=== PATIENT | female | born 1950 | race Caucasian/White ===

== ENCOUNTER 2017-02-18 15:38 | Emergency (ER) | payer MEDICARE ==
[2017-02-18 16:28] LABS: Hematocrit 35 % (35-47); Mean Corpuscular HGB Conc 34 g/dl (31-36); Mean Corpuscular Hemoglobin 36 pg (27-31); Mean Platelet Volume 8 um3 (7.4-10.4); Red Blood Count 3.32 10^6/ul (4.0-5.4); Red Cell Distribution Width 14 % (10.5-15); White Blood Count 5.7 10^3/ul (3.5-10.8)
[2017-02-18 16:32] LABS: Comments Flag Yes; Mean Corpuscular Volume 106 fL (80-97)
[2017-02-18 16:42] LABS: Albumin 3.8 g/dL (3.2-5.2); BUN/Creatinine Ratio 11.1 (8-20); EGFR African American 146.2 (>60); EGFR Non-African American 113.7 (>60); Globulin 3.9 g/dL (2-4); Potassium 3.6 mmol/L (3.5-5.0); Total Bilirubin 0.6 mg/dL (0.2-1.0); Total Protein 7.7 g/dL (6.4-8.9)
--- NOTE | 2017-02-18 16:49 | PN ---
Progress Note - Progress Note Date of Service: 02/18/17 SOAP: Subjective: Patient with 5/10 RUQ pain with radiation to right shoulder and right ear. No nausea. No SOB. Objective: [] Selected Entries 02/18/17 02/18/17 15:50 16:31 Temperature 97.8 F Temperature Temporal Artery Source Scan Pulse Rate 90 Respiratory 18 Rate Blood Pressure 181/90 152/92 (mmHg) Blood Pressure 107 Mean O2 Sat by Pulse 96 Oximetry Patient on Room Yes Air Laboratory Tests 02/18/17 15:16 WBC 5.7 RBC 3.32 L Hgb 12.0 Hct 35 AAO x 3, Mild distress Pain to palpation over the abdomen Tachy with RR, CTAB Biopsy site dressing is CDI Patient Name: MADHU ORONA Medical Record#: [id number] Ordering Physician: Collins Porter MD Acct.#: [id number] : 1950 Age: 66 Sex: F Location: [facility] Exam Date: 02/18/17 ADM Status: REG REF Order Information: US LIVER NEEDLE BIOPSY Accession Number: [id number] CPT: 68335 INDICATION: Abnormal liver function tests. COMPARISON: CT abdomen pelvis November 14, 2016 ANESTHESIA: Intravenous fentanyl and lidocaine injected locally. The benefits and risks of procedure explained to the patient and the patient signed informed consent. Multiple images of the right lobe of liver were obtained with sonographic imaging. A percutaneous tract was determined leading into the peripheral aspect of the right lobe of the liver. Color flow imaging did not show any pulsating arteries in the intended biopsy tract or within the intended liver parenchyma biopsy site. Prebiopsy ultrasound images were saved. A time out was performed before beginning the procedure. The patient was prepped and draped in the usual sterile fashion. The overlying skin, subcutaneous tissue and liver capsule were anesthetized with 1% lidocaine under sonographic guidance. Percutaneously and under sonographic control a single core biopsy was obtained with a 16. Gauge Bard Monopty device. Imaging was saved. The specimen was grossly visualized and confirmed, placed in formalin and delivered to the pathology laboratory. The immediate post procedure ultrasound demonstrates no evidence of a large hematoma or perinephric fluid. The biopsy site was dressed with sterile gauze and direct manual pressure was held for 5 minutes. About 45 minutes post biopsy the patient complained of right upper quadrant pain with radiation to the shoulder. Subsequent bedside ultrasound shows a perihepatic fluid collection. There is fluid between the kidney and liver. IMPRESSION: 1. Ultrasound-guided nonfocal core biopsy of the right lobe of the liver as described above. 2. 45 minute post biopsy sonographic imaging shows perihepatic fluid indicating a bleeding complication. The patient was transported to the emergency department for vital monitoring and IV fluids. <Electronically signed by Mckay Casas MD in OV> 02/18/17 160 Dictated By: Mckay Casas MD Dictated Date/Time: 02/18/17 160 Transcribed Date/Time: 02/18/17 1603 Copy to: 1 of 2 Assessment: 66 YOF with peritoneal bleeding status post right lobe liver biopsy with 16 gauge needle. Plan: CTA abdomen 4 phase now. If (+) for active arterial hemorrhage then recommend transfer to facility with emergency IR for potential coil embolization. If (-) for active arterial bleeding then pain control and ICU monitoring overnight. Plan was discussed with Dr. Faith.
[2017-02-18] MEDS ORDERED: Iohexol 300* (CONTRAST) 10 ML SDV IV ONE (17:27)
[2017-02-18] MEDS ORDERED: Morphine INJ* 2 MG/ML 1 ML CARPUJECT IV ONE (17:37)
--- NOTE | 2017-02-18 18:04 | RAD ---
CLINICAL HISTORY: Perihepatic bleed following percutaneous liver biopsy COMPARISON: Same day ultrasound of the liver . TECHNIQUE: Multiple contiguous axial CT scans were obtained of the abdomen after the administration of intravenous contrast according to the four-phase liver protocol. Coronal and sagittal multiplanar reformations are submitted for review. FINDINGS: VISUALIZED LUNG BASES: There is no large pleural effusion. There is hypoventilatory change at the right lung base not seen on the most recent CT examination. ABDOMEN: On the noncontrast image there is partially hyperdense heterogeneous fluid surrounding the liver and spleen. There is fluid tracking along the right paracolic gutter as well as fluid in the left paracolic gutter. On the arterial phase imaging there is extravasation adjacent to the lateral margin of the right lobe of the liver. The bleed appears to be originating from either Couinaud segment 6 or 7 of the liver (axial image 16 of 47 on the arterial phase). The bleed appears to be originating immediately posterior to the right hepatic vein and superior to the right portal vein. There is progressive accumulation of hyperdense contrast in the posterior hepatic bleed on the portal venous phase and 5 minute delayed phase imaging. There is hyperdense fluid surrounding the otherwise grossly normal spleen. The pancreas and adrenal glands are grossly normal in appearance. The gallbladder is normal. The kidneys are normal in appearance without focal mass, calcification or signs of hydronephrosis. Evaluation of the gastrointestinal tract is limited without oral contrast. The visualized segments of small and large bowel are not distended. Surgical material is noted at the transverse colon. There is no gross retroperitoneal or mesenteric lymphadenopathy in the visualized portions of the abdomen. There is atherosclerotic calcification at the infrarenal abdominal aorta extending into the left greater than right iliac arteries. There are no sinister bone lesions in the visualized bones. IMPRESSION: 1. Four-phase CTA of the liver is consistent with intraperitoneal bleed from a right hepatic branch artery, likely segment 6 or 7 from the right hepatic artery. 2. Additional chronic and degenerative changes noted in the body report unrelated to the patient's hepatic bleed. Findings and recommendation for transfer to [facility] for potential arterial embolization were discussed with Dr. Arambula over the telephone at 1800 hours on February 18, 2017.
[2017-02-18 18:08] LABS: Hematocrit 32 % (35-47)
[2017-02-18 18:09] LABS: Comments Flag Yes
--- NOTE | 2017-02-18 18:25 | ED ---
Meme Irvin Thomas, scribed for Mayur Arambula MD on 02/18/17 at 1627 . Complex/Multi-Sys Presentation - HPI Summary HPI Summary: The patient is a 66 y/o F brought over from the outpatient radiology department after a liver biopsy was performed by Dr. Casas today at approximately 14:00 for a small mass. The area of insertion is the anterior RUQ and there is no external bleeding apparent. Per the liver ultrasound report signed by Dr. Casas: About 45 minutes post biopsy the patient complained of right upper quadrant pain with radiation to the shoulder. Subsequent bedside ultrasound shows a perihepatic fluid collection. There is fluid between the kidney and liver. IMPRESSION: 1. Ultrasound-guided nonfocal core biopsy of the right lobe of the liver as described above. 2. 45 minute post biopsy sonographic imaging shows perihepatic fluid indicating a bleeding complication. The patient was transported to the emergency department for vital monitoring and IV fluids. In the ED, the patient c/o RUQ pain rated 1/10. The pain radiates to her neck and up her right ear. The patient was given Lidocaine, fentanyl, and Dilaudid during and/or after the procedure. She says she cannot take a deep breath. Before the examination of the patient, I received a call from Dr. Stephen, radiology, at 15:40. He says that the patient has a perihepatic hematoma and hemiperitoneum. - History Of Current Complaint Chief Complaint: EDAbdPain Time Seen by Provider: 02/18/17 15:44 Hx Obtained From: Patient, Medical Records, Other: - Dr. Stephen Onset/Duration: Sudden Onset, Lasting Hours - liver biopsy was today at 14:00, Still Present Timing: Constant Aggravating Factor(s): None. Alleviating Factor(s): None. Associated Signs And Symptoms: Positive: Other - RUQ abd pain (radiates to neck and right ear), inability to take a deep breath Related History: Other - Liver biopsy today at 14:00 - Allergies/Home Medications Allergies/Adverse Reactions: Allergies Allergy/AdvReac Type Severity Reaction Status Date / Time Ciprofloxacin [From Cipro] Allergy Intermediate Hives Verified 02/18/17 13:13 Infliximab [From Remicade] Allergy Intermediate See Comment Verified 02/18/17 13 :13 Metronidazole [From Flagyl] Allergy Mild Hives Verified 02/18/17 13:13 Pollen Extract Allergy Mild Sneezing Verified 02/18/17 13:13 Home Medications: Home Medications ALPRAZolam TAB* [Xanax TAB*] 0.5 mg PO DAILY PRN 02/18/17 [History Confirmed ] Acetaminophen [Acetaminophen Extra Stren] 500 mg PO BID PRN 02/18/17 [History Confirmed 02/18/17] Adalimumab (NF) [Humira Pen (NF)] 40 mg SUBCUT WEEKLY 02/18/17 [History Confirmed 02/18/17] Albuterol inh POWDER (NF) [Proair Respiclick] 2 puff INH QID PRN 02/18/17 [ History Confirmed 02/18/17] Alendronate (NF) [Fosamax (NF)] 70 mg PO WEEKLY 02/18/17 [History Confirmed ] Artificial Tears* 15 ML BTL [Polyvinyl Alcohol 1.4% OPTH*] 2 drop BOTH EYES DAILY PRN 02/18/17 [History Confirmed 02/18/17] Cholecalciferol [Vitamin D3] 50,000 unit PO MONTHLY 02/18/17 [History Confirmed 02/18/17] Clobetasol Propionate [Temovate] 0.05 % TOPICAL DAILY PRN 02/18/17 [History Confirmed 02/18/17] Cyanocobalamin INJ * [Vitamin B12 INJ *] 1,000 mcg IM MONTHLY 02/18/17 [History Confirmed 02/18/17] Doxepin (NF) [Silenor (NF)] 10 mg PO BEDTIME 02/18/17 [History Confirmed ] Gabapentin TAB(NF) [Neurontin 600 mg TAB(NF)] 1,200 mg PO TID 02/18/17 [History Confirmed 02/18/17] Halobetasol Propionate [Ultravate] 0.05 % TOPICAL BID PRN 02/18/17 [History Confirmed 02/18/17] Multivitamins/Minerals TAB* [Theragran/minerals TAB*] 1 tab PO DAILY 02/18/17 [ History Confirmed 02/18/17] Triamcinolone 0.5% CREAM(NF) [Triamcinolone 0.5% CREAM*] 1 applic TOPICAL BID PRN 02/18/17 [History Confirmed 02/18/17] hydrOXYzine HCL TAB* [Atarax 10 MG TAB*] 10 mg PO BEDTIME PRN 02/18/17 [History Confirmed 02/18/17] PMH/Surg Hx/FS Hx/Imm Hx Previously Healthy: No Endocrine/Hematology History: Denies: Hx Anticoagulant Therapy, Hx Diabetes, Hx Thyroid Disease Cardiovascular History: Denies: Hx Congestive Heart Failure, Hx Hypertension, Hx Pacemaker/ICD Respiratory History: Reports: Hx Seasonal Allergies, Hx Sleep Apnea Denies: Hx Asthma, Hx Chronic Obstructive Pulmonary Disease (COPD) GI History: Reports: Hx Crohn's Disease, Other GI Disorders - infectious colitis Denies: Hx Ulcer History: Reports: Other Problems/Disorders - 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 Denies: Hx Renal Disease Musculoskeletal History: Reports: Hx Fibromyalgia, Hx Orthopedic Injury - Broken right ankle/Broken left foot/Broken left arm/shattered sacrum Comment Only: Other Musculoskeletal History - fibromyalgia Sensory History: Reports: Hx Contacts or Glasses, Hx Eye Injury Opthamlomology History: Reports: Hx Contacts or Glasses, Hx Eye Injury Neurological History: Reports: Hx Seizures - One time with virus, in last 5 years, Other Neuro Impairments/Disorders - fibromyalgia Denies: Hx Dementia Psychiatric History: Reports: Hx Anxiety, Hx Depression Denies: Hx Eating Disorder, Hx Substance Abuse - Cancer History Cancer Type, Location and Year: LEFT BREAST CA dx 2003 Hx Chemotherapy: Yes Hx Radiation Therapy: Yes - Surgical History Surgery Procedure, Year, and Place: 2003 - Breast CA lumpectomy surgery with lymph node dissection, ([facility]), COLECTOMY 2013 (FROM DIVERTICULITIS), BLADDER REPAIR SURGERY Hx Anesthesia Reactions: No - Immunization History Date of Tetanus Vaccine: unknown Infectious Disease History: No Infectious Disease History: Denies: Hx Clostridium Difficile, Hx Hepatitis, Hx Human Immunodeficiency Virus (HIV), Hx Shingles, Hx Tuberculosis, Traveled Outside the [place] in Last 30 Days - Family History Known Family History: Positive: Other - CVA, CA - Social History Alcohol Use: Daily Alcohol Amount: glass of wine daily Hx Substance Use: No Substance Use Type: Reports: None Substance Use Comment - Amount & Last Used: daily Hx Tobacco Use: Yes Smoking Status (MU): Heavy Every Day Tobacco Smoker Type: Cigarettes Amount Used/How Often: 1/2 ppd Have You Smoked in the Last Year: Yes Review of Systems Negative: Fever Positive: Other - Inability to take a deep breath Positive: Abdominal Pain - RUQ abd pain (radiates to neck and R ear) All Other Systems Reviewed And Are Negative: Yes Physical Exam - Summary Physical Exam Summary: VITAL SIGNS: Reviewed. GENERAL: Patient is a well-developed and nourished female who is lying comfortable in the stretcher. Patient is not in any acute respiratory distress. HEAD AND FACE: No signs of trauma. No ecchymosis, hematomas or skull depressions. No sinus tenderness. EYES: PERRLA, EOMI x 2, No injected conjunctiva, no nystagmus. EARS: Hearing grossly intact. Ear canals and tympanic membranes are within normal limits. MOUTH: Oropharynx within normal limits. NECK: Supple, trachea is midline, no adenopathy, no JVD, no carotid bruit, no c- spine tenderness, neck with full ROM. CHEST: Symmetric, no tenderness at palpation LUNGS: Clear to auscultation bilaterally. No wheezing or crackles. CVS: Regular rate and rhythm, S1 and S2 present, no murmurs or gallops appreciated. ABDOMEN: There is tenderness in the RUQ, LUQ, epigastrium, and R shoulder. Soft. No signs of distention. No rebound no guarding, and no masses palpated. Bowel sounds are normal. EXTREMITIES: FROM in all major joints, no edema, no cyanosis or clubbing. NEURO: Alert and oriented x 3. No acute neurological deficits. Speech is normal and follows commands. SKIN: Dry and warm Triage Information Reviewed: Yes Vital Signs On Initial Exam: Initial Vitals Temp Pulse Resp BP Pulse Ox 97.8 F 90 18 181/90 96 02/18/17 15:50 02/18/17 15:50 02/18/17 15:50 02/18/17 15:50 02/18/17 15:50 Vital Signs Reviewed: Yes Diagnostics - Vital Signs Vital Signs Temp Pulse Resp BP Pulse Ox 02/18/17 15:50 97.8 F 90 18 181/90 96 - Laboratory Lab Results: Lab Results 02/18/17 02/18/17 02/18/17 Range/Units 15:16 15:16 15:16 WBC 5.7 (3.5-10.8) 10^3/ul RBC 3.32 L (4.0-5.4) 10^6/ul Hgb 12.0 (12.0-16.0) g/dl Hct 35 (35-47) % MCV 106 H (80-97) fL MCH 36 H (27-31) pg MCHC 34 (31-36) g/dl RDW 14 (10.5-15) % Plt Count 269 (150-450) 10^3/ul MPV 8 (7.4-10.4) um3 Neut % (Auto) 66.4 (38-83) % Lymph % (Auto) 17.7 L (25-47) % Harvey % (Auto) 12.0 H (1-9) % Eos % (Auto) 3.4 (0-6) % Baso % (Auto) 0.5 (0-2) % Absolute Neuts (auto) 3.8 (1.5-7.7) 10^3/ul Absolute Lymphs (auto) 1.0 (1.0-4.8) 10^3/ul Absolute Monos (auto) 0.7 (0-0.8) 10^3/ul Absolute Eos (auto) 0.2 (0-0.6) 10^3/ul Absolute Basos (auto) 0 (0-0.2) 10^3/ul Absolute Nucleated RBC 0 10^3/ul Nucleated RBC % 0.1 INR (Anticoag Therapy) (0.89-1.11) APTT (26.0-36.3) seconds Sodium 137 (133-145) mmol/L Potassium 3.6 (3.5-5.0) mmol/L Chloride 102 (101-111) mmol/L Carbon Dioxide 27 (22-32) mmol/L Anion Gap 8 (2-11) mmol/L BUN 6 (6-24) mg/dL Creatinine 0.54 (0.51-0.95) mg/dL Est GFR ( Amer) 146.2 (>60) Est GFR (Non-Af Amer) 113.7 (>60) BUN/Creatinine Ratio 11.1 (8-20) Glucose 92 (70-100) mg/dL Calcium 9.0 (8.6-10.3) mg/dL Total Bilirubin 0.60 (0.2-1.0) mg/dL AST 78 H (13-39) U/L ALT 27 (7-52) U/L Alkaline Phosphatase 44 (34-104) U/L Total Protein 7.7 (6.4-8.9) g/dL Albumin 3.8 (3.2-5.2) g/dL Globulin 3.9 (2-4) g/dL Albumin/Globulin Ratio 1.0 (1-3) Blood Type B Positive Antibody Screen Negative 02/18/17 02/18/17 Range/Units 15:55 18:00 WBC (3.5-10.8) 10^3/ul RBC (4.0-5.4) 10^6/ul Hgb 11.0 L (12.0-16.0) g/dl Hct 32 L (35-47) % MCV (80-97) fL MCH (27-31) pg MCHC (31-36) g/dl RDW (10.5-15) % Plt Count (150-450) 10^3/ul MPV (7.4-10.4) um3 Neut % (Auto) (38-83) % Lymph % (Auto) (25-47) % Harvey % (Auto) (1-9) % Eos % (Auto) (0-6) % Baso % (Auto) (0-2) % Absolute Neuts (auto) (1.5-7.7) 10^3/ul Absolute Lymphs (auto) (1.0-4.8) 10^3/ul Absolute Monos (auto) (0-0.8) 10^3/ul Absolute Eos (auto) (0-0.6) 10^3/ul Absolute Basos (auto) (0-0.2) 10^3/ul Absolute Nucleated RBC 10^3/ul Nucleated RBC % INR (Anticoag Therapy) 1.01 (0.89-1.11) APTT 27.5 (26.0-36.3) seconds Sodium (133-145) mmol/L Potassium (3.5-5.0) mmol/L Chloride (101-111) mmol/L Carbon Dioxide (22-32) mmol/L Anion Gap (2-11) mmol/L BUN (6-24) mg/dL Creatinine (0.51-0.95) mg/dL Est GFR ( Amer) (>60) Est GFR (Non-Af Amer) (>60) BUN/Creatinine Ratio (8-20) Glucose (70-100) mg/dL Calcium (8.6-10.3) mg/dL Total Bilirubin (0.2-1.0) mg/dL AST (13-39) U/L ALT (7-52) U/L Alkaline Phosphatase (34-104) U/L Total Protein (6.4-8.9) g/dL Albumin (3.2-5.2) g/dL Globulin (2-4) g/dL Albumin/Globulin Ratio (1-3) Blood Type Antibody Screen Result Diagrams: 02/18/17 18:00 02/18/17 15:16 Lab Statement: Any lab studies that have been ordered have been reviewed, and results considered in the medical decision making process. - Radiology CXR Xray Interpretation: No Acute Changes - No evidence for pneumothorax or other acute cardiopulmonary process post ultrasound-guided liver biopsy. ED physician has reviewed this report and agrees. Radiology Interpretation Completed By: Radiologist - CT CT Abd/Pel CT Interpretation: Positive (See Comments) - 1. Four-phase CTA of the liver is consistent with intraperitoneal bleed from a right hepatic branch artery, likely segment 6 or 7 from the right hepatic artery. 2. Additional chronic and degenerative changes noted in the body report unrelated to the patient's hepatic bleed. ED physician has reviewed this report and agrees. CT Interpretation Completed By: Radiologist Re-Evaluation - Re-Evaluation First Eval Re-Evaluation Time: 16:42 Change: Improved Comment: The patient's condition is improved. She has decreased pain, now at 3/ 10. Complex Multi-Symp Course/Dx Assessment/Plan: The patient is a 66 y/o F brought over from the outpatient radiology department after a liver biopsy was performed by Dr. Casas today at approximately 14:00 for a small mass. The area of insertion is the anterior RUQ and there is no external bleeding apparent. Per the liver ultrasound report signed by Dr. Casas: About 45 minutes post biopsy the patient complained of right upper quadrant pain with radiation to the shoulder. Subsequent bedside ultrasound shows a perihepatic fluid collection. There is fluid between the kidney and liver. IMPRESSION: 1. Ultrasound-guided nonfocal core biopsy of the right lobe of the liver as described above. 2. 45 minute post biopsy sonographic imaging shows perihepatic fluid indicating a bleeding complication. The patient was transported to the emergency department for vital monitoring and IV fluids.. In the ED, the patient c/o RUQ pain rated 1/10. The pain radiates to her neck and up her right ear. The patient was given Lidocaine, fentanyl, and Dilaudid during and/or after the procedure. She says she cannot take a deep breath. Before the examination of the patient, I received a call from Dr. Stephen, radiology, at 15:40. He says that the patient has a perihepatic hematoma and hemiperitoneum. Test results are without significant abnormality except MCV 106 and AST of 78. The ultrasound was called with a verbal report from Dr. Stephen and he says there is perihepatic bleeding, hematoma, and heriperitoneum. The patient was sent to the ED for further evaluation. The patients blood pressure is stable. The patient has pain; therefore, she was given Dilaudid and morphine for the pain. Dr. Casas came and examined the patient and he requests a CTA. He gave a verbal report and he reports jose antonio the patient has an arterial bleed and needs coiling. He spoke with Dr. Ferraro, arson and bomb investigator at [facility], and he accepts the patient for transfer. However, there was still confusion as to where the patient was going to be transferred. We called the transfer center again, and they report that the patient is being transferred to the ED and accepted by Dr. Estrada. The patient continues to be hemodynamically stable and alert and oriented x3. - Diagnoses Provider Diagnoses: Intrahepatic hemorrhage - Physician Notifications Discussed Care Of Patient With: Chris Philip Time Discussed With Above Provider: 15:44 Instructed by Provider To: Other - I spoke with Dr. Philip, surgery, over the phone at 15:44. He and his PA came to the ED to evaluate the patient and they reported their findings to me at 16:21. He will be available to consult on the patient later on as needed by Dr. Casas. I also spoke with Dr. Casas, radiology, over the phone at 15:49 regarding the procedure performed prior to arrival to the ED. He came to the ED and we spoke at 16:34 in person. He recommends a CTA. I consulted with Dr. Vahid Ferraro, arson and bomb investigator at [facility], at 17:32. He accepts the patient for transfer. I spoke with Dr. Snyder , hospitalist, at 18:08. He recommends that the patient be transferred to the ED. Discharge - Discharge Plan Condition: Fair Disposition: OTHER Discharge Disposition Comment: Transferred to [facility] for higher level of care. Referrals: Donna Cortés MD [Primary Care Provider] - The documentation as recorded by the Meme vidal Thomas accurately reflects the service I personally performed and the decisions made by me, Mayur Arambula MD.
[2017-02-18] MEDS ORDERED: Promethazine INJ(RESTRICTED)* 25 MG/ML 1 ML VIAL IV ONE (19:26)
[2017-02-18] MEDS ORDERED: Ondansetron INJ* 2 MG/ML VIAL IV ONE (19:43)
--- NOTE | 2017-02-18 19:58 | ED ---
Progress - Progress Note Progress Note: !9:00 02/18/17, Assumed care of pt from Dr. Arambula and Dr. Brady, pending transfer to [facility] s/p liver bx that has arterial bleed and pt is being transferred for probable arterial coil. BARBI Lnadry called for nurse to nurse report and was advised that there was no formal acceptance through the transfer center. Transfer center contacted, gaining acceptance. Spoke with Dr. Casas, who states accepting physician in [facility]. Interventionalist doctor is Dr. Ferraro. Dr. Rader spoke MD to MD with me at 1950, accepts pt to a hospitalist bed not ED to ED. Transfer center will call with bed. Pt given zofran 4mg IV. 1999: Pt is alert, denies severe pain, mild diffuse abd pain and pain right shoulder, lying at 45degrees on stretcher, SR 100, BP 127/111 at 1999, 97% sat, bx site is dry, min diffuse tenderness, abd soft. 2009: awaiting room assignment. 2014: bed assignment 631, Sha at transfer center will get Dr. Ferraro to speak with me. Shelton beckford, Nurse calling report. 2015: Pt awake alert, c/o pain 8/10, 163/134 P86. Abd soft, +BS. Pt is NPO since last pm 02/17/17. [address] Ferraro, updated him on pt's status. He will be waiting for pt upon arrival, for coiling. He will be prepared to transfuse. Pt stable for transfer. Re-Evaluation - Re-Evaluation First Eval Re-Evaluation Time: 16:42 Change: Improved Comment: The patient's condition is improved. She has decreased pain, now at 3/ 10. Course/Dx - Diagnoses Provider Diagnoses: Intrahepatic hemorrhage - Provider Notifications Time Discussed With Above Provider: 15:44 Instructed by Provider To: Other - I spoke with Dr. Philip, surgery, over the phone at 15:44. He and his PA came to the ED to evaluate the patient and they reported their findings to me at 16:21. He will be available to consult on the patient later on as needed by Dr. Casas. I also spoke with Dr. Casas, radiology, over the phone at 15:49 regarding the procedure performed prior to arrival to the ED. He came to the ED and we spoke at 16:34 in person. He recommends a CTA. I consulted with Dr. Vahid Ferraro, script developer at [facility], at 17:32. He accepts the patient for transfer. I spoke with Dr. Snyder , hospitalist, at 18:08. He recommends that the patient be transferred to the ED.
[2017-02-18] MEDS ORDERED: PROCHLORPERAZINE INJ 5 MG/ML 2 ML VIAL IV ONE (20:00)
[2017-02-18] MEDS ORDERED: Morphine INJ* 4 MG/ML 1 ML CARPUJECT IV ONE (20:26)
[2017-02-18 21:00] VITALS: BP 134/96
== END 2017-02-18 20:59 | disposition short-term general hospital (02) ==
LOC: ED 15:38
DX: K76.89 Other specified diseases of liver (principal); R10.11 Right upper quadrant pain; F17.210 Nicotine dependence, cigarettes, uncomplicated
CPT/HCPCS: 36415; 74170; 80053; 85014; 85018; 85025; 85610; 85730; 86850; 86900; 86901; 96374; 96375; 99285; J2270; J2405; J2550; Q9967

== ENCOUNTER 2018-03-21 01:12 | Inpatient (IN) | payer MEDICARE ==
--- NOTE | 2018-03-21 01:52 | ED ---
Complex/Multi-Sys Presentation - HPI Summary HPI Summary: This patient is a 67 year old F brought in by EMS presenting to [facility] accompanied by with a chief complaint of hitting her head on a linoleum. Approximately 4 hours ago, the patient went to get up and could not walk. The patient was crawling on her hands and knees to bed when she felt her left knee give out. The patient then hit her head and then continued to bed. The patient can bear weight with some assistance. She denies losing consciousness. She is currently complaining of pain in the knee that gave out and the pain radiates to her foot. She states she has never had a problem with that knee. Patient denies any traumatic injury to that leg. Pt also complains of a hernia. The patient rates her pain 10/10 in severity. - History Of Current Complaint Chief Complaint: EDHeadInjury Hx Obtained From: Patient Onset/Duration: Sudden Onset Severity Currently: Moderate Severity Initially: Moderate Location: Pain At: - Head, right knee - Allergies/Home Medications Allergies/Adverse Reactions: Allergies Allergy/AdvReac Type Severity Reaction Status Date / Time bee pollen Allergy Hives Verified 01/09/18 11:56 ciprofloxacin Allergy Hives Verified 01/09/18 11:56 infliximab [From Remicade] Allergy Hives Verified 01/09/18 11:56 metronidazole [From Flagyl] Allergy Hives Verified 01/09/18 11:56 PMH/Surg Hx/FS Hx/Imm Hx Endocrine/Hematology History: Denies: Hx Anticoagulant Therapy, Hx Diabetes, Hx Thyroid Disease Cardiovascular History: Denies: Hx Congestive Heart Failure, Hx Hypertension, Hx Pacemaker/ICD Respiratory History: Reports: Hx Seasonal Allergies, Hx Sleep Apnea Denies: Hx Asthma, Hx Chronic Obstructive Pulmonary Disease (COPD) GI History: Reports: Hx Crohn's Disease, Hx Diverticulosis, Hx Gall Bladder Disease, Hx Ileostomy, Other GI Disorders - infectious colitis Denies: Hx Ulcer History: Reports: Other Problems/Disorders - 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 Denies: Hx Renal Disease Musculoskeletal History: Reports: Hx Fibromyalgia, Hx Orthopedic Injury - Broken right ankle/Broken left foot/Broken left arm/shattered sacrum Comment Only: Other Musculoskeletal History - fibromyalgia Sensory History: Reports: Hx Contacts or Glasses, Hx Eye Injury Denies: Hx Deafness, Hx Hearing Aid Opthamlomology History: Reports: Hx Contacts or Glasses, Hx Eye Injury Neurological History: Reports: Hx Seizures - One time with virus, in last 5 years, Other Neuro Impairments/Disorders - fibromyalgia Denies: Hx Dementia Psychiatric History: Reports: Hx Anxiety, Hx Depression Denies: Hx Eating Disorder, Hx Substance Abuse - Cancer History Cancer Type, Location and Year: LEFT BREAST CA dx 2003 Hx Chemotherapy: Yes Hx Radiation Therapy: Yes - Surgical History Surgery Procedure, Year, and Place: 2003 - Breast CA lumpectomy surgery with lymph node dissection, ([facility]), COLECTOMY 2013 (FROM DIVERTICULITIS), BLADDER REPAIR SURGERY , maxine 02-18, arterial bleed repair of hepatic artery, ercp 02-18 Hx Anesthesia Reactions: No - Immunization History Date of Tetanus Vaccine: unknown Infectious Disease History: No Infectious Disease History: Denies: Hx Clostridium Difficile, Hx Hepatitis, Hx Human Immunodeficiency Virus (HIV), Hx Shingles, Hx Tuberculosis, Traveled Outside the [place] in Last 30 Days - Family History Known Family History: Positive: Other - CVA, CA - Social History Alcohol Use: Daily Alcohol Amount: glass of wine daily Hx Substance Use: No Substance Use Type: Reports: None Substance Use Comment - Amount & Last Used: daily Hx Tobacco Use: Yes Smoking Status (MU): Heavy Every Day Tobacco Smoker Type: Cigarettes Amount Used/How Often: 1/2 ppd Have You Smoked in the Last Year: Yes Review of Systems Negative: Fever Positive: Other - Pain in back, left knee All Other Systems Reviewed And Are Negative: Yes Physical Exam - Summary Physical Exam Summary: Appearance: Well-appearing, Well-nourished, lying in bed comfortable Skin: Warm, dry, no obvious rash.2 cm Laceration above right eyebrow.. Eyes: sclera anicteric, no conjunctival pallor ENT: mucous membranes moist Neck: deferred Respiratory: No signs of respiratory distress Cardiovascular: Appears well perfused, pulses are nml Abdomen: deferred Musculoskeletal: Moving all 4 extremities without obvious discomfort. Left knee is tender to flex, somewhat warm but no edema. Neurological: Awake and alert, mentation is normal, speech is fluent and appropriate Psychiatric: affect is normal, does not appear anxious or depressed Triage Information Reviewed: Yes Vital Signs On Initial Exam: Initial Vitals Temp Pulse Resp BP Pulse Ox 97.9 F 76 18 122/69 98 03/21/18 01:20 03/21/18 01:20 03/21/18 01:20 03/21/18 01:20 03/21/18 01:20 Vital Signs Reviewed: Yes Procedures - Laceration/Wound Repair 1 Location: face Description: Linear Closure: Skin Adhesive Diagnostics - Vital Signs Vital Signs Temp Pulse Resp BP Pulse Ox 03/21/18 01:20 97.9 F 76 18 122/69 98 - Laboratory Result Diagrams: 03/21/18 04:23 03/21/18 04:23 Lab Statement: Any lab studies that have been ordered have been reviewed, and results considered in the medical decision making process. - Radiology Left Knee XR Radiology Interpretation Completed By: ED Physician - Left Patella fracture. Complex Multi-Symp Course/Dx Course Of Treatment: This patient is a 67 year old F brought in by EMS presenting to [facility] accompanied by with a chief complaint of hitting her head on a linoleum. Examination revealed a 2.0 cm laceration above her eyebrow. The provider repaired this with skin adhesive. Left knee XR was remarkable for a patella fracture. Dr. Spears, hospitalist, was consulted at 0407 and he recommended admission to the hospital. This plan was discussed with the patient and she was agreeable to this plan. - Diagnoses Provider Diagnoses: Alcohol abuse, Laceration, Fracture, patella - Physician Notifications Discussed Care Of Patient With: Willy Spears Time Discussed With Above Provider: 04:07 Instructed by Provider To: Admit As Inpatient Discharge - Sign-Out/Discharge Documenting (check all that apply): Patient Departure - Admit - Discharge Plan Condition: Stable Disposition: ADMITTED TO [facility] - Billing Disposition and Condition Condition: STABLE Disposition: Admitted to [facility] - Attestation Statements Document Initiated by Jimmie: Yes Documenting Scribe: Ozzy Peres Provider For Whom Jimmie is Documenting (Include Credential): Bernardino Tan MD Scribe Attestation: Ozzy Irvin, vincented for Bernardino Tan MD on 03/21/18 at 0610. Scribe Documentation Reviewed: Yes Provider Attestation: The documentation as recorded by the Ozzy vidal accurately reflects the service I personally performed and the decisions made by me, Bernardino Tan MD
[2018-03-21] MEDS ORDERED: oxyCODONE TAB* 5 MG TAB PO ONE (02:46)
[2018-03-21] MEDS ORDERED: Artificial Tears* 15 ML BTL BOTH EYES PRN (05:05)
[2018-03-21] MEDS ORDERED: ACETAMINOPHEN 500 MG PO PRN (05:05)
[2018-03-21] MEDS ORDERED: Albuterol HFA INHALER* 8 gm MDI INH PRN (05:05)
[2018-03-21] MEDS ORDERED: hydrOXYzine HCL TAB* 10 MG PO PRN (05:05)
[2018-03-21 05:13] LABS: ABS Basophils 0 10^3/ul (0-0.2); ABS Eosinophils 0 10^3/ul (0-0.6); ABS Lymphocytes 0.7 10^3/ul (1.0-4.8); ABS Monocytes 0.3 10^3/ul (0-0.8); ABS Neutrophils 3.9 10^3/ul (1.5-7.7); ABS Nucleated RBC 0 10^3/ul; Eosinophil % 0 % (0-6); Hematocrit 34 % (35-47); Hemoglobin 11.6 g/dl (12.0-16.0); Lymphocyte % 13.9 % (25-47); Mean Corpuscular HGB Conc 34 g/dl (31-36); Mean Corpuscular Hemoglobin 34 pg (27-31); Mean Corpuscular Volume 100 fL (80-97); Mean Platelet Volume 8.9 fL (7.4-10.4); Nucleated Red Blood Cells % 0; Platelet Count 136 10^3/ul (150-450); Red Blood Count 3.39 10^6/ul (4.00-5.40); Red Cell Distribution Width 13 % (10.5-15); White Blood Count 4.9 10^3/ul (3.5-10.8)
[2018-03-21 05:34] LABS: EGFR Non-African American 46.3 (>60)
[2018-03-21] MEDS ORDERED: Cholecalciferol CAP/TAB(NF) ** ENTER STRENGTH IN LABEL DIRECTIONS PO SCH (06:00)
[2018-03-21] MEDS ORDERED: Alendronate (NF) 70 MG TAB PO SCH (06:00)
[2018-03-21] MEDS ORDERED: Enoxaparin(*) 40 MG/0.4 ML SYR SUBCUT SCH (06:00)
[2018-03-21 06:05] LABS: Urine Appearance Cloudy; Urine Blood 1+ (Negative); Urine Color Yellow; Urine Ketones 1+ (Negative); Urine Protein Negative (Negative); Urine Red Blood Cell Trace(0-2/hpf) (Absent); Urine Specific Gravity 1.013 (1.010-1.030); Urine Urobilinogen Negative (Negative); Urine White Blood Cell Trace(0-5/hpf) (Absent)
[2018-03-21] MEDS: oxyCODONE/Acetamin 5/325 MG* TAB PO PRN ×3 (07:00→18:39)
--- NOTE | 2018-03-21 09:11 | PN ---
Subjective Date of Service: 03/21/18 Interval History: Primary RN reported the patient vomited x 1 during PT, concern for red appearing vomiting possible blood. I assessed this myself - unclear if there is blood in vomit - the emesis is noted to be dark cranberry color. Pt reports this is not uncommon for her and she vomits at least once daily for " a long time" stating it is secondary to feeling dizziness upon changing position. She denies blood vomit at home. No bloody stool or melena. Currently she report left knee pain 11/11. She denies fever/chills. Abdominal pain. Nausea. No diarrhea or constipation. No recent illnesses - was hospitalized in January for metabolic acidosis Pt denies ever having CP or SOB Objective Active Medications: Acetaminophen (Tylenol Tab*) 650 mg PO Q6H PRN PRN Reason: FEVER/HEADACHE Adalimumab (Humira Pen (Nf)) 40 mg SUBCUT WEEKLY RODRIGO Albuterol (Ventolin Hfa Inhaler*) 2 puff INH QID PRN PRN Reason: SHORTNESS OF BREATH Alendronate Sodium (Fosamax (Nf)) 70 mg PO WEEKLY RODRIGO; Protocol Cholecalciferol (Vitamin D3 Cap/Tab (Nf)) cap PO MONTHLY RODRIGO Device (Nicotine Mouth Piece*) 1 each INH .CARTRIDGE RODRIGO Duloxetine HCl (Cymbalta Cap*) 20 mg PO BID RODRIGO Enoxaparin Sodium (Lovenox(*)) 40 mg SUBCUT Q24H RODRIGO Last Admin: 03/21/18 07:00 Dose: 40 mg Folic Acid (Folvite Tab*) 1 mg PO DAILY RODRIGO Gabapentin (Neurontin Tab(Nf)) 1,200 mg PO TID RODRIGO Hydroxyzine HCl (Atarax Tab*) 10 mg PO BEDTIME PRN PRN Reason: ANXIETY Lisinopril (Prinivil Tab*) 20 mg PO DAILY RODRIGO Metoprolol Tartrate (Lopressor Tab*) 25 mg PO BID RODRIGO Multivitamins/Minerals (Theragran/Minerals Tab*) 1 tab PO DAILY RODRIGO Nicotine (Nicotine Inhaler*) 10 mg INH Q2H PRN PRN Reason: CRAVING Oxycodone/Acetaminophen (Percocet 5/325 Tab*) 1 tab PO Q4H PRN PRN Reason: PAIN Last Admin: 03/21/18 07:00 Dose: 1 tab Polyvinyl Alcohol (Polyvinyl Alcohol 1.4% Opth*) 2 drop BOTH EYES DAILY PRN PRN Reason: DRY EYE Triamcinolone Acetonide (Triamcinolone 0.5% Oint *) 1 applic TOPICAL BID PRN PRN Reason: RASH Vital Signs - 8 hr 03/21/18 03/21/18 03/21/18 01:18 01:19 01:20 Temperature 97.9 F Pulse Rate 76 87 76 Respiratory 18 Rate Blood Pressure 122/69 122/69 (mmHg) O2 Sat by Pulse 98 98 98 Oximetry 03/21/18 03/21/18 03/21/18 01:47 02:14 02:17 Temperature Pulse Rate 71 68 68 Respiratory Rate Blood Pressure 101/62 98/58 (mmHg) O2 Sat by Pulse 99 97 97 Oximetry 03/21/18 03/21/18 03/21/18 02:47 03:01 03:17 Temperature Pulse Rate 66 74 69 Respiratory Rate Blood Pressure 107/61 97/57 (mmHg) O2 Sat by Pulse 97 99 97 Oximetry 03/21/18 03/21/18 03/21/18 03:47 03:56 04:00 Temperature Pulse Rate 73 75 83 Respiratory Rate Blood Pressure 90/52 102/63 (mmHg) O2 Sat by Pulse 95 97 99 Oximetry 03/21/18 03/21/18 03/21/18 05:00 05:22 05:23 Temperature Pulse Rate 78 Respiratory Rate Blood Pressure 89/61 111/79 (mmHg) O2 Sat by Pulse 94 Oximetry 03/21/18 03/21/18 03/21/18 06:39 06:44 07:00 Temperature 98.6 F 98.5 F Pulse Rate 78 72 Respiratory 18 16 16 Rate Blood Pressure 119/79 124/64 (mmHg) O2 Sat by Pulse 96 100 Oximetry 03/21/18 03/21/18 07:39 08:02 Temperature 98.5 F Pulse Rate 72 Respiratory 16 16 Rate Blood Pressure 124/64 (mmHg) O2 Sat by Pulse 100 Oximetry Oxygen Devices in Use Now: None Appearance: 68 yo chronically ill female A+Ox3 in NAD Eyes: PERRLA Ears/Nose/Mouth/Throat: Mucous Membranes Moist Neck: Trachea Midline Respiratory: Symmetrical Chest Expansion and Respiratory Effort, Clear to Auscultation Cardiovascular: NL Sounds; No Murmurs; No JVD, RRR, No Edema Abdominal: NL Sounds; No Tenderness; No Distention Extremities: No Edema, - - left knee mild edema - Knee immbolizer in place. + sensation, + DP pulses b/l Neurological: Alert and Oriented x 3, NL Sensation, NL Muscle Strength and Tone Lines/Tubes/Other Access: Clean, Dry and Intact Peripheral IV Nutrition: Taking PO's Result Diagrams: 03/21/18 04:23 03/21/18 09:58 Assess/Plan/Problems-Billing Assessment: 68 yo with PMH of crohns disease s/p sigmoid colon resection with fistula repair, fatty liver, fibromyalgia, chronic alcohol intake, tobacco abuse presented after a fall c/o left knee pain found to have a patellar fracture. - Patient Problems (1) Patellar fracture Comment: - continue immobilzer - pain control - ortho to consult - RCRI score class I risk, placing her at 0.4% risk of cardiac event. Will obtain EKG. Pt denies ever having CP or SOB. (2) Metabolic acidosis Comment: - suspect starvation ketosis - with ketones noted in urine - negative Lactic acidosis - Repeat labs now - if still showing metabolic acidosis - plan to send VBG - Start NS @ 125 ml/hr - Patient is reporting she is hungry and is eating breakfast this am (3) Nausea & vomiting Comment: - Pt vomited x1 this am - possible blood noted, unclear, I assessed this myself - sent for gastric occult. Pt has hx of frequent daily N/V per patient in which she take zofran for and relates this to some mild dizziness she experinces. She denies hx of bloody vomit. She denies hx of upper endoscopy. N&V could be secondary to metabolic acidosis or gastritis. Plan to repeat BMP now. Zofran prn. - would benefit from an upper endoscopy at some point - not urgent at this time. - monitor HH (4) EVAN (acute kidney injury) Comment: appears to be above baseline - likely secondary to dehydration (5) Alcohol abuse Comment: -Alcohol level 178 on admission - No signs of WD; pt denies hx of seizures -Continue WA protocol - Discussed alcohol cessation with patient - Social Work hx (6) Hypertension Comment: - controlled - continue lisinopril and metoprolol (7) DVT prophylaxis Comment: Lovenox SQ Status and Disposition: inpatient. Will require surgery for patellar fx - most likely will require subacute rehab - pt is refusing at this time to go to rehab. Social work consult
[2018-03-21] MEDS ORDERED: NS 0.9% 1000 ML* 1,000 ML IV SCH (09:30)
[2018-03-21] MEDS: Gabapentin CAP(*) 400 MG PO SCH ×3 (09:58→22:08)
[2018-03-21] MEDS: Lisinopril TAB* 10 MG PO SCH (09:59)
[2018-03-21] MEDS: Metoprolol Tartrate TAB* 25 MG PO SCH ×2 (09:59→22:02)
[2018-03-21] MEDS: Folic Acid TAB* 1 MG PO SCH (09:59)
[2018-03-21] MEDS: DULoxetine DR CAP* 20 MG CAP.DR PO SCH ×2 (09:59→22:02)
[2018-03-21] MEDS: Multivitamins/Minerals TAB PO SCH (10:03)
[2018-03-21] MEDS ORDERED: Thiamine IV* 100 MG/ML 2 ML VIAL IM ONE (10:07)
[2018-03-21 10:30] LABS: EGFR Non-African American 46.3 (>60)
[2018-03-21] MEDS ORDERED: Thiamine TAB* 100 MG TAB PO SCH (11:00)
[2018-03-21] MEDS ORDERED: LORazepam TAB(*) 1 MG PO SCH (11:00)
[2018-03-21] MEDS: Ondansetron INJ* 2 MG/ML VIAL IV PRN (11:37)
[2018-03-21] MEDS: Nicotine Inhaler* 10 MG AMP INH PRN (11:38)
[2018-03-21] MEDS: Mouth Piece, Nicotine* 1 EACH CARTRIDGE INH SCH (11:38)
[2018-03-21] MEDS ORDERED: Sodium Bicarbonate (ANTACID)* 650 MG TAB PO SCH (12:00)
--- NOTE | 2018-03-21 13:36 | CONS ---
CONSULTATION REPORT: DATE OF CONSULT: 03/21/18 REQUESTING PROVIDER: Jo Ann Eid NP. INDICATIONS: Hematemesis. HISTORY OF PRESENT ILLNESS: Ms. Mercedes is a 68-year-old female who has a history of fistulizing Croh n's disease, increased liver function test, alcoholism, breast cancer, fibromyalgia and hyperlipidemi a. Patient fell yesterday, broke her patella, was admitted to the hospital. Earlier today, she vomi jose luis was noted to have coffee-grounds, it was tested and it was Hemoccult positive. The patient state s she vomits on a regular basis however she had not seen any blood in many months. She denies any as pirin or nonsteroidal use. No history of peptic ulcer disease in the past. She denies any abdominal pain, she feels well at this point other than her knee. PAST MEDICAL HISTORY: No history of EGD or varices in the past. MEDICATIONS ON ADMISSION: 1. Humira. 2. Gabapentin. 3. Alprazolam. 4. Mercaptopurine. 5. Zofran. 6. Fosamax. 7. Nicotine. 8. Atarax. FAMILY HISTORY: Father with CVA, no inflammatory bowel disease in the family. SOCIAL HISTORY: She continues to smoke, I counseled her against this. She is an alcoholic. REVIEW OF SYSTEMS: Twelve systems were reviewed and other than that mentioned in the HPI were unrema rkable. PHYSICAL EXAM: Vital signs: Temperature is 98.4, blood pressure is 104/50, pulse of 78, respiratory rate of 18. General: Chronically ill-appearing female, in no apparent distress, alert, oriented, p leasant and fluent. HEENT: Mucous membranes are moist without lesions, ulcers or exudate. Neck is s upple. Trachea is midline. Head is normocephalic, atraumatic. Heart: Regular, rate and rhythm. No murmurs, rubs or gallops. Lungs: Clear to auscultation bilaterally. No wheezes, rales, or rhonchi. Abdomen: Positive bowel sounds, soft, nontender, nondistended. No hepatosplenomegaly, masses, caro ound or guarding. Multiple scars. Skin is warm and dry. Knee is immobilized. DIAGNOSTIC STUDIES/LAB DATA: Hemoglobin is 11.6 where 12 appears to be her baseline, platelets of 13 6, BUN is 24 down from 25, creatinine is 1.17, sodium 129. ASSESSMENT AND PLAN: A 68-year-old female admitted for patellar fracture, will need surgery. She knight d witnessed hematemesis, her hemoglobin is slightly low; however, she is chronically anemic, BUN is n ot elevated. PLAN/RECOMMENDATIONS: I have recommended we put her on twice a day IV Protonix, will continue to fol low along closely. Repeat CBC later on today. At this point, she is not in any urgent need for an e ndoscopy; however, we will continue to follow. [id number]/[facility] #: [id number]
[2018-03-21 18:42] LABS: ABS Basophils 0 10^3/ul (0-0.2); ABS Eosinophils 0 10^3/ul (0-0.6); ABS Lymphocytes 1.1 10^3/ul (1.0-4.8); ABS Monocytes 0.4 10^3/ul (0-0.8); ABS Nucleated RBC 0 10^3/ul; Eosinophil % 0 % (0-6); Hematocrit 30 % (35-47); Hemoglobin 10.1 g/dl (12.0-16.0); Lymphocyte % 23.7 % (25-47); Mean Corpuscular HGB Conc 34 g/dl (31-36); Mean Corpuscular Hemoglobin 34 pg (27-31); Mean Corpuscular Volume 100 fL (80-97); Mean Platelet Volume 8.5 fL (7.4-10.4); Nucleated Red Blood Cells % 0; Platelet Count 106 10^3/ul (150-450); Red Blood Count 2.97 10^6/ul (4.00-5.40); Red Cell Distribution Width 13 % (10.5-15); White Blood Count 4.4 10^3/ul (3.5-10.8)
[2018-03-21 18:58] LABS: EGFR Non-African American 45.4 (>60)
--- NOTE | 2018-03-21 20:53 | HP ---
CC: Dr. Cortés HISTORY AND PHYSICAL: DATE OF ADMISSION: 03/21/18 CHIEF COMPLAINT: Left knee pain. HISTORY OF PRESENT ILLNESS: Ms. Mercedes is a 68-year-old woman with history of alcoholism and hyperte nsion who reports a fall at home this evening. She initially reported a fall in her kitchen and she said she only cut her forehead on linoleum. She then reported that her left knee gave way due to pain . She is a poor historian because of alcohol intoxication. She did find herself on the ground with knee pain and had to crawl around, was unable to bear weight on her left leg. The patient came to [facility] ER because of bleeding from her face and the knee pain. The patient was treated in the emergency department for the right forehead laceration with glue. The patient was most recently admitted to this hospital on 01/09/18. At that point, she had abdominal p ain and vomiting and was treated for gastroenteritis and alcohol withdrawal. She also had depression and multiple electrolyte abnormalities due to alcohol issues at that time. She also had admission i n the past due to complications of liver biopsy about a year ago. She had a hepatic artery injury du ring biopsy and had to be transferred to [facility] and had intervention with stenting/co iling procedure. She also had a cholecystectomy at that time. PAST MEDICAL HISTORY: Includes: 1. Psoriasis. 2. Hypertension. 3. Crohn disease. 4. Alcoholic cirrhosis. 5. History of breast cancer. 6. Osteoporosis. PAST SURGICAL HISTORY: Liver biopsy with complications as above as well as cholecystectomy. MEDICATIONS ON ADMISSION: 1. Tylenol 500 p.o. b.i.d. p.r.n. 2. Humira injection 40 mg subcutaneous weekly. 3. ProAir RespiClick 2 puffs inhaled 4 times daily p.r.n. 4. Alendronate 70 mg p.o. weekly. 5. Artificial Tears to both eyes as needed. 6. Vitamin D 50,000 units p.o. weekly. 7. Folic acid 1 mg p.o. daily. 8. Gabapentin 1200 mg p.o. t.i.d. 9. Halobetasol propionate 0.05% cream topically b.i.d. to psoriatic lesions. 10. Hydroxyzine 10 mg p.o. q.p.m. 11. Multivitamin 1 tab p.o. daily. 12. Ondansetron 4 mg p.o. or sublingual t.i.d. p.r.n. 13. Triamcinolone 0.5% cream topically as needed. 14. Duloxetine 20 mg p.o. b.i.d. 15. Lisinopril 20 mg p.o. daily. 16. Metoprolol 25 mg p.o. b.i.d. 17. Nicotine inhaler as needed. ALLERGIES: BEE POLLEN, CIPRO, INFLIXIMAB, METRONIDAZOLE. FAMILY HISTORY: Brother is a heroin addict. Father at age 56 with a stroke. Mother at age 72 of lung cancer. SOCIAL HISTORY: She is retired, she is . She has no children. She does not have a healthca re proxy. She smokes half a pack a day of cigarettes, drinks 2 to 3 Martinis per day. No recreation al drugs. REVIEW OF SYSTEMS: The patient denies any fevers, weight loss, anorexia. The patient denies any rigoberto st pain or palpitations. The patient denies any cough, hemoptysis or shortness of breath. The patie nt denies any nausea, vomiting, diarrhea, constipation or abdominal pain. The patient denies any hem aturia or dysuria. Remainder of a 14-point review of systems negative other than mentioned in the HP I. PHYSICAL EXAMINATION GENERAL: She is alert, in no acute distress. VITAL SIGNS: Temperature is 36.6, pulse 83, respirations 18, blood pressure is 102/63, oxygen satura tion 99%. HEENT: Head is normocephalic, atraumatic. Sclerae anicteric. Pupils are equal, round, reactive to light and accommodation. Oropharynx is moist. No lesions. NECK: No JVD. No carotid bruit. No thyromegaly. LUNGS: Clear to auscultation and percussion bilaterally. HEART: Tachycardic, regular. There is 1/6 biphasic systolic murmur heard best at the left upper blayne rnal border. ABDOMEN: Soft, nontender. Positive bowel sounds. No hepatosplenomegaly. EXTREMITIES: No peripheral edema. The left knee is immobilized. Full range of motion elsewhere. SKIN: 2 cm laceration above the right elbow is no longer bleeding and is glued. NEUROLOGIC: Cranial nerves II through XII are intact. Motor strength is 5/5, upper extremities. Sh e is alert and oriented x3. LABORATORY DATA: Sodium 127, potassium 4.9, chloride 89, bicarb 14, BUN 25, creatinine 1.17, glucos e 64. Calcium is 9.4, white count 4.9, hemoglobin 11.6, hematocrit 34%, platelets 136, albumin 4.2, AST 66, ALT 21, bilirubin 0.5, alcohol level is 178. Left knee x-ray shows a patellar fracture. ASSESSMENT AND PLAN: A 68-year-old woman with fall and trauma causing patellar fracture, facial lace ration. The patient is not in a safe situation to go home and furthermore, she cannot walk unassiste d at this time. The patient will require admission to the hospital for stabilization of her social s ituation and assessment of physical therapy for ambulation with devices such as walker etc. The maura ent can also receive pain control and rehabilitation and may require [facility] facility stay. The fractures of the patella are rarely repaired surgically; but if pain is intractable, we talk to O rthopedic Surgery also about repair. For her alcohol abuse at this point, she is intoxicated but she is at relatively high risk of withdra wal and seizures in the next 24 to 72 hours. The patient will be observed for signs of withdrawal an d can be started on WAM protocol at that point. It is a little too early to start her on the WAM pro tocol given that she is clearly intoxicated. For hypertension, we will continue on her current medications and monitor blood pressure as needed fo r changes on that regimen. For her hyponatremia and metabolic acidosis, the patient likely has alcoholic ketoacidosis and pseudo hyponatremia. The electrolytes can be checked again when she is no longer intoxicated and is eating. For DVT prophylaxis, she will be on Lovenox and sequential compression devices because she is at high risk given her age and location of her fracture. [id number]/[facility] #: [id number]
--- NOTE | 2018-03-21 21:27 | CONS ---
CONSULTATION REPORT: DATE OF CONSULT: 03/21/18. CHIEF COMPLAINT: Left patella fracture. HISTORY OF PRESENT ILLNESS: Rosie is 68 years old. She was seen in the sustainable systems analyst hours today in the emergency room after falling and striking her head and injuring the knee. She does have a history of significant alcohol intake. Pain currently is in the left knee. She denies pain in other parts and the other extremities or in the pelvis, back, or neck. She did hit her head. She denies losing consciousness. She was admitted by the medical service with concern for red appearing emesis. She is being worked up for that. She is also in a metabolic acidosis which I suspect is a starvation ketosis with ketones in the urine. This is all likely related to her history of alcohol abuse. She has been placed in knee immobilizer. She currently reports the discomfort is mild in the brace. PAST MEDICAL HISTORY: Negative for cardiac history. She has had history of some sleep apnea, history of Crohn's disease, diverticulosis, and gallbladder disease. She has had an ileostomy. History of possible fistula and fibromyalgia , history of seizures one time with the virus in the last 5 years, anxiety and depression, also history of breast cancer on the left diagnosed in 2003 which required lumpectomy, lymph node dissection. PAST SURGICAL HISTORY: Breast cancer, lumpectomy with lymph node dissection on the left, colectomy 2013, bladder repair surgery 2013, cholecystectomy 2016, arterial bleed repair of artery, and ERCP in 2016. MEDICATIONS: 1. Lovenox. 2. Folic acid. 3. Lisinopril. 4. Ativan as needed for alcohol withdrawal. 5. Metoprolol. 6. Percocet. 7. B vitamins. 8. Neurontin. 9. Cymbalta. ALLERGIES: CIPROFLOXACIN, INFLIXIMAB, METRONIDAZOLE. FAMILY HISTORY: Positive for CVA and cancer. SOCIAL HISTORY: She consumes alcohol daily. She is a smoker. REVIEW OF SYSTEMS: A full review of systems was conduced and is positive for the pain around the area where she struck her head as well as the left knee pain. Notes no major orthopedic complaints. She denies any chest pain or shortness of breath. PHYSICAL EXAM: General: Awake and alert, responsive and appropriate this morning. Skin: There is a little bit bruising over the anterior knee. There are no rashes on the knee. She does have psoriasis and some psoriatic type rash on the soles on of the feet. Musculoskeletal: The bilateral upper extremities and his right lower extremity have an unremarkable examination. The left knee shows tenderness over the left patella. There is no tenderness over the ankle, foot or with the log roll of the hip. No other significant abnormalities are noted. She is neurovascularly intact distally. DIAGNOSTIC STUDIES: X-rays of the left knee show a displaced patella fracture, it is multifragmentory. IMPRESSION: Left displaced multifragmentory patellar fracture. PLAN: We have reviewed our treatment options, risks, and benefits. She understands these and with given the amount of displacement at the joint line as well as the concern for the extensor mechanism, recommend ORIF of the left patellar fracture. Certainly, she is at a slightly higher risk for wound problems and infection given her history of alcohol use. She understands this. She would like to proceed with surgery. The plan will be for left patellar fracture open reduction internal fixation. She also understands the risk of hardware failure and malunion and nonunion despite surgery. [id number]/[facility] #: [id number] PRIYANK
[2018-03-21] MEDS: Pantoprazole IV* 40 MG IV SCH (22:02)
[2018-03-22] MEDS: oxyCODONE/Acetamin 5/325 MG* TAB PO PRN ×4 (02:21→21:29)
[2018-03-22 06:12] LABS: Hematocrit 26 % (35-47); Hemoglobin 9.1 g/dl (12.0-16.0); Mean Corpuscular HGB Conc 35 g/dl (31-36); Mean Corpuscular Hemoglobin 35 pg (27-31); Mean Corpuscular Volume 100 fL (80-97); Mean Platelet Volume 8.7 fL (7.4-10.4); Platelet Count 95 10^3/ul (150-450); Red Blood Count 2.62 10^6/ul (4.00-5.40); Red Cell Distribution Width 13 % (10.5-15)
[2018-03-22 06:27] LABS: EGFR Non-African American 72.8 (>60)
[2018-03-22 06:38] LABS: ABS Basophils 0 10^3/ul (0-0.2); ABS Eosinophils 0 10^3/ul (0-0.6); ABS Lymphocytes 0.8 10^3/ul (1.0-4.8); ABS Monocytes 0.6 10^3/ul (0-0.8); ABS Neutrophils 1.5 10^3/ul (1.5-7.7); ABS Nucleated RBC 0 10^3/ul; Eosinophil % 1.2 % (0-6); Lymphocyte % 27.5 % (25-47); Nucleated Red Blood Cells % 0.2
--- NOTE | 2018-03-22 08:27 | PN ---
Progress Note - Progress Note Date of Service: 03/22/18 SOAP: Subjective: resting comfortably in bed; denies calf pain/SOB Objective: Vital Signs Temp Pulse Resp BP Pulse Ox 98.6 F 71 16 141/72 97 03/22/18 08:11 03/22/18 08:11 03/22/18 08:11 03/22/18 08:11 03/22/18 08:11 Laboratory Last Values WBC 3.0 10^3/ul (3.5-10.8) L 03/22/18 05:55 RBC 2.62 10^6/ul (4.00-5.40) L 03/22/18 05:55 Hgb 9.1 g/dl (12.0-16.0) L 03/22/18 05:55 Hct 26 % (35-47) L 03/22/18 05:55 MCV 100 fL (80-97) H 03/22/18 05:55 MCH 35 pg (27-31) H 03/22/18 05:55 MCHC 35 g/dl (31-36) 03/22/18 05:55 RDW 13 % (10.5-15) 03/22/18 05:55 Plt Count 95 10^3/ul (150-450) L 03/22/18 05:55 MPV 8.7 fL (7.4-10.4) 03/22/18 05:55 Neut % (Auto) 50.3 % (38-83) 03/22/18 05:55 Lymph % (Auto) 27.5 % (25-47) 03/22/18 05:55 [place] % (Auto) 20.2 % (0-7) H 03/22/18 05:55 Eos % (Auto) 1.2 % (0-6) 03/22/18 05:55 Baso % (Auto) 0.8 % (0-2) 03/22/18 05:55 Absolute Neuts (auto) 1.5 10^3/ul (1.5-7.7) 03/22/18 05:55 Absolute Lymphs (auto) 0.8 10^3/ul (1.0-4.8) L 03/22/18 05:55 Absolute Monos (auto) 0.6 10^3/ul (0-0.8) 03/22/18 05:55 Absolute Eos (auto) 0 10^3/ul (0-0.6) 03/22/18 05:55 Absolute Basos (auto) 0 10^3/ul (0-0.2) 03/22/18 05:55 Absolute Nucleated RBC 0 10^3/ul 03/22/18 05:55 Nucleated RBC % 0.2 03/22/18 05:55 VBG pH 7.27 (7.33-7.43) L 03/21/18 11:26 VBG pCO2 25 mmHg (41-51) L 03/21/18 11:26 VBG pO2 55 mmHg (35-45) H 03/21/18 11:26 VBG HCO3 13.9 mmol/L (24-28) L 03/21/18 11:26 VBG O2 Saturation 88.9 % (70-80) H 03/21/18 11:26 VBG Base Excess -13.8 (0-4) L 03/21/18 11:26 Sodium 131 mmol/L (135-145) L 03/22/18 05:55 Potassium 4.1 mmol/L (3.5-5.0) 03/22/18 05:55 Chloride 95 mmol/L (101-111) L 03/22/18 05:55 Carbon Dioxide 24 mmol/L (22-32) 03/22/18 05:55 Anion Gap 12 mmol/L (2-11) H 03/22/18 05:55 BUN 12 mg/dL (6-24) 03/22/18 05:55 Creatinine 0.79 mg/dL (0.51-0.95) 03/22/18 05:55 Est GFR ( Amer) 88.1 (>60) 03/22/18 05:55 Est GFR (Non-Af Amer) 72.8 (>60) 03/22/18 05:55 BUN/Creatinine Ratio 15.2 (8-20) 03/22/18 05:55 Glucose 90 mg/dL (70-100) 03/22/18 05:55 Lactic Acid 1.2 mmol/L (0.5-2.0) 03/21/18 06:28 Calcium 8.4 mg/dL (8.6-10.3) L 03/22/18 05:55 Total Bilirubin 0.50 mg/dL (0.2-1.0) 03/21/18 04:23 AST 66 U/L (13-39) H 03/21/18 04:23 ALT 21 U/L (7-52) 03/21/18 04:23 Alkaline Phosphatase 64 U/L (34-104) 03/21/18 04:23 Total Protein 7.9 g/dL (6.4-8.9) 03/21/18 04:23 Albumin 4.2 g/dL (3.2-5.2) 03/21/18 04:23 Globulin 3.7 g/dL (2-4) 03/21/18 04:23 Albumin/Globulin Ratio 1.1 (1-3) 03/21/18 04:23 Urine Color Yellow 03/21/18 05:45 Urine Appearance Cloudy 03/21/18 05:45 Urine pH 5.0 (5-9) 03/21/18 05:45 Ur Specific [place] 1.013 (1.010-1.030) 03/21/18 05:45 Urine Protein Negative (Negative) 03/21/18 05:45 Urine Ketones 1+ (Negative) A 03/21/18 05:45 Urine Blood 1+ (Negative) A 03/21/18 05:45 Urine Nitrate Negative (Negative) 03/21/18 05:45 Urine Bilirubin Negative (Negative) 03/21/18 05:45 Urine Urobilinogen Negative (Negative) 03/21/18 05:45 Ur Leukocyte Esterase Negative (Negative) 03/21/18 05:45 Urine WBC (Auto) Trace(0-5/hpf) (Absent) 03/21/18 05:45 Urine RBC (Auto) Trace(0-2/hpf) (Absent) 03/21/18 05:45 Ur Squamous Epith Cells Present (Absent) A 03/21/18 05:45 Urine Bacteria Absent (Absent) 03/21/18 05:45 Hyaline Casts Present (Absent) A 03/21/18 05:45 Urine Glucose 1+(50 mg/dl) (Negative) A 03/21/18 05:45 Urine Opiates Screen None detected (None Detect) 03/21/18 05:45 Ur Barbiturates Screen None detected (None Detect) 03/21/18 05:45 Ur Phencyclidine Scrn None detected (None Detect) 03/21/18 05:45 Ur Amphetamines Screen None detected (None Detect) 03/21/18 05:45 U Benzodiazepines Scrn None detected (None Detect) 03/21/18 05:45 Urine Cocaine Screen None detected (None Detect) 03/21/18 05:45 U Cannabinoids Screen Presumptive positive (None Detect) A 03/21/18 05:45 Serum Alcohol 178 mg/dL (<10) H 03/21/18 04:23 PE: immoblizer on, skin clear with no open wounds; large knee effusion. able to dorsi flex/plantar flex, decreased B/L LE sensation secondary to known neuropathy. 2+ DP pulse Assessment: left patella fracture Plan: 1) NWB LLE with immobilizer at all times 2) plan ORIF left patella once medically cleared 3) continue DVT prophylaxis
[2018-03-22] MEDS ORDERED: Folic Acid TAB* 1 MG PO SCH (09:00)
[2018-03-22] MEDS ORDERED: Multivitamins/Minerals TAB PO SCH (09:00)
[2018-03-22] MEDS: Pantoprazole IV* 40 MG IV SCH ×2 (09:32→20:26)
[2018-03-22] MEDS: Folic Acid TAB* 1 MG PO SCH (09:32)
[2018-03-22] MEDS: Gabapentin CAP(*) 400 MG PO SCH ×3 (09:32→20:34)
[2018-03-22] MEDS: DULoxetine DR CAP* 20 MG CAP.DR PO SCH ×2 (09:32→20:34)
[2018-03-22] MEDS: Multivitamins/Minerals TAB PO SCH (09:32)
[2018-03-22] MEDS: Thiamine TAB* 100 MG TAB PO SCH (09:33)
[2018-03-22] MEDS: Lisinopril TAB* 10 MG PO SCH (09:33)
[2018-03-22] MEDS: Metoprolol Tartrate TAB* 25 MG PO SCH ×2 (09:33→20:33)
--- NOTE | 2018-03-22 12:58 | PN ---
Subjective Date of Service: 03/22/18 Interval History: patient reports she feels better today and has not had any vomiting. Denies abdominal pain. She reports good appetite and tolerating her diet. She reports her knee pain is controlled. Denies sob/CP. No fevers or chills. Objective Active Medications: Acetaminophen (Tylenol Tab*) 650 mg PO Q6H PRN PRN Reason: FEVER/HEADACHE Adalimumab (Humira Pen (Nf)) 40 mg SUBCUT Q14D [facility] Albuterol (Ventolin Hfa Inhaler*) 2 puff INH QID PRN PRN Reason: SHORTNESS OF BREATH Device (Nicotine Mouth Piece*) 1 each INH .CARTRIDGE [facility] Last Admin: 03/21/18 11:38 Dose: 1 each Duloxetine HCl (Cymbalta Cap*) 20 mg PO BID [facility] Last Admin: 03/22/18 09:32 Dose: 20 mg Folic Acid (Folvite Tab*) 1 mg PO DAILY [facility] Last Admin: 03/22/18 09:32 Dose: 1 mg Gabapentin (Neurontin Cap(*)) 1,200 mg PO TID [facility] Last Admin: 03/22/18 09:32 Dose: 1,200 mg Lactated Ringer's (Lactated Ringers 1000 Ml Bag*) 1,000 mls @ 0 mls/hr IV WIDE OPEN [facility] Stop: 03/22/18 15:01 Last Admin: 03/21/18 15:44 Dose: 999 mls/hr Lactated Ringer's (Lactated Ringers 1000 Ml Bag*) 1,000 mls @ 150 mls/hr IV PER RATE [facility] Last Admin: 03/22/18 07:37 Dose: 150 mls/hr Lisinopril (Prinivil Tab*) 20 mg PO DAILY [facility] Last Admin: 03/22/18 09:33 Dose: 20 mg Lorazepam (Ativan Tab(*)) 0 - 6 mg PO .PER [facility] PROTOCOL [facility]; Protocol Metoprolol Tartrate (Lopressor Tab*) 25 mg PO BID [facility] Last Admin: 03/22/18 09:33 Dose: 25 mg Multivitamins/Minerals (Theragran/Minerals Tab*) 1 tab PO DAILY [facility] Last Admin: 03/22/18 09:32 Dose: Not Given Nicotine (Nicotine Inhaler*) 10 mg INH Q2H PRN PRN Reason: CRAVING Last Admin: 03/21/18 11:38 Dose: 10 mg Ondansetron HCl (Zofran Inj*) 4 mg IV Q4H PRN PRN Reason: NAUSEA Last Admin: 03/21/18 11:37 Dose: 4 mg Oxycodone/Acetaminophen (Percocet 5/325 Tab*) 1 tab PO Q4H PRN PRN Reason: PAIN Last Admin: 03/22/18 06:33 Dose: 1 tab Pantoprazole Sodium (Protonix Iv*) 40 mg IV Q12H RODRIGO Last Admin: 03/22/18 09:32 Dose: 40 mg Polyvinyl Alcohol (Polyvinyl Alcohol 1.4% Opth*) 2 drop BOTH EYES DAILY PRN PRN Reason: DRY EYE Thiamine HCl (Vitamin B-1 Tab*) 100 mg PO DAILY [facility] Last Admin: 03/22/18 09:33 Dose: 100 mg Triamcinolone Acetonide (Triamcinolone 0.5% Oint *) 1 applic TOPICAL BID PRN PRN Reason: RASH Vital Signs - 8 hr 03/22/18 03/22/18 03/22/18 05:00 05:01 05:53 Temperature Pulse Rate 66 67 Respiratory 20 18 17 Rate Blood Pressure 131/78 (mmHg) O2 Sat by Pulse 95 96 Oximetry 03/22/18 03/22/18 03/22/18 06:00 06:13 06:33 Temperature Pulse Rate 66 Respiratory 27 18 23 Rate Blood Pressure 143/77 (mmHg) O2 Sat by Pulse 96 Oximetry 03/22/18 03/22/18 03/22/18 06:34 07:41 08:11 Temperature 100 F 98.6 F Pulse Rate 71 Respiratory 18 16 Rate Blood Pressure 141/72 (mmHg) O2 Sat by Pulse 97 Oximetry 03/22/18 09:32 Temperature Pulse Rate Respiratory 16 Rate Blood Pressure (mmHg) O2 Sat by Pulse Oximetry Oxygen Devices in Use Now: None Appearance: chronically ill female sitting up in bed A+Ox3 in NAD, appear comfortable Eyes: No Scleral Icterus, PERRLA Ears/Nose/Mouth/Throat: Mucous Membranes Moist Neck: NL Appearance and Movements; NL JVP Respiratory: Symmetrical Chest Expansion and Respiratory Effort, Clear to Auscultation Cardiovascular: NL Sounds; No Murmurs; No JVD, RRR, No Edema Abdominal: NL Sounds; No Tenderness; No Distention Extremities: - - left knww in immobilzer. + sensation, wiggles toes Neurological: Alert and Oriented x 3, NL Sensation Lines/Tubes/Other Access: Clean, Dry and Intact Peripheral IV Nutrition: Taking PO's Result Diagrams: 03/22/18 05:55 03/22/18 05:55 Microbiology and Other Data: Microbiology 03/21/18 05:45 Urine Culture - Final Urine 03/21/18 09:12 Gastric Occult Blood - Final Gastric Fluid Assess/Plan/Problems-Billing Assessment: 68 yo with PMH of crohns disease s/p sigmoid colon resection with fistula repair, fatty liver, fibromyalgia, chronic alcohol intake, tobacco abuse presented after a fall c/o left knee pain found to have a patellar fracture and metabolic acidosis most likely from starvation ketosis - Patient Problems (1) Patellar fracture Comment: - left - continue immobilzer. non-weight bearing - pain control - appreciate ortho consult - plan for surgery possibly tomorrow - RCRI score class I risk, placing her at 0.4% risk of cardiac event. EKG showing sinus rhythm no acute st changes. Pt denies ever having CP or SOB. meatbolic acidosis resolving with IVFs. will repeat labs this afternoon - most likely the patient can proceed with surgery tomorrow. Will write f/u noted afetr labs have resulted (2) Metabolic acidosis Comment: - suspect starvation ketosis - with ketones noted in urine. resolving with IVFs. - negative Lactic acidosis - Repeat labs this afternoon - Continue LR @ 125 ml/hr (3) Nausea & vomiting Comment: - Resolved. Possibly secondary to metabolic acidosis?pt also reports she vomits almost daily at her baseline. + gastric occult yesterday. No further bloody emesis. HH stable - appreciate GI consult - recommend protonix Q12 hrs and monitor. - continue Zofran prn. - would benefit from an upper endoscopy at some point - not urgent at this time. (4) EVAN (acute kidney injury) Comment: secondary to dehydration - resolved with IVFs (5) Alcohol abuse Comment: -Alcohol level 178 on admission - No signs of WD; pt denies hx of seizures -Continue WAM protocol - Discussed alcohol cessation with patient - Social Work hx (6) Hypertension Comment: - controlled - continue lisinopril and metoprolol (7) DVT prophylaxis Comment: Lovenox SQ - hold tomorrow for possible surgery Status and Disposition: inpatient. Will require surgery for patellar fx - most likely will require subacute rehab - pt is refusing at this time to go to rehab. Social work consult
[2018-03-22 15:23] LABS: ABS Basophils 0 10^3/ul (0-0.2); ABS Eosinophils 0.1 10^3/ul (0-0.6); ABS Lymphocytes 0.7 10^3/ul (1.0-4.8); ABS Monocytes 0.5 10^3/ul (0-0.8); ABS Neutrophils 1.5 10^3/ul (1.5-7.7); ABS Nucleated RBC 0 10^3/ul; Hematocrit 26 % (35-47); Hemoglobin 9.1 g/dl (12.0-16.0); Lymphocyte % 24.9 % (25-47); Mean Corpuscular HGB Conc 35 g/dl (31-36); Mean Corpuscular Hemoglobin 34 pg (27-31); Mean Corpuscular Volume 99 fL (80-97); Mean Platelet Volume 8.5 fL (7.4-10.4); Nucleated Red Blood Cells % 0; Platelet Count 93 10^3/ul (150-450); Red Blood Count 2.67 10^6/ul (4.00-5.40); Red Cell Distribution Width 13 % (10.5-15); White Blood Count 2.8 10^3/ul (3.5-10.8)
[2018-03-22 15:25] LABS: EGFR Non-African American 76.1 (>60)
[2018-03-22] MEDS ORDERED: Morphine VIAL* 4 MG/ML VIAL (1 ml vial) IV PRN (21:46)
[2018-03-23] MEDS: oxyCODONE/Acetamin 5/325 MG* TAB PO PRN ×2 (01:46→08:44)
[2018-03-23] MEDS: Ondansetron INJ* 2 MG/ML VIAL IV PRN (03:12)
[2018-03-23 05:57] LABS: ABS Basophils 0 10^3/ul (0-0.2); ABS Eosinophils 0.1 10^3/ul (0-0.6); ABS Monocytes 0.6 10^3/ul (0-0.8); ABS Neutrophils 2.4 10^3/ul (1.5-7.7); ABS Nucleated RBC 0 10^3/ul; Eosinophil % 1.9 % (0-6); Hematocrit 30 % (35-47); Hemoglobin 10.3 g/dl (12.0-16.0); Mean Corpuscular HGB Conc 35 g/dl (31-36); Mean Corpuscular Hemoglobin 35 pg (27-31); Mean Corpuscular Volume 99 fL (80-97); Mean Platelet Volume 9.1 fL (7.4-10.4); Nucleated Red Blood Cells % 0.2; Platelet Count 111 10^3/ul (150-450); Red Blood Count 2.99 10^6/ul (4.00-5.40); Red Cell Distribution Width 13 % (10.5-15); White Blood Count 4.1 10^3/ul (3.5-10.8)
[2018-03-23 06:17] LABS: EGFR Non-African American 88.1 (>60)
--- NOTE | 2018-03-23 07:08 | PN ---
Subjective Date of Service: 03/23/18 Interval History: Per nursing staff the patient was found in the hallway by the nurses station dressed - she ambulated from her room to the nurses station stating she "needs to get back to the hospital" and was found to be confused. The patient was assessed this morning at the bedside and she states she woke up and thought she was at a friends house and "had to get back to the hospital". The patient is now found to be A+Ox3 - no withdrawal symptoms or confusion noted. She reports left knee pain 07/12. Denies hallucinations, confusion, tremors. No fever or chills. Objective Active Medications: Acetaminophen (Tylenol Tab*) 650 mg PO Q6H PRN PRN Reason: FEVER/HEADACHE Adalimumab (Humira Pen (Nf)) 40 mg SUBCUT Q14D [facility] Albuterol (Ventolin Hfa Inhaler*) 2 puff INH QID PRN PRN Reason: SHORTNESS OF BREATH Device (Nicotine Mouth Piece*) 1 each INH .CARTRIDGE [facility] Last Admin: 03/21/18 11:38 Dose: 1 each Duloxetine HCl (Cymbalta Cap*) 20 mg PO BID [facility] Last Admin: 03/22/18 20:34 Dose: 20 mg Folic Acid (Folvite Tab*) 1 mg PO DAILY [facility] Last Admin: 03/22/18 09:32 Dose: 1 mg Gabapentin (Neurontin Cap(*)) 1,200 mg PO TID [facility] Last Admin: 03/22/18 20:34 Dose: 1,200 mg Lactated Ringer's (Lactated Ringers 1000 Ml Bag*) 1,000 mls @ 100 mls/hr IV PER RATE [facility] Lisinopril (Prinivil Tab*) 20 mg PO DAILY [facility] Last Admin: 03/22/18 09:33 Dose: 20 mg Lorazepam (Ativan Tab(*)) 0 - 6 mg PO .PER [facility] PROTOCOL [facility]; Protocol Metoprolol Tartrate (Lopressor Tab*) 25 mg PO BID [facility] Last Admin: 03/22/18 20:33 Dose: 25 mg Multivitamins/Minerals (Theragran/Minerals Tab*) 1 tab PO DAILY [facility] Last Admin: 03/22/18 09:32 Dose: Not Given Nicotine (Nicotine Inhaler*) 10 mg INH Q2H PRN PRN Reason: CRAVING Last Admin: 03/21/18 11:38 Dose: 10 mg Ondansetron HCl (Zofran Inj*) 4 mg IV Q4H PRN PRN Reason: NAUSEA Last Admin: 03/23/18 03:12 Dose: 4 mg Oxycodone/Acetaminophen (Percocet 5/325 Tab*) 1 tab PO Q4H PRN PRN Reason: PAIN Last Admin: 03/23/18 01:46 Dose: 1 tab Pantoprazole Sodium (Protonix Iv*) 40 mg IV Q12H [facility]IG[facility] Last Admin: 03/22/18 20:26 Dose: 40 mg Polyvinyl Alcohol (Polyvinyl Alcohol 1.4% Opth*) 2 drop BOTH EYES DAILY PRN PRN Reason: DRY EYE Thiamine HCl (Vitamin B-1 Tab*) 100 mg PO DAILY [facility] Last Admin: 03/22/18 09:33 Dose: 100 mg Triamcinolone Acetonide (Triamcinolone 0.5% Oint *) 1 applic TOPICAL BID PRN PRN Reason: RASH Vital Signs - 8 hr 03/22/18 03/22/18 03/23/18 23:42 23:49 01:46 Temperature 99.0 F Pulse Rate 81 Respiratory 16 16 Rate Blood Pressure 134/77 (mmHg) O2 Sat by Pulse 97 Oximetry 03/23/18 03/23/18 03:42 03:52 Temperature 99.3 F Pulse Rate 80 Respiratory 16 16 Rate Blood Pressure 141/75 (mmHg) O2 Sat by Pulse 96 Oximetry Oxygen Devices in Use Now: None Appearance: 68 yo chronically ill female sitting up in a chair in NAD, A+O x4 Eyes: No Scleral Icterus, PERRLA Ears/Nose/Mouth/Throat: Mucous Membranes Moist Neck: NL Appearance and Movements; NL JVP Respiratory: Symmetrical Chest Expansion and Respiratory Effort, Clear to Auscultation Cardiovascular: NL Sounds; No Murmurs; No JVD, RRR, No Edema Abdominal: NL Sounds; No Tenderness; No Distention Extremities: No Edema, No Clubbing, Cyanosis, - - left knee in immobilizer Skin: No Rash or Ulcers, No Nodules or Sclerosis Neurological: Alert and Oriented x 3, NL Sensation, NL Muscle Strength and Tone Lines/Tubes/Other Access: Clean, Dry and Intact Peripheral IV Nutrition: Taking PO's Result Diagrams: 03/23/18 05:45 03/23/18 05:45 Microbiology and Other Data: Microbiology 03/21/18 05:45 Urine Culture - Final Urine 03/21/18 09:12 Gastric Occult Blood - Final Gastric Fluid Assess/Plan/Problems-Billing Assessment: 68 yo with PMH of crohns disease s/p sigmoid colon resection with fistula repair, fatty liver, fibromyalgia, chronic alcohol intake, tobacco abuse presented after a fall c/o left knee pain found to have a patellar fracture and metabolic acidosis most likely from starvation ketosis - Patient Problems (1) Transient confusion Comment: - suspect a combination of narcotics and waking up confused - now resolved - patient is found to be A+Ox4. (2) Patellar fracture Comment: - left - continue immobilzer. non-weight bearing - pain control - appreciate ortho consult - tenative surgery today - RCRI score class I risk, placing her at 0.4% risk of cardiac event. EKG showing sinus rhythm no acute st changes compared to prior. Pt denies ever having CP or SOB. meatbolic acidosis resolved with IVFs. Patient is optimized to proceed with surgery today - NPO - restart LR @ 100 ml/hr (3) Metabolic acidosis Comment: - suspect starvation ketosis - with ketones noted in urine. resolved with IVFs. - negative Lactic acidosis (4) Nausea & vomiting Comment: - Resolved. Possibly secondary to metabolic acidosis? pt also reports she vomits almost daily at her baseline. + gastric occult. No further bloody emesis. HH stable - appreciate GI consult - recommend protonix Q12 hrs and monitor. Does not recommend preop endoscopy but will require one as outpt. - continue Zofran prn. (5) EVAN (acute kidney injury) Comment: secondary to dehydration - resolved with IVFs (6) Alcohol abuse Comment: -Alcohol level 178 on admission - No signs of WD - not scoring on WAM protocol; pt denies hx of seizures - Discussed alcohol cessation with patient - Social Work hx (7) Hypertension Comment: - controlled - continue lisinopril and metoprolol (8) DVT prophylaxis Comment: Lovenox SQ - on hold for possible surgery Status and Disposition: inpatient. Will require surgery for patellar fx - most likely will require subacute rehab - pt is refusing at this time to go to rehab. Social work consult
[2018-03-23] MEDS: Metoprolol Tartrate TAB* 25 MG PO SCH ×2 (07:38→19:52)
[2018-03-23] MEDS: Pantoprazole IV* 40 MG IV SCH ×2 (07:38→19:53)
[2018-03-23] MEDS: Gabapentin CAP(*) 400 MG PO SCH ×3 (07:39→19:06)
[2018-03-23] MEDS: Lisinopril TAB* 10 MG PO SCH (07:39)
[2018-03-23] MEDS: DULoxetine DR CAP* 20 MG CAP.DR PO SCH ×2 (07:39→19:52)
[2018-03-23] MEDS: Folic Acid TAB* 1 MG PO SCH (07:39)
[2018-03-23] MEDS: Multivitamins/Minerals TAB PO SCH (07:39)
[2018-03-23] MEDS: Thiamine TAB* 100 MG TAB PO SCH (07:40)
[2018-03-23 14:04] LABS: INR 0.95 (0.77-1.02)
[2018-03-23] MEDS ORDERED: Rocuronium* 10 MG/ML VIAL ONE (17:38)
[2018-03-23] MEDS: Acetaminophen TAB* 325 MG PO PRN (19:52)
[2018-03-24] MEDS: Acetaminophen TAB* 325 MG PO PRN ×2 (02:50→19:00)
[2018-03-24 05:17] LABS: ABS Basophils 0 10^3/ul (0-0.2); ABS Eosinophils 0.1 10^3/ul (0-0.6); ABS Lymphocytes 0.9 10^3/ul (1.0-4.8); ABS Monocytes 0.6 10^3/ul (0-0.8); ABS Neutrophils 1.5 10^3/ul (1.5-7.7); ABS Nucleated RBC 0 10^3/ul; Eosinophil % 2.5 % (0-6); Hematocrit 26 % (35-47); Hemoglobin 8.9 g/dl (12.0-16.0); Lymphocyte % 28.4 % (25-47); Mean Corpuscular HGB Conc 35 g/dl (31-36); Mean Corpuscular Hemoglobin 34 pg (27-31); Mean Corpuscular Volume 98 fL (80-97); Mean Platelet Volume 9.9 fL (7.4-10.4); Nucleated Red Blood Cells % 0.8; Platelet Count 102 10^3/ul (150-450); Red Cell Distribution Width 13 % (10.5-15); White Blood Count 3.1 10^3/ul (3.5-10.8)
[2018-03-24 05:34] LABS: EGFR Non-African American 106.1 (>60)
[2018-03-24] MEDS ORDERED: KCL 20 MEQ/100 ML IVPREMIX* 20 MEQ/100 ML BAG IV ONE (07:11)
[2018-03-24] MEDS: Metoprolol Tartrate TAB* 25 MG PO SCH ×2 (08:02→21:25)
[2018-03-24] MEDS: Pantoprazole IV* 40 MG IV SCH ×2 (08:02→21:27)
[2018-03-24] MEDS ORDERED: Magnesium Sulf 4 GM/100 ML IV* 4,000 MG/100 ML BAG IVPB ONE (08:15)
[2018-03-24] MEDS: Gabapentin CAP(*) 400 MG PO SCH ×3 (08:19→21:25)
[2018-03-24] MEDS: DULoxetine DR CAP* 20 MG CAP.DR PO SCH ×2 (08:19→21:25)
[2018-03-24] MEDS: Folic Acid TAB* 1 MG PO SCH (08:19)
[2018-03-24] MEDS: Multivitamins/Minerals TAB PO SCH (08:20)
[2018-03-24] MEDS: Lisinopril TAB* 10 MG PO SCH (08:20)
[2018-03-24] MEDS: Thiamine TAB* 100 MG TAB PO SCH (08:20)
--- NOTE | 2018-03-24 08:21 | PN ---
Subjective Date of Service: 03/24/18 Interval History: Patient reports she feels well this am. Per nursing report she had confusion overnight - this morning she is found to be A+O x3. She reports her pain controlled. Denies any sob/CP. no n/v/d. She now is stating she thinks she will need rehab prior to going home. Objective Active Medications: Acetaminophen (Tylenol Tab*) 650 mg PO Q6H PRN PRN Reason: FEVER/HEADACHE Last Admin: 03/24/18 02:50 Dose: 650 mg Adalimumab (Humira Pen (Nf)) 40 mg SUBCUT Q14D [facility] Albuterol (Ventolin Hfa Inhaler*) 2 puff INH QID PRN PRN Reason: SHORTNESS OF BREATH Device (Nicotine Mouth Piece*) 1 each INH .CARTRIDGE [facility] Last Admin: 03/21/18 11:38 Dose: 1 each Duloxetine HCl (Cymbalta Cap*) 20 mg PO BID [facility] Last Admin: 03/23/18 19:52 Dose: 20 mg Folic Acid (Folvite Tab*) 1 mg PO DAILY [facility] Last Admin: 03/23/18 07:39 Dose: Not Given Gabapentin (Neurontin Cap(*)) 1,200 mg PO TID [facility] Last Admin: 03/23/18 19:06 Dose: 1,200 mg Lactated Ringer's (Lactated Ringers 1000 Ml Bag*) 1,000 mls @ 100 mls/hr IV PER RATE [facility] Last Admin: 03/23/18 21:33 Dose: 100 mls/hr Potassium Chloride (Potassium Chloride 20 Meq/100 Ml Ivpremix*) 20 meq in 100 mls @ 50 mls/hr IV ONCE ONE Stop: 03/24/18 09:10 Last Admin: 03/24/18 08:02 Dose: 50 mls/hr Magnesium Sulfate (Magnesium Sulf 4 Gm/100 Ml Iv*) 4,000 mg in 100 mls @ 33.333 mls/hr IVPB ONCE ONE Stop: 03/24/18 11:14 Lisinopril (Prinivil Tab*) 20 mg PO DAILY [facility] Last Admin: 03/23/18 07:39 Dose: Not Given Lorazepam (Ativan Tab(*)) 0 - 6 mg PO .PER [facility] PROTOCOL [facility]; Protocol Metoprolol Tartrate (Lopressor Tab*) 25 mg PO BID [facility] Last Admin: 03/24/18 08:02 Dose: 25 mg Multivitamins/Minerals (Theragran/Minerals Tab*) 1 tab PO DAILY [facility] Last Admin: 03/23/18 07:39 Dose: Not Given Nicotine (Nicotine Inhaler*) 10 mg INH Q2H PRN PRN Reason: CRAVING Last Admin: 03/21/18 11:38 Dose: 10 mg Ondansetron HCl (Zofran Inj*) 4 mg IV Q4H PRN PRN Reason: NAUSEA Last Admin: 03/23/18 03:12 Dose: 4 mg Oxycodone/Acetaminophen (Percocet 5/325 Tab*) 1 tab PO Q4H PRN PRN Reason: PAIN Last Admin: 03/23/18 08:44 Dose: 1 tab Pantoprazole Sodium (Protonix Iv*) 40 mg IV Q12H [facility] Last Admin: 03/24/18 08:02 Dose: 40 mg Polyvinyl Alcohol (Polyvinyl Alcohol 1.4% Opth*) 2 drop BOTH EYES DAILY PRN PRN Reason: DRY EYE Thiamine HCl (Vitamin B-1 Tab*) 100 mg PO DAILY [facility] Last Admin: 03/23/18 07:40 Dose: Not Given Triamcinolone Acetonide (Triamcinolone 0.5% Oint *) 1 applic TOPICAL BID PRN PRN Reason: RASH Vital Signs - 8 hr 03/24/18 03/24/18 03:46 04:00 Temperature 98.1 F Pulse Rate 76 Respiratory 16 16 Rate Blood Pressure 153/90 (mmHg) O2 Sat by Pulse 98 Oximetry Oxygen Devices in Use Now: None Appearance: 68 yo female laying in bed A+O x3 in NAD Eyes: No Scleral Icterus, PERRLA Ears/Nose/Mouth/Throat: Mucous Membranes Moist Neck: NL Appearance and Movements; NL JVP Respiratory: Symmetrical Chest Expansion and Respiratory Effort, Clear to Auscultation Cardiovascular: NL Sounds; No Murmurs; No JVD, RRR, No Edema Abdominal: NL Sounds; No Tenderness; No Distention Extremities: No Clubbing, Cyanosis, - - left LE immobilzer in place - 2+ DP pulses b/l - leg is warm and well perfused Neurological: Alert and Oriented x 3, NL Sensation Lines/Tubes/Other Access: Clean, Dry and Intact Peripheral IV Nutrition: - - NPO Result Diagrams: 03/24/18 04:39 03/24/18 04:39 Microbiology and Other Data: Microbiology 03/21/18 05:45 Urine Culture - Final Urine 03/21/18 09:12 Gastric Occult Blood - Final Gastric Fluid Assess/Plan/Problems-Billing Assessment: 68 yo with PMH of crohns disease s/p sigmoid colon resection with fistula repair, fatty liver, fibromyalgia, chronic alcohol intake, tobacco abuse presented after a fall c/o left knee pain found to have a patellar fracture and metabolic acidosis most likely from starvation ketosis - Patient Problems (1) Patellar fracture Comment: - left - continue immobilzer. non-weight bearing - pain control - appreciate ortho consult - tenative surgery planned for today vs next week - RCRI score class I risk, placing her at 0.4% risk of cardiac event. EKG showing sinus rhythm no acute st changes compared to prior. Pt denies ever having CP or SOB. meatbolic acidosis resolved with IVFs. Patient with critically low magnesium of 0.8 this am in which she recieved replecement this am, now mg+ 2.9. the patient is optimized to proceed with surgery. - NPO - LR @ 100 ml/hr - will rhiannon PT/OT and subacute rehab (2) Transient confusion Comment: - suspect a combination of narcotics and waking up confused - now resolved - patient is found to be A+Ox4. (3) Electrolyte abnormality SNOMED Code(s): 446497065 Comment: -Corrected potassium, magnesium (critically low mg 0.8) - repeat this afternoon showing mg 2.9 - repeat BMP and mg in am (4) Metabolic acidosis Comment: - suspect starvation ketosis - with ketones noted in urine. resolved with IVFs. - negative Lactic acidosis - discussed alcoholism with patient - and that is is essential she quit. social work following (5) Nausea & vomiting Comment: - Resolved. Possibly secondary to metabolic acidosis? pt also reports she vomits almost daily at her baseline. + gastric occult. No further bloody emesis. HH stable - appreciate GI consult - recommend protonix Q12 hrs and monitor. Does not recommend preop endoscopy but will require one as outpt. - continue Zofran prn. (6) EVAN (acute kidney injury) Comment: secondary to dehydration - resolved with IVFs (7) Alcohol abuse Comment: -Alcohol level 178 on admission - No signs of WD - not scoring on WAM protocol; pt denies hx of seizures - Discussed alcohol cessation with patient - Social Work hx (8) Hypertension Comment: - controlled - continue lisinopril and metoprolol (9) DVT prophylaxis Comment: Lovenox SQ - on hold for possible surgery Status and Disposition: inpatient. Will require surgery for patellar fx possibly today - most likely will require subacute rehab -Social work consult
--- NOTE | 2018-03-24 18:18 | PN ---
Progress Note - Progress Note Date of Service: 03/24/18 SOAP: Subjective: [] Patient was seen and examined at bedside. She feels well with pain of her left patella with any LLE movement. Denies CP, SOB, dizziness. Objective: []General: Well appearing, NAD PE: immoblizer on, no skin breakdown, able to dorsi flex/plantar flex, sensation intact distally, 2+ DP pulse Calves supple and nontender without erythema, edema or palpable cords Assessment: left patella fracture Plan: 1) NWB LLE with immobilizer at all times 2) plan ORIF left patella in the morning with Dr Pichardo. NPO at midnight, hold DVT prophylaxis at midnight Vital Signs Temp 98.0 F 03/24/18 15:20 Pulse 91 03/24/18 15:20 Resp 14 03/24/18 11:11 BP 177/87 03/24/18 15:20 Pulse Ox 100 03/24/18 15:20 Intake & Output 03/23/18 03/24/18 03/24/18 18:59 06:59 18:59 Intake Total 0 1817 0 Output Total 1300 1350 300 Balance -1300 467 -300 Weight 105 lb 1.6 oz Intake: IV Fluids 957 LR 957 Oral 0 860 0 Output: Urine 1300 1350 300 Other: Estimated Void Small Large Estimated Stool Amount Small # Voids 3 Laboratory Last Values WBC 3.1 10^3/ul (3.5-10.8) L 03/24/18 04:39 RBC 2.60 10^6/ul (4.00-5.40) L 03/24/18 04:39 Hgb 8.9 g/dl (12.0-16.0) L 03/24/18 04:39 Hct 26 % (35-47) L 03/24/18 04:39 MCV 98 fL (80-97) H 03/24/18 04:39 MCH 34 pg (27-31) H 03/24/18 04:39 MCHC 35 g/dl (31-36) 03/24/18 04:39 RDW 13 % (10.5-15) 03/24/18 04:39 Plt Count 102 10^3/ul (150-450) L 03/24/18 04:39 MPV 9.9 fL (7.4-10.4) 03/24/18 04:39 Neut % (Auto) 48.7 % (38-83) 03/24/18 04:39 Lymph % (Auto) 28.4 % (25-47) 03/24/18 04:39 [place] % (Auto) 19.5 % (0-7) H 03/24/18 04:39 Eos % (Auto) 2.5 % (0-6) 03/24/18 04:39 Baso % (Auto) 0.9 % (0-2) 03/24/18 04:39 Absolute Neuts (auto) 1.5 10^3/ul (1.5-7.7) 03/24/18 04:39 Absolute Lymphs (auto) 0.9 10^3/ul (1.0-4.8) L 03/24/18 04:39 Absolute Monos (auto) 0.6 10^3/ul (0-0.8) 03/24/18 04:39 Absolute Eos (auto) 0.1 10^3/ul (0-0.6) 03/24/18 04:39 Absolute Basos (auto) 0 10^3/ul (0-0.2) 03/24/18 04:39 Absolute Nucleated RBC 0 10^3/ul 03/24/18 04:39 Nucleated RBC % 0.8 03/24/18 04:39 INR (Anticoag Therapy) 0.95 (0.77-1.02) 03/23/18 13:30 APTT 28.6 seconds (26.0-36.3) 03/23/18 13:30 VBG pH 7.27 (7.33-7.43) L 03/21/18 11:26 VBG pCO2 25 mmHg (41-51) L 03/21/18 11:26 VBG pO2 55 mmHg (35-45) H 03/21/18 11:26 VBG HCO3 13.9 mmol/L (24-28) L 03/21/18 11:26 VBG O2 Saturation 88.9 % (70-80) H 03/21/18 11:26 VBG Base Excess -13.8 (0-4) L 03/21/18 11:26 Sodium 131 mmol/L (135-145) L 03/24/18 04:39 Potassium 3.4 mmol/L (3.5-5.0) L 03/24/18 04:39 Chloride 94 mmol/L (101-111) L 03/24/18 04:39 Carbon Dioxide 29 mmol/L (22-32) 03/24/18 04:39 Anion Gap 8 mmol/L (2-11) 03/24/18 04:39 BUN 8 mg/dL (6-24) 03/24/18 04:39 Creatinine 0.57 mg/dL (0.51-0.95) 03/24/18 04:39 Est GFR ( Amer) 128.4 (>60) 03/24/18 04:39 Est GFR (Non-Af Amer) 106.1 (>60) 03/24/18 04:39 BUN/Creatinine Ratio 14.0 (8-20) 03/24/18 04:39 Glucose 108 mg/dL (70-100) H 03/24/18 04:39 Lactic Acid 1.2 mmol/L (0.5-2.0) 03/21/18 06:28 Calcium 8.7 mg/dL (8.6-10.3) 03/24/18 04:39 Magnesium 2.9 mg/dL (1.9-2.7) H 03/24/18 12:48 Total Bilirubin 0.50 mg/dL (0.2-1.0) 03/21/18 04:23 AST 66 U/L (13-39) H 03/21/18 04:23 ALT 21 U/L (7-52) 03/21/18 04:23 Alkaline Phosphatase 64 U/L (34-104) 03/21/18 04:23 Troponin I 0.00 ng/mL (<0.04) 03/22/18 15:01 Total Protein 7.9 g/dL (6.4-8.9) 03/21/18 04:23 Albumin 4.2 g/dL (3.2-5.2) 03/21/18 04:23 Globulin 3.7 g/dL (2-4) 03/21/18 04:23 Albumin/Globulin Ratio 1.1 (1-3) 03/21/18 04:23 Urine Color Yellow 03/21/18 05:45 Urine Appearance Cloudy 03/21/18 05:45 Urine pH 5.0 (5-9) 03/21/18 05:45 Ur Specific [place] 1.013 (1.010-1.030) 03/21/18 05:45 Urine Protein Negative (Negative) 03/21/18 05:45 Urine Ketones 1+ (Negative) A 03/21/18 05:45 Urine Blood 1+ (Negative) A 03/21/18 05:45 Urine Nitrate Negative (Negative) 03/21/18 05:45 Urine Bilirubin Negative (Negative) 03/21/18 05:45 Urine Urobilinogen Negative (Negative) 03/21/18 05:45 Ur Leukocyte Esterase Negative (Negative) 03/21/18 05:45 Urine WBC (Auto) Trace(0-5/hpf) (Absent) 03/21/18 05:45 Urine RBC (Auto) Trace(0-2/hpf) (Absent) 03/21/18 05:45 Ur Squamous Epith Cells Present (Absent) A 03/21/18 05:45 Urine Bacteria Absent (Absent) 03/21/18 05:45 Hyaline Casts Present (Absent) A 03/21/18 05:45 Urine Glucose 1+(50 mg/dl) (Negative) A 03/21/18 05:45 Urine Opiates Screen None detected (None Detect) 03/21/18 05:45 Ur Barbiturates Screen None detected (None Detect) 03/21/18 05:45 Ur Phencyclidine Scrn None detected (None Detect) 03/21/18 05:45 Ur Amphetamines Screen None detected (None Detect) 03/21/18 05:45 U Benzodiazepines Scrn None detected (None Detect) 03/21/18 05:45 Urine Cocaine Screen None detected (None Detect) 03/21/18 05:45 U Cannabinoids Screen Presumptive positive (None Detect) A 03/21/18 05:45 Serum Alcohol 178 mg/dL (<10) H 03/21/18 04:23
--- NOTE | 2018-03-24 18:19 | PN ---
Progress Note - Progress Note Date of Service: 03/24/18 Note: Patient was seen and examined yesterday and today. We had planned for surgery yesterday however her surgery was cancelled due to the late hour and then surgery has now been canceled again today due to no OR availability. I have spoken with my partner, Dr. Pichardo, who has agreed to assume care of the patient. If he agrees with surgical intervention he would plan on this tomorrow morning.
[2018-03-24] MEDS ORDERED: Heparin VIAL(*) 5000 UNITS/ML VIAL (FIVE THOUSAND) SUBCUT SCH (19:00)
[2018-03-25 05:59] LABS: ABS Basophils 0 10^3/ul (0-0.2); ABS Eosinophils 0.2 10^3/ul (0-0.6); ABS Lymphocytes 1.1 10^3/ul (1.0-4.8); ABS Monocytes 0.7 10^3/ul (0-0.8); ABS Neutrophils 1.7 10^3/ul (1.5-7.7); ABS Nucleated RBC 0 10^3/ul; Eosinophil % 4.2 % (0-6); Hematocrit 27 % (35-47); Hemoglobin 9.3 g/dl (12.0-16.0); Lymphocyte % 30.2 % (25-47); Mean Corpuscular HGB Conc 34 g/dl (31-36); Mean Corpuscular Hemoglobin 34 pg (27-31); Mean Corpuscular Volume 100 fL (80-97); Mean Platelet Volume 9.4 fL (7.4-10.4); Nucleated Red Blood Cells % 0.1; Platelet Count 132 10^3/ul (150-450); Red Blood Count 2.74 10^6/ul (4.00-5.40); Red Cell Distribution Width 13 % (10.5-15); White Blood Count 3.8 10^3/ul (3.5-10.8)
[2018-03-25 06:16] LABS: EGFR Non-African American 123.4 (>60)
[2018-03-25 06:20] LABS: INR 0.91 (0.77-1.02)
[2018-03-25] MEDS: Thiamine TAB* 100 MG TAB PO SCH (07:59)
[2018-03-25] MEDS: DULoxetine DR CAP* 20 MG CAP.DR PO SCH ×2 (07:59→20:48)
[2018-03-25] MEDS: Lisinopril TAB* 10 MG PO SCH ×2 (07:59→09:04)
[2018-03-25] MEDS: Folic Acid TAB* 1 MG PO SCH (07:59)
[2018-03-25] MEDS: Multivitamins/Minerals TAB PO SCH (07:59)
[2018-03-25] MEDS: Gabapentin CAP(*) 400 MG PO SCH ×3 (08:00→20:48)
[2018-03-25] MEDS ORDERED: Lidocaine 2% PF * 5 ML VIAL ONE (08:22)
[2018-03-25] MEDS ORDERED: Propofol* 10 MG/ML 20 ML BTL IV PUSH ONE (08:22)
[2018-03-25] MEDS ORDERED: Midazolam* 1 MG/ML 2 ML VIAL (2 MG) ONE (08:23)
[2018-03-25] MEDS ORDERED: Succinylcholine* 20 MG/ML 10 ML VIAL ONE ×2 (08:23→10:34)
[2018-03-25] MEDS ORDERED: fentaNYL* 50 MCG/ML 2 ML VIAL (100 MCG VIAL) ONE (08:23)
[2018-03-25] MEDS ORDERED: Magnesium Sulf 4 GM/100 ML IV* 4,000 MG/100 ML BAG IVPB ONE (08:24)
[2018-03-25] MEDS: Metoprolol Tartrate TAB* 25 MG PO SCH ×2 (09:04→20:48)
[2018-03-25] MEDS: Pantoprazole IV* 40 MG IV SCH ×2 (09:04→20:49)
[2018-03-25] MEDS ORDERED: Buffered Lidocaine 0.9% SYRIN* 5 ML/SYR SYRINGE ONE (09:15)
[2018-03-25] MEDS ORDERED: ceFAZolin 2 GM PREMIX in ORs 2 GM/50 ML BAG IVPB ONE (09:15)
[2018-03-25] MEDS ORDERED: Metoclopramide IV* 5 MG/ML 2 ML VIAL ONE (10:33)
[2018-03-25] MEDS ORDERED: Ketorolac INJ* 30 MG/ML 1 ML VIAL ONE (10:33)
[2018-03-25] MEDS ORDERED: Dexamethasone IV* 4 MG/ML 1 ML (4 MG) ONE (10:33)
[2018-03-25] MEDS ORDERED: Ondansetron INJ* 2 MG/ML VIAL ONE (10:33)
[2018-03-25] MEDS ORDERED: EPHEDrine (Pressors)* 50 MG/ML VIAL ONE (10:40)
[2018-03-25] MEDS ORDERED: Naloxone* 0.4 MG/ML 1 ML VIAL IV PRN (10:46)
[2018-03-25] MEDS ORDERED: DiMENhydriNATE IV* 50 MG/ML VIAL IV PUSH PRN (10:46)
[2018-03-25] MEDS ORDERED: HYDROmorphone INJ1* 1 MG/ML SYRINGE ONE ×2 (10:49→12:51)
[2018-03-25] MEDS ORDERED: Acetaminophen IV 1GM/100ML * 100 ML ONE (10:50)
[2018-03-25] MEDS ORDERED: Labetalol IV* 5 MG/ML 20 ML VIAL ONE (12:47)
[2018-03-25] MEDS: HYDROmorphone INJ1* 1 MG/ML SYRINGE IV PRN ×2 (12:51→12:58)
[2018-03-25] MEDS ORDERED: Bupivacaine 0.5% W/EPI SDV* 30 ML VIAL ONE (14:07)
--- NOTE | 2018-03-25 15:58 | PN ---
Subjective Date of Service: 03/25/18 Interval History: Ms. Mercedes reports feeling well this afternoon. She had surgery this morning, and upon my exam she reports feeling slightly drowsy and "dopey" but has no pain. She was having severe pain prior to surgery. She is hopeful that she will not need to go to rehab. She would like to return home with VNS or outpatient PT. She denies CP, SOB, N/V/D, dizziness. Family History: Unchanged from Admission Social History: Unchanged from Admission Past Medical History: Unchanged from Admission Objective Active Medications: Acetaminophen (Tylenol Tab*) 650 mg PO Q6H PRN Adalimumab (Humira Pen (Nf)) 40 mg SUBCUT Q14D [facility] Albuterol (Ventolin Hfa Inhaler*) 2 puff INH QID PRN Device (Nicotine Mouth Piece*) 1 each INH .CARTRIDGE [facility] Duloxetine HCl (Cymbalta Cap*) 20 mg PO BID [facility] Enoxaparin Sodium (Lovenox(*)) 30 mg SUBCUT DAILY [facility] Folic Acid (Folvite Tab*) 1 mg PO DAILY [facility] Gabapentin (Neurontin Cap(*)) 1,200 mg PO TID [facility] Lactated Ringer's (Lactated Ringers 1000 Ml Bag*) 1,000 mls @ 100 mls/hr IV PER RATE [facility] Cefazolin Sodium/Dextrose (Kefzol 1 Gm In Dextrose Duplex (*)) 1 gm in 50 mls @ 100 mls/hr IVPB Q8H [facility] Lisinopril (Prinivil Tab*) 20 mg PO DAILY [facility] Lorazepam (Ativan Tab(*)) 0 - [address] [facility] PROTOCOL [facility]; Protocol Metoprolol Tartrate (Lopressor Tab*) 25 mg PO BID [facility] Morphine Sulfate (Morphine Vial*) 2 mg IV Q4H PRN Multivitamins/Minerals (Theragran/Minerals Tab*) 1 tab PO DAILY [facility] Nicotine (Nicotine Inhaler*) 10 mg INH Q2H PRN Ondansetron HCl (Zofran Inj*) 4 mg IV Q4H PRN Oxycodone/Acetaminophen (Percocet 5/325 Tab*) 1 tab PO Q4H PRN Oxycodone/Acetaminophen (Percocet 5/325 Tab*) 2 tab PO Q4H PRN Pantoprazole Sodium (Protonix Iv*) 40 mg IV Q12H [facility] Polyvinyl Alcohol (Polyvinyl Alcohol 1.4% Opth*) 2 drop BOTH EYES DAILY PRN Thiamine HCl (Vitamin B-1 Tab*) 100 mg PO DAILY [facility] Triamcinolone Acetonide (Triamcinolone 0.5% Oint *) 1 applic TOPICAL BID PRN Vital Signs - 8 hr 03/25/18 03/25/18 03/25/18 08:00 08:43 12:42 Temperature 97.3 F Pulse Rate 81 120 Respiratory 18 17 Rate Blood Pressure 167/85 192/139 (mmHg) O2 Sat by Pulse 99 99 100 Oximetry 03/25/18 03/25/18 03/25/18 12:43 12:45 12:46 Temperature Pulse Rate 119 116 114 Respiratory 18 14 19 Rate Blood Pressure 211/130 189/135 193/119 (mmHg) O2 Sat by Pulse 100 87 98 Oximetry 03/25/18 03/25/18 03/25/18 12:48 12:51 12:56 Temperature Pulse Rate 113 88 84 Respiratory 25 17 21 Rate Blood Pressure 147/99 172/99 (mmHg) O2 Sat by Pulse 97 95 100 Oximetry 03/25/18 03/25/18 03/25/18 12:58 13:01 13:03 Temperature Pulse Rate 92 95 Respiratory 22 23 20 Rate Blood Pressure 177/100 184/109 (mmHg) O2 Sat by Pulse 95 95 Oximetry 03/25/18 03/25/18 03/25/18 13:05 13:16 13:19 Temperature Pulse Rate 83 72 72 Respiratory 16 14 15 Rate Blood Pressure 171/106 160/103 146/100 (mmHg) O2 Sat by Pulse 92 96 97 Oximetry 03/25/18 03/25/18 03/25/18 13:48 14:33 15:13 Temperature 97.6 F 97.0 F Pulse Rate 91 78 Respiratory 18 16 18 Rate Blood Pressure 143/92 142/98 (mmHg) O2 Sat by Pulse 97 99 Oximetry 03/25/18 03/25/18 03/25/18 15:18 15:31 15:40 Temperature 97.7 F Pulse Rate 75 Respiratory 18 18 Rate Blood Pressure 150/85 (mmHg) O2 Sat by Pulse 99 100 Oximetry Oxygen Devices in Use Now: None Appearance: Middle-aged female laying in bed in NAD Eyes: No Scleral Icterus Ears/Nose/Mouth/Throat: Mucous Membranes Moist Neck: NL Appearance and Movements; NL JVP Respiratory: Symmetrical Chest Expansion and Respiratory Effort, Clear to Auscultation Cardiovascular: NL Sounds; No Murmurs; No JVD, RRR Abdominal: NL Sounds; No Tenderness; No Distention Extremities: No Edema Skin: - - Plaster cast to LLE Neurological: Alert and Oriented x 3 Lines/Tubes/Other Access: Clean, Dry and Intact Peripheral IV Result Diagrams: 03/25/18 05:43 03/25/18 05:43 Assess/Plan/Problems-Billing Assessment: Ms. Mercedes is a 68 yo with PMH of crohns disease s/p sigmoid colon resection with fistula repair, fatty liver, fibromyalgia, chronic alcohol intake, tobacco abuse presented after a fall c/o left knee pain found to have a patellar fracture and metabolic acidosis most likely from starvation ketosis. - Patient Problems (1) Patellar fracture Current Visit: Yes Status: Acute Code(s): S82.009A - UNSP FRACTURE OF UNSP PATELLA, INIT FOR CLOS FX SNOMED Code(s): 53240173 Comment: - Left leg patellar fracture s/p repair POD #0 - Management per ortho - Will rhiannon PT and possibly subacute rehab (2) Hypomagnesemia Current Visit: Yes Status: Acute Code(s): E83.42 - HYPOMAGNESEMIA SNOMED Code(s): 294148470 Comment: - Down to 0.08 on admission; now 1.5 - 2/2 alcoholism - Replete 4gm mag sulfate today and start mag oxide BID (3) Hyponatremia Current Visit: Yes Status: Acute Code(s): E87.1 - HYPO-OSMOLALITY AND HYPONATREMIA SNOMED Code(s): 63444098 Comment: - Improving since admission - Check urine sodium and urine osmolality though suspect this is 2/2 hypovolemia (4) Hypertension Current Visit: Yes Status: Acute Code(s): I10 - ESSENTIAL (PRIMARY) HYPERTENSION SNOMED Code(s): 73972693 Comment: - Slightly hypertensive in the postop setting - Continue lisinopril and metoprolol (5) Alcohol abuse Current Visit: Yes Status: Chronic Code(s): F10.10 - ALCOHOL ABUSE, UNCOMPLICATED SNOMED Code(s): 60199947 Comment: - Alcohol level 178 on admission - No signs of WD, not scoring on WAM protocol; pt denies hx of seizures - Discussed alcohol cessation with patient - Social work consult (6) EVAN (acute kidney injury) Current Visit: Yes Status: Acute Code(s): N17.9 - ACUTE KIDNEY FAILURE, UNSPECIFIED SNOMED Code(s): 79214791 Comment: - Secondary to dehydration - Resolved with IVF (7) Metabolic acidosis Current Visit: Yes Status: Acute Code(s): E87.2 - ACIDOSIS SNOMED Code(s) : 48770062 Comment: - Resolved with IVF - Suspect starvation ketosis; with ketones noted in urine (8) DVT prophylaxis Current Visit: Yes Status: Acute Onset Date: 02/22/15 Code(s): OJO1501 - SNOMED Code(s): 916014317 Comment: - Per ortho in postop setting (9) Full code status Current Visit: Yes Status: Acute Code(s): Z78.9 - OTHER SPECIFIED HEALTH STATUS SNOMED Code(s): 352704027 Status and Disposition: Inpatient. Home vs TITA when medically stable. Attending: Kerri Delarosa
[2018-03-25] MEDS: ceFAZolin 1 GM in Dextrose (*) 1 GM/50 ML BAG IVPB SCH (17:58)
[2018-03-25] MEDS: Magnesium Oxide TAB* 400 MG PO SCH (20:48)
[2018-03-25] MEDS: Acetaminophen TAB* 325 MG PO PRN (23:39)
[2018-03-26] MEDS: ceFAZolin 1 GM in Dextrose (*) 1 GM/50 ML BAG IVPB SCH ×2 (02:04→10:36)
[2018-03-26] MEDS: oxyCODONE/Acetamin 5/325 MG* TAB PO PRN ×5 (02:09→21:48)
[2018-03-26] MEDS ORDERED: Sodium Citrate/Citric Acid* 15 ML UDC PO PRN (02:24)
[2018-03-26] MEDS ORDERED: Famotidine IV* 10 MG/ML 2 ML (20 mg) IV PRN (02:24)
[2018-03-26] MEDS ORDERED: Famotidine TAB* 20 MG PO PRN (02:24)
[2018-03-26] MEDS ORDERED: Phenylephrine IV* 40 MCG/ML 10 ML SYRINGE IV PUSH PRN (02:24)
[2018-03-26] MEDS ORDERED: OBEPIDURAL* 250 ML EPIDURAL SCH (03:00)
[2018-03-26] MEDS: Ondansetron INJ* 2 MG/ML VIAL IV PRN (03:53)
[2018-03-26] MEDS: Morphine VIAL* 4 MG/ML VIAL (1 ml vial) IV PRN ×2 (03:53→13:24)
--- NOTE | 2018-03-26 05:18 | OP ---
DATE OF OPERATION: 03/25/18 - ROOM #336 DATE OF : 54 SURGEON: Benji Pichardo MD [employer] MACHINE OPERATOR: DAVID Dennis ANESTHESIA: General endotracheal. PRE-OP DIAGNOSIS: Comminuted, displaced left patella fracture. POST-OP DIAGNOSIS: Comminuted, displaced left patella fracture with poor quality bone. OPERATIVE PROCEDURE: Open reduction internal fixation, left patella fracture. INDICATIONS: is a 68-year-old female who had fallen, landing hard on her left patella, sustaining a displaced comminuted fracture. She also had been intoxicated on arrival and had been put on the withdrawal protocol. Her lab work needed to be improved and she was initially added on to the OR schedule for Friday. Unfortunately, with how busy the OR schedule was, she would have gone very late and plans were made to have her added on to the OR schedule this morning. She was quite aright with this. I discussed with her that an ORIF should work well to realign the bone to minimize the chance of a postoperative osteoarthritis and also allow the bone to heal together so that she does not have extensor leg and has better strength with the leg. I wonder she can still develop osteoarthritis and have troubles with her motion and function. Other risks of surgery such as infection, scar formation, stiffness, DVT, and pulmonary embolism were also discussed and she had wished to proceed. ESTIMATED BLOOD LOSS: Less than 25 cc. COMPLICATIONS: None. DESCRIPTION OF PROCEDURE: The patient was brought to the OR and general endotracheal anesthesia was established. She was transferred to the flat top table and care was taken to make sure that she was nicely padded on the upper extremities. Left knee was prepped and then draped. Skin over the incision was infiltrated using 0.5% Marcaine with epinephrine and midline incision was made. Incision was carried down through the skin and subcutaneous tissues. I could see the retinaculum was still intact over the fracture. I could, however , easily pass a Hamilton right down and in between the fracture fragments. Retinaculum was then sharply incised just across the top side of the patella. Eventually, I did come a little bit more in the medial retinaculum so that I could get my finger underneath to feel the undersurface of the patella. Clamp was then used to secure the patella and C-arm was being set up. Guidewires were placed and the alignment once the C- arm was brought in was not as good as I would have liked, so instrumentation was removed and she was re-reduced. Eventually, I was able to get her essentially perfect. Guidewires were placed and drill was run. As the drill was run, over one of the guidewires however, the bone distally split. I still tried to place a screw and the bone split further. I kept the medial guidewire at that point. I tried to change the angle so that fragments on the lower piece I could then angle in at about a 45-degree angle to the main patella fracture and 90 degrees to the new fracture so that I would get good fixation and still allow for a tension band technique. This caused another split on that inferior piece. I tried once more trying to get the last 2 major pieces together on that outer side and the same results occurred again. Considering that this was repeatedly unsuccessful, cerclage was then placed so that I could held all the pieces together. Cerclage did seem to work well, but as I tightened the cerclage, the screw on the medial side that had been placed then cut through her bone. Screw was then removed. I placed another wire on that side to pull together the fragments and initially that seemed to work, but then as I tried to pass another wire to make a tension band that again caused her fragments to break apart. Additional wires were removed and I compressed her fracture fragments together with the cerclage. #2 Ethibond was then used to hold all the pieces together as they all had nice soft tissue attachments on the top side. FiberWire was used to repair all of the retinaculum. I could flex the knee to 45 degrees and there was no gaping at all of the patella. Unfortunately, she still had a small step-off on the lateral view, but I did not think taking the cerclage out and trying to re- reduce all the smaller pieces would have a better result. Wound was irrigated using a pulse lavage and the subcutaneous tissues were reapproximated with 2-0 Vicryl. Skin was closed using johann. Knee was injected with a total of 30 cc of 0.5% Marcaine with epinephrine. A long leg cast was also applied in the OR. The patient was then extubated in the OR and was stable on transfer to the recovery room. [id number]/[facility] #: [id number] PRIYANK
[2018-03-26 06:21] LABS: ABS Basophils 0 10^3/ul (0-0.2); ABS Eosinophils 0 10^3/ul (0-0.6); ABS Lymphocytes 0.8 10^3/ul (1.0-4.8); ABS Monocytes 1.3 10^3/ul (0-0.8); ABS Neutrophils 5.8 10^3/ul (1.5-7.7); ABS Nucleated RBC 0 10^3/ul; Eosinophil % 0.5 % (0-6); Hematocrit 27 % (35-47); Hemoglobin 9.4 g/dl (12.0-16.0); Lymphocyte % 10.4 % (25-47); Mean Corpuscular HGB Conc 35 g/dl (31-36); Mean Corpuscular Hemoglobin 35 pg (27-31); Mean Corpuscular Volume 99 fL (80-97); Mean Platelet Volume 8.8 fL (7.4-10.4); Nucleated Red Blood Cells % 0; Platelet Count 198 10^3/ul (150-450); Red Blood Count 2.74 10^6/ul (4.00-5.40); Red Cell Distribution Width 13 % (10.5-15); White Blood Count 7.9 10^3/ul (3.5-10.8)
[2018-03-26 06:36] LABS: EGFR Non-African American 94.5 (>60)
[2018-03-26] MEDS ORDERED: Adalimumab (NF) 40 MG/0.8 ML KIT _- DISPENSE @ no charge- _ SUBCUT SCH (09:00)
[2018-03-26] MEDS: Folic Acid TAB* 1 MG PO SCH (10:23)
[2018-03-26] MEDS: Thiamine TAB* 100 MG TAB PO SCH (10:23)
[2018-03-26] MEDS: Magnesium Oxide TAB* 400 MG PO SCH ×2 (10:23→21:40)
[2018-03-26] MEDS: Metoprolol Tartrate TAB* 25 MG PO SCH ×2 (10:24→21:40)
[2018-03-26] MEDS: DULoxetine DR CAP* 20 MG CAP.DR PO SCH ×2 (10:24→21:38)
[2018-03-26] MEDS: Lisinopril TAB* 10 MG PO SCH (10:25)
[2018-03-26] MEDS: Gabapentin CAP(*) 400 MG PO SCH ×3 (10:29→21:38)
[2018-03-26] MEDS: Multivitamins/Minerals TAB PO SCH (10:31)
[2018-03-26] MEDS: Pantoprazole IV* 40 MG IV SCH ×2 (10:32→21:40)
--- NOTE | 2018-03-26 11:35 | PN ---
Progress Note - Progress Note Date of Service: 03/26/18 SOAP: Subjective: patient was seen and examined in chair. She feels well with pain of her left patella with any LLE movement. Denies CP, SOB, dizziness. Objective: []General: Well appearing, NAD PE:cast on, no skin breakdown, able to dorsi flex/plantar flex, sensation intact distally, 2+ DP pulses Vital Signs Temp 98.4 F 03/26/18 07:37 Pulse 84 03/26/18 07:37 Resp 16 03/26/18 10:31 BP 136/78 03/26/18 07:37 Pulse Ox 97 03/26/18 09:30 Intake & Output 03/25/18 03/26/18 03/26/18 18:59 06:59 18:59 Intake Total 1385 657 Output Total 1200 1025 Balance 185 -368 Weight 102 lb 11.767 oz 103 lb 12.8 oz Intake: IV Fluids 1230 77 ABX - CEFAZOLIN 52 LR 1200 NS 30 25 Medicated IV 155 Cefazolin 55 Magnesium 100 Oral 0 580 Output: Urine 1200 1025 Other: Estimated Void Small Small # Bowel Movements 1 Estimated Stool Amount Small # Voids 1 1 Assessment: left patella fracture Plan: - Continue with current pain medication - Dressing is c//d/i - PT - Possible discharge to subacute rehab vs home
[2018-03-26] MEDS: Polyethylene Glycol 3350* 17 GM PACKET PO SCH (13:10)
[2018-03-26] MEDS: Enoxaparin(*) 30 MG/0.3 ML SYR SUBCUT SCH (13:14)
--- NOTE | 2018-03-26 13:53 | PN ---
Subjective Date of Service: 03/26/18 Interval History: Ms. Mercedes feels better today. She reports that she had severe pain yesterday evening and ultimately required morphine in order to sleep. She was able to sleep well after that. Pain present again this morning, but not as severe as yesterday. On my exam, pain is well controlled with PO analgesics. She is open to considering TITA at discharge. She understands that it will likely be difficult to resume her preoperative activity and recognizes that she is at a higher fall risk with the LLE cast. She does not want to go to [facility], but otherwise seems open to TITA at another facility. She denies CP, SOB, N/V/D, dizziness. Reports constipation. Family History: Unchanged from Admission Social History: Unchanged from Admission Past Medical History: Unchanged from Admission Objective Active Medications: Acetaminophen (Tylenol Tab*) 650 mg PO Q6H PRN Adalimumab (Humira Pen (Nf)) 40 mg SUBCUT Q14D RODRIGO Albuterol (Ventolin Hfa Inhaler*) 2 puff INH QID PRN Device (Nicotine Mouth Piece*) 1 each INH .CARTRIDGE RODRIGO Duloxetine HCl (Cymbalta Cap*) 20 mg PO BID RODRIGO Enoxaparin Sodium (Lovenox(*)) 30 mg SUBCUT DAILY [facility]OD[facility]IG[facility] Folic Acid (Folvite Tab*) 1 mg PO DAILY RODRIGO Gabapentin (Neurontin Cap(*)) 1,200 mg PO TID RODRIGO Lisinopril (Prinivil Tab*) 20 mg PO DAILY RODRIGO Magnesium Oxide (Magox 400 Tab*) 400 mg PO Q12H RODRIGO Metoprolol Tartrate (Lopressor Tab*) 25 mg PO BID RODRIGO Morphine Sulfate (Morphine Vial*) 2 mg IV Q4H PRN Multivitamins/Minerals (Theragran/Minerals Tab*) 1 tab PO DAILY RODRIGO Nicotine (Nicotine Inhaler*) 10 mg INH Q2H PRN Ondansetron HCl (Zofran Inj*) 4 mg IV Q4H PRN Oxycodone/Acetaminophen (Percocet 5/325 Tab*) 1 tab PO Q4H PRN Oxycodone/Acetaminophen (Percocet 5/325 Tab*) 2 tab PO Q4H PRN Pantoprazole Sodium (Protonix Iv*) 40 mg IV Q12H RODRIGO Polyethylene Glycol/Electrolytes (Miralax*) 17 gm PO DAILY RODRIGO Polyvinyl Alcohol (Polyvinyl Alcohol 1.4% Opth*) 2 drop BOTH EYES DAILY PRN Thiamine HCl (Vitamin B-1 Tab*) 100 mg PO DAILY RODRIGO Triamcinolone Acetonide (Triamcinolone 0.5% Oint *) 1 applic TOPICAL BID PRN Vital Signs - 8 hr 03/26/18 03/26/18 03/26/18 06:38 07:37 09:12 Temperature 98.4 F Pulse Rate 84 Respiratory 20 16 16 Rate Blood Pressure 136/78 (mmHg) O2 Sat by Pulse 97 Oximetry 03/26/18 03/26/18 03/26/18 09:30 10:29 10:31 Temperature Pulse Rate Respiratory 16 16 16 Rate Blood Pressure (mmHg) O2 Sat by Pulse 97 Oximetry Oxygen Devices in Use Now: None Appearance: Middle-aged female sitting in chair in NAD Eyes: No Scleral Icterus Ears/Nose/Mouth/Throat: Mucous Membranes Moist Neck: NL Appearance and Movements; NL JVP Respiratory: Symmetrical Chest Expansion and Respiratory Effort, Clear to Auscultation Cardiovascular: NL Sounds; No Murmurs; No JVD, RRR Abdominal: NL Sounds; No Tenderness; No Distention Extremities: No Edema Skin: - - Plaster cast to LLE Neurological: Alert and Oriented x 3, NL Sensation Lines/Tubes/Other Access: Clean, Dry and Intact Peripheral IV Nutrition: Taking PO's Result Diagrams: 03/26/18 05:46 03/26/18 05:46 Assess/Plan/Problems-Billing Assessment: Ms. Mercedes is a 68 yo with PMH of crohns disease s/p sigmoid colon resection with fistula repair, fatty liver, fibromyalgia, chronic alcohol intake, tobacco abuse presented after a fall c/o left knee pain found to have a patellar fracture and metabolic acidosis most likely from starvation ketosis. - Patient Problems (1) Patellar fracture Current Visit: Yes Status: Acute Code(s): S82.009A - UNSP FRACTURE OF UNSP PATELLA, INIT FOR CLOS FX SNOMED Code(s): 52850323 Comment: - Left leg patellar fracture s/p repair POD #1 - Management per ortho - Will rhiannon PT and likely subacute rehab (2) Hypomagnesemia Current Visit: Yes Status: Acute Code(s): E83.42 - HYPOMAGNESEMIA SNOMED Code(s): 639616346 Comment: - Down to 0.08 on admission; now resolved - 2/2 alcoholism (3) Hyponatremia Current Visit: Yes Status: Acute Code(s): E87.1 - HYPO-OSMOLALITY AND HYPONATREMIA SNOMED Code(s): 23153679 Comment: - Improving since admission - Urine osmolality 171, urine Na 44 - Check TSH and cortisol (4) Hypertension Current Visit: Yes Status: Acute Code(s): I10 - ESSENTIAL (PRIMARY) HYPERTENSION SNOMED Code(s): 31103359 Comment: - Slightly hypertensive in the postop setting - Continue lisinopril and metoprolol (5) Alcohol abuse Current Visit: Yes Status: Chronic Code(s): F10.10 - ALCOHOL ABUSE, UNCOMPLICATED SNOMED Code(s): 94451834 Comment: - Alcohol level 178 on admission - No signs of WD, not scoring on WAM protocol; pt denies hx of seizures - Alcohol cessation - Social work consult (6) EVAN (acute kidney injury) Current Visit: Yes Status: Acute Code(s): N17.9 - ACUTE KIDNEY FAILURE, UNSPECIFIED SNOMED Code(s): 01301712 Comment: - Secondary to dehydration - Resolved with IVF (7) Metabolic acidosis Current Visit: Yes Status: Acute Code(s): E87.2 - ACIDOSIS SNOMED Code(s) : 54344630 Comment: - Resolved with IVF - Suspect starvation ketosis with ketones noted in urine (8) DVT prophylaxis Current Visit: Yes Status: Acute Onset Date: 02/22/15 Code(s): WAB9102 - SNOMED Code(s): 219459247 Comment: - Per ortho in postop setting (9) Full code status Current Visit: Yes Status: Acute Code(s): Z78.9 - OTHER SPECIFIED HEALTH STATUS SNOMED Code(s): 058146913 Status and Disposition: Inpatient. Home vs TITA when medically stable. Attending: Kerri Delarosa
[2018-03-26] MEDS ORDERED: Potassium Chlor TAB* 20 MEQ TAB.ER PO ONE (14:00)
[2018-03-26] MEDS ORDERED: Potassium Chloride LIQUID* 20 MEQ PACKET PO ONE (16:00)
[2018-03-27] MEDS: oxyCODONE/Acetamin 5/325 MG* TAB PO PRN ×4 (02:51→21:38)
[2018-03-27 05:04] LABS: Hematocrit 27 % (35-47); Hemoglobin 9.6 g/dl (12.0-16.0); Mean Corpuscular HGB Conc 35 g/dl (31-36); Mean Corpuscular Hemoglobin 35 pg (27-31); Mean Corpuscular Volume 99 fL (80-97); Mean Platelet Volume 8.1 fL (7.4-10.4); Platelet Count 285 10^3/ul (150-450); Red Blood Count 2.75 10^6/ul (4.00-5.40); Red Cell Distribution Width 13 % (10.5-15); White Blood Count 6.8 10^3/ul (3.5-10.8)
[2018-03-27 05:11] LABS: EGFR Non-African American 92.8 (>60)
[2018-03-27 05:23] LABS: Monocytes % 16 % (0-7)
[2018-03-27 05:31] LABS: ABS Lymphocytes 0.88 10^3/ul (1.0-4.8); ABS Neutrophils 4.76 10^3/ul (1.5-7.7)
[2018-03-27 05:32] LABS: ABS Eosinophils 0.088 10^3/ul (0-0.6); ABS Monocytes 1.09 10^3/ul (0-0.8)
[2018-03-27] MEDS: Lisinopril TAB* 10 MG PO SCH (08:06)
[2018-03-27] MEDS: Magnesium Oxide TAB* 400 MG PO SCH ×2 (08:06→21:38)
[2018-03-27] MEDS: Thiamine TAB* 100 MG TAB PO SCH (08:07)
[2018-03-27] MEDS: DULoxetine DR CAP* 20 MG CAP.DR PO SCH ×2 (08:07→21:42)
[2018-03-27] MEDS: Polyethylene Glycol 3350* 17 GM PACKET PO SCH (08:07)
[2018-03-27] MEDS: Multivitamins/Minerals TAB PO SCH ×2 (08:07→11:29)
[2018-03-27] MEDS: Metoprolol Tartrate TAB* 25 MG PO SCH ×2 (08:07→21:38)
[2018-03-27] MEDS: Pantoprazole IV* 40 MG IV SCH ×2 (08:07→21:42)
[2018-03-27] MEDS: Gabapentin CAP(*) 400 MG PO SCH ×3 (08:07→21:36)
[2018-03-27] MEDS: Folic Acid TAB* 1 MG PO SCH (08:07)
--- NOTE | 2018-03-27 10:42 | PN ---
Progress Note - Progress Note Date of Service: 03/27/18 SOAP: Subjective: []Patient seen at bedside, doing well. Feels that cast on LLE is heavy. She is agreeable to rehab prior to discharge home as long as someone can get her some clean clothes from her home. Objective: [] Vital Signs Temp 98.4 F 03/27/18 07:34 Pulse 80 03/27/18 07:34 Resp 16 03/27/18 08:07 BP 144/74 03/27/18 07:34 Pulse Ox 99 03/27/18 07:51 Intake & Output 03/26/18 03/27/18 03/27/18 18:59 06:59 18:59 Intake Total 360 460 Output Total 750 350 300 Balance -390 110 -300 Weight 100 lb 14.4 oz Intake: Oral 360 460 Output: Urine 750 350 300 Other: # Voids 1 Laboratory Results - last 24 hr 03/26/18 03/27/18 03/27/18 05:46 04:46 04:46 WBC 6.8 RBC 2.75 L Hgb 9.6 L Hct 27 L MCV 99 H MCH 35 H MCHC 35 RDW 13 Plt Count 285 MPV 8.1 Neut % (Auto) Not Reportable Lymph % (Auto) Not Reportable Moca % (Auto) Not Reportable Eos % (Auto) Not Reportable Baso % (Auto) Not Reportable Absolute Neuts (auto) 4.76 Absolute Lymphs (auto) 0.88 L Absolute Monos (auto) 1.09 H Absolute Eos (auto) 0.088 Absolute Basos (auto) Not Reportable Absolute Nucleated RBC Not Reportable Immature Gran % 5 Neutrophils % 65 Band Neutrophils % 1 Lymphocytes % 12 L Reactive Lymphs % 1 Monocytes % 16 H Eosinophils % 1 Metamyelocytes % 1 Myelocytes % 3 H Nucleated RBC % Not Reportable Normal RBC Morphology Normal Sodium 129 L 129 L Potassium 3.4 L 4.5 Chloride 94 L 95 L Carbon Dioxide 27 29 Anion Gap 8 5 BUN 5 L 7 Creatinine 0.63 0.64 Est GFR ( Amer) 114.4 112.3 Est GFR (Non-Af Amer) 94.5 92.8 BUN/Creatinine Ratio 7.9 L 10.9 Glucose 110 H 118 H Calcium 8.7 9.4 Magnesium 2.3 1.8 L TSH 2.15 Cortisol 12.35 LLE cast is in good repair, heel off bed +DF left ankle without calf pain sensation and circulation is intact distally Assessment: []s/p left patella fracture, casting LLE Plan: []Follow up with Dr. Pichardo in 7-10 days after discharge WBAT LLE Subacute rehab vs home with VNS
[2018-03-27] MEDS: Enoxaparin(*) 30 MG/0.3 ML SYR SUBCUT SCH (11:29)
[2018-03-27] MEDS: Mouth Piece, Nicotine* 1 EACH CARTRIDGE INH SCH (17:06)
[2018-03-27] MEDS: Nicotine Inhaler* 10 MG AMP INH PRN (17:06)
--- NOTE | 2018-03-27 17:25 | PN ---
Subjective Date of Service: 03/27/18 Interval History: Patient seen and examined. No acute overnight events, states she has been OOB to chair and tolerating. Still with pain, and states she feels "lousy". Denies SOB, no chest pain, no nv/, no fevers or chills. Family History: Unchanged from Admission Social History: Unchanged from Admission Past Medical History: Unchanged from Admission Objective Active Medications: Acetaminophen (Tylenol Tab*) 650 mg PO Q6H PRN PRN Reason: FEVER/HEADACHE Last Admin: 03/25/18 23:39 Dose: 650 mg Adalimumab (Humira Pen (Nf)) 40 mg SUBCUT Q14D [facility] Last Admin: 03/26/18 10:41 Dose: Not Given Albuterol (Ventolin Hfa Inhaler*) 2 puff INH QID PRN PRN Reason: SHORTNESS OF BREATH Device (Nicotine Mouth Piece*) 1 each INH .CARTRIDGE [facility] Last Admin: 03/27/18 17:06 Dose: 1 each Duloxetine HCl (Cymbalta Cap*) 20 mg PO BID [facility] Last Admin: 03/27/18 08:07 Dose: 20 mg Enoxaparin Sodium (Lovenox(*)) 30 mg SUBCUT DAILY [facility] Last Admin: 03/27/18 11:29 Dose: 30 mg Folic Acid (Folvite Tab*) 1 mg PO DAILY [facility] Last Admin: 03/27/18 08:07 Dose: 1 mg Gabapentin (Neurontin Cap(*)) 1,200 mg PO TID [facility] Last Admin: 03/27/18 13:21 Dose: 1,200 mg Lisinopril (Prinivil Tab*) 20 mg PO DAILY [facility] Last Admin: 03/27/18 08:06 Dose: 20 mg Magnesium Oxide (Magox 400 Tab*) 400 mg PO Q12H [facility] Last Admin: 03/27/18 08:06 Dose: 400 mg Metoprolol Tartrate (Lopressor Tab*) 25 mg PO BID [facility] Last Admin: 03/27/18 08:07 Dose: 25 mg Morphine Sulfate (Morphine Vial*) 2 mg IV Q4H PRN PRN Reason: PAIN - BREAKTHROUGH Last Admin: 03/26/18 13:24 Dose: 2 mg Multivitamins/Minerals (Theragran/Minerals Tab*) 1 tab PO DAILY [facility] Last Admin: 03/27/18 11:29 Dose: 1 tab Nicotine (Nicotine Inhaler*) 10 mg INH Q2H PRN PRN Reason: CRAVING Last Admin: 03/27/18 17:06 Dose: 10 mg Ondansetron HCl (Zofran Inj*) 4 mg IV Q4H PRN PRN Reason: NAUSEA Last Admin: 03/26/18 03:53 Dose: 4 mg Oxycodone/Acetaminophen (Percocet 5/325 Tab*) 1 tab PO Q4H PRN PRN Reason: PAIN Last Admin: 03/26/18 02:09 Dose: 1 tab Oxycodone/Acetaminophen (Percocet 5/325 Tab*) 2 tab PO Q4H PRN PRN Reason: PAIN - SEVERE Last Admin: 03/27/18 16:58 Dose: 2 tab Pantoprazole Sodium (Protonix Iv*) 40 mg IV Q12H [facility]IGO Last Admin: 03/27/18 08:07 Dose: 40 mg Polyethylene Glycol/Electrolytes (Miralax*) 17 gm PO DAILY RODRIGO Last Admin: 03/27/18 08:07 Dose: 17 gm Polyvinyl Alcohol (Polyvinyl Alcohol 1.4% Opth*) 2 drop BOTH EYES DAILY PRN PRN Reason: DRY EYE Thiamine HCl (Vitamin B-1 Tab*) 100 mg PO DAILY RODRIGO Last Admin: 03/27/18 08:07 Dose: 100 mg Triamcinolone Acetonide (Triamcinolone 0.5% Oint *) 1 applic TOPICAL BID PRN PRN Reason: RASH Vital Signs - 8 hr 03/27/18 03/27/18 03/27/18 11:01 11:32 11:33 Temperature 98.5 F Pulse Rate 73 Respiratory 18 16 16 Rate Blood Pressure 116/58 (mmHg) O2 Sat by Pulse 99 Oximetry 03/27/18 03/27/18 03/27/18 13:21 15:24 15:25 Temperature 98.3 F Pulse Rate 78 Respiratory 16 17 16 Rate Blood Pressure 125/63 (mmHg) O2 Sat by Pulse 99 Oximetry 03/27/18 16:58 Temperature Pulse Rate Respiratory 16 Rate Blood Pressure (mmHg) O2 Sat by Pulse Oximetry Oxygen Devices in Use Now: None Appearance: alert, thin, NAD Eyes: No Scleral Icterus, PERRLA Ears/Nose/Mouth/Throat: Clear Oropharnyx, Mucous Membranes Moist Neck: NL Appearance and Movements; NL JVP, Trachea Midline Respiratory: Symmetrical Chest Expansion and Respiratory Effort, Clear to Auscultation Cardiovascular: NL Sounds; No Murmurs; No JVD, RRR Abdominal: NL Sounds; No Tenderness; No Distention, No Hepatosplenomegaly Extremities: No Edema, - - long line glass cast to LLE, brisk cap refill, + 2pulse Skin: No Rash or Ulcers Neurological: Alert and Oriented x 3, NL Sensation Nutrition: Taking PO's Result Diagrams: 03/27/18 04:46 03/27/18 04:46 Microbiology and Other Data: Microbiology 03/21/18 05:45 Urine Culture - Final Urine 03/21/18 09:12 Gastric Occult Blood - Final Gastric Fluid Assess/Plan/Problems-Billing Assessment: This is a 68 yo with PMH of crohns disease s/p sigmoid colon resection with fistula repair, fatty liver, fibromyalgia, chronic alcohol intake, tobacco abuse presented after a fall c/o left knee pain found to have a patellar fracture and metabolic acidosis most likely from starvation ketosis. - Patient Problems (1) EVAN (acute kidney injury) Code(s): N17.9 - ACUTE KIDNEY FAILURE, UNSPECIFIED SNOMED Code(s): 87614177 Comment: - Secondary to dehydration - Resolved with IVF - Encourage PO water intake (2) Electrolyte abnormality Code(s): E87.8 - OTH DISORDERS OF ELECTROLYTE AND FLUID BALANCE, NEC SNOMED Code(s): 238344958 Comment: - Critical mag at admission and continues with hyponatremia - Continue to replete, stress oral intake and adequate nutrition (3) Hypertension Code(s): I10 - ESSENTIAL (PRIMARY) HYPERTENSION SNOMED Code(s): 55597854 Comment: - BP stable on metoprolol and lisinopril (4) Patellar fracture Code(s): S82.009A - UNSP FRACTURE OF UNSP PATELLA, INIT FOR CLOS FX SNOMED Code(s): 43103578 Comment: - Left leg patellar fracture s/p repair POD #2 - Management per ortho - Cotninue PT, plan for STR (5) Alcohol abuse Code(s): F10.10 - ALCOHOL ABUSE, UNCOMPLICATED SNOMED Code(s): 43082283 Comment: - Alcohol level 178 on admission - No signs of WD, not scoring on WAM protocol; pt denies hx of seizures - Alcohol cessation - Social work consult (6) Protein-calorie undernutrition Code(s): E46 - UNSPECIFIED PROTEIN-CALORIE MALNUTRITION SNOMED Code(s): 059444589 Comment: - BMI is borderline for malnutrition - Given electrolyte disturbances and acidotic state at admission this is likely 2/2 ETOH abuse - Nutrition following - Continue supportive diet (7) DVT prophylaxis Current Visit: Yes Status: Acute Onset Date: 02/22/15 Code(s): ANR1102 - SNOMED Code(s): 663959842 Comment: - Per ortho in postop setting (8) Full code status Current Visit: Yes Status: Acute Code(s): Z78.9 - OTHER SPECIFIED HEALTH STATUS SNOMED Code(s): 535499021 Status and Disposition: Inpatient. Eval for STR if needed.
[2018-03-28] MEDS: oxyCODONE/Acetamin 5/325 MG* TAB PO PRN ×5 (02:29→19:45)
[2018-03-28] MEDS: DULoxetine DR CAP* 20 MG CAP.DR PO SCH ×2 (10:18→22:02)
[2018-03-28] MEDS: Polyethylene Glycol 3350* 17 GM PACKET PO SCH (10:18)
[2018-03-28] MEDS: Folic Acid TAB* 1 MG PO SCH (10:19)
[2018-03-28] MEDS: Gabapentin CAP(*) 400 MG PO SCH ×3 (10:19→21:32)
[2018-03-28] MEDS: Thiamine TAB* 100 MG TAB PO SCH (10:20)
[2018-03-28] MEDS: Magnesium Oxide TAB* 400 MG PO SCH ×2 (10:21→17:47)
[2018-03-28] MEDS: Multivitamins/Minerals TAB PO SCH (10:21)
[2018-03-28] MEDS: Metoprolol Tartrate TAB* 25 MG PO SCH ×2 (10:22→21:31)
[2018-03-28] MEDS: Lisinopril TAB* 10 MG PO SCH (10:22)
[2018-03-28] MEDS: Pantoprazole IV* 40 MG IV SCH (10:24)
[2018-03-28] MEDS: Enoxaparin(*) 30 MG/0.3 ML SYR SUBCUT SCH (10:34)
[2018-03-28 10:37] LABS: EGFR Non-African American 106.1 (>60)
[2018-03-28] MEDS: Triamcinolone 0.5% OINT * 15 GM TUBE TOPICAL PRN ×2 (10:38→19:55)
[2018-03-28] MEDS ORDERED: Ondansetron ODT TAB* 4 MG ONE (11:43)
[2018-03-28] MEDS ORDERED: Magnesium Sulf 4 GM/100 ML IV* 4,000 MG/100 ML BAG IVPB ONE (16:24)
--- NOTE | 2018-03-28 16:49 | PN ---
Subjective Date of Service: 03/28/18 Interval History: Ms. Freitas feels well today. She continues to have LLE pain, but it is well managed with her current medications. She has been participating with physical therapy. She is open to going to rehab for 1 week, but does not want to go for any longer than that as she needs to return home to take care of her cat. She would like to go to [facility] or [place]. Denies CP, SOB, N/V/D, dizziness. Her PCP, Dr. Cortés, called to speak with me and expressed concern about pt's ability to care for herself at home. She feels as though the pt has just been getting by recently. 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 She reportedly has had seizures in the past when withdrawing from etoh. She is also concerned about the patient not receiving her Humira as she has had a fistula in the past 2/2 IBD. Family History: Unchanged from Admission Social History: Unchanged from Admission Past Medical History: Unchanged from Admission Objective Active Medications: Acetaminophen (Tylenol Tab*) 650 mg PO Q6H PRN FEVER/HEADACHE Adalimumab (Humira Pen (Nf)) 40 mg SUBCUT Q14D [facility] Albuterol (Ventolin Hfa Inhaler*) 2 puff INH QID PRN SHORTNESS OF BREATH Device (Nicotine Mouth Piece*) 1 each INH .CARTRIDGE [facility]ODRIGO Docusate Sodium (Colace Cap*) 100 mg PO BID RODRIGO Duloxetine HCl (Cymbalta Cap*) 20 mg PO BID RODRIGO Enoxaparin Sodium (Lovenox(*)) 30 mg SUBCUT DAILY [facility]ODRIGO Ferrous Sulfate (Ferrous Sulfate Tab*) 325 mg PO BID RODRIGO Folic Acid (Folvite Tab*) 1 mg PO DAILY RODRIGO Gabapentin (Neurontin Cap(*)) 1,200 mg PO TID RODRIGO Magnesium Sulfate (Magnesium Sulf 4 Gm/100 Ml Iv*) 4,000 mg in 100 mls @ 33.333 mls/hr IVPB ONCE ONE Lisinopril (Prinivil Tab*) 20 mg PO DAILY RODRIGO Magnesium Oxide (Magox 400 Tab*) 400 mg PO Q12H RODRIGO Metoprolol Tartrate (Lopressor Tab*) 25 mg PO BID RODRIGO Morphine Sulfate (Morphine Vial*) 2 mg IV Q4H PRN PAIN - BREAKTHROUGH Multivitamins/Minerals (Theragran/Minerals Tab*) 1 tab PO DAILY [facility] Nicotine (Nicotine Inhaler*) 10 mg INH Q2H PRN CRAVING Ondansetron HCl (Zofran Inj*) 4 mg IV Q4H PRN NAUSEA Oxycodone/Acetaminophen (Percocet 5/325 Tab*) 2 tab PO Q4H PRN PAIN - SEVERE Pantoprazole Sodium (Protonix Iv*) 40 mg IV Q12H [facility] Polyethylene Glycol/Electrolytes (Miralax*) 17 gm PO DAILY [facility] Polyvinyl Alcohol (Polyvinyl Alcohol 1.4% Opth*) 2 drop BOTH EYES DAILY PRN DRY EYE Thiamine HCl (Vitamin B-1 Tab*) 100 mg PO DAILY [facility] Triamcinolone Acetonide (Triamcinolone 0.5% Oint *) 1 applic TOPICAL BID PRN RASH Vital Signs - 8 hr 03/28/18 03/28/18 03/28/18 11:51 14:25 14:26 Temperature 98.6 F Pulse Rate 69 Respiratory 18 17 16 Rate Blood Pressure 142/73 (mmHg) O2 Sat by Pulse 97 Oximetry 03/28/18 03/28/18 03/28/18 15:43 15:49 16:16 Temperature 98.3 F Pulse Rate 70 Respiratory 18 16 18 Rate Blood Pressure 137/68 (mmHg) O2 Sat by Pulse 98 Oximetry Oxygen Devices in Use Now: None Appearance: Middle-aged female laying in bed in NAD Eyes: No Scleral Icterus Ears/Nose/Mouth/Throat: Mucous Membranes Moist Neck: NL Appearance and Movements; NL JVP, Trachea Midline Respiratory: Symmetrical Chest Expansion and Respiratory Effort, Clear to Auscultation Cardiovascular: NL Sounds; No Murmurs; No JVD, RRR Abdominal: NL Sounds; No Tenderness; No Distention Extremities: No Edema Skin: No Rash or Ulcers, - - Plaster cast to LLE Neurological: Alert and Oriented x 3, NL Sensation Nutrition: Taking PO's Result Diagrams: 03/27/18 04:46 03/28/18 10:16 Assess/Plan/Problems-Billing Assessment: This is a 68 yo with PMH of crohns disease s/p sigmoid colon resection with fistula repair, fatty liver, fibromyalgia, chronic alcohol intake, tobacco abuse presented after a fall c/o left knee pain found to have a patellar fracture and metabolic acidosis most likely from starvation ketosis. - Patient Problems (1) Patellar fracture Current Visit: Yes Status: Acute Code(s): S82.009A - UNSP FRACTURE OF UNSP PATELLA, INIT FOR CLOS FX SNOMED Code(s): 24120961 Comment: - Left leg patellar fracture s/p repair POD #3 - Management per ortho - Cotninue PT, plan for STR (2) Hypomagnesemia Current Visit: Yes Status: Acute Code(s): E83.42 - HYPOMAGNESEMIA SNOMED Code(s): 747543731 Comment: - Down to 0.08 on admission; now improved, but remains low - 2/2 alcoholism - Continue to replete as needed (3) Hyponatremia Current Visit: Yes Status: Acute Code(s): E87.1 - HYPO-OSMOLALITY AND HYPONATREMIA SNOMED Code(s): 42632383 Comment: - Stable - Urine osmolality 171, urine Na 44 - TSH and cortisol normal (4) Hypertension Current Visit: Yes Status: Acute Code(s): I10 - ESSENTIAL (PRIMARY) HYPERTENSION SNOMED Code(s): 05604284 Comment: - Normotensive - Continue metoprolol and lisinopril (5) Alcohol abuse Current Visit: Yes Status: Chronic Code(s): F10.10 - ALCOHOL ABUSE, UNCOMPLICATED SNOMED Code(s): 74972273 Comment: - Alcohol level 178 on admission - Reported history of withdrawal seizures - No signs of WD, not scoring on WAM protocol - Alcohol cessation - Social work consult (6) EVAN (acute kidney injury) Current Visit: Yes Status: Acute Code(s): N17.9 - ACUTE KIDNEY FAILURE, UNSPECIFIED SNOMED Code(s): 68299498 Comment: - Secondary to dehydration - Resolved with IVF - Encourage PO water intake (7) Metabolic acidosis Current Visit: Yes Status: Acute Code(s): E87.2 - ACIDOSIS SNOMED Code(s) : 49131102 Comment: - Resolved with IVF - Suspect starvation ketosis with ketones noted in urine (8) DVT prophylaxis Current Visit: Yes Status: Acute Onset Date: 02/22/15 Code(s): UER7453 - SNOMED Code(s): 556301923 Comment: - Per ortho in postop setting (9) Full code status Current Visit: Yes Status: Acute Code(s): Z78.9 - OTHER SPECIFIED HEALTH STATUS SNOMED Code(s): 699667044 Status and Disposition: Inpatient. Will likely need TITA.
[2018-03-28] MEDS ORDERED: Ondansetron TAB* 4 MG PO PRN (16:50)
[2018-03-28] MEDS: Docusate CAP* 100 MG PO SCH (21:29)
[2018-03-28] MEDS: Ferrous Sulfate TAB* 325 MG PO SCH (21:32)
[2018-03-29] MEDS: oxyCODONE/Acetamin 5/325 MG* TAB PO PRN ×5 (00:59→18:21)
[2018-03-29] MEDS: Magnesium Oxide TAB* 400 MG PO SCH ×2 (06:20→18:23)
[2018-03-29] MEDS: Omeprazole CAP* 20 MG PO SCH (06:22)
--- NOTE | 2018-03-29 09:00 | PN ---
Subjective Date of Service: 03/29/18 Interval History: Ms. Mercedes feels well this morning. She is not having any pain on my exam. She reports that her pain is well managed with current medications, and she is mostly pain-free when she is not moving her LLE. She did c/o 1 episode of diarrhea which she attributes to miralax. She understands the need for a bowel regimen to prevent constipation while she is taking narcotics. She denies CP, SOB, N/V, dizziness. Family History: Unchanged from Admission Social History: Unchanged from Admission Past Medical History: Unchanged from Admission Objective Active Medications: Acetaminophen (Tylenol Tab*) 650 mg PO Q6H PRN FEVER/HEADACHE Adalimumab (Humira Pen (Nf)) 40 mg SUBCUT Q14D RODRIGO Albuterol (Ventolin Hfa Inhaler*) 2 puff INH QID PRN SHORTNESS OF BREATH Device (Nicotine Mouth Piece*) 1 each INH .CARTRIDGE RODRIGO Docusate Sodium (Colace Cap*) 100 mg PO BID RODRIGO Duloxetine HCl (Cymbalta Cap*) 20 mg PO BID RODRIGO Enoxaparin Sodium (Lovenox(*)) 30 mg SUBCUT DAILY RODRIGO Ferrous Sulfate (Ferrous Sulfate Tab*) 325 mg PO BID RODRIGO Folic Acid (Folvite Tab*) 1 mg PO DAILY RODRIGO Gabapentin (Neurontin Cap(*)) 1,200 mg PO TID RODRIGO Lisinopril (Prinivil Tab*) 20 mg PO DAILY RODRIGO Magnesium Oxide (Magox 400 Tab*) 800 mg PO Q12H RODRIGO Metoprolol Tartrate (Lopressor Tab*) 25 mg PO BID RODRIGO Morphine Sulfate (Morphine Vial*) 2 mg IV Q4H PRN PAIN - BREAKTHROUGH Multivitamins/Minerals (Theragran/Minerals Tab*) 1 tab PO DAILY RODRIGO Nicotine (Nicotine Inhaler*) 10 mg INH Q2H PRN CRAVING Omeprazole (Prilosec Cap*) 20 mg PO 0600 RODRIGO Ondansetron HCl (Zofran Tab*) 4 mg PO Q6H PRN NAUSEA/VOMITING Oxycodone/Acetaminophen (Percocet 5/325 Tab*) 2 tab PO Q4H PRN PAIN - SEVERE Polyethylene Glycol/Electrolytes (Miralax*) 17 gm PO DAILY RODRIGO Polyvinyl Alcohol (Polyvinyl Alcohol 1.4% Opth*) 2 drop BOTH EYES DAILY PRN DRY EYE Thiamine HCl (Vitamin B-1 Tab*) 100 mg PO DAILY RODRIGO Triamcinolone Acetonide (Triamcinolone 0.5% Oint *) 1 applic TOPICAL BID PRN RASH Vital Signs - 8 hr 03/29/18 03/29/18 03/29/18 00:59 04:22 06:22 Temperature 98.6 F Pulse Rate 71 Respiratory 16 18 16 Rate Blood Pressure 119/60 (mmHg) O2 Sat by Pulse 99 Oximetry 03/29/18 07:44 Temperature 98.6 F Pulse Rate 83 Respiratory 16 Rate Blood Pressure 108/63 (mmHg) O2 Sat by Pulse 98 Oximetry Oxygen Devices in Use Now: None Appearance: Middle-aged female laying in bed in NAD Eyes: No Scleral Icterus Ears/Nose/Mouth/Throat: Mucous Membranes Moist Neck: NL Appearance and Movements; NL JVP, Trachea Midline Respiratory: Symmetrical Chest Expansion and Respiratory Effort, Clear to Auscultation Cardiovascular: NL Sounds; No Murmurs; No JVD, RRR Abdominal: NL Sounds; No Tenderness; No Distention Extremities: No Edema Skin: No Rash or Ulcers, - - Plaster cast to LLE Neurological: Alert and Oriented x 3, NL Sensation Nutrition: Taking PO's Result Diagrams: 03/27/18 04:46 03/28/18 10:16 Assess/Plan/Problems-Billing Assessment: This is a 68 yo with PMH of crohns disease s/p sigmoid colon resection with fistula repair, fatty liver, fibromyalgia, chronic alcohol intake, tobacco abuse presented after a fall c/o left knee pain found to have a patellar fracture and metabolic acidosis most likely from starvation ketosis. - Patient Problems (1) Patellar fracture Current Visit: Yes Status: Acute Code(s): S82.009A - UNSP FRACTURE OF UNSP PATELLA, INIT FOR CLOS FX SNOMED Code(s): 21936524 Comment: - Left leg patellar fracture s/p repair POD #4 - Management per ortho - Cotninue PT, plan for STR (2) Iron deficiency anemia Current Visit: Yes Status: Acute Code(s): D50.9 - IRON DEFICIENCY ANEMIA, UNSPECIFIED SNOMED Code(s): 72520435 Comment: - Stable - Low serum iron and % saturation - Continue ferrous sulfate and colace BID (3) Hypomagnesemia Current Visit: Yes Status: Acute Code(s): E83.42 - HYPOMAGNESEMIA SNOMED Code(s): 802386056 Comment: - Down to 0.08 on admission; now improved, but remains low - 2/2 alcoholism - No IV access, so will continue mag oxide 800mg BID (4) Hyponatremia Current Visit: Yes Status: Acute Code(s): E87.1 - HYPO-OSMOLALITY AND HYPONATREMIA SNOMED Code(s): 67998892 Comment: - Stable - Urine osmolality 171, urine Na 44; TSH and cortisol normal (5) Hypertension Current Visit: Yes Status: Acute Code(s): I10 - ESSENTIAL (PRIMARY) HYPERTENSION SNOMED Code(s): 30413125 Comment: - Normotensive - Continue metoprolol and lisinopril (6) Alcohol abuse Current Visit: Yes Status: Chronic Code(s): F10.10 - ALCOHOL ABUSE, UNCOMPLICATED SNOMED Code(s): 39818942 Comment: - Alcohol level 178 on admission - Reported history of withdrawal seizures - No signs of WD, not scoring on WAM protocol - Alcohol cessation - Social work consult (7) EVAN (acute kidney injury) Current Visit: Yes Status: Acute Code(s): N17.9 - ACUTE KIDNEY FAILURE, UNSPECIFIED SNOMED Code(s): 82993218 Comment: - Secondary to dehydration - Resolved with IVF - Encourage PO water intake (8) Metabolic acidosis Current Visit: Yes Status: Acute Code(s): E87.2 - ACIDOSIS SNOMED Code(s) : 00671645 Comment: - Resolved with IVF - Suspect starvation ketosis with ketones noted in urine (9) History of Crohn's disease Current Visit: Yes Status: Acute Code(s): Z87.19 - PERSONAL HISTORY OF OTHER DISEASES OF THE DIGESTIVE SYSTEM SNOMED Code(s): 386912112927963 Comment: - Per PCP, history of fistual 2/2 Crohn's - Humira has been on hold while in the hospital, but pharmacy will attempt to provide patient with her next dose as she is not able to have anyone bring it from home (10) DVT prophylaxis Current Visit: Yes Status: Acute Onset Date: 02/22/15 Code(s): [id number] - SNOMED Code(s): 236548743 Comment: - Per ortho in postop setting (11) Full code status Current Visit: Yes Status: Acute Code(s): Z78.9 - OTHER SPECIFIED HEALTH STATUS SNOMED Code(s): 605724527 Status and Disposition: Inpatient. Will likely need TITA.
--- NOTE | 2018-03-29 09:05 | PN ---
Progress Note - Progress Note Date of Service: 03/29/18 SOAP: Subjective: Patient seen at bedside, doing well. Feels that cast on LLE is heavy. She is agreeable to rehab prior to discharge home as long as someone can get her some clean clothes from her home. She denies any chest pain, sob, nausea or vomiting Objective: [] LLE cast is in good repair, heel off bed +DF left ankle without calf pain sensation and circulation is intact distally Vital Signs Temp 98.6 F 03/29/18 07:44 Pulse 83 03/29/18 07:44 Resp 16 03/29/18 07:44 BP 108/63 03/29/18 07:44 Pulse Ox 98 03/29/18 07:44 Intake & Output 03/28/18 03/29/18 03/29/18 18:59 06:59 18:59 Intake Total 960 510 Output Total 750 550 Balance 210 -40 Intake: Oral 960 510 Output: Urine 750 550 Other: Estimated Void Medium Medium # Bowel Movements 1 Estimated Stool Amount Medium # Voids 1 1 Assessment: []s/p left patella fracture, casting LLE Plan: []Follow up with Dr. Pichardo in 7-10 days after discharge WBAT LLE Subacute rehab vs home with VNS
[2018-03-29] MEDS: Polyethylene Glycol 3350* 17 GM PACKET PO SCH (09:27)
[2018-03-29] MEDS: Docusate CAP* 100 MG PO SCH ×2 (09:27→21:54)
[2018-03-29] MEDS: Metoprolol Tartrate TAB* 25 MG PO SCH ×3 (09:28→21:57)
[2018-03-29] MEDS: Lisinopril TAB* 10 MG PO SCH (09:28)
[2018-03-29] MEDS: Multivitamins/Minerals TAB PO SCH (09:29)
[2018-03-29] MEDS: Thiamine TAB* 100 MG TAB PO SCH (09:29)
[2018-03-29] MEDS: Ferrous Sulfate TAB* 325 MG PO SCH ×2 (09:29→21:54)
[2018-03-29] MEDS: Triamcinolone 0.5% OINT * 15 GM TUBE TOPICAL PRN (09:29)
[2018-03-29] MEDS: Folic Acid TAB* 1 MG PO SCH (09:29)
[2018-03-29] MEDS: Gabapentin CAP(*) 400 MG PO SCH ×3 (09:29→21:53)
[2018-03-29] MEDS: DULoxetine DR CAP* 20 MG CAP.DR PO SCH ×2 (09:31→21:54)
[2018-03-29] MEDS: Enoxaparin(*) 30 MG/0.3 ML SYR SUBCUT SCH (09:31)
[2018-03-30] MEDS: oxyCODONE/Acetamin 5/325 MG* TAB PO PRN ×5 (02:40→22:00)
[2018-03-30] MEDS: Omeprazole CAP* 20 MG PO SCH (05:27)
[2018-03-30] MEDS: Magnesium Oxide TAB* 400 MG PO SCH ×2 (05:28→17:59)
[2018-03-30 05:50] LABS: EGFR Non-African American 98.1 (>60)
[2018-03-30] MEDS: DULoxetine DR CAP* 20 MG CAP.DR PO SCH ×2 (08:49→22:00)
[2018-03-30] MEDS: Thiamine TAB* 100 MG TAB PO SCH (08:49)
[2018-03-30] MEDS: Folic Acid TAB* 1 MG PO SCH (08:49)
[2018-03-30] MEDS: Metoprolol Tartrate TAB* 25 MG PO SCH ×3 (08:49→22:00)
[2018-03-30] MEDS: Multivitamins/Minerals TAB PO SCH (08:50)
[2018-03-30] MEDS: Gabapentin CAP(*) 400 MG PO SCH ×3 (08:51→22:00)
[2018-03-30] MEDS: Ferrous Sulfate TAB* 325 MG PO SCH ×3 (08:52→22:00)
[2018-03-30] MEDS: Polyethylene Glycol 3350* 17 GM PACKET PO SCH (08:53)
[2018-03-30] MEDS: Docusate CAP* 100 MG PO SCH ×2 (08:53→19:13)
[2018-03-30] MEDS: Lisinopril TAB* 10 MG PO SCH ×2 (08:53→09:32)
[2018-03-30] MEDS: Enoxaparin(*) 30 MG/0.3 ML SYR SUBCUT SCH (08:54)
--- NOTE | 2018-03-30 11:24 | PN ---
Progress Note - Progress Note Date of Service: 03/30/18 SOAP: Subjective: [] Patient seen and examined at bedside. She is feeling well without pain of LLE. Reports she has been walking well with PT and has no concerns today. Denies CP, SOB, feeling of fever or chills, nausea. Objective: []General: Well appearing, NAD LLE: Long leg cast CDI, extra padding added to posterior proximal aspect, no skin breakdown at this site. No erythema or edema proximal or distal to cast. DP2+, flexion and extension of ankle and MTPs intact. Right calf supple and nontender without erythema, edema or palpable cords Assessment: []s/p left patella fracture, casting LLE Plan: []Follow up with Dr. Pichardo in 7-10 days after discharge WBAT LLE. Cast to be kept CDI Ready for DC from ortho standpoint: Subacute rehab vs home with VNS Vital Signs Temp 98.5 F 03/30/18 07:27 Pulse 97 03/30/18 07:27 Resp 18 03/30/18 11:24 BP 99/74 03/30/18 07:27 Pulse Ox 98 03/30/18 08:45 Intake & Output 03/29/18 03/30/18 03/30/18 18:59 06:59 18:59 Intake Total 640 700 210 Output Total 400 500 Balance 240 200 210 Intake: Oral 640 700 210 Output: Urine 400 500 Other: Estimated Void Small Medium # Bowel Movements 1 Estimated Stool Amount Medium Small Small Laboratory Last Values WBC 6.8 10^3/ul (3.5-10.8) 03/27/18 04:46 RBC 2.75 10^6/ul (4.00-5.40) L 03/27/18 04:46 Hgb 9.6 g/dl (12.0-16.0) L 03/27/18 04:46 Hct 27 % (35-47) L 03/27/18 04:46 MCV 99 fL (80-97) H 03/27/18 04:46 MCH 35 pg (27-31) H 03/27/18 04:46 MCHC 35 g/dl (31-36) 03/27/18 04:46 RDW 13 % (10.5-15) 03/27/18 04:46 Plt Count 285 10^3/ul (150-450) 03/27/18 04:46 MPV 8.1 fL (7.4-10.4) 03/27/18 04:46 Neut % (Auto) Not Reportable 03/27/18 04:46 Lymph % (Auto) Not Reportable 03/27/18 04:46 [place] % (Auto) Not Reportable 03/27/18 04:46 Eos % (Auto) Not Reportable 03/27/18 04:46 Baso % (Auto) Not Reportable 03/27/18 04:46 Absolute Neuts (auto) 4.76 10^3/ul (1.5-7.7) 03/27/18 04:46 Absolute Lymphs (auto) 0.88 10^3/ul (1.0-4.8) L 03/27/18 04:46 Absolute Monos (auto) 1.09 10^3/ul (0-0.8) H 03/27/18 04:46 Absolute Eos (auto) 0.088 10^3/ul (0-0.6) 03/27/18 04:46 Absolute Basos (auto) Not Reportable 03/27/18 04:46 Absolute Nucleated RBC Not Reportable 03/27/18 04:46 Immature Gran % 5 % (0-9) 03/27/18 04:46 Neutrophils % 65 % (38-83) 03/27/18 04:46 Band Neutrophils % 1 % (0-8) 03/27/18 04:46 Lymphocytes % 12 % (25-47) L 03/27/18 04:46 Reactive Lymphs % 1 % (0-6) 03/27/18 04:46 Monocytes % 16 % (0-7) H 03/27/18 04:46 Eosinophils % 1 % (0-6) 03/27/18 04:46 Metamyelocytes % 1 % (0-2) 03/27/18 04:46 Myelocytes % 3 % (0-1) H 03/27/18 04:46 Nucleated RBC % Not Reportable 03/27/18 04:46 Normal RBC Morphology Normal (Normal) 03/27/18 04:46 INR (Anticoag Therapy) 0.91 (0.77-1.02) 03/25/18 05:42 APTT 25.6 seconds (26.0-36.3) L 03/25/18 05:42 VBG pH 7.27 (7.33-7.43) L 03/21/18 11:26 VBG pCO2 25 mmHg (41-51) L 03/21/18 11: VBG pO2 55 mmHg (35-45) H 03/21/18 11: VBG HCO3 13.9 mmol/L (24-28) L 03/21/18 11:26 VBG O2 Saturation 88.9 % (70-80) H 03/21/18 11: VBG Base Excess -13.8 (0-4) L 03/21/18 11: Sodium 132 mmol/L (135-145) L 03/30/18 05:04 Potassium 4.7 mmol/L (3.5-5.0) 03/30/18 05:04 Chloride 98 mmol/L (101-111) L 03/30/18 05:04 Carbon Dioxide 30 mmol/L (22-32) 03/30/18 05:04 Anion Gap 4 mmol/L (2-11) 03/30/18 05:04 BUN 13 mg/dL (6-24) 03/30/18 05:04 Creatinine 0.61 mg/dL (0.51-0.95) 03/30/18 05:04 Est GFR ( Amer) 118.7 (>60) 03/30/18 05:04 Est GFR (Non-Af Amer) 98.1 (>60) 03/30/18 05:04 BUN/Creatinine Ratio 21.3 (8-20) H 03/30/18 05:04 Glucose 107 mg/dL (70-100) H 03/30/18 05:04 Lactic Acid 1.2 mmol/L (0.5-2.0) 03/21/18 06:28 Calcium 10.0 mg/dL (8.6-10.3) 03/30/18 05:04 Magnesium 1.6 mg/dL (1.9-2.7) L 03/30/18 05:04 Iron 28 ug/dL (50-212) L 03/28/18 10:07 TIBC 258 mcg/dL (250-450) 03/28/18 10:07 % Saturation 11 % (15-55) L 03/28/18 10:07 Unsat Iron Binding < 243 ug/dL 03/28/18 10:07 Transferrin 184 mg/dL (203-362) L 03/28/18 10:07 Ferritin 249.0 ng/mL (11-307) 03/28/18 10:07 Total Bilirubin 0.50 mg/dL (0.2-1.0) 03/21/18 04:23 AST 66 U/L (13-39) H 03/21/18 04:23 ALT 21 U/L (7-52) 03/21/18 04:23 Alkaline Phosphatase 64 U/L (34-104) 03/21/18 04:23 Troponin I 0.00 ng/mL (<0.04) 03/22/18 15:01 Total Protein 7.9 g/dL (6.4-8.9) 03/21/18 04:23 Albumin 4.2 g/dL (3.2-5.2) 03/21/18 04:23 Globulin 3.7 g/dL (2-4) 03/21/18 04:23 Albumin/Globulin Ratio 1.1 (1-3) 03/21/18 04:23 Vitamin B12 > 1450 pg/mL (180-914) H 03/28/18 10:07 TSH 2.15 mcIU/mL (0.34-5.60) 03/26/18 05:46 Cortisol 12.35 mcg/dL 03/27/18 04:46 Urine Color Yellow 03/21/18 05:45 Urine Appearance Cloudy 03/21/18 05:45 Urine pH 5.0 (5-9) 03/21/18 05:45 Ur Specific [place] 1.013 (1.010-1.030) 03/21/18 05:45 Urine Protein Negative (Negative) 03/21/18 05:45 Urine Ketones 1+ (Negative) A 03/21/18 05:45 Urine Blood 1+ (Negative) A 03/21/18 05:45 Urine Nitrate Negative (Negative) 03/21/18 05:45 Urine Bilirubin Negative (Negative) 03/21/18 05:45 Urine Urobilinogen Negative (Negative) 03/21/18 05:45 Ur Leukocyte Esterase Negative (Negative) 03/21/18 05:45 Urine WBC (Auto) Trace(0-5/hpf) (Absent) 03/21/18 05:45 Urine RBC (Auto) Trace(0-2/hpf) (Absent) 03/21/18 05:45 Ur Squamous Epith Cells Present (Absent) A 03/21/18 05:45 Urine Bacteria Absent (Absent) 03/21/18 05:45 Hyaline Casts Present (Absent) A 03/21/18 05:45 Urine Osmolality 171 mOsm/kg (100-1150) 03/25/18 19:50 U Sodium Concentration 44 mmol/L 03/25/18 19:50 Urine Glucose 1+(50 mg/dl) (Negative) A 03/21/18 05:45 Urine Opiates Screen None detected (None Detect) 03/21/18 05:45 Ur Barbiturates Screen None detected (None Detect) 03/21/18 05:45 Ur Phencyclidine Scrn None detected (None Detect) 03/21/18 05:45 Ur Amphetamines Screen None detected (None Detect) 03/21/18 05:45 U Benzodiazepines Scrn None detected (None Detect) 03/21/18 05:45 Urine Cocaine Screen None detected (None Detect) 03/21/18 05:45 U Cannabinoids Screen Presumptive positive (None Detect) A 03/21/18 05:45 Serum Alcohol 178 mg/dL (<10) H 03/21/18 04:23
--- NOTE | 2018-03-30 17:08 | PN ---
Subjective Date of Service: 03/30/18 Interval History: Ms. Mercedes is feeling well today and is anxious to return home. She feels as though she will be able to function at home with the assistance of friends. She offers no complaints today. Denies CP, SOB, N/V. Pain is well controlled on current meds and she has been up with PT. Family History: Unchanged from Admission Social History: Unchanged from Admission Past Medical History: Unchanged from Admission Objective Active Medications: Acetaminophen (Tylenol Tab*) 650 mg PO Q6H PRN FEVER/HEADACHE Adalimumab (Humira Pen (Nf)) 40 mg SUBCUT Q14D RODRIGO Albuterol (Ventolin Hfa Inhaler*) 2 puff INH QID PRN SHORTNESS OF BREATH Device (Nicotine Mouth Piece*) 1 each INH .CARTRIDGE RODRIGO Docusate Sodium (Colace Cap*) 100 mg PO BID RODRIGO Duloxetine HCl (Cymbalta Cap*) 20 mg PO BID RODRIGO Enoxaparin Sodium (Lovenox(*)) 30 mg SUBCUT DAILY RODRIGO Ferrous Sulfate (Ferrous Sulfate Tab*) 325 mg PO BID RODRIGO Folic Acid (Folvite Tab*) 1 mg PO DAILY RODRIGO Gabapentin (Neurontin Cap(*)) 1,200 mg PO TID RODRIGO Lisinopril (Prinivil Tab*) 20 mg PO DAILY RODRIGO Magnesium Oxide (Magox 400 Tab*) 800 mg PO Q12H RODRIGO Metoprolol Tartrate (Lopressor Tab*) 25 mg PO BID RODRIGO Multivitamins/Minerals (Theragran/Minerals Tab*) 1 tab PO DAILY RODRIGO Nicotine (Nicotine Inhaler*) 10 mg INH Q2H PRN CRAVING Omeprazole (Prilosec Cap*) 20 mg PO 0600 RODRIGO Ondansetron HCl (Zofran Tab*) 4 mg PO Q6H PRN NAUSEA/VOMITING Oxycodone/Acetaminophen (Percocet 5/325 Tab*) 2 tab PO Q4H PRN PAIN - SEVERE Polyethylene Glycol/Electrolytes (Miralax*) 17 gm PO DAILY RODRIGO Polyvinyl Alcohol (Polyvinyl Alcohol 1.4% Opth*) 2 drop BOTH EYES DAILY PRN DRY EYE Thiamine HCl (Vitamin B-1 Tab*) 100 mg PO DAILY RODRIGO Triamcinolone Acetonide (Triamcinolone 0.5% Oint *) 1 applic TOPICAL BID PRN RASH Vital Signs - 8 hr 1103/30/18 03/30/18 11:02 11:24 12:35 Temperature 98.5 F Pulse Rate 70 Respiratory 17 18 16 Rate Blood Pressure 119/65 (mmHg) O2 Sat by Pulse 99 Oximetry 03/30/18 03/30/18 15:00 15:39 Temperature 98.3 F Pulse Rate 78 Respiratory 16 16 Rate Blood Pressure 140/85 (mmHg) O2 Sat by Pulse 98 Oximetry Oxygen Devices in Use Now: None Appearance: Middle-aged female laying in bed in NAD Eyes: No Scleral Icterus Ears/Nose/Mouth/Throat: Mucous Membranes Moist Neck: NL Appearance and Movements; NL JVP, Trachea Midline Respiratory: Symmetrical Chest Expansion and Respiratory Effort, Clear to Auscultation Cardiovascular: NL Sounds; No Murmurs; No JVD, RRR Abdominal: NL Sounds; No Tenderness; No Distention Extremities: No Edema Skin: - - Plaster cast to LLE Neurological: Alert and Oriented x 3, NL Sensation Nutrition: Taking PO's Result Diagrams: 03/27/18 04:46 03/30/18 05:04 Assess/Plan/Problems-Billing Assessment: This is a 68 yo with PMH of crohns disease s/p sigmoid colon resection with fistula repair, fatty liver, fibromyalgia, chronic alcohol intake, tobacco abuse presented after a fall c/o left knee pain found to have a patellar fracture and metabolic acidosis most likely from starvation ketosis. - Patient Problems (1) Patellar fracture Current Visit: Yes Status: Acute Code(s): S82.009A - UNSP FRACTURE OF UNSP PATELLA, INIT FOR CLOS FX SNOMED Code(s): 75095234 Comment: - Left leg patellar fracture s/p repair POD #5 - Management per ortho (2) Iron deficiency anemia Current Visit: Yes Status: Acute Code(s): D50.9 - IRON DEFICIENCY ANEMIA, UNSPECIFIED SNOMED Code(s): 76022515 Comment: - Stable - Low serum iron and % saturation - Continue ferrous sulfate and colace BID (3) Hypomagnesemia Current Visit: Yes Status: Acute Code(s): E83.42 - HYPOMAGNESEMIA SNOMED Code(s): 181428496 Comment: - Down to 0.08 on admission; now improved, but remains low - 2/2 alcoholism - No IV access, so will continue mag oxide 800mg BID (4) Hyponatremia Current Visit: Yes Status: Acute Code(s): E87.1 - HYPO-OSMOLALITY AND HYPONATREMIA SNOMED Code(s): 84682412 Comment: - Improving - Urine osmolality 171, urine Na 44; TSH and cortisol normal (5) Hypertension Current Visit: Yes Status: Acute Code(s): I10 - ESSENTIAL (PRIMARY) HYPERTENSION SNOMED Code(s): 84264477 Comment: - Normotensive - Continue metoprolol and lisinopril (6) Alcohol abuse Current Visit: Yes Status: Chronic Code(s): F10.10 - ALCOHOL ABUSE, UNCOMPLICATED SNOMED Code(s): 52358963 Comment: - Alcohol level 178 on admission - Reported history of withdrawal seizures - No signs of WD, not scoring on WAM protocol - Alcohol cessation - Social work consult (7) EVAN (acute kidney injury) Current Visit: Yes Status: Acute Code(s): N17.9 - ACUTE KIDNEY FAILURE, UNSPECIFIED SNOMED Code(s): 13929133 Comment: - Secondary to dehydration - Resolved with IVF - Encourage PO water intake (8) Metabolic acidosis Current Visit: Yes Status: Acute Code(s): E87.2 - ACIDOSIS SNOMED Code(s) : 03568527 Comment: - Resolved with IVF - Suspect starvation ketosis with ketones noted in urine (9) History of Crohn's disease Current Visit: Yes Status: Acute Code(s): Z87.19 - PERSONAL HISTORY OF OTHER DISEASES OF THE DIGESTIVE SYSTEM SNOMED Code(s): 319389746347926 Comment: - Per PCP, history of fistual 2/2 Crohn's - Humira has been on hold while in the hospital d/t lack of availability (10) DVT prophylaxis Current Visit: Yes Status: Acute Onset Date: 02/22/15 Code(s): FEK3764 - SNOMED Code(s): 023975544 Comment: - Per ortho in postop setting (11) Full code status Current Visit: Yes Status: Acute Code(s): Z78.9 - OTHER SPECIFIED HEALTH STATUS SNOMED Code(s): 797413443 Status and Disposition: Inpatient. Plan for d/c home with VNS. Medically stable for d/c today, but does not have a ride home, so she will leave in the AM.
[2018-03-30] MEDS ORDERED: Aspirin TAB* 325 MG PO SCH (21:00)
[2018-03-31] MEDS: oxyCODONE/Acetamin 5/325 MG* TAB PO PRN ×2 (01:59→06:05)
[2018-03-31] MEDS: Nicotine Inhaler* 10 MG AMP INH PRN (02:02)
[2018-03-31] MEDS: Magnesium Oxide TAB* 400 MG PO SCH (06:06)
[2018-03-31] MEDS: Omeprazole CAP* 20 MG PO SCH (06:06)
[2018-03-31 07:57] VITALS: BP 109/72
[2018-03-31] MEDS: Docusate CAP* 100 MG PO SCH (08:01)
[2018-03-31] MEDS: DULoxetine DR CAP* 20 MG CAP.DR PO SCH (08:01)
[2018-03-31] MEDS: Thiamine TAB* 100 MG TAB PO SCH (08:02)
[2018-03-31] MEDS: Multivitamins/Minerals TAB PO SCH (08:02)
[2018-03-31] MEDS: Polyethylene Glycol 3350* 17 GM PACKET PO SCH (08:02)
[2018-03-31] MEDS: Ferrous Sulfate TAB* 325 MG PO SCH (08:02)
[2018-03-31] MEDS: Metoprolol Tartrate TAB* 25 MG PO SCH (08:03)
[2018-03-31] MEDS: Lisinopril TAB* 10 MG PO SCH (08:05)
[2018-03-31] MEDS: Gabapentin CAP(*) 400 MG PO SCH (08:06)
[2018-03-31] MEDS: Folic Acid TAB* 1 MG PO SCH (08:08)
[2018-03-31] MEDS: Enoxaparin(*) 30 MG/0.3 ML SYR SUBCUT SCH (08:12)
--- NOTE | 2018-04-01 11:18 | DS ---
CC: Dr. Donna Cortés; Dr. Pichardo * DISCHARGE SUMMARY: DATE OF ADMISSION: 03/21/18 DATE OF DISCHARGE: 03/31/18 PRIMARY CARE PROVIDER: Dr. Donna Cortés. ORTHOPEDIST: Dr. Pichardo. ATTENDING PHYSICIAN: Dr. Kerri Delarosa * (dictated by Julita Truong NP). PRIMARY DIAGNOSES: 1. Left patella fracture, status post ORIF. 2. Iron-deficiency anemia. 3. Hypomagnesemia. 4. Hyponatremia. 5. Acute kidney injury. 6. Metabolic acidosis. SECONDARY DIAGNOSES: 1. Hypertension. 2. Alcohol abuse. 3. History of Crohn disease. STUDIES WHILE IN THE HOSPITAL: 1. Left knee x-ray on 03/21/18 reads as mildly comminuted and moderately displaced intraarticular fracture of the patella. CONSULTATIONS WHILE IN THE HOSPITAL: 1. Dr. Longoria from Orthopedics saw the patient in consultation on 03/21/18 for a left patella fracture. 2. Dr. Porter from Gastroenterology saw the patient in consultation on for hematemesis. HISTORY OF PRESENT ILLNESS AND HOSPITAL COURSE: Ms. Mercedes is a 68-year-old female with a past medical history of alcoholism, hypertension, and Crohn disease who presented to the emergency room on 03/21/18 with complaints of left knee pain. Please see the history and physical by Dr. Spears for a complete summary of the events leading up to this hospitalization. In short, the patient had a mechanical fall in her kitchen and thereafter developed left knee pain. She was not able to bear weight on her left leg. In the emergency room, she was noted on x-ray to have a left patella fracture. She was admitted by the hospitalist service for patella fracture as she was not safe to return home. I will also note that the patient was acutely intoxicated when she came into the emergency room with an alcohol level of 178. She was noted to be in metabolic acidosis likely from alcoholic ketoacidosis and starvation ketoacidosis. The patient was seen by Orthopedics who recommended an ORIF of the left patella. She was initially seen by Gastroenterology as she did have some hematemesis. Dr. Porter recommended putting the patient on Protonix b.i.d. and trending her CBC. He did not feel there was any urgent need for endoscopy. She had no further evidence of bleeding after that episode. Her acute kidney injury on admission resolved with IV fluids as did her metabolic acidosis. The patient was initially going to have surgery on 03/23/18, though they were not able to fit her in as an add-on and she ultimately had surgery on 03/25/18, for a patella repair. The patient was placed on WAM protocol, although did not show any significant signs of withdrawal. She was noted to be slightly hyponatremic during this admission. Workup was negative, so this was attributed to acute illness and chronic alcoholism. She was also noted to have hypomagnesemia, also related to chronic alcoholism. She was repleted for that. She was noted to have macrocytic anemia and iron studies and a B12 was checked. Her B12 level was actually high and she was noted to have iron- deficiency anemia with a total iron of 28, and a percent saturation of 11. She was started on b.i.d. ferrous sulfate. After surgery, she was placed in a hip- to-ankle plaster cast and was seen by Physical Therapy. Physical Therapy recommended that the patient go to a subacute rehab as she was at an increased fall risk because of the cast. She is also a known alcoholic and so discharging her home was not deemed to be particularly safe. Ultimately, the patient was stable for discharge from a medical and orthopedic standpoint on , though Case Management was still working to find placement. Case management was unable to secure a bed for the patient and the patient decided she would return home with [facility]. At that point, she was no longer interested in attempting to pursue subacute rehab, although the patient was advised against returning home. Ultimately, she has capacity and Physical Therapy felt as though she could likely manage at home with continued physical therapy. She was initially going to leave on 03/30/18, although did not have a ride home, and therefore did not have a safe way to get in her home and was kept until 03/31/17 when she was able to have a friend take her home. As of today, she reports feeling well and is anxious to return home. Ms. Mercedes is stable for discharge today. Vital signs are as follows: Temp 98.4, heart rate 81, respiratory rate 16, oxygen saturation 99% on room air, blood pressure 109/72. DISCHARGE MEDICATIONS: [place] Medications: 1. Aspirin 325 mg p.o. b.i.d. 2. Docusate 100 mg p.o. b.i.d. 3. Ferrous sulfate 325 mg p.o. b.i.d. 4. Magnesium oxide 800 mg p.o. b.i.d. 5. Percocet 5/325 one to two tabs p.o. q.4 hours p.r.n. pain. 6. Thiamine 100 mg p.o. daily. Continued Home Medications: 1. Acetaminophen 500 mg p.o. b.i.d. 2. Humira 40 mg subcu weekly. 3. Albuterol MDI 2 puffs 4 times a day p.r.n. shortness of breath. 4. Fosamax 70 mg p.o. weekly. 5. Artificial tears 2 drops both eyes daily p.r.n. dry eye. 6. Vitamin D 50,000 units p.o. monthly. 7. Duloxetine 20 mg p.o. b.i.d. 8. Folic acid 1 mg p.o. daily. 9. Gabapentin 1200 mg p.o. t.i.d. 10. Halobetasol 0.05% topical b.i.d. p.r.n. dry skin. 11. Hydroxyzine 10 mg p.o. daily p.r.n. anxiety. 12. Lisinopril 20 mg p.o. daily. 13. Metoprolol tartrate 25 mg p.o. b.i.d. 14. Multivitamin 1 tab p.o. daily. 15. Nicotine inhaler 10 mg inhalation q.2 hours p.r.n. craving. 16. Ondansetron 4 mg sublingual t.i.d. p.r.n. nausea or vomiting. 17. Triamcinolone 0.5% one application topical b.i.d. p.r.n. rash. DISCHARGE PLAN: Ms. Mercedes will be discharged to home with [facility]. Activity per Orthopedics will be: Weightbearing as tolerated on the left leg. Cast to be kept clean, dry, and intact. Diet will be regular as tolerated. Medications are noted above. The patient has been prescribed Percocet for pain and additionally she has been started on magnesium supplementation as well as ferrous sulfate supplementation. Per Orthopedics, she should take aspirin 325 mg every 12 hours for DVT prophylaxis. She will need to follow up with Dr. Pichardo in 7 to 10 days and has been instructed to call their office with any concerns. She will need to follow up with her primary care provider in 4 to 7 days. She should return to the emergency room or nearest hospital for any worsening of symptoms, shortness of breath, lightheadedness, dizziness, chest discomfort, high fevers, chills, night sweats , loss of consciousness, or any other worrisome signs or symptoms. This is a summarized report of a complex medical history and hospital stay. For further details, please see the entire medical record. TIME SPENT: Approximately 45 minutes were spent on this discharge, greater than half of that time was spent [id number] with the patient discussing discharge plans and instructions. JULITA TRUONG NP [id number]/[facility] #: [id number] PRIYANK
== END 2018-03-31 09:10 | disposition home health service (06) | DRG 516 ==
LOC: ED 01:12 → SSU 05:00 → ICU 15:02 → SSU 03-22 07:25
PROVIDERS: ADMIT Internal Medicine; ATTEND Hospitalist
PROC: 0QSF04Z Reposition Left Patella with Internal Fixation Device, Open Approach (ICD-10-PCS; principal; 2018-03-21)
DX: S82.042A Displaced comminuted fracture of left patella, initial encounter for closed fracture (principal); F10.239 Alcohol dependence with withdrawal, unspecified; E87.1 Hypo-osmolality and hyponatremia; E87.2 Acidosis; K92.0 Hematemesis; N17.9 Acute kidney failure, unspecified; E46 Unspecified protein-calorie malnutrition; Z68.1 Body mass index [BMI] 19.9 or less, adult; F10.20 Alcohol dependence, uncomplicated; I10 Essential (primary) hypertension; W18.39XA Other fall on same level, initial encounter; S01.81XA Laceration without foreign body of other part of head, initial encounter; F32.9 Major depressive disorder, single episode, unspecified; L40.9 Psoriasis, unspecified; K70.30 Alcoholic cirrhosis of liver without ascites; M81.0 Age-related osteoporosis without current pathological fracture; F17.210 Nicotine dependence, cigarettes, uncomplicated; G47.30 Sleep apnea, unspecified; J30.2 Other seasonal allergic rhinitis; K57.90 Diverticulosis of intestine, part unspecified, without perforation or abscess without bleeding; F41.9 Anxiety disorder, unspecified; E78.5 Hyperlipidemia, unspecified; F10.229 Alcohol dependence with intoxication, unspecified; D50.9 Iron deficiency anemia, unspecified; E83.42 Hypomagnesemia; Y90.6 Blood alcohol level of 120-199 mg/100 ml; D53.9 Nutritional anemia, unspecified; E86.0 Dehydration; Z79.82 Long term (current) use of aspirin; Y92.000 Kitchen of unspecified non-institutional (private) residence as the place of occurrence of the external cause; Z90.49 Acquired absence of other specified parts of digestive tract; Z85.3 Personal history of malignant neoplasm of breast; Z88.8 Allergy status to other drugs, medicaments and biological substances; Z88.1 Allergy status to other antibiotic agents; Z91.030 Bee allergy status; Z82.3 Family history of stroke; Z80.1 Family history of malignant neoplasm of trachea, bronchus and lung; Z93.2 Ileostomy status; Z80.9 Family history of malignant neoplasm, unspecified
CPT/HCPCS: 36415; 76001; 80048; 80053; 80307; 80320; 81003; 81015; 82271; 82533; 82565; 82607; 82728; 82803; 83540; 83550; 83605; 83735; 83935; 84300; 84443; 84484; 84520; 85025; 85060; 85610; 85730; 87086; 93005; 99284; A9270-GY; C1713; G0480; G8978-GP-CK; G8979-GP-CH; G8979-GP-CI; G8987-GO-CK; G8988-GO-CI; J0330; J0690; J1100; J1170; J1644; J1650; J1885; J2250; J2270; J2405; J2704; J2765; J3010; J3411; J3475; J3480

== ENCOUNTER 2018-04-13 17:22 | Emergency (ER) | payer MEDICARE ==
--- OUTSIDE RECORDS SUMMARY | 2018-04-13 17:49 | XMS REPORT | Continuity of Care Document ---
:1950 External Reference #:[id number] Author Name Alida Boogie Care Team Providers Name Role Phone Donna Cortés MD Primary Care Physician Unavailable Payers Type Date Identification Numbers Payment Provider Subscriber Policy Number: [id number] Medicare Rosie Mercedes PayID: [id number] [address] [place] [address] Expires: 2018 Policy Number: [id number] Medicare Rosie Mercedes PayID: [id number] [address] [place] [address] Advance Directives Description No Information Available Problems Date Description Provider Status Onset: 03/25/2018 Closed fracture of patella Benji Pichardo M.D. Active Family History Date Family Member(s) Problem(s) Comments General Heart Disease General Hypertension General Stroke General Cancer Social History Type Date Description Comments Sex Unknown Lives With Alone Occupation Disabled ETOH Use Occasionally consumes alcohol Tobacco Use Start: Unknown Light tobacco smoker (10 or fewer cigarettes/day) Smoking Status Reviewed: 04/08/18 Light tobacco smoker (10 or fewer cigarettes/day) Exercise Type/Frequency Exercises sporadically Allergies, Adverse Reactions, Alerts Date Description Reaction Status Severity Comments 02/28/2016 Remicade Active 02/28/2016 Cipro Active Medications Medication Date Status Form Strength Qnty SIG Indications Ordering Provider Percocet Active Tablets 5-325mg 40tabs 1-2 tabs Ozzy 018 by mouth MD Von every 4-6 hours as needed pain Gabapentin Active Tablets 400mg 1 by Unknown 000 mouth three times a day Benadryl Active Tablets 25mg 1 tablet Unknown Allergy 000 by mouth three times a day, as needed Folic Acid Active Tablets 1mg 1 by Unknown 000 mouth every day Humira Active PSKT 20mg/0.4ML Unknown 000 Stelara Hx Soln 90mg/ml 3units inject Chris Rodriguez 016 - Prefill 90mg Schwed, Syringe under M.DStarr 018 the skin at 0, 4 and 12 weeks Percocet Hx Tablets 5-325mg 56tabs take 1-2 Jose 012 tabs po Young, q6 hours M.DStarr prn pain Cipro Hx Tablets 500mg 21tabs one tab Dirk 012 po bid Anthony Geiger Keflex Hx Capsules 500mg 21caps 1 po q Dirk 012 6hours Anthony Geiger Medications Administered in Office Medication Date Status Form Strength Qnty SIG Indications Ordering Provider Celestone 3 mg Administered Injection Narcisa and 3mg 011 Edson witt M.D. Immunizations Description No Information Available Vital Signs Date Vital Result Comment 04/08/2018 2:06pm Height 60 inches 5'0" Weight 103.00 lb BP Systolic 140 mmHg BP Diastolic 66 mmHg Respiratory Rate 20 /min Body Temperature 97.4 F Pain Level 6 BMI (Body Mass Index) 20.1 kg/m2 02/28/2016 10:59am Height 60 inches 5'0" Weight 104.00 lb Heart Rate 72 /min BP Systolic 132 mmHg BP Diastolic 80 mmHg Respiratory Rate 16 /min Body Temperature 97.2 F BMI (Body Mass Index) 20.3 kg/m2 Results Test Date Facility Test Result H/L Range Note Laboratory test 02/18/2017 [facility] Surgical Interface SEE RESULT [address] [place] [address] [phone] Leukemia/Lymphom 02/28/2016 [facility] Path Interpretation TNP N a Flow [address] 2-[address] [place] [address] [phone] Path Interpret > 16 Marker TNP N Path Interpret 9-15 Marker (SEE NOTE) N 2 Laboratory test 02/28/2016 [facility] Cytology SEE RESULT [address] Non-Configuration [place] [address] [phone] 1 SEE RESULT BELOW Name: ROSIE MERCEDES : [address]: Collins Porter MD Acct: [id number] Unit: [id number] AGE: 66 Location: Re02/18/17 SEX: F Status: REG REF SPEC: [id number] AXEL: 02/18/171400 [facility] DR: Collins Porter MD REQ: [id number] RECD: 02/18/17 STATUS: NEIDA PÉREZ DR: Mckay Casas MD _ ORDERED: LEVEL 5, SPEC [facility] FINAL DIAGNOSIS Liver, core biopsy: -- Chronic steatohepatitis (grade 0 stage 0); see comment. COMMENT: Histologic sections show a core needle biopsy fragment of liver parenchyma with marked steatosis and a minimal lymphocytic portal inflammatory infiltrate. There is no evidence of limiting plate necrosis or bile duct damage. A trichrome stain, with appropriately reacting controls, shows no evidence of fibrosis. The histologic differential diagnosis includes alcoholic and nonalcoholic steatohepatitis. Correlation with laboratory studies is recommended. PRE-OPERATIVE DIAGNOSIS Abnormal liver function tests GROSS DESCRIPTION The specimen is received in formalin labeled, US Liver Biopsy, and consists of a 1.6 x 0.1 cm narvaez-brown soft tissue core which is submitted entirely in one cassette. Signed (signature on file) Marylin Snowden MD 1021 END OF REPORT * ML=Testing performed at Main Lab DEPARTMENT OF PATHOLOGY, [address] [place] [address] Alfa Welch M.D. Director [facility] # [id number] 2 FINAL DIAGNOSIS: Specimen Source: Lymph node, left axilla ([id number]) Flow cytometry immunophenotypic analysis: 10% of T cells show aberrant loss of CD7 Interpretative data: Lymphocytes: 92% of gated events B-cells: 9% of lymphs; kappa:lambda within normal limits T-cells/NK cells: No aberrant population detected. Markers tested: CD3, CD10, CD20, CD19, CD23, CD45, kappa surface light chains, lambda surface light chains, 7-AAD, CD5, CD7. Quality Assessment: Acceptable Viability: Acceptable Viable lymphocytes (7-AAD): 99% Specimen received within validated guidelines. A Fuentes-Giemsa stained slide prepared from the flow cytometry specimen was examined for quality purposes. Electronically signed by: Marylin Snowden MD Technical component performed by: [place] [address] [place] Examiner: Dakotah Wren II, MD, PhD. 3 SEE RESULT BELOW Name: ROSIE MERCEDES : [address]: Chris Philip MD Acct: [id number] Unit: [id number] AGE: 66 Location: LAB Re02/28/16 SEX: F Status: REG REF SPEC: [id number] AXEL: 02/28/16 [facility] [address]: Alfa Welch MD REQ: [id number] RECD: 02/28/160013 STATUS: NEIDA PÉREZ DR: Chris Cortés MD _ ORDERED: FN ASP SUPERFIC, FN ASP PALP, PTH HANDLING CH, LEVEL IV, FNA IMMEDIATE S PATH CONSULT, Leukemia/Lympho T-cell Gene rearrangement by PCR has been performed at [place], [place]. The testing reveals: / (Original Integrated Oncology report scanned into Pathology Reports). Addendum Signed (signature on file) Alfa Welch MD 1603 Flow cytometry has been performed at [facility], [place], [place]. The testing reveals: FINAL DIAGNOSIS: Specimen Source: Lymph node, left axilla ([id number]) Flow cytometry immunophenotypic analysis: 10% of T cells show aberrant loss of CD7 Interpretative data: Lymphocytes: 92% of gated events B-cells: 9% of lymphs; kappa:lambda within normal limits T-cells/NK cells: No aberrant population detected. Markers tested: CD3, CD10, CD20, CD19, CD23, CD45, kappa surface light chains , lambda surface light chains, 7-AAD, CD5, CD7. Quality Assessment: Acceptable Viability: Acceptable Viable lymphocytes (7-AAD): 99% CONTINUED ON NEXT PAGE * ML=Testing performed at Main Lab DEPARTMENT OF PATHOLOGY, [address] [place] [address] Alfa Welch M.D. Director [facility] # [id number] RUN DATE: 03/11/16 [facility] LAB LIVE PAGE 2 Patient: ROSIE MERCEDES [id number] (Continued) ADDENDUM (Continued) Specimen received within validated guidelines. A Fuentes-Giemsa stained slide prepared from the flow cytometry specimen was examined for quality purposes. Electronically signed by: Marylin Snowden MD Technical component performed by: [place] [address] [place] Examiner: Dakotah Wren II, MD, PhD. Addendum Signed (signature on file) Alfa Welch MD 1555 FINAL DIAGNOSIS Axilla, left, fine needle aspiration by palpation: -- Mixed lymphoid elements with changes compatible with dermatopathic lymphadenopathy and rare T cells demonstrating loss of CD7 (see flow cytometry report). See comment. Comment: The aspirate smears and formalin fixed cell block demonstrates mixed lymphocytes with scattered loosely formed dendritic aggregates and rare pigmented dendritic cells. Few scattered large lymphocytes are seen, but Sezary cells are not noted. . Concurrent flow cytometric evaluation demonstrates a small population demonstrating loss of CD7. The findings are compatible with a background of dermatopathic lymphadenitis. A concurrent T-cell neoplastic process cannot be entirely excluded based on these findings. T-cell Gene rearrangement studies are pending on the formalin fixed cell block material CONTINUED ON NEXT PAGE * ML=Testing performed at Main Lab DEPARTMENT OF PATHOLOGY, [address] [place] [address] Alfa Welch M.D. Director [facility] # [id number] RUN DATE: 03/11/16 [facility] LAB LIVE PAGE 3 Patient: ROSIE MERCEDES [id number] (Continued) SPECIMEN COMMENTS (Continued) and will be reported in an addendum. The procedure was explained to and understood by the patient. Signed consent was obtained and a time out procedure was performed at the bedside to verify patient identity and biopsy site. Fine needle aspiration biopsy was performed times 2 with a 25 gauge needle on 2 cm rubbery mobile high left axillary lymph node. Adequacy was assessed by fast stain technique. The procedure was tolerated well without complications. A cell block was prepared in the evaluation of this specimen. Smears and cell block reveal similar findings. AXILLA LEFT - LEFT AXILLA FINE NEEDLE ASPIRATION BY PALPATION CLINICAL HISTORY History of left breast cancer. 2 cm high left axillary lymph node. IMMEDIATE INTERPRETATION Pass 1-adequate, pass 2 for additional material GROSS DESCRIPTION Fine needle aspiration by palpation x 2 passes with 2 Alcohol fixed slide(s) , Needle rinse in CytoLyt solution for thin layer non-volcanology professor test and Specimen sent to [facility] for Flow cytometry [place], [place] on 02/28/16 by [id number] at 1403. Signed (signature on file) Afla Welch MD 1300 END OF REPORT * ML=Testing performed at Main Lab DEPARTMENT OF PATHOLOGY, [address] [place] [address] Alfa Welch M.D. Director [facility] # [id number] Procedures Date Code Description Status 03/25/2018 70155 Open TX Of Patellar FX W/Internal Fixation And/Or Completed Partial Patelle 03/25/2018 40041 Open TX Of Patellar FX W/Internal Fixation And/Or Completed Partial Patelle 09/18/2015 [id number] Mammogram Completed 11/23/2013 88291 EKG, Interpretation Only Completed 12/27/2011 16004 Rad Exam; Wrist Limited, 2 Views Completed 12/13/2011 54474 Rad Exam; Wrist Limited, 2 Views Completed 12/06/2011 40541 Rad Exam; Wrist Limited, 2 Views Completed 11/29/2011 84856 Closed Treatment Ulnar Shaft Fracture Completed 06/12/2010 74740 Inject Tendon Sheath Or Ligament Aponeurosis Eg Plantar Completed Fascia Encounters Type Date Location Provider Dx Diagnosis Office Visit 03/22/2018 [facility] Niki Yovanny S82.002A Unsp fracture of 9:16a Of DAVID Ko left patella, init for clos fx Office Visit 03/21/2018 [facility] Ozzy Longoria, S82.002A Unsp fracture of 9:15a Of Tatyana LARSON left patella, init for clos fx Office Visit 01/12/2018 [facility] Bhavani Jonas N17.9 Acute kidney 2:05p Assocsaranya MD failure, Hospitalists unspecified E87.2 Acidosis E87.8 Oth disorders of electrolyte and fluid balance, NEC I10 Essential (primary) hypertension F32.9 Major depressive disorder, single episode, unspecified F10.10 Alcohol abuse, uncomplicated Office Visit 01/11/2018 [facility] Bhavani Jonas F32.9 Major depressive 2:05p saranya Marquez MD disorder, single Hospitalists episode, unspecified I10 Essential (primary) hypertension E87.8 Oth disorders of electrolyte and fluid balance, NEC E87.2 Acidosis F10.10 Alcohol abuse, uncomplicated Office Visit 01/10/2018 [facility] Brandon Jonas R11.2 Nausea with 2:04p Assocsaranya MD vomiting, Hospitalists unspecified R10.9 Unspecified abdominal pain N17.9 Acute kidney failure, unspecified E87.2 Acidosis Office Visit 01/09/2018 2:04p [facility] Carlos Loja, N17.9 Acute kidney MD failure, unspecified E87.2 Acidosis R10.9 Unspecified abdominal pain R11.2 Nausea with vomiting, unspecified Office Visit 02/28/2016 11:15a Surgical Chris Rodriguez R59.0 [facility] Philip M.D. enlarged lymph nodes Z85.3 Personal history of malignant neoplasm of breast Office Visit 02/24/2015 12:50p [facility] Bhavani Preciado K50.111 Crohn's disease Assocsaranya M.D. [facility] intestine with rectal bleeding F41.9 Anxiety disorder, unspecified G62.9 Polyneuropathy, unspecified E43 Unspecified severe protein-calorie malnutrition Office Visit 02/23/2015 12:49p [facility] Ozzy K50.111 Crohn's disease Assoc,saranya Wayne M.D. of large Hospitalists intestine with rectal bleeding F41.9 Anxiety disorder, unspecified G62.9 Polyneuropathy, unspecified E43 Unspecified severe protein-calorie malnutrition Office Visit 02/22/2015 [facility] Kanu Rodriguez, K52.9 Noninfective 12:45p Assocsaranya M.D. gastroenteritis and Hospitalists colitis, unspecified G62.9 Polyneuropathy, unspecified F41.9 Anxiety disorder, unspecified Office Visit 11/29/2013 3:55p [facility] 555.1 Enteritis Large Assoc,saranya Leyva M.D. Intestine Hospitalists 729.1 Myalgia & Myositis Unspec 305.1 Tobacco Use Disorder Office Visit 11/28/2013 3:55p [facility] 555.1 Enteritis Large Assoc,saranya Leyva M.D. Intestine Hospitalists 729.1 Myalgia & Myositis Unspec 305.1 Tobacco Use Disorder Office Visit 11/27/2013 3:54p [facility] 555.1 Enteritis Large Assoc,saranya Leyva M.D. Intestine Hospitalists 729.1 Myalgia & Myositis Unspec 305.1 Tobacco Use Disorder V10.3 History Personal Malignant Neoplasm Breast Office Visit 11/26/2013 3:54p [facility] 555.1 Enteritis Large Assoc,saranya Leyva M.D. Intestine Hospitalists 729.1 Myalgia & Myositis Unspec 305.1 Tobacco Use Disorder Office Visit 11/25/2013 3:54p [facility] 555.1 Enteritis Large Assoc,saranya Leyva M.D. Intestine Hospitalists 729.1 Myalgia & Myositis Unspec 305.1 Tobacco Use Disorder Office Visit 11/24/2013 3:53p [facility] 555.1 Enteritis Large Assoc,saranya Leyva M.D. 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 Intestine Hospitalists 729.1 Myalgia & Myositis Unspec 305.1 Tobacco Use Disorder V10.3 History Personal Malignant Neoplasm Breast Office Visit 04/03/2013 [facility] Ozzy 009.1 Colitis Enteritis & 8:11a Assoc,saranya Cherry N.P. Gastroenteritis Hospitalists Presumed Infectious Orig 276.51 Dehydration 305.1 Tobacco Use Disorder Office Visit 04/02/2013 [facility] Kerri 009.1 Colitis Enteritis & 8:11a Assocsaranya M.D. Gastroenteritis Hospitalists Presumed Infectious Orig 276.51 Dehydration 305.1 Tobacco Use Disorder Office Visit 04/01/2013 [facility] Kerri 009.1 Colitis Enteritis & 8:10a saranya Marquez M.D. Gastroenteritis Hospitalists Presumed Infectious Orig 276.51 Dehydration 305.1 Tobacco Use Disorder Office Visit 03/31/2013 8:10a [facility] Kerri Isaura, 276.51 Dehydration Asssaranya garcia M.D. Hospitalists 305.1 Tobacco Use Disorder Office Visit 03/30/2013 [facility] Kerri 009.1 Colitis Enteritis & 8:10a Asssaranya garcia M.D. Gastroenteritis Hospitalists Presumed Infectious Orig 276.51 Dehydration 305.1 Tobacco Use Disorder Office Visit 11/29/2011 11:30a Orthopedic Percy Geiger, 813.22 FX Ulna Shaft Services Of [facility] Cruz (Alone) Closed 881.02 Open Wound Wrist W/O Complication 682.4 Cellulitis & Abscess Hand Except Fingers & Thumb E906.0 Bite Dog Office Visit 06/12/2010 Orthopedic Narcisa 727.04 Tenosynovitis 1:00p Services Of Anthony Jones Radial Styloid C.MOziel Plan of Treatment Future Appointment(s):04/22/2018 3:30 pm - Benji Pichardo M.D. at [facility]/08/2018 - Benji Pichardo M.D.S82.002D Unspecified fracture of left patella, subsequent encounter fNew Xrays:Knee Left 1-2 VWS, Ordered: 04/08/18ollow up:2 weeks with x-rays
--- OUTSIDE RECORDS SUMMARY | 2018-04-13 17:49 | XMS REPORT | Continuity of Care Document ---
:1950 External Reference #:[id number] Author Name Cat Fofana Care Team Providers Name Role Phone Ly Moncada MD Care Team Information Jewelry Cutter Unavailable Payers Type Date Identification Numbers Payment Provider Subscriber Policy Number: [id number] Medicare Rosie Mercedes PayID: [id number] [facility] [address] [place] [address] Advance Directives Description No Information Available Problems Description No Information Family History Description No Information Available Social History Type Date Description Comments Sex Unknown Allergies, Adverse Reactions, Alerts Description No Information Medications Description No Information Immunizations Description No Information Available Vital Signs Description No Information Available Results Description No Information Available Procedures Description No Information Available Encounters Description No Information Available Plan of Treatment No Information Available
[2018-04-13] MEDS ORDERED: oxyCODONE/Acetamin 5/325 MG* TAB PO ONE (20:43)
--- NOTE | 2018-04-13 20:44 | ED ---
Lower Extremity - HPI Summary HPI Summary: 68-year-old female presents with right knee pain for the past couple days. She says she hurt during PT. Pain is greatest when she does a straight leg raise. Has had surgery on her patella 3 weeks ago for broken patella by dr estrella. It is currently in a cast. Denies any fevers. No numbness or tingling. No swelling noted in her feet. No calf pain. - History of Current Complaint Chief Complaint: EDExtremityLower Stated Complaint: LT KNEE PAIN Time Seen by Provider: 04/13/18 20:18 Pain Intensity: 8 - Allergies/Home Medications Allergies/Adverse Reactions: Allergies Allergy/AdvReac Type Severity Reaction Status Date / Time bee pollen Allergy Hives Verified 04/13/18 17:25 ciprofloxacin Allergy Hives Verified 04/13/18 17:25 infliximab [From Remicade] Allergy Hives Verified 04/13/18 17:25 metronidazole [From Flagyl] Allergy Hives Verified 04/13/18 17:25 PMH/Surg Hx/FS Hx/Imm Hx Endocrine/Hematology History: Denies: Hx Anticoagulant Therapy, Hx Diabetes, Hx Thyroid Disease Cardiovascular History: Reports: Hx Hypertension Denies: Hx Congestive Heart Failure, Hx Pacemaker/ICD Respiratory History: Reports: Hx Seasonal Allergies, Hx Sleep Apnea - does use a machine Denies: Hx Asthma, Hx Chronic Obstructive Pulmonary Disease (COPD) GI History: Reports: Hx Cirrhosis, Hx Crohn's Disease, Hx Diverticulosis, Hx Gall Bladder Disease, Hx Ileostomy, Other GI Disorders - infectious colitis Denies: Hx Ulcer History: Reports: Other Problems/Disorders - 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 Denies: Hx Renal Disease Musculoskeletal History: Reports: Hx Fibromyalgia, Hx Orthopedic Injury - Broken right ankle/Broken left foot/Broken left arm/shattered sacrum, Hx Scoliosis, Other Musculoskeletal History - fibromyalgia Sensory History: Reports: Hx Contacts or Glasses, Hx Eye Injury Denies: Hx Deafness, Hx Hearing Aid Opthamlomology History: Reports: Hx Contacts or Glasses, Hx Eye Injury Neurological History: Reports: Hx Seizures - One time with virus, Other Neuro Impairments/Disorders - fibromyalgia Denies: Hx Dementia Psychiatric History: Reports: Hx Anxiety, Hx Depression Denies: Hx Eating Disorder, Hx Substance Abuse - Cancer History Cancer Type, Location and Year: LEFT BREAST CA dx 2003 Hx Chemotherapy: Yes Hx Radiation Therapy: Yes - Surgical History Surgery Procedure, Year, and Place: 2003 - Breast CA lumpectomy surgery with lymph node dissection, ([facility]), COLECTOMY 2013 (FROM DIVERTICULITIS), BLADDER REPAIR SURGERY , maxine 02-18, arterial bleed repair of hepatic artery, ercp 02-18 Hx Anesthesia Reactions: No - Immunization History Date of Tetanus Vaccine: unknown Infectious Disease History: No Infectious Disease History: Denies: Hx Clostridium Difficile, Hx Hepatitis, Hx Human Immunodeficiency Virus (HIV), Hx Shingles, Hx Tuberculosis, Traveled Outside the [place] in Last 30 Days - Family History Known Family History: Positive: Other - CVA, [place] - Social History Alcohol Use: Daily Alcohol Amount: glass of wine daily Hx Substance Use: No Substance Use Type: Reports: None Substance Use Comment - Amount & Last Used: daily Hx Tobacco Use: Yes Smoking Status (MU): Heavy Every Day Tobacco Smoker Type: Cigarettes Amount Used/How Often: 1/2 ppd Have You Smoked in the Last Year: Yes Review of Systems Negative: Fever Negative: Chest Pain Negative: Shortness Of Breath Positive: Myalgia - left knee pain All Other Systems Reviewed And Are Negative: Yes Physical Exam Triage Information Reviewed: Yes Vital Signs On Initial Exam: Initial Vitals Temp Pulse Resp BP Pulse Ox 99.9 F 102 18 167/101 99 04/13/18 17:23 04/13/18 17:23 04/13/18 17:23 04/13/18 17:23 04/13/18 17:23 Vital Signs Reviewed: Yes Appearance: Positive: Well-Appearing Skin: Positive: Warm, Dry Head/Face: Positive: Normal Head/Face Inspection Eyes: Positive: Normal, EOMI, Conjunctiva Clear ENT: Positive: Pharynx normal Respiratory/Lung Sounds: Positive: Clear to Auscultation, Breath Sounds Present Cardiovascular: Positive: Normal, RRR Musculoskeletal: Positive: Other - incision steristrips in place on left knee, no evidence of infection, good pulses, able to wiggle toes, no edema seen, full ROM foot. no edema in foot Neurological: Positive: Normal Psychiatric: Positive: Normal Diagnostics - Vital Signs Vital Signs Temp Pulse Resp BP Pulse Ox 04/13/18 19:19 98.7 F 88 16 161/82 97 04/13/18 17:23 99.9 F 102 18 167/101 99 - Laboratory Lab Statement: Any lab studies that have been ordered have been reviewed, and results considered in the medical decision making process. Lower Extremity Course/Dx - Course Course Of Treatment: 68-year-old female presents with left knee pain for the past couple days. She says she hurt during PT. Pain is greatest when she does a straight leg raise. Has had surgery on her patella 3 weeks ago for broken patella by dr estrella. It is currently in a cast. Denies any fevers. No numbness or tingling. No swelling noted in her feet. No calf pain. On exam incision clean dry intact no infection noted. No edema noted to the foot. Neurovascular intact. Discussed with Dr. estrella pain is likely is just due to the injury. Pain distribution does not seem to warrant investigation for a blood clot. Told to continue pain medication and follow-up with orthopedic. Patient understands agrees with plan. - Diagnoses Differential Diagnosis/HQI/PQRI: Positive: Compartment Syndrome, DVT, Fracture ( Closed) Provider Diagnoses: Left knee pain Discharge - Sign-Out/Discharge Documenting (check all that apply): Patient Departure - Discharge Plan Condition: Good Disposition: HOME Patient Education Materials: R.I.C.E. Treatment (ED) Referrals: Donna Cortés MD [Primary Care Provider] - Additional Instructions: elevate Follow up with ortho as scheduled Take normal pain medication Return to ED if develop any new or worsening symptoms - Billing Disposition and Condition Condition: GOOD Disposition: Home
[2018-04-13 21:58] VITALS: BP 150/88
== END 2018-04-13 21:57 | disposition home or self-care (01) ==
LOC: ED 17:22
DX: M25.562 Pain in left knee (principal); Z88.8 Allergy status to other drugs, medicaments and biological substances; Z88.1 Allergy status to other antibiotic agents; Z91.030 Bee allergy status; F17.210 Nicotine dependence, cigarettes, uncomplicated
CPT/HCPCS: 99282; A9270-GY

== ENCOUNTER 2019-02-22 14:22 | Inpatient (IN) | payer MEDICARE ==
[2019-02-22] MEDS ORDERED: NS 0.9% 1000 ML** 2,000 ML IV ONE (14:42)
[2019-02-22] MEDS ORDERED: Ondansetron INJ* 2 MG/ML VIAL IV ONE (14:43)
--- NOTE | 2019-02-22 14:43 | ED ---
Abdominal Pain/Female - HPI Summary HPI Summary: Pt is a 68 y/o F presenting to the ED for a chief complaint of intermittent epigastric abdominal pain. Pt is present with her aide who found the pt in bed on 02/22/19. Pt reports vomiting for the last 3 days that she describes as coffee grounds. Pt admits SOB when vomiting, nausea, and generalized weakness. Pt rates the abdominal pain as 5/10 in severity. Pt denies any fever, chills, erythema of eyes, sore throat, CP, palpitations, chest pressure, cough, dysuria , hematuria, myalgia, edema, rash, lightheadedness, or dizziness. Pt previously had similar symptoms 18 months ago. Pt has a PMHx of Crohns disease, hernia, and HTN. Pt has a PSHx of colectomy. Pt has not taken her medications for HTN since 02/19/19. 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 Pt sees Dr. Donna Cortés. - History of Current Complaint Chief Complaint: EDNauseaVomitDiarrh Stated Complaint: NAUSEA/VOMITING/WEAKNESS PER EMS Time Seen by Provider: 02/22/19 14:26 Hx Obtained From: Patient Onset/Duration: Sudden Onset, Lasting Days, Still Present Timing: Intermittent Episode Lasting Severity Initially: Moderate Severity Currently: Moderate Pain Intensity: 5 Pain Scale Used: 0-10 Numeric Location: Epigastric Radiates: No Character: Other: - Described as coffee grounds Aggravating Factor(s): Nothing Alleviating Factor(s): Nothing Associated Signs and Symptoms: Positive: Nausea, Vomiting. Negative: Fever, Cough, Chest Pain, Dizzy, Urinary Symptoms - Negative dysuria or hematuria Allergies/Adverse Reactions: Allergies Allergy/AdvReac Type Severity Reaction Status Date / Time bee pollen Allergy Hives Verified 10/05/18 13:12 ciprofloxacin Allergy Hives Verified 10/05/18 13:12 clarithromycin [From Biaxin] Allergy Unknown Verified 10/05/18 13:12 Reaction Details infliximab [From Remicade] Allergy Hives Verified 10/05/18 13:12 metronidazole [From Flagyl] Allergy Hives Verified 10/05/18 13:12 Home Medications: Home Medications Albuterol HFA INHALER* [Ventolin HFA Inhaler*] 2 puff INH QID PRN 02/22/19 [ History Confirmed 02/22/19] Amlodipine Besylate [Amlodipine 2.5 mg tab] 2.5 mg PO DAILY 02/22/19 [History Confirmed 02/22/19] Clobetasol 0.05% OINT* 1 applic TOPICAL DAILY 02/22/19 [History Confirmed ] Clobetasol Propionate [Clobex] 1 applic TOPICAL DAILY 02/22/19 [History Confirmed 02/22/19] Cyanocobalamin TAB* [Vitamin B12 TAB*] 2,500 mcg SL DAILY 02/22/19 [History Confirmed 02/22/19] Cyclobenzaprine TAB* [Flexeril 10 MG TAB*] 5 mg PO BID PRN 02/22/19 [History Confirmed 02/22/19] Ferrous Sulfate TAB* 325 mg PO DAILY 02/22/19 [History Confirmed 02/22/19] Neomyc/Polym/HC 1% OTIC SUSP* [Cortisporin Otic Susp 1%*] 2 drop RIGHT EAR TID 02/22/19 [History Confirmed 02/22/19] Ondansetron TAB* [Zofran 4 MG Tab*] 4 - 8 mg PO TID PRN 02/22/19 [History Confirmed 02/22/19] PMH/Surg Hx/FS Hx/Imm Hx Previously Healthy: Yes Endocrine/Hematology History: Denies: Hx Anticoagulant Therapy, Hx Diabetes, Hx Thyroid Disease Cardiovascular History: Reports: Hx Hypertension Denies: Hx Congestive Heart Failure, Hx Pacemaker/ICD Respiratory History: Reports: Hx Seasonal Allergies, Hx Sleep Apnea - does use a machine Denies: Hx Asthma, Hx Chronic Obstructive Pulmonary Disease (COPD) GI History: Reports: Hx Cirrhosis, Hx Crohn's Disease, Hx Diverticulosis, Hx Gall Bladder Disease, Hx Ileostomy, Other GI Disorders - infectious colitis Denies: Hx Ulcer History: Reports: Other Problems/Disorders - 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 Denies: Hx Renal Disease Musculoskeletal History: Reports: Hx Fibromyalgia, Hx Orthopedic Injury - Broken right ankle/Broken left foot/Broken left arm/shattered sacrum, Hx Scoliosis, Other Musculoskeletal History - fibromyalgia Sensory History: Reports: Hx Contacts or Glasses, Hx Eye Injury Denies: Hx Deafness, Hx Hearing Aid Opthamlomology History: Reports: Hx Contacts or Glasses, Hx Eye Injury Neurological History: Reports: Hx Seizures - One time with virus, Other Neuro Impairments/Disorders - fibromyalgia Denies: Hx Dementia Psychiatric History: Reports: Hx Anxiety, Hx Depression Denies: Hx Eating Disorder, Hx Substance Abuse - Cancer History Cancer Type, Location and Year: LEFT BREAST CA dx 2003 Hx Chemotherapy: Yes Hx Radiation Therapy: Yes - Surgical History Surgical History: Yes Surgery Procedure, Year, and Place: 2003 - Breast [place] lumpectomy [place] with [place] node dissection, [place] COLECTOMY 2013 (FROM DIVERTICULITIS), BLADDER REPAIR SURGERY , maxine 02-18, arterial bleed repair of hepatic artery, ercp 02-18 Hx Anesthesia Reactions: No - Immunization History Date of Tetanus Vaccine: unknown Infectious Disease History: No Infectious Disease History: Denies: Hx Clostridium Difficile, Hx Hepatitis, Hx Human Immunodeficiency Virus (HIV), Hx Shingles, Hx Tuberculosis, Traveled Outside the [place] in Last 30 Days - Family History Known Family History: Positive: Other - CVA, [place] - Social History Lives: Alone Alcohol Use: Daily Alcohol Amount: glass of wine daily Hx Substance Use: No Substance Use Type: Reports: None Substance Use Comment - Amount & Last Used: daily Hx Tobacco Use: Yes Smoking Status (MU): Heavy Every Day Tobacco Smoker Type: Cigarettes Amount Used/How Often: 1/2 ppd Have You Smoked in the Last Year: Yes Review of Systems Negative: Fever, Chills Negative: Erythema Negative: Sore Throat Positive: Other - Negative chest pressure. Negative: Palpitations, Chest Pain Positive: Shortness Of Breath - When vomiting. Negative: Cough Positive: Abdominal Pain - Epigastric, Vomiting - Coffee grounds, Nausea Negative: dysuria, hematuria Negative: Myalgia, Edema Negative: Rash Neurological: Other - Negative dizziness or lightheadedness Positive: Weakness - Generalized All Other Systems Reviewed And Are Negative: Yes Physical Exam - Summary Physical Exam Summary: Constitutional: Well-developed, Well-nourished, Alert. (-) Distressed Skin: Warm, Dry HENT: Normocephalic; Atraumatic Eyes: Conjunctiva normal Neck: Musculoskeletal ROM normal neck. (-) JVD, (-) Stridor, (-) Tracheal deviation Cardio: Rhythm regular, rate normal, Heart sounds normal; Intact distal pulses; The pedal pulses are 2+ and symmetric. Radial pulses are 2+ and symmetric. (-) Murmur Pulmonary/Chest wall: Effort normal. (-) Respiratory distress, (-) Wheezes, (-) Rales Abd: Soft, (-) tenderness, (-) Distension, (-) Guarding, (-) Rebound Musculoskeletal: (-) Edema Lymph: (-) Cervical adenopathy Neuro: Alert, Oriented x3 Psych: Mood and affect Normal Rectal: No blood Triage Information Reviewed: Yes Vital Signs On Initial Exam: Initial Vitals Temp Pulse Resp BP Pulse Ox 97.8 F 131 20 153/105 100 02/22/19 14:25 02/22/19 14:25 02/22/19 14:25 02/22/19 14:25 02/22/19 14:25 Vital Signs Reviewed: Yes Procedures - Sedation Patient Received Moderate/Deep Sedation with Procedure: No Diagnostics - Vital Signs Vital Signs Temp Pulse Resp BP Pulse Ox 02/22/19 14:25 97.8 F 131 20 153/105 100 - Laboratory Result Diagrams: 02/22/19 14:51 02/22/19 14:51 Lab Statement: Any lab studies that have been ordered have been reviewed, and results considered in the medical decision making process. - CT Abdomen/Pelvis CT CT Interpretation Completed By: Radiologist Summary of CT Findings: Abdomen/Pelvis CT IMPRESSION: 1. There is new bibasilar interstitial opacity suspicious for interstitial. pulmonary edema or pneumonitis. 2. There is a very small fat filled umbilical hernia measuring 11 mm diameter but no other visible hernia and no signs of incarceration. Reviewed by ED physician. Abdominal Pain Fem Course/Dx - Course Course Of Treatment: Pt is a 68 y/o F presenting to the ED for a chief complaint of intermittent epigastric abdominal pain. Pt is present with her aide who found the pt in bed on 02/22/19. Pt reports vomiting for the last 3 days that she describes as coffee grounds. Pt admits SOB when vomiting, nausea, and generalized weakness. Pt rates the abdominal pain as 5/10 in severity. Pt denies any fever, chills, erythema of eyes, sore throat, CP, palpitations, chest pressure, cough, dysuria, hematuria, myalgia, edema, rash, lightheadedness , or dizziness. Pt previously had similar symptoms 18 months ago. Pt has a PMHx of Crohns disease, hernia, and HTN. Pt has a PSHx of colectomy. Pt has not taken her medications for HTN since 02/19/19. On rectal exam, pt has no blood. In the ED course, pt was given ondansetron 4 mg IV, azithromycin 500 mg IVPB, ceftriaxone 50 mls IVPB, acetaminophen 975 mg PO, iodixanol 61 ml IV, and fluids. Laboratory abnormal findings: WBC 11.1, MCV 98, MCH 33, RDW 16, absolute neuts 10.0, absolute lymphs 0.4, sodium 131, chloride 95, carbon dioxide 16, anion gap 20, creatinine 1.50, glucose 124, calcium 10.6, AST 47, C- reactive protein 128.94, total protein 9.4, globulin 4.9, albumin/globulin ratio 0.9, and lipase 112. Stool Occult Blood: negative. Abdomen/Pelvis CT IMPRESSION: 1. There is new bibasilar interstitial opacity suspicious for interstitial. pulmonary edema or pneumonitis. 2. There is a very small fat filled umbilical hernia measuring 11 mm diameter. but no other visible hernia and no signs of incarceration. At 18:37, Dr. Delarosa agrees to admit the pt to [facility] with a diagnosis of sepsis, UTI, pneumonia, and dehydration. Pt will be admitted to [facility] with a diagnosis of sepsis, UTI, pneumonia, and dehydration. - Diagnoses Provider Diagnoses: Sepsis, UTI (urinary tract infection), Pneumonia, Dehydration Discharge ED - Sign-Out/Discharge Documenting (check all that apply): Patient Departure - Admit - Discharge Plan Condition: Stable Disposition: ADMITTED TO [facility] Referrals: Donna Cortés MD [Primary Care Provider] - - Attestation Statements Document Initiated by Scribe: Yes Documenting Scribe: Sayda Simon Provider For Whom Scribe is Documenting (Include Credential): Joshua Fermin MD Scribe Attestation: Sayda Irvin, scribed for Joshua Fermin MD on 02/22/19 at 1850. Status of Scribe Document: Ready
[2019-02-22 14:57] LABS: ABS Lymphocytes 0.4 10^3/ul (1.0-4.8); ABS Monocytes 0.7 10^3/ul (0-0.8); Eosinophil % 0.1 %; Hematocrit 36 % (35-47); Hemoglobin 12.4 g/dL (12.0-16.0); Lymphocyte % 3.4 %; Mean Corpuscular HGB Conc 34 g/dL (31-36); Mean Corpuscular Hemoglobin 33 pg (27-31); Mean Corpuscular Volume 98 fL (80-97); Mean Platelet Volume 8.5 fL (7.4-10.4); Nucleated Red Blood Cells % 0.1; Platelet Count 163 10^3/uL (150-450); Red Blood Count 3.72 10^6 /uL (3.70-4.87); Red Cell Distribution Width 16 % (10-15); White Blood Count 11.1 10^3/uL (3.5-10.8)
[2019-02-22 15:16] LABS: ALT 23 U/L (7-52); AST 47 U/L (13-39); Albumin 4.5 g/dL (3.2-5.2); Albumin/Globulin Ratio 0.9 (1-3); Alkaline Phosphatase 74 U/L (34-104); Anion Gap 20 mmol/L (2-11); Blood Urea Nitrogen 24 mg/dL (6-24); C Reactive Protein 128.94 mg/L (<8.01); CO2 Carbon Dioxide 16 mmol/L (22-32); Calcium 10.6 mg/dL (8.6-10.3); Chloride 95 mmol/L (101-111); EGFR Non-African American 34.7 (>60); Globulin 4.9 g/dL (2-4); Glucose 124 mg/dL (70-100); Potassium 3.7 mmol/L (3.5-5.0); Sodium 131 mmol/L (135-145); Total Protein 9.4 g/dL (6.4-8.9)
[2019-02-22] MEDS ORDERED: Acetaminophen TAB* 325 MG PO ONE (16:16)
[2019-02-22] MEDS ORDERED: Iodixanol* (CONTRAST) 320 MG/ML 100 ML SDV IV ONE (16:46)
[2019-02-22 17:19] LABS: Urine Appearance Cloudy; Urine Bacteria Absent (Absent); Urine Bilirubin Negative (Negative); Urine Blood 2+ (Negative); Urine Color Amber; Urine Glucose Negative (Negative); Urine Ketones 2+ (Negative); Urine Nitrite Negative (Negative); Urine Protein 2+(100 mg/dL) (Negative); Urine Red Blood Cell 1+(3-5/hpf) (Absent); Urine Squamous Epithelial Cell Present (Absent); Urine Urobilinogen Positive (Negative); Urine White Blood Cell 2+(11-20/hpf) (Absent)
[2019-02-22] MEDS ORDERED: cefTRIAXone(*) 1 GM in NS 0.9% 50 ML* 50 ML IVPB ONE (18:28)
[2019-02-22] MEDS ORDERED: Azithromycin 500 mg/250 ml NS 500 MG/250 ML BAG IVPB ONE (18:33)
[2019-02-22] MEDS ORDERED: Dextran 70/Hypromellose Tears Eye Drops 15 ml BTL (for Artificials Tears) BOTH EYES PRN (19:51)
[2019-02-22] MEDS ORDERED: Cyclobenzaprine TAB* 10 MG PO PRN (19:51)
[2019-02-22] MEDS ORDERED: Albuterol HFA INHALER* 8 gm MDI INH PRN (19:51)
[2019-02-22] MEDS ORDERED: Ondansetron INJ* 2 MG/ML VIAL IV PRN (20:12)
[2019-02-22 20:16] LABS: Alcohol < 10 mg/dL (<10)
[2019-02-22] MEDS ORDERED: Gabapentin TAB(NF) 600 MG PO SCH (21:00)
--- NOTE | 2019-02-22 21:52 | HP ---
CC: Dr. Cortés * ADMISSION HISTORY AND PHYSICAL: DATE OF ADMISSION: 02/22/19 PRIMARY CARE PROVIDER: Dr. Cortés. HEALTHCARE PROXY: Kurt Olea CODE STATUS: Full. SOURCE OF INFORMATION: History obtained from interview with patient, review of past medical records. RELIABILITY: Fair. CHIEF COMPLAINT: Vomiting. HISTORY OF PRESENT ILLNESS: This 68-year-old female with past medical history of Crohn disease of large bowel, been in her usual state of health until approximately 3 days prior to presentation, started having vomiting. She reports vomiting consistently over the last 3 days, inability to tolerate food or water or medication. She denies any fevers, chills, cough, although endorse some shortness of breath while vomiting. She endorsed minimal abdominal pain that was intermittently "where the hernia is but not bad." Review of EMS records indicate they discussed with her aide that she drinks more on the weekends. She has a history of remote alcoholism. She denies that she drank any more than 2 drinks per day any day this week. In the emergency room she received 2 L of fluid, Zofran, and antibiotics, and when she was seen by this author, she had no more vomiting, was able to tolerate p.o. PAST MEDICAL HISTORY: Include Crohn disease of the large bowel; breast cancer, status post chemo and RT in 2003; fibromyalgia; hyperlipidemia; cirrhosis secondary to alcoholism; partial colectomy with fistula repair; also iron deficiency anemia and osteoporosis. HOME MEDICATIONS: Reviewed with patient include: 1. Thiamine 100 mg daily. 2. Acetaminophen 500 mg twice daily as needed. 3. Cortisporin drops 2 drops right ear 3 times a day. 4. Artificial tears both eyes daily as needed. 5. Albuterol 2 puffs 4 times a day as needed. 6. Ondansetron 4 to 8 mg 3 times a day as needed. 7. Vitamin B12 2500 mcg sublingual daily. 8. Cyclobenzaprine 5 mg twice daily as needed. 9. Hydroxyzine 10 to 20 mg every 6 hours as needed. 10. Lisinopril 10 mg daily. 11. Gabapentin 1200 mg 3 times a day. 12. Triamcinolone cream topically twice daily as needed. 13. Folic acid 1 mg daily. 14. Clobetasol 1 application topically daily. 15. Amlodipine 2.5 mg daily. 16. Metoprolol tartrate 25 mg daily. 17. Cholecalciferol cap 50,000 units monthly. ALLERGIES: BEE POLLEN, CIPROFLOXACIN, CLARITHROMYCIN, INFLIXIMAB, and METRONIDAZOLE. FAMILY HISTORY: Significant for mother with cancer, father with CVA. SOCIAL HISTORY: Endorses drinking 2 drinks per day, although as indicated above aide indicates she drinks more on the weekend. Smokes half a pack of cigarettes daily for the last 30 years. She lives alone. 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 REVIEW OF SYSTEMS: Review of systems as per HPI, otherwise all other systems negative. PHYSICAL EXAMINATION GENERAL: Sitting up in bed, interactive, pleasant, in no apparent distress. VITAL SIGNS: Vitals when seen by this author, BP 149/107, heart rate was 120, respiratory rate is 18, 98% on room air. T-max in the emergency room was 100.0. HEENT: Her oropharynx is clear. She has dry mucous membranes. Her sclerae are anicteric. NECK: She has no cervical or supraclavicular lymphadenopathy. LUNGS: Her lungs have diffuse rales at bilateral bases, loudest diminishing up to the one half up to her apex bilaterally. HEART: She is tachycardic. She has no murmurs, rubs, or gallops. EXTREMITIES: Warm and well perfused without clubbing, cyanosis, or edema. She has less than 2 second cap refill. SKIN: Her skin exam is notable for scaling of her skin, bilateral palms with minimal lacerations. NEUROLOGIC: She is alert and oriented x3. Her cranial nerves II through XII are intact. She has no apparent anxiety, agitation, or depression. DIAGNOSTIC STUDIES/LAB DATA: Labs reviewed, notable for white blood cell count of 11.1, hemoglobin 12.4, MCV 98, platelets 163. Her sodium is 131, chloride is 95, bicarb is 16, BUN 24, creatinine 1.5, anion gap is 20, lactic acid is 1.5, calcium is 10.6, CRP 128, lipase 112. Urine is notable for protein , ketones, blood, white blood cells, red blood cells, and squamous epithelial cells. Serum alcohol is pending. Data reviewed: CT abdomen and pelvis performed in the emergency room. Impression: There is new bibasilar interstitial opacities suspicious for interstitial pulmonary edema or pneumonitis. ASSESSMENT AND PLAN: This is a 68-year-old female with past medical history of alcohol use, tobacco use, Crohn disease, and breast cancer, presenting with 3 days of vomiting, complicated by acute kidney injury. Nausea and vomiting of unclear etiology, potentially in the setting of alcoholism, although urine raises the spectre of infection as there is low- grade fever. This patient having urinary tract infection leading to uncontrolled nausea and vomiting and then other downstream sequelae is a question in this author's interpretation. Additionally, bibasilar consolidations on the CAT scan may indicate pneumonia, although I would have suspected this to be resultant from her vomiting causing an aspiration pneumonia. The patient does not usually get vomiting with Crohn flares, usually frequent stools, her last flare was 8 months ago, she is not on Humira secondary to the cough for approximately 6 months. For vomiting is now resolved, continue symptomatic management. The patient has received ceftriaxone, which will cover presumptive urinary tract infection. Urine culture to be followed. Abnormal CT findings, interstitial fluid versus pneumonitis. The patient has no shortness of breath or cough, I think pneumonia less likely; however, with frequent vomiting, aspiration is quite possible. She received ceftriaxone and azithromycin in the emergency room, next dose of Augmentin scheduled for tomorrow night can be discontinued if clinical picture is not consistent. I have ordered a chest x-ray PA and lateral to further evaluate her lung landon. Acute kidney injury, suspect prerenal in the setting of frequent vomiting over the last 3 days with no p.o. intake. She received 2 L of fluid. I will give her another 2 L of lactated Ringer's 150 cc/hour for a total of 2 L. Careful attention to her respiratory status given spectre of increased interstitial markings on the lower lung landon from her CT abdomen and pelvis. Anion gap metabolic acidosis suspected in the setting of above, early renal failure. Fluids with lactated Ringer's to avoid hyperchloremic metabolic acidosis. Repeat labs in the morning. Tachycardia suspected in the setting of dehydration, fluids as above, also has not taken her home metoprolol for 3 days. We will restart metoprolol this evening. Elevated lipase, did not suspect pancreatitis in absence of pain, normal CT findings. Hyponatremia suspected in the setting of dehydration, hypovolemic hyponatremia, lactated Ringer's as above and repeat tomorrow. Alcoholism, I have added an alcohol level; however, it is drawn 6 hours after presentation to the emergency room. This level may not accurately reflect her serum alcohol level on presentation. DVT prophylaxis will be heparin subcu. [id number]/[facility] #: [id number] [facility]
--- NOTE | 2019-02-22 22:26 | PN ---
Progress Note - Progress Note Date of Service: 02/22/19 Note: Addendum: Gabapentin dose adjusted for renal fxn: Now BID instead of TID Augmentin dose will need to be decreased if there is no improvement in her renal function as well.
[2019-02-22] MEDS: Metoprolol Tartrate TAB* 25 MG PO SCH (22:29)
[2019-02-22] MEDS: Heparin VIAL(*) 5000 UNITS/ML VIAL (FIVE THOUSAND) SUBCUT SCH (22:31)
[2019-02-22] MEDS: Lactated Ringers 1000 ML Bag* 1,000 ML IV SCH (22:32)
[2019-02-23] MEDS: Lactated Ringers 1000 ML Bag* 1,000 ML IV SCH (05:13)
[2019-02-23] MEDS: Heparin VIAL(*) 5000 UNITS/ML VIAL (FIVE THOUSAND) SUBCUT SCH ×3 (05:15→21:46)
[2019-02-23 06:38] LABS: ABS Eosinophils 0.1 10^3/ul (0-0.6); ABS Lymphocytes 0.7 10^3/ul (1.0-4.8); ABS Monocytes 0.5 10^3/ul (0-0.8); ABS Neutrophils 5.4 10^3/ul (1.5-7.7); Eosinophil % 0.9 %; Hematocrit 29 % (35-47); Hemoglobin 9.9 g/dL (12.0-16.0); Lymphocyte % 10.4 %; Mean Corpuscular HGB Conc 34 g/dL (31-36); Mean Corpuscular Hemoglobin 34 pg (27-31); Mean Corpuscular Volume 98 fL (80-97); Mean Platelet Volume 8.6 fL (7.4-10.4); Nucleated Red Blood Cells % 0.3; Platelet Count 116 10^3/uL (150-450); Red Blood Count 2.94 10^6 /uL (3.70-4.87); Red Cell Distribution Width 16 % (10-15); White Blood Count 6.8 10^3/uL (3.5-10.8)
[2019-02-23 06:55] LABS: BUN/Creatinine Ratio 18.6 (8-20); Calcium 8.7 mg/dL (8.6-10.3); EGFR African American 101.3 (>60); EGFR Non-African American 83.7 (>60); Potassium 3.2 mmol/L (3.5-5.0)
[2019-02-23] MEDS: Metoprolol Tartrate TAB* 25 MG PO SCH ×2 (08:39→20:01)
[2019-02-23] MEDS: Lisinopril TAB* 10 MG PO SCH (08:39)
[2019-02-23] MEDS: Folic Acid TAB* 1 MG PO SCH (08:39)
[2019-02-23] MEDS: Cyanocobalamin TAB* 500 MCG PO SCH (08:40)
[2019-02-23] MEDS: amLODIPine TAB* 5 MG PO SCH (08:40)
[2019-02-23] MEDS: Gabapentin CAP(*) 400 MG PO SCH ×2 (08:41→20:01)
[2019-02-23] MEDS: Pantoprazole TAB * 40 MG TAB PO SCH (11:08)
[2019-02-23] MEDS: NS 0.9% w/ 20 Meq KCL 1000 ML* 1,000 ML IV SCH (14:40)
--- NOTE | 2019-02-23 15:16 | PN ---
Subjective Date of Service: 02/23/19 Interval History: Patient seen this morning at bedside, she was dyspneic with short sentence. No known history of CHF. CXR reviewed she does have bilateral infiltrates with history of vomit and being sick + vomiting for 2 days. It is very suspicious for aspirations Pneumonia. I will escalate her antibiotics to IV ceftriaxone and azithromycin. Also her HCO3- was low with elevated AG consistent with AGMA probably due to pneumonia and or Alcohol. Will change the IVF to NS but lower the rate and recheck chemistry at 6pm. Will order echo to assess LV function Past Medical History: Unchanged from Admission Objective Active Medications: Acetaminophen (Tylenol Tab*) 650 mg PO Q4H PRN PRN Reason: PAIN-MILD/TEMP >/= 100.4 Albuterol (Ventolin Hfa Inhaler*) 2 puff INH QID PRN PRN Reason: SOB/WHEEZING Amlodipine Besylate (Norvasc Tab*) 2.5 mg PO DAILY [facility] Last Admin: 02/23/19 08:40 Dose: 2.5 mg Artificial Tears (Natural Balance Tears Eye Drop) 2 drop BOTH EYES DAILY PRN PRN Reason: DRY EYE Cyanocobalamin (Vitamin B12 Tab*) 2,500 mcg PO DAILY [facility] Last Admin: 02/23/19 08:40 Dose: 2,500 mcg Cyclobenzaprine HCl (Flexeril Tab*) 5 mg PO BID PRN PRN Reason: SPASMS - MUSCLE Folic Acid (Folvite Tab*) 1 mg PO DAILY [facility] Last Admin: 02/23/19 08:39 Dose: 1 mg Gabapentin (Neurontin Cap(*)) 1,200 mg PO BID [facility] Last Admin: 02/23/19 08:41 Dose: 1,200 mg Heparin Sodium (Porcine) (Heparin Vial(*)) 5,000 units SUBCUT Q8HR [facility] Last Admin: 02/23/19 14:39 Dose: 5,000 units Potassium Chloride/Sodium Chloride (Ns 0.9% W/ 20 Meq Kcl 1000 Ml*) 1,000 mls @ 100 mls/hr IV PER RATE [facility] Last Admin: 02/23/19 14:40 Dose: 100 mls/hr Azithromycin (Zithromax 500 Mg/250 Ml) 500 mg in 250 mls @ 250 mls/hr IVPB Q24H [facility] Ceftriaxone Sodium 500 mg/ (Sodium Chloride) 50 mls @ 200 mls/hr IVPB Q24H [facility] Lisinopril (Prinivil Tab*) 10 mg PO DAILY [facility] Last Admin: 02/23/19 08:39 Dose: 10 mg Metoprolol Tartrate (Lopressor Tab*) 25 mg PO BID [facility] Last Admin: 02/23/19 08:39 Dose: 25 mg Ondansetron HCl (Zofran Inj*) 4 mg IV Q4H PRN PRN Reason: NAUSEA/VOMITING Last Admin: 02/23/19 08:38 Dose: 4 mg Pantoprazole Sodium (Protonix Tab*) 40 mg PO DAILY [facility] Last Admin: 02/23/19 11:08 Dose: 40 mg Vital Signs - 8 hr 02/23/19 02/23/19 02/23/19 08:00 08:41 10:45 Temperature 98.4 F Pulse Rate 94 Respiratory 20 16 16 Rate Blood Pressure 151/85 (mmHg) O2 Sat by Pulse 99 Oximetry 02/23/19 12:00 Temperature 98.2 F Pulse Rate 80 Respiratory 18 Rate Blood Pressure 141/78 (mmHg) O2 Sat by Pulse 98 Oximetry Oxygen Devices in Use Now: None Appearance: awake, alert. mild distress with exertion form dyspnea on exertion during exam and short sentences Eyes: No Scleral Icterus, - - EOMI Ears/Nose/Mouth/Throat: NL Teeth, Lips, Gums, Mucous Membranes Moist Neck: Trachea Midline Respiratory: - - crackles, rales at bases Cardiovascular: NL Sounds; No Murmurs; No JVD Abdominal: NL Sounds; No Tenderness; No Distention Neurological: Alert and Oriented x 3 Result Diagrams: 02/23/19 06:20 02/23/19 06:20 Microbiology and Other Data: Microbiology 02/22/19 14:40 Stool Occult Blood ([place]) - Final Stool Assess/Plan/Problems-Billing Assessment: 68 y/o female admitted for vomiting for 2-3 days along with shortness of breath , found to have leukocytosis, anion gap metabolic acidosis Related to pneumoanie on CXR and possible alcohol induced metabolic acidosis - Patient Problems (1) Pneumonia Current Visit: Yes Status: Acute Code(s): J18.9 - PNEUMONIA, UNSPECIFIED ORGANISM SNOMED Code(s): 787542922 Comment: - Will escalate her Abx to rocephin and azithromycin - check Echo to assess LV function given her dyspnea (2) Alcohol abuse Current Visit: No Status: Chronic Code(s): F10.10 - ALCOHOL ABUSE, UNCOMPLICATED SNOMED Code(s): 12186538 Comment: - Reported history of withdrawal seizures - No signs of WD, not scoring on WAM protocol - Alcohol cessation (3) Metabolic acidosis Current Visit: No Status: Acute Code(s): E87.2 - ACIDOSIS SNOMED Code(s): 76109813 Comment: - Improving with IVF, Most likely due to starvation alcohol-ketosis with ketones noted in urine - monitor for Alcohol withdrawal - Recheck electrolytes this pm and again in am (4) EVAN (acute kidney injury) Current Visit: No Status: Acute Code(s): N17.9 - ACUTE KIDNEY FAILURE, UNSPECIFIED SNOMED Code(s): 73693056 Comment: - Secondary to dehydration, vomting and alcohol intake. - change IVF to NS and decrease to 100 ml - Encourage PO water intake (5) Hypertension Current Visit: No Status: Acute Code(s): I10 - ESSENTIAL (PRIMARY) HYPERTENSION SNOMED Code(s): 38647259 Comment: - Continue metoprolol 25 mg bid and lisinopril 10 mg daily (6) Nausea & vomiting Current Visit: No Status: Chronic Code(s): R11.2 - NAUSEA WITH VOMITING, UNSPECIFIED SNOMED Code(s): 66527771 Comment: - Probably gastroenteritis exacerbated by her Alcohol intake - PPI (7) History of Crohn's disease Current Visit: No Status: Acute Code(s): Z87.19 - PERSONAL HISTORY OF OTHER DISEASES OF THE DIGESTIVE SYSTEM SNOMED Code(s): 290095708698061 Comment: History of fistual 2/2 Crohn's (8) DVT prophylaxis Current Visit: No Status: Acute Onset Date: 02/22/15 Code(s): AMH8475 - SNOMED Code(s): 466053080 Comment: Heparin 5000 SQ q8hrs
[2019-02-23] MEDS: Azithromycin 500 mg/250 ml NS 500 MG/250 ML BAG IVPB SCH (16:20)
[2019-02-23] MEDS: cefTRIAXone VIAL(*) 1,000 MG in NS 0.9% 50 ML* 50 ML IVPB SCH (17:29)
[2019-02-23 18:03] LABS: ABS Eosinophils 0.1 10^3/ul (0-0.6); ABS Lymphocytes 0.6 10^3/ul (1.0-4.8); ABS Monocytes 0.5 10^3/ul (0-0.8); ABS Neutrophils 4.1 10^3/ul (1.5-7.7); Eosinophil % 1.9 %; Hematocrit 27 % (35-47); Hemoglobin 9.1 g/dL (12.0-16.0); Mean Corpuscular HGB Conc 34 g/dL (31-36); Mean Corpuscular Hemoglobin 33 pg (27-31); Mean Corpuscular Volume 96 fL (80-97); Mean Platelet Volume 8.5 fL (7.4-10.4); Nucleated Red Blood Cells % 0.2; Platelet Count 110 10^3/uL (150-450); Red Blood Count 2.77 10^6 /uL (3.70-4.87); Red Cell Distribution Width 16 % (10-15); White Blood Count 5.3 10^3/uL (3.5-10.8)
[2019-02-23 18:35] LABS: BUN/Creatinine Ratio 14.5 (8-20); Calcium 8.5 mg/dL (8.6-10.3); EGFR African American 133.8 (>60); EGFR Non-African American 110.6 (>60); Phosphorus 1.3 mg/dL (2.5-5.0); Potassium 2.8 mmol/L (3.5-5.0)
[2019-02-23 18:43] LABS: Magnesium 0.8 mg/dL (1.9-2.7)
[2019-02-23] MEDS ORDERED: Magnesium Sulf 4 GM/100 ML IV* 4,000 MG/100 ML BAG IVPB ONE (18:49)
[2019-02-23] MEDS ORDERED: Amoxicillin/Clavulanate TAB* 875 MG PO SCH (21:00)
[2019-02-24] MEDS: NS 0.9% w/ 20 Meq KCL 1000 ML* 1,000 ML IV SCH (02:35)
[2019-02-24] MEDS: Heparin VIAL(*) 5000 UNITS/ML VIAL (FIVE THOUSAND) SUBCUT SCH ×3 (05:22→21:41)
[2019-02-24] MEDS: Acetaminophen TAB* 325 MG PO PRN ×2 (05:22→19:23)
[2019-02-24 06:01] LABS: ABS Eosinophils 0.1 10^3/ul (0-0.6); ABS Lymphocytes 0.9 10^3/ul (1.0-4.8); ABS Monocytes 0.5 10^3/ul (0-0.8); ABS Neutrophils 3.5 10^3/ul (1.5-7.7); Hematocrit 26 % (35-47); Lymphocyte % 17.7 %; Mean Corpuscular HGB Conc 35 g/dL (31-36); Mean Corpuscular Hemoglobin 34 pg (27-31); Mean Corpuscular Volume 96 fL (80-97); Mean Platelet Volume 8.5 fL (7.4-10.4); Nucleated Red Blood Cells % 0.1; Platelet Count 121 10^3/uL (150-450); Red Blood Count 2.69 10^6 /uL (3.70-4.87); Red Cell Distribution Width 17 % (10-15)
[2019-02-24 06:16] LABS: Albumin/Globulin Ratio 0.9 (1-3); Calcium 8.4 mg/dL (8.6-10.3); EGFR African American 164.5 (>60); EGFR Non-African American 135.9 (>60); Globulin 3.4 g/dL (2-4); Indirect Bilirubin 0.3 mg/dL (0.3-1.0); Magnesium 1.8 mg/dL (1.9-2.7); Phosphorus 1.1 mg/dL (2.5-5.0); Potassium 3.1 mmol/L (3.5-5.0); Total Bilirubin 0.4 mg/dL (0.2-1.0); Total Protein 6.4 g/dL (6.4-8.9)
[2019-02-24] MEDS ORDERED: Influenza VAC *QUAD* 2019-20* 0.5 ML SYRINGE IM ONE (09:00)
[2019-02-24] MEDS: Gabapentin CAP(*) 400 MG PO SCH ×2 (09:31→21:40)
[2019-02-24] MEDS: Cyanocobalamin TAB* 500 MCG PO SCH (09:32)
[2019-02-24] MEDS: Pantoprazole TAB * 40 MG TAB PO SCH (09:33)
[2019-02-24] MEDS: Lisinopril TAB* 10 MG PO SCH (09:33)
[2019-02-24] MEDS: Folic Acid TAB* 1 MG PO SCH (09:34)
[2019-02-24] MEDS: Metoprolol Tartrate TAB* 25 MG PO SCH ×2 (09:34→21:40)
[2019-02-24] MEDS: amLODIPine TAB* 5 MG PO SCH (09:34)
[2019-02-24] MEDS: TRIAMCINOLONE 0.1% TOPICAL PRN (12:05)
--- NOTE | 2019-02-24 13:45 | PN ---
Subjective Date of Service: 02/24/19 Interval History: patient seen today, feels better, her SOB improving. electrolytes noted for hypomagnesemia and hypophosphotemia. tolerating po well. loose stool but overall feeling better. She did not ambulate yet, I requested from staff to assist and encourage patient to ambulate bid. Past Medical History: Unchanged from Admission Objective Active Medications: Acetaminophen (Tylenol Tab*) 650 mg PO Q4H PRN PRN Reason: PAIN-MILD/TEMP >/= 100.4 Last Admin: 02/24/19 05:22 Dose: 650 mg Albuterol (Ventolin Hfa Inhaler*) 2 puff INH QID PRN PRN Reason: SOB/WHEEZING Amlodipine Besylate (Norvasc Tab*) 2.5 mg PO DAILY [facility] Last Admin: 02/24/19 09:34 Dose: 2.5 mg Artificial Tears (Natural Balance Tears Eye Drop) 2 drop BOTH EYES DAILY PRN PRN Reason: DRY EYE Cyanocobalamin (Vitamin B12 Tab*) 2,500 mcg PO DAILY [facility] Last Admin: 02/24/19 09:32 Dose: 2,500 mcg Cyclobenzaprine HCl (Flexeril Tab*) 5 mg PO BID PRN PRN Reason: SPASMS - MUSCLE Folic Acid (Folvite Tab*) 1 mg PO DAILY [facility] Last Admin: 02/24/19 09:34 Dose: 1 mg Gabapentin (Neurontin Cap(*)) 1,200 mg PO BID [facility] Last Admin: 02/24/19 09:31 Dose: 1,200 mg Heparin Sodium (Porcine) (Heparin Vial(*)) 5,000 units SUBCUT Q8HR [facility] Last Admin: 02/24/19 05:22 Dose: 5,000 units Azithromycin (Zithromax 500 Mg/250 Ml) 500 mg in 250 mls @ 250 mls/hr IVPB Q24H [facility] Last Admin: 02/23/19 16:20 Dose: 250 mls/hr Ceftriaxone Sodium 1,000 mg/ (Sodium Chloride) 50 mls @ 200 mls/hr IVPB Q24H [facility] Last Admin: 02/23/19 17:29 Dose: 200 mls/hr Potassium Phosphate 15 mmole/ (Sodium Chloride) 255 mls @ 42 mls/hr IVPB ONCE ONE Stop: 02/24/19 19:45 Lisinopril (Prinivil Tab*) 10 mg PO DAILY [facility] Last Admin: 02/24/19 09:33 Dose: 10 mg Metoprolol Tartrate (Lopressor Tab*) 25 mg PO BID [facility] Last Admin: 02/24/19 09:34 Dose: 25 mg Ondansetron HCl (Zofran Inj*) 4 mg IV Q4H PRN PRN Reason: NAUSEA/VOMITING Last Admin: 02/23/19 08:38 Dose: 4 mg Pantoprazole Sodium (Protonix Tab*) 40 mg PO DAILY [facility] Last Admin: 02/24/19 09:33 Dose: 40 mg Triamcinolone Acetonide (Kenalog 0.1% Cream (Nf)) 1 applic TOPICAL BID PRN PRN Reason: RASH Last Admin: 02/24/19 12:05 Dose: 1 each Vital Signs - 8 hr 02/24/19 02/24/19 02/24/19 08:00 09:31 12:00 Temperature 98.5 F 97.9 F Pulse Rate 81 72 Respiratory 20 18 20 Rate Blood Pressure 148/88 163/79 (mmHg) O2 Sat by Pulse 98 95 Oximetry 02/24/19 12:11 Temperature Pulse Rate Respiratory 18 Rate Blood Pressure (mmHg) O2 Sat by Pulse Oximetry Oxygen Devices in Use Now: None Appearance: awake, alert. no distress. less dyspneic Eyes: No Scleral Icterus, - - EOMI Ears/Nose/Mouth/Throat: Mucous Membranes Moist Neck: NL Appearance and Movements; NL JVP, Trachea Midline Respiratory: - - minimal wheezing, no rhonchi Cardiovascular: NL Sounds; No Murmurs; No JVD, No Edema Abdominal: NL Sounds; No Tenderness; No Distention Extremities: No Edema Skin: - - severe psoriasis over both feet and hands, onychomycosis Neurological: Alert and Oriented x 3 Result Diagrams: 02/24/19 05:45 02/24/19 05:45 Microbiology and Other Data: Microbiology 02/22/19 14:40 Stool Occult Blood ([place]) - Final Stool Assess/Plan/Problems-Billing Assessment: 68 y/o female admitted for vomiting for 2-3 days along with shortness of breath , found to have leukocytosis, anion gap metabolic acidosis Related to pneumoanie on CXR and possible alcohol induced metabolic acidosis - Patient Problems (1) Pneumonia Current Visit: Yes Status: Acute Code(s): J18.9 - PNEUMONIA, UNSPECIFIED ORGANISM SNOMED Code(s): 267414306 Comment: - improving with the escalation of her Abx to rocephin day #2 and azithromycin day # 2 - check Echo to assess LV function given her dyspnea. report pending (2) Alcohol abuse Current Visit: No Status: Chronic Code(s): F10.10 - ALCOHOL ABUSE, UNCOMPLICATED SNOMED Code(s): 58564634 Comment: - Reported history of withdrawal seizures - No signs of WD, not scoring on WAM protocol - Alcohol cessation (3) Metabolic acidosis Current Visit: No Status: Acute Code(s): E87.2 - ACIDOSIS SNOMED Code(s): 96083473 Comment: - Improving with IVF, Most likely due to starvation alcohol-ketosis with ketones noted in urine - monitor for Alcohol withdrawal - Recheck electrolytes and being replaced accordingly (4) EVAN (acute kidney injury) Current Visit: No Status: Acute Code(s): N17.9 - ACUTE KIDNEY FAILURE, UNSPECIFIED SNOMED Code(s): 98383965 Comment: - Secondary to dehydration, vomting and alcohol intake. - change IVF to NS and decrease to 100 ml. Will discontinue after today - Encourage PO water intake (5) Hypertension Current Visit: No Status: Acute Code(s): I10 - ESSENTIAL (PRIMARY) HYPERTENSION SNOMED Code(s): 40871395 Comment: - Continue metoprolol 25 mg bid and lisinopril 10 mg daily (6) Nausea & vomiting Current Visit: No Status: Chronic Code(s): R11.2 - NAUSEA WITH VOMITING, UNSPECIFIED SNOMED Code(s): 15503407 Comment: - Probably gastroenteritis exacerbated by her Alcohol intake - PPI (7) History of Crohn's disease Current Visit: No Status: Acute Code(s): Z87.19 - PERSONAL HISTORY OF OTHER DISEASES OF THE DIGESTIVE SYSTEM SNOMED Code(s): 836503637489650 Comment: History of fistual 2/2 Crohn's (8) DVT prophylaxis Current Visit: No Status: Acute Onset Date: 02/22/15 Code(s): BZG3542 - SNOMED Code(s): 537876125 Comment: Heparin 5000 SQ q8hrs (9) Hypophosphatemia Current Visit: Yes Status: Acute Code(s): E83.39 - OTHER DISORDERS OF PHOSPHORUS METABOLISM SNOMED Code(s): 8860948 Comment: - Phos 1.1 - Will supplement with K phos 15 mmol (10) Hypomagnesemia Current Visit: No Status: Acute Code(s): E83.42 - HYPOMAGNESEMIA SNOMED Code(s): 582775773 Comment: - Given 4 gm IV yesterday - Will given 2 gm today in aniticipation of dropping again (11) Hyponatremia Current Visit: No Status: Acute Code(s): E87.1 - HYPO-OSMOLALITY AND HYPONATREMIA SNOMED Code(s): 61939155 Comment: - Improving - Urine osmolality 171, urine Na 44; TSH and cortisol normal
[2019-02-24] MEDS ORDERED: Potassium Phosphate IV* 15 MMOLE in NS 0.9% 250 ML* 250 ML IVPB ONE (14:30)
[2019-02-24] MEDS: Azithromycin 500 mg/250 ml NS 500 MG/250 ML BAG IVPB SCH (17:45)
[2019-02-24] MEDS: cefTRIAXone VIAL(*) 1,000 MG in NS 0.9% 50 ML* 50 ML IVPB SCH (19:22)
[2019-02-25] MEDS: Acetaminophen TAB* 325 MG PO PRN (02:19)
[2019-02-25] MEDS: Heparin VIAL(*) 5000 UNITS/ML VIAL (FIVE THOUSAND) SUBCUT SCH ×3 (05:06→21:17)
[2019-02-25 06:09] LABS: Anion Gap 8 mmol/L (2-11); BUN/Creatinine Ratio 10.4 (8-20); Blood Urea Nitrogen 5 mg/dL (6-24); CO2 Carbon Dioxide 26 mmol/L (22-32); Calcium 8.5 mg/dL (8.6-10.3); Chloride 102 mmol/L (101-111); EGFR African American 156.6 (>60); EGFR Non-African American 129.4 (>60); Glucose 110 mg/dL (70-100); Phosphorus 2.4 mg/dL (2.5-5.0); Potassium 2.8 mmol/L (3.5-5.0); Sodium 136 mmol/L (135-145)
[2019-02-25] MEDS ORDERED: Potassium Phosphate IV* 15 MMOLE in NS 0.9% 250 ML* 250 ML IVPB ONE (07:36)
[2019-02-25] MEDS ORDERED: Magnesium Sulfate IV* 2 GM in NS 0.9% 100 ML* 100 ML IVPB ONE (07:37)
[2019-02-25] MEDS ORDERED: NS 0.9% 250 ML* 0 ML ONE (07:57)
[2019-02-25] MEDS ORDERED: Magnesium Sulfate 2 GM IV* 2 GM/50 ML BAG IVPB ONE ×2 (08:33→17:00)
[2019-02-25] MEDS: Cyanocobalamin TAB* 500 MCG PO SCH (09:00)
[2019-02-25] MEDS: Gabapentin CAP(*) 400 MG PO SCH ×2 (09:11→19:53)
[2019-02-25] MEDS: Metoprolol Tartrate TAB* 25 MG PO SCH ×2 (09:12→19:52)
[2019-02-25] MEDS: amLODIPine TAB* 5 MG PO SCH (09:12)
[2019-02-25] MEDS: Potassium Chlor TAB* 20 MEQ TAB.ER PO SCH ×2 (09:12→19:53)
[2019-02-25] MEDS: Lisinopril TAB* 10 MG PO SCH (09:12)
[2019-02-25] MEDS: Potassium & Sodium Phos 250MG* = 1 PACKET PO SCH ×4 (09:12→19:52)
[2019-02-25] MEDS: Folic Acid TAB* 1 MG PO SCH (09:12)
[2019-02-25] MEDS: Pantoprazole TAB * 40 MG TAB PO SCH (09:12)
[2019-02-25] MEDS: Magnesium Oxide TAB* 400 MG PO SCH ×2 (09:12→19:52)
[2019-02-25 09:55] LABS: % Iron Saturation 28 % (15-55); Iron 61 ug/dL (50-212); Total Iron Binding Capacity 216 mcg/dL (250-450); Transferrin 154 mg/dL (203-362)
[2019-02-25 10:31] LABS: Ferritin 452.8 ng/mL (11-307)
[2019-02-25 10:34] LABS: Folate 6.69 ng/mL (>3.99)
--- NOTE | 2019-02-25 13:07 | PN ---
Subjective Date of Service: 02/25/19 Interval History: Patient seen today, doing better, still having difficult with gait due to her psoriasis and neuropathy but able to transfer well. Possible discharge in am will request CM to assess if she qualifies for SNF and PT to assess for recommendations for safe home discharge. NO nausea no vomit. tolerating po well. Past Medical History: Unchanged from Admission Objective Active Medications: Acetaminophen (Tylenol Tab*) 650 mg PO Q4H PRN PRN Reason: PAIN-MILD/TEMP >/= 100.4 Last Admin: 02/25/19 02:19 Dose: 650 mg Albuterol (Ventolin Hfa Inhaler*) 2 puff INH QID PRN PRN Reason: SOB/WHEEZING Amlodipine Besylate (Norvasc Tab*) 2.5 mg PO DAILY [facility] Last Admin: 02/25/19 09:12 Dose: 2.5 mg Artificial Tears (Natural Balance Tears Eye Drop) 2 drop BOTH EYES DAILY PRN PRN Reason: DRY EYE Azithromycin (Zithromax Tab*) 250 mg PO DAILY [facility] Cefdinir (Cefdinir Cap*) 300 mg PO BID [facility] Cyanocobalamin (Vitamin B12 Tab*) 2,500 mcg PO DAILY [facility] Last Admin: 02/25/19 09:00 Dose: 2,500 mcg Cyclobenzaprine HCl (Flexeril Tab*) 5 mg PO BID PRN PRN Reason: SPASMS - MUSCLE Folic Acid (Folvite Tab*) 1 mg PO DAILY [facility] Last Admin: 02/25/19 09:12 Dose: 1 mg Gabapentin (Neurontin Cap(*)) 1,200 mg PO BID [facility] Last Admin: 02/25/19 09:11 Dose: 1,200 mg Heparin Sodium (Porcine) (Heparin Vial(*)) 5,000 units SUBCUT Q8HR [facility] Last Admin: 02/25/19 05:06 Dose: 5,000 units Azithromycin (Zithromax 500 Mg/250 Ml) 500 mg in 250 mls @ 250 mls/hr IVPB Q24H [facility] Stop: 02/25/19 23:59 Last Admin: 02/24/19 17:45 Dose: 250 mls/hr Ceftriaxone Sodium 1,000 mg/ (Sodium Chloride) 50 mls @ 200 mls/hr IVPB Q24H [facility] Stop: 02/25/19 23:59 Last Admin: 02/24/19 19:22 Dose: 200 mls/hr Potassium Phosphate 15 mmole/ (Sodium Chloride) 255 mls @ 42 mls/hr IVPB ONCE ONE Stop: 02/25/19 13:40 Last Admin: 02/25/19 09:10 Dose: 42 mls/hr Lisinopril (Prinivil Tab*) 10 mg PO DAILY [facility] Last Admin: 02/25/19 09:12 Dose: 10 mg Magnesium Oxide (Magox 400 Tab*) 800 mg PO BID [facility] Last Admin: 02/25/19 09:12 Dose: 800 mg Metoprolol Tartrate (Lopressor Tab*) 25 mg PO BID [facility] Last Admin: 02/25/19 09:12 Dose: 25 mg Ondansetron HCl (Zofran Inj*) 4 mg IV Q4H PRN PRN Reason: NAUSEA/VOMITING Last Admin: 02/23/19 08:38 Dose: 4 mg Pantoprazole Sodium (Protonix Tab*) 40 mg PO DAILY [facility] Last Admin: 02/25/19 09:12 Dose: 40 mg Potassium Chloride (Klor Con Er Tab*) 20 meq PO BID [facility] Last Admin: 02/25/19 09:12 Dose: 20 meq Potassium Phos/Sodium Phos (Neutra Phos 250 Mg Ruperto*) 250 mg PO QID [facility] Last Admin: 02/25/19 09:12 Dose: 250 mg Triamcinolone Acetonide (Kenalog 0.1% Cream (Nf)) 1 applic TOPICAL BID PRN PRN Reason: RASH Last Admin: 02/24/19 12:05 Dose: 1 each Vital Signs - 8 hr 02/25/19 02/25/19 08:00 09:11 Temperature 98.7 F Pulse Rate 83 Respiratory 20 18 Rate Blood Pressure 152/83 (mmHg) O2 Sat by Pulse 99 Oximetry Oxygen Devices in Use Now: None Appearance: awake, alert. no distress. taking po well Eyes: No Scleral Icterus, - - EOMI Ears/Nose/Mouth/Throat: NL Teeth, Lips, Gums, Mucous Membranes Moist Neck: NL Appearance and Movements; NL JVP, Trachea Midline Respiratory: Symmetrical Chest Expansion and Respiratory Effort, Clear to Auscultation, - - right bases rhonchi Cardiovascular: NL Sounds; No Murmurs; No JVD, No Edema Abdominal: NL Sounds; No Tenderness; No Distention Skin: - - psorasis both feet and palms of hands Neurological: Alert and Oriented x 3 Result Diagrams: 02/24/19 05:45 02/25/19 05:29 Microbiology and Other Data: Microbiology 02/22/19 14:40 Stool Occult Blood ([place]) - Final Stool Assess/Plan/Problems-Billing Assessment: 68 y/o female admitted for vomiting for 2-3 days along with shortness of breath , found to have leukocytosis, anion gap metabolic acidosis Related to pneumoanie on CXR and possible alcohol induced metabolic acidosis - Patient Problems (1) Pneumonia Current Visit: Yes Status: Acute Code(s): J18.9 - PNEUMONIA, UNSPECIFIED ORGANISM SNOMED Code(s): 947131126 Comment: - Improving with the escalation of her Abx to rocephin day #3 and azithromycin day # 3 - Check Echo LV function normal - Will switch to po Cefdinir and azithromycin and possible discharge in am pending her eletrolytes (2) Alcohol abuse Current Visit: No Status: Chronic Code(s): F10.10 - ALCOHOL ABUSE, UNCOMPLICATED SNOMED Code(s): 26592756 Comment: - Reported history of withdrawal seizures. Been doing well no sign of withdrawal - No signs of WD, not scoring on WA protocol - Alcohol cessation (3) Metabolic acidosis Current Visit: No Status: Acute Code(s): E87.2 - ACIDOSIS SNOMED Code(s): 10098986 Comment: - Improving with IVF, Most likely due to starvation alcohol-ketosis with ketones noted in urine - monitor for Alcohol withdrawal - Recheck electrolytes and being replaced accordingly (4) EVAN (acute kidney injury) Current Visit: No Status: Acute Code(s): N17.9 - ACUTE KIDNEY FAILURE, UNSPECIFIED SNOMED Code(s): 33366512 Comment: - Secondary to dehydration, vomting and alcohol intake. - change IVF to NS and decrease to 100 ml. off IVF today - Encourage PO water intake (5) Hypertension Current Visit: No Status: Acute Code(s): I10 - ESSENTIAL (PRIMARY) HYPERTENSION SNOMED Code(s): 82349162 Comment: - Continue metoprolol 25 mg bid and lisinopril 10 mg daily (6) Nausea & vomiting Current Visit: No Status: Chronic Code(s): R11.2 - NAUSEA WITH VOMITING, UNSPECIFIED SNOMED Code(s): 48943904 Comment: - Resolved - Probably gastroenteritis exacerbated by her Alcohol intake - PPI (7) History of Crohn's disease Current Visit: No Status: Acute Code(s): Z87.19 - PERSONAL HISTORY OF OTHER DISEASES OF THE DIGESTIVE SYSTEM SNOMED Code(s): 634742066225372 Comment: History of fistual 2/2 Crohn's (8) Hypophosphatemia Current Visit: Yes Status: Acute Code(s): E83.39 - OTHER DISORDERS OF PHOSPHORUS METABOLISM SNOMED Code(s): 9749778 Comment: - Phos 1.1 -->2.4 - Will supplement with another K phos 15 mmol and start her on neutrophos packet qid - Recheck in am (9) Hypomagnesemia Current Visit: No Status: Acute Code(s): E83.42 - HYPOMAGNESEMIA SNOMED Code(s): 109973177 Comment: - Given several runs of IV, 0.8-->1.8-->1.0. - Will given 4 gm today and start on PO magoxide 800 mg po bid. (10) DVT prophylaxis Current Visit: No Status: Acute Onset Date: 02/22/15 Code(s): PPP4054 - SNOMED Code(s): 486985710 Comment: Heparin 5000 SQ q8hrs
[2019-02-25] MEDS: Azithromycin 500 mg/250 ml NS 500 MG/250 ML BAG IVPB SCH (16:20)
--- NOTE | 2019-02-25 16:56 | ECHO ---
*[facility]* [place] [address] Fax #: [phone] Transthoracic Echocardiogram Patient: Rosie Mercedes : 1950 Study Date: 02/23/2019 Age: 68 Gender: F HR: 89 bpm Height: 60 in /152.4 cm BSA: 1.44 m^2 Weight: 106.8 lb /48.5 kg BMI: 20.9 kg/m^2 *Commercial Correspondent: * Melissa Flaherty [facility] *Referring Physician: * Abdirizak Reyes *Reading Physician: * Steve Hackett MD Indications: SOB. History: ETOH use. The patient has a history of breast malignancy and is status post chemotherapy. Risk factors: Current tobacco use. Dyslipidemia. Conclusions Summary: - Left ventricle: Systolic function is normal. The estimated ejection fraction is 55-60%. Wall motion is normal; there are no regional wall motion abnormalities. - Right ventricle: Systolic function is normal. Systolic pressure is mildly increased. - Mitral valve: There is no evidence of stenosis. There is mild to moderate regurgitation. - Aortic valve: There is no evidence of stenosis. There is moderate regurgitation. - Tricuspid valve: There is moderate regurgitation. - Ascending aorta: The ascending aorta is mildly dilated. - Pericardium, extracardiac: There is no significant pericardial effusion. - Study data: No prior study is available for comparison. Study data: Transthoracic echocardiogram. Procedure: Transthoracic echocardiography was performed. Image quality was good. Complete 2D, spectral Doppler, and color flow Doppler. Location: Bedside. Patient status: Inpatient. Patient room number: 418-2. No prior study is available for comparison. Rhythm: Normal sinus rhythm with PAC's. Findings Left ventricle: The cavity size is normal. There is mild concentric hypertrophy. Systolic function is normal. The estimated ejection fraction is 55-60%. Wall motion is normal; there are no regional wall motion abnormalities. Doppler parameters are consistent with abnormal left ventricular relaxation (grade 1 diastolic dysfunction). Right ventricle: The cavity size is at the upper limits of normal. Systolic function is normal. Systolic pressure is mildly increased. Ventricular septum: There is septal flattening of the interventricular septum consistent with RV volume or pressure overload. Left atrium: The atrium is mildly dilated. Right atrium: The atrium is normal in size. Mitral valve: The Mitral valve annulus appears mildly calcified. The leaflets are mildly thickened. There is no evidence of stenosis. There is mild to moderate regurgitation. Aortic valve: The valve is trileaflet. The leaflets are mildly thickened. There is no evidence of stenosis. There is moderate regurgitation. Tricuspid valve: The leaflets are normal thickness. There is no evidence of stenosis. There is moderate regurgitation. Pulmonic valve: The leaflets are normal thickness. There is no evidence of stenosis. There is trace regurgitation. Aorta: Aortic root: The aortic root is appears normal. Ascending aorta: The ascending aorta is mildly dilated. Aortic arch: The aortic arch is appears normal. Pericardium: There is no significant pericardial effusion. Pulmonary arteries: The main pulmonary artery is normal-sized. Systolic pressure is mildly increased. Systemic veins: Inferior vena cava: The vessel is normal in size. There is (>= 50%) respiratory change in the IVC dimension. Measurements Left ventricle Value Ref Aortic valve continued Value Ref SRINATH, LAX 4.2 cm 3.8 - Mark Anthony diam/bsa, S 1.4 cm/m^2 1.1 - 5.2 1.5 ESD, LAX 3.1 cm 2.2 - Peak v, S 1.47 m/sec -------- 3.5 VTI, S 23.8 cm -------- FS, LAX (L) 26 % - 45 Mean grad, S 3.6 mm Hg -------- PW, ED, LAX (H) 1.1 cm 0.6 - Peak grad, S 8.6 mm Hg -------- 0.9 LVOT/AV, VTI 0.92 -------- FS (L) 26 % 27 - 45 ratio PW, ED (H) 1.1 cm 0.6 - AR peak v 4.97 m/sec -------- 0.9 AR decel time 1472 ms -------- E', lat mark anthony, TDI (L) 5.5 cm/sec >=10.0 AR PHT 427 ms - ------- E/e', lat mark anthony, TDI 13 -------- AR peak grad 99 mm Hg ---- ---- LVOT Value Ref Mitral valve Value Ref Peak amita, S 1.11 m/sec -------- Peak E 0.75 m/sec -------- VTI, S 21.8 cm -------- Peak A 0.96 m/sec -------- Peak grad, S 5 mm Hg -------- Decel time 171 ms -------- Mean grad, S 3 mm Hg -------- Peak grad, D 2.2 mm Hg -------- Peak E/A ratio 0.78 -------- Ventricular septum Value Ref IVS, ED (H) 1.1 cm 0.6 - Pulmonic valve Value Ref 0.9 Peak v, S 0.79 m/sec -------- Peak grad, S 2.5 mm Hg -------- Right ventricle Value Ref AW thickness, ED 0.5 cm 0.1 - Tricuspid valve Value Ref 0.5 TR peak v (H) 2.9 m/sec <=2.8 SRINATH, LAX 2.6 cm -------- Peak RV-RA grad, 34 mm Hg -------- SRINATH minor ax, A4C 3.4 cm 1.9 - S mid 3.5 Pressure, S 37 mm Hg -------- Aortic root Value Ref Root diam 2.7 cm <3.7 Left atrium Value Ref LA ID 3.7 cm -------- Ascending aorta Value Ref SI dim ES, LAX 3.7 cm -------- AAo AP diam, S 3.8 cm -------- ML dim, A4C 4.4 cm -------- SI dim, A4C 4.9 cm -------- Aortic arch Value Ref Vol, ES, 2-p 58 ml -------- Arch diam 2.5 cm -------- Vol/bsa, ES, 2-p (H) 40 ml/m^2 16 - 34 Pulmonary artery Value Ref Right atrium Value Ref Pressure, S 34.5 mm Hg -------- SI dim, ES 4.1 cm 3.4 - 5.3 Inferior vena cava Value Ref ML dim, ES, A4C 3.7 cm 2.6 - Diam 1.4 cm -------- 4.4 SI dim, ES, A4C 4.1 cm 3.4 - 5.3 Estimated RAP 3 mm Hg -------- Aortic valve Value Ref Mark Anthony diam, S 2.0 cm 1.9 - 2.7 Legend: (L) and (H) bradley values outside specified reference range. Prepared and electronically signed by Steve Hackett MD 02/25/2019 16:56
[2019-02-25] MEDS: cefTRIAXone VIAL(*) 1,000 MG in NS 0.9% 50 ML* 50 ML IVPB SCH (18:55)
[2019-02-26] MEDS: Heparin VIAL(*) 5000 UNITS/ML VIAL (FIVE THOUSAND) SUBCUT SCH ×2 (05:57→13:37)
[2019-02-26] MEDS: Gabapentin CAP(*) 400 MG PO SCH (08:08)
[2019-02-26] MEDS: Folic Acid TAB* 1 MG PO SCH (08:08)
[2019-02-26] MEDS: Cyanocobalamin TAB* 500 MCG PO SCH (08:10)
[2019-02-26] MEDS: Magnesium Oxide TAB* 400 MG PO SCH (08:10)
[2019-02-26] MEDS: Pantoprazole TAB * 40 MG TAB PO SCH (08:11)
[2019-02-26] MEDS: Lisinopril TAB* 10 MG PO SCH (08:11)
[2019-02-26] MEDS: Potassium Chlor TAB* 20 MEQ TAB.ER PO SCH (08:12)
[2019-02-26] MEDS: amLODIPine TAB* 5 MG PO SCH (08:12)
[2019-02-26] MEDS: Metoprolol Tartrate TAB* 25 MG PO SCH (08:12)
[2019-02-26] MEDS: Potassium & Sodium Phos 250MG* = 1 PACKET PO SCH ×2 (08:14→13:37)
[2019-02-26] MEDS ORDERED: Cefdinir cap* 300 MG CAP PO SCH (09:00)
[2019-02-26] MEDS ORDERED: Azithromycin TAB* 250 MG PO SCH (09:00)
[2019-02-26 11:21] VITALS: BP 142/83
[2019-02-26 12:57] LABS: ABS Basophils 0.1 10^3/ul (0-0.2); ABS Eosinophils 0.2 10^3/ul (0-0.6); ABS Lymphocytes 0.7 10^3/ul (1.0-4.8); ABS Monocytes 0.9 10^3/ul (0-0.8); ABS Neutrophils 2.4 10^3/ul (1.5-7.7); Eosinophil % 3.9 %; Hematocrit 30 % (35-47); Lymphocyte % 17.7 %; Mean Corpuscular HGB Conc 34 g/dL (31-36); Mean Corpuscular Hemoglobin 33 pg (27-31); Mean Corpuscular Volume 97 fL (80-97); Mean Platelet Volume 8.4 fL (7.4-10.4); Nucleated Red Blood Cells % 0.3; Platelet Count 207 10^3/uL (150-450); Red Blood Count 3.06 10^6 /uL (3.70-4.87); Red Cell Distribution Width 16 % (10-15); White Blood Count 4.2 10^3/uL (3.5-10.8)
[2019-02-26 13:17] LABS: BUN/Creatinine Ratio 9.4 (8-20); Calcium 9.1 mg/dL (8.6-10.3); EGFR African American 139.7 (>60); EGFR Non-African American 115.4 (>60); Magnesium 1.5 mg/dL (1.9-2.7); Phosphorus 3.7 mg/dL (2.5-5.0); Potassium 3.6 mmol/L (3.5-5.0)
[2019-02-26] MEDS ORDERED: Magnesium Sulfate 2 GM IV* 2 GM/50 ML BAG IVPB ONE (13:21)
[2019-02-26 13:38] LABS: TSH (Thyroid Stimulating Horm) 4.89 mcIU/mL (0.34-5.60)
[2019-02-26] MEDS: TRIAMCINOLONE 0.1% TOPICAL PRN (13:45)
--- NOTE | 2019-02-26 23:34 | DS ---
CC: Dr. Donna Cortés DISCHARGE SUMMARY: DATE OF ADMISSION: 02/22/19 DATE OF DISCHARGE: 02/26/19 FINAL DISCHARGE DIAGNOSES: 1. Pneumonia, bilateral. 2. Metabolic acidosis, most likely secondary to starvation alcohol-induced ketosis. 3. Alcohol abuse and dependency. 4. Acute kidney injury secondary to vomiting and dehydration and volume depletion. 5. Hypertension. 6. History of Crohn's. 7. Hypophosphatemia, severe. 8. Hypomagnesemia, severe. 9. Hypokalemia, severe. HOSPITAL COURSE: The patient presented to [facility] on 02/22/19 emergency room with [facility] complaint of vomiting. At that time, the admitting hospitalist had difficulty obtaining from the patient due to her acute medical illness. History was provided to him by the patient herself and juana flores with the past medical record. She stated that at that time she was having history of vomiting for the past 3 days prior to presentation, unable to tolerate food or water with no fever or chills and some shortness of breath. She did also have some abdominal pain. She contributed to her previou s hernia and after 3 days of ongoing symptomatology, she decided to come to the ER. She is known to have history of alcoholic use and dependency; however, she stated that she has not had any drink for 2 days due to her acute illness. She received IV fluid, antibiotic in the emergency room and admitte d to the medical service. She was placed on oral Augmentin on admission and I saw and evaluated the patient the following morning. On my assessment the following day, on the , I did notice that she did have significant dyspnea and hypoxia with distress, even with history giving. Noted that her bi carbonate was quite low on admission, which was down to 16 and the following day was 18, which I cont ributed due to metabolic alkalosis from alcohol, so I escalated her antibiotic back to IV ceftriaxone and azithromycin. I repleted her electrolyte and specifically, her potassium, which was as low as 2 .8. Magnesium was 0.8 and phosphorus was as low as 1.1. [facility] with IV antibiotic, gentle hydration, and fluid replacement as well as electrol ytes. She continued to improve steadily but slowly, and today she is eager to go home. She has been in the hospital since 02/22/19. Hospital day #4, therefore, I deemed her stable for discharge with oral antibiotic. She was strongly advised to abstain from alcohol and take all medications including her electrolyte supplementation as advised. PHYSICAL EXAMINATION: Her temperature is 98.4. She has been afebrile since 02/22/19 with T-max of 1 00. Pulse is 67, respiratory rate is 18, saturating 99%, blood pressure is 142/83. General: She is awake, alert, oriented, pleasant, in no distress. Her saturation is 99% on room air. Lungs: She d oes have bibasilar crackles, no rhonchi. Cardiovascular: S1 and S2. Regular rate and rhythm. Abdom en: Positive bowel sounds. Soft, nontender, nondistended. Extremities: No pedal edema. 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 Genitalia and rectal exam were deferred. DIAGNOSTIC STUDIES: CBC multiple pertinent for white count of 11,000 on admission down to 4.2 today, hematocrit decreased from 36 down to 30, some of its volume dilutional with platelet as low as 110,0 00 improved to 207,000 on the day of discharge. Chemistry showed sodium as low as 131, improved to 1 35; potassium is as low as 2.8, up to 3.6 today; anion gap, which was as high as 20 on admission is d own to 8. Bicarbonate as low as 16, up to 28. Creatinine as high as 1.5 on admission, down to 0.5 t gwendolyn. Lactic acid was normal throughout. Magnesium as low as 0.8, up to 1.5 today. She is receivin g 2 g as well as oral supplementation. Phosphorus as low as 1.1, up to 3.7 today. Iron study, given her anemia; iron is 61, TIBC 216, iron saturation 28, transferrin 154, ferritin 452, B12 of 650, khadijah te 6.6, TSH is 4.8. Urinalysis was positive for WBC 2+ present, bacteria absent, serum alcohol less than 10. Blood cultures were not obtained. Urine culture is negative and contamination. Stool occu lt positive one and negative for the other. DISCHARGE MEDICATIONS: The patient will be discharged on the followin. Resume albuterol inhaler 2 puffs 4 times a day. 2. Resume amlodipine 2.5 mg daily. 3. Artificial tears 2 drops in both eyes daily. 4. Prescription for azithromycin 250 mg daily for 2 days 2 tablets. 5. Cefdinir 300 mg b.i.d. for 7 days, dispense 14 tablets. 6. Continue B12 supplementation 2500 mcg daily. 7. Continue Flexeril 5 mg b.i.d. as needed. 8. Continue folic acid 1 mg daily. 9. Continue Neurontin 1200 mg p.o. t.i.d. as needed. 10. Continue lisinopril 10 mg daily. New prescriptions: 1. Magnesium oxide 400 mg tablet to take 2 tablets twice a day, prescription for 2 weeks given. 2. Metoprolol 25 mg b.i.d. 3. Prescription for Protonix 40 mg daily. 4. Prescription for Neutra-Phos 1 packet twice a day. She was given for 1 week. 5. Potassium 20 mEq b.i.d. for 2 weeks prescription. 6. Triamcinolone 1 application twice a day. 7. Tylenol 500 mg b.i.d. 8. Resume vitamin D 50,000 units monthly. 9. Clobetasol daily. 10. Shampoo Clobex topically daily. 11. Lasix 20 mg daily for 3 days. 12. Hydroxyzine, resume as per home, 10 mg every 6 hours as needed. 13. Cortisporin 2 drops in the right ear 3 times a day as per home prior to admission. 14. Zofran 4 mg sublingual t.i.d. as needed. 15. Thiamine 100 mg daily. DIAGNOSTIC IMAGIN. She had an abdominal CT of the pelvis on 02/22/19 that reveals bibasilar infiltrate. 2. Chest x-ray showed bibasilar infiltrate consistent with pneumonia. DISCHARGE RECOMMENDATIONS: 1. Follow up with her primary care in 1 to 2 weeks. 2. Take all medications as prescribed. 3. Avoid alcohol at all cost. 4. Return to the emergency room if shortness of breath gets worse; nausea, vomiting, or diarrhea get s worse. 5. Discharge recommendation to her primary to please arrange for outpatient followup lab including C BC and chemistry to follow up on her electrolytes, specifically magnesium and phosphorus, which were extremely low along with potassium. Also to have repeat chest x-ray in about 3 to 4 weeks to ensure resolution of her pneumonia. 6. Given her anemia with 1 stool positive for blood, recommend to refer for GI for outpatient workup for her anemia, especially in the setting of her alcohol dependency. DISCHARGE DISPOSITION: Home. DISCHARGE CONDITION: Stable. [id number]/[facility] #: [id number]
== END 2019-02-26 17:50 | disposition home health service (06) | DRG 194 ==
LOC: ED 14:22 → MED 20:12 → OBSVTOIN 02-23 11:00
PROVIDERS: ADMIT Internal Medicine; ATTEND Internal Medicine
DX: J18.9 Pneumonia, unspecified organism (principal); K50.90 Crohn's disease, unspecified, without complications; N17.9 Acute kidney failure, unspecified; E87.2 Acidosis; E87.1 Hypo-osmolality and hyponatremia; E87.3 Alkalosis; M79.7 Fibromyalgia; E78.5 Hyperlipidemia, unspecified; K70.30 Alcoholic cirrhosis of liver without ascites; M81.0 Age-related osteoporosis without current pathological fracture; F17.210 Nicotine dependence, cigarettes, uncomplicated; E86.0 Dehydration; F10.20 Alcohol dependence, uncomplicated; R74.8 Abnormal levels of other serum enzymes; R00.0 Tachycardia, unspecified; I10 Essential (primary) hypertension; G47.30 Sleep apnea, unspecified; J30.2 Other seasonal allergic rhinitis; F41.9 Anxiety disorder, unspecified; F32.9 Major depressive disorder, single episode, unspecified; R11.2 Nausea with vomiting, unspecified; E83.42 Hypomagnesemia; E83.39 Other disorders of phosphorus metabolism; L40.9 Psoriasis, unspecified; G62.9 Polyneuropathy, unspecified; E88.89 Other specified metabolic disorders; E87.6 Hypokalemia; R09.02 Hypoxemia; Z88.1 Allergy status to other antibiotic agents; Z91.030 Bee allergy status; Z88.8 Allergy status to other drugs, medicaments and biological substances; Z85.3 Personal history of malignant neoplasm of breast; Z92.21 Personal history of antineoplastic chemotherapy; Z92.3 Personal history of irradiation; Z79.899 Other long term (current) drug therapy
CPT/HCPCS: 36415; 71046; 74177; 80048; 80053; 80076; 80320; 81003; 81015; 82150; 82270; 82272; 82607; 82728; 82746; 83540; 83550; 83605; 83690; 83735; 84100; 84443; 85025; 86140; 86850; 86900; 86901; 87086; 90686; 93306; 96365; 96375; 99284; A9270-GY; G0480; G8978-GP-CI; G8979-GP-CI; G8980-GP-CI; J0456; J0696; J1644; J2405; J3475; Q9967

== ENCOUNTER 2019-04-29 08:47 | Emergency (ER) | payer MEDICARE ==
--- NOTE | 2019-04-29 09:20 | ED ---
Back Pain - HPI Summary HPI Summary: This pt is a 69 y/o female presenting to [facility] via EMS for lower back pain s/p fall on 04/22/19. Pt reports on 04/22/19 she was in her kitchen opening the refrigerator door to get sour cream out. She notes after she closed the refrigerator door she fell flat on her back. Pt states hx of "bad feet" and neuropathy. Pt c/o lower back pain and sacral pain since her fall. Pt reports she has taken 2 oxycodone, Tylenol 500 mg, and flexeril with no relief. Pt states she has been able to walk at home but with pain. Denies abd pain, arm pain, weakness, or tingling, incontinence. Per triage note, "Patient had half of a scotch and soda to attempt to manage pain." Pt has had neuropathy in her legs for the past 1 month, prior to her fall. PMHx: cholecystectomy. - History of Current Complaint Stated Complaint: LOWER BACK PAIN PER EMS Time Seen by Provider: 04/29/19 08:50 Hx Obtained From: Patient Onset/Duration: Lasting Weeks - 1, Still Present Onset/Duration: Started Weeks Ago - 1 Timing: Lasting Weeks - 1 Back Pain Location: Is Discrete @ - lower back Severity Currently: Severe Pain Intensity: 8 Pain Scale Used: 0-10 Numeric Character: Dull Aggravating Symptom(s): Walking Alleviating Symptom(s): Rest Associated Signs And Symptoms: Positive: Numbness - chronic. Negative: Fever, Weakness, Tingling, Abdominal Pain, Bladder Incontinence, Bowel Incontinence - Allergies/Home Medications Allergies/Adverse Reactions: Allergies Allergy/AdvReac Type Severity Reaction Status Date / Time bee pollen Allergy Hives Verified 10/05/18 13:12 ciprofloxacin Allergy Hives Verified 10/05/18 13:12 clarithromycin [From Biaxin] Allergy Unknown Verified 10/05/18 13:12 Reaction Details infliximab [From Remicade] Allergy Hives Verified 10/05/18 13:12 metronidazole [From Flagyl] Allergy Hives Verified 10/05/18 13:12 Home Medications: Home Medications Adalimumab (NF) [Humira Pen (NF)] 40 mg SUBCUT ONCE 04/29/19 [History Confirmed 04/29/19] Artificial Tears* 15 ML BTL [Polyvinyl Alcohol 1.4% OPTH*] 2 drop BOTH EYES DAILY PRN 04/29/19 [History Confirmed 04/29/19] Clobetasol Propionate [Clobex] 0.05 % TOPICAL DAILY 04/29/19 [History Confirmed 04/29/19] Ferrous Sulfate TAB* 325 mg PO DAILY 04/29/19 [History Confirmed 04/29/19] Gabapentin CAP(*) [Neurontin 400 mg CAP(*)] 800 mg PO BID 04/29/19 [History Confirmed 04/29/19] Halobetasol Propionate 1 applic TOPICAL DAILY 04/29/19 [History Confirmed ] Mirtazapine TAB* [Remeron TAB*] 15 mg PO BEDTIME 04/29/19 [History Confirmed ] Multivitamins/Minerals TAB* [Theragran/minerals TAB*] 1 tab PO DAILY 04/29/19 [ History Confirmed 04/29/19] Neomyc/Polym/HC 1% OTIC SUSP* [Cortisporin Otic Susp 1%*] 2 drop RIGHT EAR TID PRN 04/29/19 [History Confirmed 04/29/19] oxyCODONE/Acetamin 5/325 MG* [Percocet 5/325 TAB*] 1 tab PO Q8H PRN 04/29/19 [ History Confirmed 04/29/19] PMH/Surg Hx/FS Hx/Imm Hx Endocrine/Hematology History: Denies: Hx Anticoagulant Therapy, Hx Diabetes, Hx Thyroid Disease Cardiovascular History: Reports: Hx Hypertension Denies: Hx Congestive Heart Failure, Hx Pacemaker/ICD Respiratory History: Reports: Hx Seasonal Allergies, Hx Sleep Apnea - does use a machine Denies: Hx Asthma, Hx Chronic Obstructive Pulmonary Disease (COPD) GI History: Reports: Hx Cirrhosis, Hx Crohn's Disease, Hx Diverticulosis, Hx Gall Bladder Disease, Hx Ileostomy, Other GI Disorders - infectious colitis Denies: Hx Ulcer History: Reports: Other Problems/Disorders - 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 Denies: Hx Renal Disease Musculoskeletal History: Reports: Hx Fibromyalgia, Hx Orthopedic Injury - Broken right ankle/Broken left foot/Broken left arm/shattered sacrum, Hx Scoliosis, Other Musculoskeletal History - fibromyalgia Sensory History: Reports: Hx Contacts or Glasses, Hx Eye Injury Denies: Hx Deafness, Hx Hearing Aid Opthamlomology History: Reports: Hx Contacts or Glasses, Hx Eye Injury Neurological History: Reports: Hx Seizures - One time with virus, Other Neuro Impairments/Disorders - fibromyalgia Denies: Hx Dementia Psychiatric History: Reports: Hx Anxiety, Hx Depression Denies: Hx Eating Disorder, Hx Substance Abuse - Cancer History Cancer Type, Location and Year: LEFT BREAST CA dx 2003 Hx Chemotherapy: Yes Hx Radiation Therapy: Yes - Surgical History Surgical History: Yes Surgery Procedure, Year, and Place: 2003 - Breast CA lumpectomy surgery with lymph node dissection, ([facility]), COLECTOMY 2013 (FROM DIVERTICULITIS), BLADDER REPAIR SURGERY , maxine 02-18, arterial bleed repair of hepatic artery, ercp 02-18 Hx Anesthesia Reactions: No - Immunization History Date of Tetanus Vaccine: unknown Infectious Disease History: No Infectious Disease History: Denies: Hx Clostridium Difficile, Hx Hepatitis, Hx Human Immunodeficiency Virus (HIV), Hx Shingles, Hx Tuberculosis, Traveled Outside the [place] in Last 30 Days - Family History Known Family History: Positive: Other - CVA, CA - Social History Alcohol Use: Daily Alcohol Amount: 1 glass Hx Substance Use: No Substance Use Type: Reports: None Substance Use Comment - Amount & Last Used: daily Hx Tobacco Use: Yes Smoking Status (MU): Heavy Every Day Tobacco Smoker Type: Cigarettes Amount Used/How Often: 1/2 ppd Have You Smoked in the Last Year: Yes Review of Systems Negative: Fever Negative: Abdominal Pain Negative: incontinence Musculoskeletal: Other - POSITIVE: lower back pain Positive: Numbness - chronic from neuropathy. Negative: Weakness, Paresthesia All Other Systems Reviewed And Are Negative: Yes Physical Exam - Summary Physical Exam Summary: Constitutional: Well-developed, Well-nourished, Alert. (-) Distressed Skin: Warm, Dry HENT: Normocephalic; Atraumatic Eyes: Conjunctiva normal Neck: Musculoskeletal ROM normal neck. (-) JVD, (-) Stridor Cardio: Rhythm regular, rate normal, Heart sounds normal; Intact distal pulses; Radial pulses are 2+ and symmetric. (-) Murmur Pulmonary/Chest wall: Effort normal. (-) Respiratory distress, (-) Wheezes, (-) Rales Abd: Soft, (-) tenderness, (-) Distension, (-) Guarding, (-) Rebound Musculoskeletal: (-) Edema. Tenderness of the lumbar spine and sacrum. No thoracic or cervical tenderness. Lymph: (-) Cervical adenopathy Neuro: Alert, Oriented x3, strength 5/5 LE, paresthesias to out thighs (chronic) Psych: Mood and affect Normal Triage Information Reviewed: Yes Vital Signs On Initial Exam: Initial Vitals Temp Pulse Resp BP Pulse Ox 98.5 F 93 16 110/72 97 04/29/19 08:56 04/29/19 08:56 04/29/19 08:56 04/29/19 08:56 04/29/19 08:56 Vital Signs Reviewed: Yes Procedures - Sedation Patient Received Moderate/Deep Sedation with Procedure: No Diagnostics - Vital Signs Vital Signs Temp Pulse Resp BP Pulse Ox 04/29/19 08:56 98.5 F 93 16 110/72 97 - Laboratory Lab Statement: Any lab studies that have been ordered have been reviewed, and results considered in the medical decision making process. - Radiology Lumbar spine XR Radiology Interpretation Completed By: Radiologist Summary of Radiographic Findings: IMPRESSION: Moderate compression fracture of the L1 vertebral body age-indeterminate although likely chronic recommend correlation with clinical findings. Dr. Guidry has reviewed this report. Sacrum and Coccyx XR Radiology Interpretation Completed By: Radiologist Summary of Radiographic Findings: IMPRESSION: No evidence of fracture if the patient's symptoms persist recommend follow-up imaging. Dr. Guidry has reviewed this report. Lumbar spine XR s/p brace Radiology Interpretation Completed By: Radiologist Summary of Radiographic Findings: IMPRESSION: 1. Again seen is shortening of the L1 verteral body. 2. Mild degenerative changes. Dr. Guidry has reviewed this report. - CT Thoracic spine CT CT Interpretation Completed By: Radiologist Summary of CT Findings: IMPRESSION: 1. Acute mild to moderate compression fracture of the superior endplate of the L1 vertebral body with mild retropulsion of fracture fragments into the anterior spinal canal. There is also a nondisplaced fracture of the left transverse process of the L1 vertebral body. 2. Mild chronic appearing compression fracture of the T4 vertebral body. Dr. Guidry has reviewed this report. Lumbar spine CT CT Interpretation Completed By: Radiologist Summary of CT Findings: IMPRESSION: Approximately 25% compression superior endplate of L1 which was not present on February 22, 2019. Additional fracture of the left transverse process of L1 and L2. Dr. Guidry has reviewed this report. Back Pain Course/Dx - Course Course Of Treatment: 69 y/o F p/w lower back pain after fall. - PE with tenderness L spine, XR w compression fracture. CT TL spine shows L1 compression and L1L2 TP fractures. D/w neurosurgery, placed in TLSO brace. F/u outpatient - Diagnoses Provider Diagnoses: Lumbar compression fracture - Provider Notifications Discussed Care Of Patient With: Dr. Chinchilla Time Discussed With Above Provider: 12:17 Instructed by Provider To: Other - Discussed the case with Dr. Chinchilla, neurosurgeon at [facility], who reports he cannot comment specifically on this patient, but in general if patient is neurologically intact with a compression fracture he recommends a brace and follow up in the office. [13:35] Discussed with Dr. Petersen, neurosurgeon, who states patient should get a brace. Discharge ED - Sign-Out/Discharge Documenting (check all that apply): Patient Departure - Discharge home - Discharge Plan Condition: Stable Disposition: HOME Prescriptions: oxyCODONE/Acetamin 5/325 MG* [Percocet 5/325 TAB*] 1 tab PO Q6H PRN 3 Days #12 tab MDD 4 PRN Reason: Pain Patient Education Materials: Thoracolumbar Fracture (ED) Referrals: Donna Cortés MD [Primary Care Provider] - Lisbeth Petersen MD [Medical Doctor] - Additional Instructions: You were seen in the emergency department for back pain. Your CT scan showed a fracture of your L1. Please wear your brace and follow-up with neurosurgery Please follow up with your primary care doctor in next 2-3 days and return to emergency department for worsening pain, new numbness/tingling or weakness of your legs or concerning symptoms. It was a pleasure taking care of you today. - Billing Disposition and Condition Condition: STABLE Disposition: Home - Attestation Statements Document Initiated by Hayibsharron: Yes Documenting Scribe: Sara Winn Provider For Whom Jimmie is Documenting (Include Credential): Ganesh Guidry MD Scribe Attestation: Sara Irvin, scribed for Ganesh Guidry MD on 04/29/19 at 1650. Scribe Documentation Reviewed: Yes Provider Attestation: The documentation as recorded by the Sara vidal accurately reflects the service I personally performed and the decisions made by me, Ganesh Guidry MD Status of Scribe Document: Viewed
--- OUTSIDE RECORDS SUMMARY | 2019-04-29 10:56 | XMS REPORT | Continuity of Care Document ---
:1950 External Reference #:[id number] Author Name Benji Pichardo M.D. 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 Onset: 03/25/2018 Social History Type Date Description Comments Sex Unknown ETOH Use Occasionally consumes alcohol Tobacco Use Start: Unknown Light tobacco smoker (10 or fewer cigarettes/day) Smoking Status Reviewed: 03/24/19 Light tobacco smoker (10 or fewer cigarettes/day) Exercise Type/Frequency Exercises sporadically Allergies, Adverse Reactions, Alerts Active Allergies Reaction Severity Comments Date Remicade 02/28/2016 Cipro 02/28/2016 Medications Active Medications SIG Qnty Indications Ordering Date Provider Cyclobenzaprine HCL take 1 tablet 60tabs S82.042D Benji Pichardo, 2017 10mg up to three M.D. Tablets times a day as needed for muscle spasms Gabapentin 1 by mouth Unknown 400mg Tablets three times a day Benadryl Allergy 1 tablet by Unknown 25mg Tablets mouth three times a day, as needed Folic Acid 1 by mouth Unknown 1mg Tablets every day Metoprolol Tartrate Unknown 25mg Tablets Lisinopril take 1 tablet Unknown 10mg Tablets by mouth daily Medications Administered in Office Medication SIG Qnty Indications Ordering Provider Date Celestone 3 mg and 3mg Narcisa Jones, 06/12/2010 Injection M.D. Immunizations Description No Information Available Vital Signs Date Vital Result Comment 03/24/2019 2:59pm Height 60 inches 5'0" Weight 106.00 lb BP Systolic 136 mmHg BP Diastolic 84 mmHg Body Temperature 97.6 F BMI (Body Mass Index) 20.7 kg/m2 11/11/2018 2:22pm Height 60 inches 5'0" Weight 108.00 lb Heart Rate 64 /min Body Temperature 97.4 F O2 % BldC Oximetry 99 % BMI (Body Mass Index) 21.1 kg/m2 Results Description No Information Available Procedures Date Code Description Status 02/23/2019 12594 ECHO Transthorasic Realtime 2D W Doppler & Color Flow Completed Hosp 09/18/2015 23998410 Mammogram Completed Medical Devices Description No Information Available Encounters Type Date Location Provider Dx Diagnosis Office Visit 02/26/2019 [place] [address] Pneumonia, 1:30p saranya Marquez M.D. unspecified Hospitalists organism N17.9 Acute kidney failure, unspecified R11.2 Nausea with vomiting, unspecified E86.0 Dehydration E87.2 Acidosis E83.42 Hypomagnesemia E87.1 Hypo-osmolality and hyponatremia E83.39 Other disorders of phosphorus metabolism Office Visit 02/25/2019 [place] [address] Pneumonia, 1:29p saranya Marquez M.D. unspecified Hospitalists organism N17.9 Acute kidney failure, unspecified E86.0 Dehydration I10 Essential (primary) hypertension E83.39 Other disorders of phosphorus metabolism E83.42 Hypomagnesemia Office Visit 02/24/2019 [place] [address] Pneumonia, 1:29p saranya Marquez M.D. unspecified Hospitalists organism N17.9 Acute kidney failure, unspecified E86.0 Dehydration E87.1 Hypo-osmolality and hyponatremia E83.39 Other disorders of phosphorus metabolism E83.42 Hypomagnesemia E87.2 Acidosis R11.2 Nausea with vomiting, unspecified Office Visit 02/23/2019 [place] [address] Pneumonia, 1:29p saranya Marquez M.D. unspecified Hospitalists organism N17.9 Acute kidney failure, unspecified E86.0 Dehydration E87.2 Acidosis R11.2 Nausea with vomiting, unspecified I10 Essential (primary) hypertension Z87.19 Personal history of other diseases of the digestive system Office Visit 11/11/2018 2:30p [facility] Benji S82.042D Displ commnt at [facility] Pichardo M.D. fx left patella, subs for clos fx w routn heal Assessments Date Code Description Provider 03/24/2019 S82.042D Displaced comminuted fracture of left Benji Pichardo M.D. patella, subsequent en 02/26/2019 J18.9 Pneumonia, unspecified organism Abdirizak Reyes M.D. 02/26/2019 N17.9 Acute kidney failure, unspecified Abdirizak Reyes M.D. 02/26/2019 R11.2 Nausea with vomiting, unspecified Abdirizak Reyes M.D. 02/26/2019 E86.0 Dehydration Abdirizak Reyes M.D. 02/26/2019 E87.2 Acidosis Abdirizak Reyes M.D. 02/26/2019 E83.42 Hypomagnesemia Abdirizak Reyes M.D. 02/26/2019 E87.1 Hypo-osmolality and hyponatremia Abdirizak Reyes M.D. 02/26/2019 E83.39 Other disorders of phosphorus metabolism Abdirizak Reyes M.D. 02/25/2019 J18.9 Pneumonia, unspecified organism Abdirizak Reyes M.D. 02/25/2019 N17.9 Acute kidney failure, unspecified Abdirizak Reyes M.D. 02/25/2019 E86.0 Dehydration Abdirizak Reyes M.D. 02/25/2019 I10 Essential (primary) hypertension Abdirizak Reyes M.D. 02/25/2019 E83.39 Other disorders of phosphorus metabolism Abdirizak Reyes M.D. 02/25/2019 E83.42 Hypomagnesemia Abdirizak Reyes M.D. 02/24/2019 J18.9 Pneumonia, unspecified organism Abdirizak Reyes M.D. 02/24/2019 N17.9 Acute kidney failure, unspecified Abdirizak Reyes M.D. 02/24/2019 E86.0 Dehydration Abdirizak Reyes M.D. 02/24/2019 E87.1 Hypo-osmolality and hyponatremia Abdirizak Reyes M.D. 02/24/2019 E83.39 Other disorders of phosphorus metabolism Abdirizak Reyes M.D. 02/24/2019 E83.42 Hypomagnesemia Abdirizak Reyes M.D. 02/24/2019 E87.2 Acidosis Abdirizak Reyes M.D. 02/24/2019 R11.2 Nausea with vomiting, unspecified Abdirizak Reyes M.D. 02/23/2019 J18.9 Pneumonia, unspecified organism Abdirizak Reyes M.D. 02/23/2019 N17.9 Acute kidney failure, unspecified Abdirizak Reyes M.D. 02/23/2019 R06.02 Shortness of breath Steve Hackett M.D. 02/23/2019 E86.0 Dehydration Abdirizak Reyes M.D. 02/23/2019 E87.2 Acidosis Abdirizak Reyes M.D. 02/23/2019 R11.2 Nausea with vomiting, deionified Abdirizak Reyes M.D. 02/23/2019 I10 Essential (primary) hypertension Abdirizak Reyes M.D. 02/23/2019 Z87.19 Personal history of other diseases of Abdirizak Reyes M.D. the digestive system 02/22/2019 R11.2 Nausea with vomiting, unspecified Ozzy Wayne M.D. 02/22/2019 N17.9 Acute kidney failure, unspecified Ozzy Wayne M.D. 02/22/2019 E86.0 Dehydration Ozzy Wayne M.D. 02/22/2019 E87.1 Hypo-osmolality and hyponatremia Ozzy Wayne M.D. 02/22/2019 E87.2 Acidosis Ozzy Wayne M.D. 02/22/2019 R00.0 Tachycardia, unspecified Ozzy Wayne M.D. 11/11/2018 S82.042D Displaced comminuted fracture of left Benji Pichardo M.D. patella, subsequent en Plan of Treatment 03/24/2019 - Benji Pichardo M.D.S82.042D Displaced comminuted fracture of left patella, subsequent enFollow up:Call if needed Functional Status Description No Information Available Mental Status Description No Information Available Referrals Description No Information Available
[2019-04-29] MEDS ORDERED: oxyCODONE/Acetamin 5/325 MG* TAB PO ONE (15:34)
[2019-04-29 16:40] VITALS: BP 97/78
== END 2019-04-29 16:44 | disposition home or self-care (01) ==
LOC: ED 08:47
DX: S32.010A Wedge compression fracture of first lumbar vertebra, initial encounter for closed fracture (principal); S32.020A Wedge compression fracture of second lumbar vertebra, initial encounter for closed fracture; W18.30XA Fall on same level, unspecified, initial encounter; Y92.000 Kitchen of unspecified non-institutional (private) residence as the place of occurrence of the external cause; I10 Essential (primary) hypertension; K50.90 Crohn's disease, unspecified, without complications; M79.7 Fibromyalgia; F41.9 Anxiety disorder, unspecified; F32.9 Major depressive disorder, single episode, unspecified; F17.210 Nicotine dependence, cigarettes, uncomplicated; Z85.3 Personal history of malignant neoplasm of breast; Z88.1 Allergy status to other antibiotic agents; Z88.8 Allergy status to other drugs, medicaments and biological substances; Z79.899 Other long term (current) drug therapy
CPT/HCPCS: 72100; 72128; 72131; 72220; 99283; A9270-GY

== ENCOUNTER 2019-07-14 22:43 | Emergency (ER) | payer MEDICARE ==
[2019-07-14] MEDS ORDERED: NS 0.9% 1000 ML** 1,000 ML IV ONE (23:10)
[2019-07-14] MEDS ORDERED: Ondansetron INJ* 2 MG/ML VIAL IV ONE (23:11)
--- NOTE | 2019-07-14 23:12 | ED ---
Nausea/Vomiting/Diarrhea HPI - HPI Summary HPI Summary: Patient complains of persistent nausea and vomiting 4 days. Unable to take medications. States barely able to tolerate sips of fluid, no full. Denies bloody emesis. Denies fever, cough, sore throat, CP, SOB, diarrhea, abdominal pain, change in urine, change in BM, vaginal symptoms. Medical history is Crohns, EtOH, HTN, HDL, recurrent intractable N/V, electrolyte disorder, anemia. - History of Current Complaint Chief Complaint: EDNauseaVomitDiarrh Stated Complaint: NAUSEA/VOMITING PER EMS Time Seen by Provider: 07/14/19 23:05 Hx Obtained From: Patient Onset/Duration: Gradual Onset, Lasting Days Timing: Intermittent Episodes Lasting: Severity Initially: Moderate Severity Currently: None Pain Intensity: 0 Pain Scale Used: 0-10 Numeric Aggravating Factor(s): Food Alleviating Factor(s): Nothing Nausea/Vomiting Presence: Nauseated Vomiting Characteristics: Nonbilious - Allergies/Home Medications Allergies/Adverse Reactions: Allergies Allergy/AdvReac Type Severity Reaction Status Date / Time bee pollen Allergy Hives Verified 07/14/19 22:49 ciprofloxacin Allergy Hives Verified 07/14/19 22:49 clarithromycin [From Biaxin] Allergy Unknown Verified 07/14/19 22:49 Reaction Details infliximab [From Remicade] Allergy Hives Verified 07/14/19 22:49 metronidazole [From Flagyl] Allergy Hives Verified 07/14/19 22:49 Home Medications: Home Medications Ondansetron ODT TAB* [Zofran 4 MG Odt TAB*] 4 - 8 mg SL TID PRN 11/23/13 [ History Confirmed 04/29/19] Folic Acid TAB* [Folvite TAB*] 1 mg PO DAILY 02/13/17 [History Confirmed ] Gabapentin TAB(NF) [Neurontin 600 mg TAB(NF)] 1,200 mg PO TID 02/18/17 [History Confirmed 04/29/19] Triamcinolone 0.5% CREAM(NF) [Triamcinolone 0.5% CREAM*] 1 applic TOPICAL BID PRN 02/18/17 [History Confirmed 04/29/19] hydrOXYzine HCL TAB* [Atarax 10 MG TAB*] 10 - 20 mg PO Q6HR PRN 10/17/17 [ History Confirmed 04/29/19] Acetaminophen [Acetaminophen Extra Strength] 500 mg PO BID PRN 01/09/18 [ History Confirmed 04/29/19] Cholecalciferol CAP/TAB(NF) [Vitamin D3 CAP/TAB (NF)] 50,000 unit PO MONTHLY 11/19 [History Confirmed 04/29/19] Metoprolol Tartrate TAB* [Lopressor TAB*] 25 mg PO BID #60 tab 01/12/18 [Rx Confirmed 04/29/19] Thiamine TAB* [Vitamin B-1 TAB 100 MG*] 100 mg PO DAILY tab 03/30/18 [Rx Confirmed 04/29/19] Lisinopril TAB* [Prinivil TAB 10 MG*] 10 mg PO DAILY 09/24/18 [History Confirmed 04/29/19] Albuterol HFA INHALER* [Ventolin HFA Inhaler*] 2 puff INH QID PRN 02/22/19 [ History Confirmed 04/29/19] Amlodipine Besylate [Amlodipine 2.5 mg tab] 2.5 mg PO DAILY 02/22/19 [History Confirmed 04/29/19] Clobetasol 0.05% OINT* 1 applic TOPICAL DAILY 02/22/19 [History Confirmed ] Cyanocobalamin TAB* [Vitamin B12 TAB*] 2,500 mcg SL DAILY 02/22/19 [History Confirmed 04/29/19] Cyclobenzaprine TAB* [Flexeril 10 MG TAB*] 5 mg PO BID PRN 02/22/19 [History Confirmed 04/29/19] Ondansetron TAB* [Zofran 4 MG Tab*] 4 - 8 mg PO TID PRN 02/22/19 [History Confirmed 04/29/19] Adalimumab (NF) [Humira Pen (NF)] 40 mg SUBCUT ONCE 04/29/19 [History Confirmed 04/29/19] Artificial Tears* 15 ML BTL [Polyvinyl Alcohol 1.4% OPTH*] 2 drop BOTH EYES DAILY PRN 04/29/19 [History Confirmed 04/29/19] Clobetasol Propionate [Clobex] 0.05 % TOPICAL DAILY 04/29/19 [History Confirmed 04/29/19] Ferrous Sulfate TAB* 325 mg PO DAILY 04/29/19 [History Confirmed 04/29/19] Gabapentin CAP(*) [Neurontin 400 mg CAP(*)] 800 mg PO BID 04/29/19 [History Confirmed 04/29/19] Halobetasol Propionate 1 applic TOPICAL DAILY 04/29/19 [History Confirmed ] Mirtazapine TAB* [Remeron TAB*] 15 mg PO BEDTIME 04/29/19 [History Confirmed ] Multivitamins/Minerals TAB* [Theragran/minerals TAB*] 1 tab PO DAILY 04/29/19 [ History Confirmed 04/29/19] Neomyc/Polym/HC 1% OTIC SUSP* [Cortisporin Otic Susp 1%*] 2 drop RIGHT EAR TID PRN 04/29/19 [History Confirmed 04/29/19] oxyCODONE/Acetamin 5/325 MG* [Percocet 5/325 TAB*] 1 tab PO Q6H PRN 3 Days #12 tab MDD 4 04/29/19 [Rx] oxyCODONE/Acetamin 5/325 MG* [Percocet 5/325 TAB*] 1 tab PO Q8H PRN 04/29/19 [ History Confirmed 04/29/19] Metoclopramide TAB* [Reglan TAB*] 10 mg PO Q8H PRN 2 Days #6 tab 07/15/19 [Rx] PMH/Surg Hx/FS Hx/Imm Hx Endocrine/Hematology History: Denies: Hx Anticoagulant Therapy, Hx Diabetes, Hx Thyroid Disease Cardiovascular History: Reports: Hx Hypertension Denies: Hx Congestive Heart Failure, Hx Pacemaker/ICD Respiratory History: Reports: Hx Seasonal Allergies, Hx Sleep Apnea - does use a machine Denies: Hx Asthma, Hx Chronic Obstructive Pulmonary Disease (COPD) GI History: Reports: Hx Cirrhosis, Hx Crohn's Disease, Hx Diverticulosis, Hx Gall Bladder Disease, Hx Ileostomy, Other GI Disorders - infectious colitis Denies: Hx Ulcer History: Reports: Other Problems/Disorders - 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 Denies: Hx Renal Disease Musculoskeletal History: Reports: Hx Fibromyalgia, Hx Orthopedic Injury - Broken right ankle/Broken left foot/Broken left arm/shattered sacrum, Hx Scoliosis, Other Musculoskeletal History - fibromyalgia Sensory History: Reports: Hx Contacts or Glasses, Hx Eye Injury Denies: Hx Deafness, Hx Hearing Aid Opthamlomology History: Reports: Hx Contacts or Glasses, Hx Eye Injury Neurological History: Reports: Hx Seizures - One time with virus, Other Neuro Impairments/Disorders - fibromyalgia Denies: Hx Dementia Psychiatric History: Reports: Hx Anxiety, Hx Depression Denies: Hx Eating Disorder, Hx Substance Abuse - Cancer History Cancer Type, Location and Year: LEFT BREAST CA dx 2003 Hx Chemotherapy: Yes Hx Radiation Therapy: Yes - Surgical History Surgery Procedure, Year, and Place: 2003 - [place] [place]LECT[place] 2013 (FROM DIVERTICULITIS), BLADDER REPAIR SURGERY , maxine 02-18, arterial bleed repair of hepatic artery, ercp 02-18 Hx Anesthesia Reactions: No - Immunization History Date of Tetanus Vaccine: unknown Infectious Disease History: No Infectious Disease History: Denies: Hx Clostridium Difficile, Hx Hepatitis, Hx Human Immunodeficiency Virus (HIV), Hx Shingles, Hx Tuberculosis, Traveled Outside the in Last 30 Days - Family History Known Family History: Positive: Other - CVA, CA - Social History Alcohol Use: Daily Alcohol Amount: 1 glass Hx Substance Use: No Substance Use Type: Reports: None Substance Use Comment - Amount & Last Used: daily Hx Tobacco Use: Yes Smoking Status (MU): Heavy Every Day Tobacco Smoker Type: Cigarettes Amount Used/How Often: 1/2 ppd Have You Smoked in the Last Year: Yes Review of Systems Constitutional: Negative Eyes: Negative ENT: Negative Cardiovascular: Negative Respiratory: Negative Positive: Vomiting, Nausea Genitourinary: Negative Musculoskeletal: Negative Skin: Negative Neurological/Mental Status: Negative Psychological: Normal All Other Systems Reviewed And Are Negative: Yes Physical Exam Triage Information Reviewed: Yes Vital Signs On Initial Exam: Initial Vitals Temp Pulse Resp BP Pulse Ox 99.6 F 93 18 182/113 100 07/14/19 22:47 07/14/19 22:47 07/14/19 22:47 07/14/19 22:47 07/14/19 22:47 Vital Signs Reviewed: Yes Appearance: Positive: Well-Appearing Skin: Positive: Warm Head/Face: Positive: Normal Head/Face Inspection Eyes: Positive: Normal Neck: Positive: Supple Respiratory/Lung Sounds: Positive: Clear to Auscultation Cardiovascular: Positive: Normal Abdomen Description: Positive: Nontender Musculoskeletal: Positive: Normal Neurological: Positive: Normal Psychiatric: Positive: Normal AVPU Assessment: Alert - Matthieu Coma Scale Best Eye Response: 4 - Spontaneous Best Motor Response: 6 - Obeys Commands Best Verbal Response: 5 - Oriented Coma Scale Total: 15 Procedures - Sedation Patient Received Moderate/Deep Sedation with Procedure: No Diagnostics - Vital Signs Vital Signs Temp Pulse Resp BP Pulse Ox 07/14/19 22:47 99.6 F 93 18 182/113 100 - Laboratory Lab Statement: Any lab studies that have been ordered have been reviewed, and results considered in the medical decision making process. Naus/Vom/Diarrhea Course/Dx - Course Course Of Treatment: Patient complains of persistent nausea and vomiting 4 days. Unable to take medications. States barely able to tolerate sips of fluid , no full. Denies bloody emesis. Denies fever, cough, sore throat, CP, SOB, diarrhea, abdominal pain, change in urine, change in BM, vaginal symptoms. Medical history is [place]e, EtOH, HTN, HDL, recurrent intractable N/V, electrolyte disorder, anemia. BP 183/119. Patient states she has been unable to take her medications due to vomiting. Vital signs otherwise within normal limits. Symptoms controlled in the edition Reglan 10 mg IV. Patient was able to tolerate quintin ben and crackers. Fluids administered. IV access was obtained, however blood work could not be obtained despite 3 attempts by nurses including use of ultrasound.. Discussed patient with Dr. Tan attending who agreed, given normal vital signs, control of symptoms, normal physical exam, and history of recurrent episodes of nausea vomiting, that the patient could be discharged without blood work. This was discussed with patient and patient agreed to return for any worsening symptoms at which point femoral vein could be accessed for blood work or IV administration. Patient understood and agreed with plan. Discharged with Reglan 10 mg by mouth tablets 2. 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 - Differential Dx/Diagnosis Provider Diagnosis: Nausea and vomiting Discharge ED - Sign-Out/Discharge Documenting (check all that apply): Patient Departure - Discharge Plan Condition: Stable Disposition: HOME Prescriptions: Metoclopramide TAB* [Reglan TAB*] 10 mg PO Q8H PRN 2 Days #6 tab PRN Reason: Nausea Patient Education Materials: Acute Nausea and Vomiting (ED) Referrals: Donna Cortés MD [Primary Care Provider] - Additional Instructions: Follow-up with primary care. Return to the ED for any new or worsening symptoms. - Billing Disposition and Condition Condition: STABLE Disposition: Home
[2019-07-14] MEDS ORDERED: Metoclopramide IV* 5 MG/ML 2 ML VIAL IV ONE (23:15)
[2019-07-15 02:28] VITALS: BP 181/107
== END 2019-07-15 02:26 | disposition home or self-care (01) ==
LOC: ED 22:43
DX: R11.2 Nausea with vomiting, unspecified (principal); K50.90 Crohn's disease, unspecified, without complications; I10 Essential (primary) hypertension; E78.5 Hyperlipidemia, unspecified; F41.9 Anxiety disorder, unspecified; F32.9 Major depressive disorder, single episode, unspecified; Z85.3 Personal history of malignant neoplasm of breast; F17.210 Nicotine dependence, cigarettes, uncomplicated
CPT/HCPCS: 96374; 99283; J2765

== ENCOUNTER 2020-10-11 11:14 | Inpatient (IN) ==
[2020-10-11] MEDS ORDERED: NS 0.9% 1000 ml BAG 1,000 ML IV ONE (11:18)
[2020-10-11] MEDS ORDERED: Metoclopramide 5 MG/ML VIAL (10 mg) IV SLOW PU ONE (11:19)
[2020-10-11 13:00] LABS: ALT 14 U/L (7-52); Albumin 4.3 g/dL (3.2-5.2); Alkaline Phosphatase 48 U/L (35-149); Anion Gap 11 mmol/L (2-11); Blood Urea Nitrogen 21 mg/dL (6-24); CO2 Carbon Dioxide 24 mmol/L (22-32); Calcium 9.3 mg/dL (8.6-10.3); Chloride 84 mmol/L (101-111); EGFR African American 94.4 (>60); Globulin 4.4 g/dL (2-4); Glucose 95 mg/dL (70-100); Lipase 29 U/L (11.0-82.0); Sodium 119 mmol/L (135-145); Total Protein 8.7 g/dL (6.4-8.9)
[2020-10-11 13:33] LABS: ABS Monocytes 1.2 10^3/ul (0-0.8); ABS Neutrophils 4.6 10^3/ul (1.5-7.7); Eosinophil % 0.2 %; Hematocrit 41 % (35-47); Lymphocyte % 14.4 %; Mean Corpuscular HGB Conc 35 g/dL (31-36); Mean Corpuscular Hemoglobin 34 pg (27-31); Mean Corpuscular Volume 98 fL (80-97); Mean Platelet Volume 7.6 fL (7.4-10.4); Platelet Count 299 10^3/uL (150-450); Red Blood Count 4.15 10^6 /uL (3.70-4.87); Red Cell Distribution Width 14 % (10-15); White Blood Count 6.9 10^3/uL (3.5-10.8)
[2020-10-11 13:46] LABS: Potassium Redraw 3.1 mmol/L (3.5-5.0)
[2020-10-11] MEDS ORDERED: Ondansetron 4 mg VIAL 2 MG/ML 2 ml VIAL IV PRN (14:43)
[2020-10-11] MEDS ORDERED: Magnesium Hydroxide LIQ 30 ML UDC PO PRN (14:43)
[2020-10-11] MEDS ORDERED: Al Hydrox/Mg Hydrox/Simet LIQ 30 ML UDC PO PRN (14:43)
[2020-10-11] MEDS: KCL 20 MEQ/100 ML IVPREMIX 20 MEQ/100 ML BAG IV SCH ×2 (14:57→18:11)
[2020-10-11] MEDS ORDERED: NS 0.9% w/ 20 Meq KCL 1000 ml 1,000 ML IV SCH (15:00)
[2020-10-11 15:06] LABS: Magnesium 1.5 mg/dL (1.9-2.7)
[2020-10-11] MEDS ORDERED: Magnesium Sulfate 2 gm BAG 2 GM/50 ML BAG IVPB ONE (15:15)
[2020-10-11] MEDS ORDERED: Albuterol HFA INHALER 8 gm MDI INH PRN (17:22)
[2020-10-11 18:37] LABS: Calcium 7.3 mg/dL (8.6-10.3); Potassium 3.2 mmol/L (3.5-5.0)
[2020-10-11 18:43] LABS: EGFR African American 145.1 (>60); EGFR Non-African American 119.9 (>60)
[2020-10-11] MEDS: Heparin 5000 UNITS/ML 1 mL VIAL SUBCUT SCH (21:26)
[2020-10-12] MEDS ORDERED: Potassium Chlor 20 meq TAB.ER PO ONE (01:59)
[2020-10-12 02:23] LABS: ABS Eosinophils 0.1 10^3/ul (0-0.6); ABS Lymphocytes 1.3 10^3/ul (1.0-4.8); ABS Monocytes 1.2 10^3/ul (0-0.8); ABS Neutrophils 3.8 10^3/ul (1.5-7.7); Hematocrit 34 % (35-47); Hemoglobin 11.8 g/dL (12.0-16.0); Lymphocyte % 20.9 %; Mean Corpuscular HGB Conc 35 g/dL (31-36); Mean Corpuscular Hemoglobin 34 pg (27-31); Mean Corpuscular Volume 98 fL (80-97); Mean Platelet Volume 7.6 fL (7.4-10.4); Platelet Count 244 10^3/uL (150-450); Red Blood Count 3.51 10^6 /uL (3.70-4.87); Red Cell Distribution Width 14 % (10-15); White Blood Count 6.4 10^3/uL (3.5-10.8)
[2020-10-12] MEDS ORDERED: Potassium Chloride LIQUID 20 MEQ/15 ML LIQUID PO ONE (02:28)
[2020-10-12] MEDS ORDERED: Magnesium Sulf 4 GM/100 ML IV 4,000 MG/100 ML BAG IVPB ONE (02:30)
[2020-10-12 02:39] LABS: Calcium 7.9 mg/dL (8.6-10.3); EGFR African American 125.1 (>60); EGFR Non-African American 103.4 (>60)
[2020-10-12] MEDS ORDERED: NS 0.9% 1000 ml BAG 1,000 ML IV SCH ×2 (04:45→12:00)
[2020-10-12] MEDS: Heparin 5000 UNITS/ML 1 mL VIAL SUBCUT SCH ×3 (05:08→21:06)
[2020-10-12 05:20] LABS: Magnesium 1.9 mg/dL (1.9-2.7)
[2020-10-12] MEDS: KCL 20 MEQ/100 ML IVPREMIX 20 MEQ/100 ML BAG IV SCH ×2 (06:11→08:39)
[2020-10-12 07:19] LABS: Calcium 8.6 mg/dL (8.6-10.3); EGFR Non-African American 109.9 (>60); Magnesium 3.5 mg/dL (1.9-2.7)
[2020-10-12 10:31] LABS: Calcium 8.8 mg/dL (8.6-10.3); EGFR African American 138.8 (>60); EGFR Non-African American 114.7 (>60); Potassium 3.8 mmol/L (3.5-5.0)
[2020-10-12 10:52] LABS: C Reactive Protein 1.47 mg/L (<8.01)
[2020-10-13 06:04] LABS: ABS Eosinophils 0.2 10^3/ul (0-0.6); ABS Lymphocytes 1.4 10^3/ul (1.0-4.8); ABS Monocytes 0.8 10^3/ul (0-0.8); Eosinophil % 4.3 %; Hematocrit 33 % (35-47); Hemoglobin 11.7 g/dL (12.0-16.0); Mean Corpuscular HGB Conc 35 g/dL (31-36); Mean Corpuscular Hemoglobin 35 pg (27-31); Mean Corpuscular Volume 98 fL (80-97); Mean Platelet Volume 7.9 fL (7.4-10.4); Nucleated Red Blood Cells % 0.1; Platelet Count 257 10^3/uL (150-450); Red Blood Count 3.39 10^6 /uL (3.70-4.87); Red Cell Distribution Width 14 % (10-15); White Blood Count 4.5 10^3/uL (3.5-10.8)
[2020-10-13 06:14] LABS: EGFR African American 141.9 (>60); EGFR Non-African American 117.3 (>60); Potassium 3.6 mmol/L (3.5-5.0)
[2020-10-13] MEDS: Heparin 5000 UNITS/ML 1 mL VIAL SUBCUT SCH (06:35)
[2020-10-13 09:58] LABS: TSH Ultra Thyroid Stim Horm 1.31 mcIU/mL (0.34-5.60)
[2020-10-13 11:32] VITALS: BP 139/97
== END 2020-10-13 14:00 | disposition home or self-care (01) | DRG 644 ==
LOC: ED 11:14 → MEDTELE 17:12
PROVIDERS: ADMIT Internal Medicine; ATTEND Internal Medicine

== ENCOUNTER 2021-01-25 11:08 | Inpatient (IN) ==
[2021-01-25] MEDS ORDERED: NS 0.9% 1000 ml BAG 1,000 ML IV ONE (11:28)
[2021-01-25] MEDS ORDERED: NS 0.9% 500 ml BAG 500 ML IV ONE (11:46)
[2021-01-25] MEDS ORDERED: Ondansetron 4 mg VIAL 2 MG/ML 2 ml VIAL IV ONE (11:50)
[2021-01-25] MEDS ORDERED: Labetalol IV 5 MG/ML 20 ml VIAL IV PUSH ONE (12:30)
[2021-01-25] MEDS ORDERED: LORazepam 2 mg VIAL 1 ml IV PUSH ONE ×3 (12:32→13:14)
[2021-01-25] MEDS ORDERED: Labetalol IV 5 MG/ML 20 ml VIAL ONE (12:32)
[2021-01-25] MEDS ORDERED: Lorazepam PYXIS KEY PRN ×4 (12:32→19:51)
[2021-01-25] MEDS ORDERED: LORazepam 2 mg VIAL 1 ml ONE (12:58)
[2021-01-25 13:20] LABS: ABS Monocytes 0.8 10^3/ul (0-0.8); ABS Neutrophils 4.7 10^3/ul (1.5-7.7); Eosinophil % 0.1 %; Hematocrit 43 % (35-47); Hemoglobin 14.6 g/dL (12.0-16.0); Mean Corpuscular HGB Conc 34 g/dL (31-36); Mean Corpuscular Hemoglobin 33 pg (27-31); Mean Corpuscular Volume 99 fL (80-97); Mean Platelet Volume 7.4 fL (7.4-10.4); Nucleated Red Blood Cells % 0.1; Platelet Count 272 10^3/uL (150-450); Red Blood Count 4.38 10^6 /uL (3.70-4.87); Red Cell Distribution Width 14 % (10-15); White Blood Count 6.5 10^3/uL (3.5-10.8)
[2021-01-25 13:40] LABS: Alcohol, S < 13 mg/dL (<13)
[2021-01-25 13:41] LABS: ALT 15 U/L (7-52); AST 36 U/L (13-39); Albumin 4.2 g/dL (3.2-5.2); Alkaline Phosphatase 70 U/L (35-149); Blood Urea Nitrogen 21 mg/dL (6-24); CO2 Carbon Dioxide 19 mmol/L (22-32); Calcium 9.6 mg/dL (8.6-10.3); Chloride 81 mmol/L (101-111); EGFR African American 70.8 (>60); EGFR Non-African American 58.5 (>60); Globulin 4.3 g/dL (2-4); Glucose 138 mg/dL (70-100); Lipase 39 U/L (11.0-82.0); Magnesium 1.5 mg/dL (1.9-2.7); Sodium 128 mmol/L (135-145); Total Protein 8.5 g/dL (6.4-8.9); Troponin I 0.04 ng/mL (<0.03)
[2021-01-25] MEDS ORDERED: Magnesium Sulf 4 GM/100 ML IV 4,000 MG/100 ML BAG IVPB ONE (13:43)
[2021-01-25] MEDS ORDERED: NS 0.9% 1000 ml BAG 1,000 ML IV SCH (13:45)
[2021-01-25 13:51] LABS: Rapid COVID-19 Molecular Undetected (Undetected)
[2021-01-25 13:58] LABS: Anion Gap 28 mmol/L (2-11); Potassium 2.5 mmol/L (3.5-5.0)
[2021-01-25] MEDS ORDERED: Thiamine 100 MG/ML 2 ml VIAL (200 mg) IM ONE (14:35)
[2021-01-25] MEDS ORDERED: Albuterol HFA INHALER 8 gm MDI INH PRN (14:42)
[2021-01-25] MEDS: KCL 20 MEQ/100 ML IVPREMIX 20 MEQ/100 ML BAG IV SCH ×2 (15:12→17:44)
[2021-01-25] MEDS: LORazepam 2 mg VIAL 1 ml IV PUSH SCH (16:29)
[2021-01-25 16:43] LABS: PCO2 Arterial 33 mmHg (35-45); PO2 Arterial 84 mmHg (80-100)
[2021-01-25] MEDS ORDERED: LORazepam 2 mg VIAL 1 ml IV PUSH PRN (19:51)
[2021-01-25] MEDS ORDERED: Heparin 5000 UNITS/ML 1 mL VIAL SUBCUT SCH (21:00)
[2021-01-25 21:58] LABS: Troponin I 0.04 ng/mL (<0.03)
[2021-01-25] MEDS: Triamcinolone 0.025% OINT 15 GM TUBE TOPICAL SCH (22:00)
[2021-01-25 22:30] LABS: Folate 7.49 ng/mL (5.90-24.80)
[2021-01-25] MEDS: Thiamine 100 MG/ML 2 ml VIAL 250 MG in NS 0.9% 100 ml BAG 100 ML IV SCH (23:22)
[2021-01-26] MEDS: LORazepam 2 mg VIAL 1 ml IV PUSH SCH (02:39)
[2021-01-26 06:57] LABS: ABS Eosinophils 0.1 10^3/ul (0-0.6); ABS Lymphocytes 0.8 10^3/ul (1.0-4.8); ABS Monocytes 0.8 10^3/ul (0-0.8); ABS Neutrophils 4.6 10^3/ul (1.5-7.7); Eosinophil % 0.9 %; Hematocrit 37 % (35-47); Hemoglobin 12.6 g/dL (12.0-16.0); Lymphocyte % 13.4 %; Mean Corpuscular HGB Conc 35 g/dL (31-36); Mean Corpuscular Hemoglobin 34 pg (27-31); Mean Corpuscular Volume 97 fL (80-97); Mean Platelet Volume 7.9 fL (7.4-10.4); Nucleated Red Blood Cells % 0.1; Platelet Count 203 10^3/uL (150-450); Red Blood Count 3.76 10^6 /uL (3.70-4.87); Red Cell Distribution Width 14 % (10-15); White Blood Count 6.3 10^3/uL (3.5-10.8)
[2021-01-26 07:24] LABS: Albumin 3.3 g/dL (3.2-5.2); Calcium 8.3 mg/dL (8.6-10.3); EGFR African American 167.7 (>60); EGFR Non-African American 138.6 (>60); Globulin 3.3 g/dL (2-4); Magnesium 1.9 mg/dL (1.9-2.7); Potassium 2.9 mmol/L (3.5-5.0); Total Bilirubin 1.1 mg/dL (0.2-1.0); Total Protein 6.6 g/dL (6.4-8.9)
[2021-01-26] MEDS ORDERED: Magnesium Sulfate IV 1GM/100ML 1 GM/100 ML BAG IV ONE (07:35)
[2021-01-26] MEDS ORDERED: Potassium Chloride LIQUID 20 MEQ/15 ML LIQUID PO ONE (07:35)
[2021-01-26] MEDS: Multivitamins/Minerals TAB PO SCH (07:43)
[2021-01-26] MEDS: Triamcinolone 0.025% OINT 15 GM TUBE TOPICAL SCH ×2 (07:44→22:04)
[2021-01-26] MEDS: Enoxaparin 40 MG/0.4 ML SYR SUBCUT SCH (07:53)
[2021-01-26] MEDS ORDERED: Flu vaccine *QUAD* 2021-22* 0.5 ML SYRINGE IM ONE (09:00)
[2021-01-26] MEDS: KCL 20 MEQ/100 ML IVPREMIX 20 MEQ/100 ML BAG IV SCH ×2 (09:19→13:17)
[2021-01-26] MEDS: Thiamine 100 MG/ML 2 ml VIAL 250 MG in NS 0.9% 100 ml BAG 100 ML IV SCH (22:03)
[2021-01-27 06:31] LABS: ABS Eosinophils 0.1 10^3/ul (0-0.6); ABS Lymphocytes 0.9 10^3/ul (1.0-4.8); ABS Monocytes 0.7 10^3/ul (0-0.8); ABS Neutrophils 3.1 10^3/ul (1.5-7.7); Eosinophil % 2.5 %; Hematocrit 33 % (35-47); Hemoglobin 11.4 g/dL (12.0-16.0); Lymphocyte % 17.9 %; Mean Corpuscular HGB Conc 35 g/dL (31-36); Mean Corpuscular Hemoglobin 34 pg (27-31); Mean Corpuscular Volume 97 fL (80-97); Nucleated Red Blood Cells % 0.1; Platelet Count 173 10^3/uL (150-450); Red Blood Count 3.37 10^6 /uL (3.70-4.87); Red Cell Distribution Width 14 % (10-15); White Blood Count 4.8 10^3/uL (3.5-10.8)
[2021-01-27 06:46] LABS: Albumin 3.1 g/dL (3.2-5.2); Calcium 8.4 mg/dL (8.6-10.3); EGFR African American 148.5 (>60); EGFR Non-African American 122.7 (>60); Globulin 3.1 g/dL (2-4); Magnesium 1.4 mg/dL (1.9-2.7); Phosphorus 2.4 mg/dL (2.5-5.0); Total Bilirubin 0.7 mg/dL (0.2-1.0); Total Protein 6.2 g/dL (6.4-8.9)
[2021-01-27] MEDS ORDERED: Potassium Chloride LIQUID 20 MEQ/15 ML LIQUID PO ONE (08:09)
[2021-01-27] MEDS: KCL 20 MEQ/100 ML IVPREMIX 20 MEQ/100 ML BAG IV SCH ×2 (09:18→14:19)
[2021-01-27] MEDS: Enoxaparin 40 MG/0.4 ML SYR SUBCUT SCH (09:24)
[2021-01-27] MEDS: Triamcinolone 0.025% OINT 15 GM TUBE TOPICAL SCH ×2 (09:30→21:49)
[2021-01-27] MEDS: Multivitamins/Minerals TAB PO SCH ×2 (09:32→13:05)
[2021-01-27] MEDS ORDERED: Magnesium Sulfate IV 3 GM in NS 0.9% 100 ml BAG 100 ML IVPB ONE (10:00)
[2021-01-27] MEDS: Ondansetron 4 mg VIAL 2 MG/ML 2 ml VIAL IV PRN (11:32)
[2021-01-27 15:39] LABS: Urine Appearance Cloudy; Urine Bilirubin Negative (Negative); Urine Blood 1+ (Negative); Urine Color Yellow; Urine Glucose Negative (Negative); Urine Ketones Trace (Negative); Urine Nitrite Negative (Negative); Urine Protein Negative (Negative); Urine Specific Gravity 1.016 (1.002-1.030); Urine Urobilinogen Negative (Negative)
[2021-01-27 16:01] LABS: Urine Bacteria 1+ (Absent); Urine Red Blood Cell Trace(0-2/hpf) (Absent); Urine Squamous Epithelial Cell Present (Absent); Urine White Blood Cell 1+(6-10/hpf) (Absent)
[2021-01-27] MEDS: Thiamine 100 MG/ML 2 ml VIAL 250 MG in NS 0.9% 100 ml BAG 100 ML IV SCH (21:37)
[2021-01-28] MEDS: Multivitamins/Minerals TAB PO SCH (08:39)
[2021-01-28] MEDS: Triamcinolone 0.025% OINT 15 GM TUBE TOPICAL SCH ×2 (08:44→21:00)
[2021-01-28 09:31] LABS: ABS Eosinophils 0.1 10^3/ul (0-0.6); ABS Lymphocytes 0.8 10^3/ul (1.0-4.8); ABS Monocytes 0.8 10^3/ul (0-0.8); ABS Neutrophils 4.5 10^3/ul (1.5-7.7); Eosinophil % 2.2 %; Hematocrit 32 % (35-47); Hemoglobin 11.3 g/dL (12.0-16.0); Lymphocyte % 13.4 %; Mean Corpuscular HGB Conc 35 g/dL (31-36); Mean Corpuscular Hemoglobin 34 pg (27-31); Mean Corpuscular Volume 97 fL (80-97); Mean Platelet Volume 8.2 fL (7.4-10.4); Platelet Count 158 10^3/uL (150-450); Red Blood Count 3.33 10^6 /uL (3.70-4.87); Red Cell Distribution Width 14 % (10-15); White Blood Count 6.2 10^3/uL (3.5-10.8)
[2021-01-28 09:45] LABS: Calcium 8.9 mg/dL (8.6-10.3); EGFR African American 141.9 (>60); EGFR Non-African American 117.3 (>60); Magnesium 1.4 mg/dL (1.9-2.7); Potassium 3.6 mmol/L (3.5-5.0)
[2021-01-28] MEDS: Enoxaparin 40 MG/0.4 ML SYR SUBCUT SCH (11:39)
[2021-01-28] MEDS: Ondansetron 4 mg VIAL 2 MG/ML 2 ml VIAL IV PRN ×2 (11:40→15:53)
[2021-01-28] MEDS ORDERED: Magnesium Sulfate IV 3 GM in NS 0.9% 100 ml BAG 100 ML IVPB ONE (17:30)
[2021-01-28] MEDS ORDERED: NS 0.9% 1000 ml BAG 1,000 ML IV SCH (18:15)
[2021-01-28] MEDS: Thiamine 100 MG/ML 2 ml VIAL 250 MG in NS 0.9% 100 ml BAG 100 ML IV SCH (20:44)
[2021-01-29] MEDS: Multivitamins/Minerals TAB PO SCH (09:15)
[2021-01-29] MEDS: Ondansetron 4 mg VIAL 2 MG/ML 2 ml VIAL IV PRN (09:27)
[2021-01-29] MEDS: Enoxaparin 40 MG/0.4 ML SYR SUBCUT SCH (09:30)
[2021-01-29] MEDS: Triamcinolone 0.025% OINT 15 GM TUBE TOPICAL SCH ×2 (09:43→22:45)
[2021-01-29 12:50] LABS: ABS Lymphocytes 0.6 10^3/ul (1.0-4.8); ABS Monocytes 0.7 10^3/ul (0-0.8); ABS Neutrophils 2.4 10^3/ul (1.5-7.7); Eosinophil % 0.7 %; Hematocrit 34 % (35-47); Hemoglobin 11.7 g/dL (12.0-16.0); Lymphocyte % 15.2 %; Mean Corpuscular HGB Conc 35 g/dL (31-36); Mean Corpuscular Hemoglobin 34 pg (27-31); Mean Corpuscular Volume 96 fL (80-97); Mean Platelet Volume 7.2 fL (7.4-10.4); Nucleated Red Blood Cells % 0.1; Platelet Count 175 10^3/uL (150-450); Red Blood Count 3.51 10^6 /uL (3.70-4.87); Red Cell Distribution Width 14 % (10-15); White Blood Count 3.7 10^3/uL (3.5-10.8)
[2021-01-29 13:05] LABS: Calcium 9.1 mg/dL (8.6-10.3); EGFR African American 122.6 (>60); EGFR Non-African American 101.4 (>60); Potassium 3.5 mmol/L (3.5-5.0)
[2021-01-29] MEDS ORDERED: Magnesium Sulf 4 GM/100 ML IV 4,000 MG/100 ML BAG IVPB ONE (13:38)
[2021-01-29] MEDS ORDERED: Gadoteridol (CONTRAST) 279.3 MG/ML 10 ML IV ONE (18:29)
[2021-01-29] MEDS ORDERED: Potassium Chlor 10 meq TAB PO ONE (18:57)
[2021-01-29] MEDS: Thiamine 100 MG/ML 2 ml VIAL 250 MG in NS 0.9% 100 ml BAG 100 ML IV SCH (22:22)
[2021-01-30 06:19] LABS: Calcium 8.8 mg/dL (8.6-10.3); EGFR African American 145.1 (>60); EGFR Non-African American 119.9 (>60); Magnesium 2.1 mg/dL (1.9-2.7); Potassium 3.4 mmol/L (3.5-5.0)
[2021-01-30 07:48] VITALS: BP 185/96
[2021-01-30] MEDS ORDERED: Potassium Chlor 20 meq TAB.ER PO ONE (08:22)
[2021-01-30] MEDS: Ondansetron 4 mg VIAL 2 MG/ML 2 ml VIAL IV PRN (08:23)
[2021-01-30] MEDS: Multivitamins/Minerals TAB PO SCH (09:19)
[2021-01-30] MEDS: Enoxaparin 40 MG/0.4 ML SYR SUBCUT SCH (09:44)
[2021-01-30] MEDS: Triamcinolone 0.025% OINT 15 GM TUBE TOPICAL SCH (09:49)
== END 2021-01-30 12:20 | disposition home or self-care (01) | DRG 896 ==
LOC: ED 11:08 → MED 14:38 → SUATTDRO 14:38 → MED 20:51
PROVIDERS: ADMIT Student in an Organized Health Care Education/Training Program; ATTEND Internal Medicine

== ENCOUNTER 2021-04-25 19:27 | Inpatient (IN) ==
[2021-04-25 21:16] LABS: ABS Lymphocytes 0.6 10^3/ul (1.0-4.8); ABS Monocytes 0.5 10^3/ul (0-0.8); ABS Neutrophils 6.6 10^3/ul (1.5-7.7); Hematocrit 37 % (35-47); Hemoglobin 12.4 g/dL (12.0-16.0); Lymphocyte % 7.5 %; Mean Corpuscular HGB Conc 33 g/dL (31-36); Mean Corpuscular Hemoglobin 34 pg (27-31); Mean Corpuscular Volume 102 fL (80-97); Mean Platelet Volume 7.5 fL (7.4-10.4); Platelet Count 210 10^3/uL (150-450); Red Blood Count 3.65 10^6 /uL (3.70-4.87); Red Cell Distribution Width 15 % (10-15); White Blood Count 7.8 10^3/uL (3.5-10.8)
[2021-04-25 21:27] LABS: Activated Partial Thrombo Time 32.9 seconds (26.0-38.0); INR 0.98 (0.86-1.15)
[2021-04-25 21:42] LABS: Alcohol, S 194 mg/dL (<13)
[2021-04-25 21:44] LABS: ALT 32 U/L (7-52); Albumin 4.2 g/dL (3.2-5.2); Albumin/Globulin Ratio 1.2 (1-3); Alkaline Phosphatase 93 U/L (35-149); Blood Urea Nitrogen 27 mg/dL (6-24); CO2 Carbon Dioxide 15 mmol/L (22-32); Calcium 9.6 mg/dL (8.6-10.3); Chloride 91 mmol/L (101-111); Globulin 3.6 g/dL (2-4); Glucose 99 mg/dL (70-100); Magnesium 1.5 mg/dL (1.9-2.7); Sodium 130 mmol/L (135-145); Total Protein 7.8 g/dL (6.4-8.9); eGFR CKD-EPI 73.1 (>60)
[2021-04-25] MEDS ORDERED: Lactated Ringers 1000 ml BAG 1,000 ML IV ONE ×2 (21:48→22:47)
[2021-04-25] MEDS ORDERED: Magnesium Sulfate IV 1GM/100ML 1 GM/100 ML BAG IV ONE (21:49)
[2021-04-25 22:24] LABS: Anion Gap 24 mmol/L (2-11)
[2021-04-25 22:50] LABS: Creatine Kinase 170 U/L (10-223)
[2021-04-26 01:36] LABS: Venous Bicarbonate HCO3 17.4 mmol/L (24-28)
[2021-04-26 01:59] LABS: Potassium 3.7 mmol/L (3.5-5.0); eGFR CKD-EPI 79.7 (>60)
[2021-04-26] MEDS ORDERED: Thiamine 100 MG/ML 2 ml VIAL (200 mg) IV ONE (02:07)
[2021-04-26] MEDS ORDERED: Thiamine IV 100 MG in NS 0.9% 50 ML Q24H IV ONE (03:00)
[2021-04-26] MEDS ORDERED: D5NS 0.9% 1000 ml BAG 1,000 ML IV SCH (03:00)
[2021-04-26] MEDS ORDERED: Albuterol HFA INHALER 8 gm MDI INH PRN (05:49)
[2021-04-26 06:55] LABS: Hematocrit 25 % (35-47); Hemoglobin 8.6 g/dL (12.0-16.0); Mean Corpuscular HGB Conc 34 g/dL (31-36); Mean Corpuscular Hemoglobin 34 pg (27-31); Mean Corpuscular Volume 99 fL (80-97); Mean Platelet Volume 7.5 fL (7.4-10.4); Platelet Count 176 10^3/uL (150-450); Red Blood Count 2.54 10^6 /uL (3.70-4.87); Red Cell Distribution Width 15 % (10-15); White Blood Count 5.4 10^3/uL (3.5-10.8)
[2021-04-26 07:11] LABS: Calcium 8.6 mg/dL (8.6-10.3); Potassium 3.8 mmol/L (3.5-5.0); eGFR CKD-EPI 83.5 (>60)
[2021-04-26] MEDS ORDERED: Magnesium Sulfate 2 gm BAG 2 GM/50 ML BAG IVPB ONE (07:23)
[2021-04-26 08:58] LABS: Magnesium 1.5 mg/dL (1.9-2.7)
[2021-04-26] MEDS: Potassium Chlor 10 meq TAB PO SCH (09:19)
[2021-04-26 13:49] LABS: Hematocrit 23 % (35-47); Hemoglobin 7.9 g/dL (12.0-16.0); Mean Corpuscular HGB Conc 35 g/dL (31-36); Mean Corpuscular Hemoglobin 34 pg (27-31); Mean Corpuscular Volume 98 fL (80-97); Mean Platelet Volume 7.6 fL (7.4-10.4); Platelet Count 157 10^3/uL (150-450); Red Blood Count 2.29 10^6 /uL (3.70-4.87); Red Cell Distribution Width 15 % (10-15); White Blood Count 4.3 10^3/uL (3.5-10.8)
[2021-04-26 14:07] LABS: Calcium 8.5 mg/dL (8.6-10.3); Magnesium 2.2 mg/dL (1.9-2.7); Phosphorus 1.3 mg/dL (2.5-5.0); Potassium 3.8 mmol/L (3.5-5.0); eGFR CKD-EPI 93.9 (>60)
[2021-04-26] MEDS ORDERED: Potassium Phosphate IV 15 MMOLE in NS 0.9% 250 ml 250 ML IVPB ONE (14:16)
[2021-04-26] MEDS: NS 0.9% 1000 ml BAG 1,000 ML IV SCH (14:34)
[2021-04-26] MEDS: Multivitamins/Minerals TAB PO SCH (14:48)
[2021-04-27] MEDS: NS 0.9% 1000 ml BAG 1,000 ML IV SCH (02:00)
[2021-04-27 06:52] LABS: Hematocrit 20 % (35-47); Hemoglobin 6.8 g/dL (12.0-16.0); Mean Corpuscular HGB Conc 34 g/dL (31-36); Mean Corpuscular Hemoglobin 34 pg (27-31); Mean Corpuscular Volume 100 fL (80-97); Mean Platelet Volume 7.9 fL (7.4-10.4); Platelet Count 121 10^3/uL (150-450); Red Blood Count 1.99 10^6 /uL (3.70-4.87); Red Cell Distribution Width 15 % (10-15); White Blood Count 3.4 10^3/uL (3.5-10.8)
[2021-04-27 07:07] LABS: Phosphorus 1.2 mg/dL (2.5-5.0); Potassium 3.7 mmol/L (3.5-5.0); eGFR CKD-EPI 100.5 (>60)
[2021-04-27 08:02] LABS: Magnesium 1.4 mg/dL (1.9-2.7)
[2021-04-27] MEDS ORDERED: Magnesium Sulfate IV 3 GM in NS 0.9% 100 ml BAG 100 ML IVPB ONE (08:26)
[2021-04-27] MEDS: Multivitamins/Minerals TAB PO SCH (09:22)
[2021-04-27] MEDS: Potassium Chlor 10 meq TAB PO SCH (09:22)
[2021-04-27] MEDS ORDERED: Potassium Phosphate IV 10 MMOLE in NS 0.9% 250 ml 250 ML IVPB ONE (14:45)
[2021-04-27 16:05] LABS: Hematocrit 25 % (35-47); Hemoglobin 8.6 g/dL (12.0-16.0)
[2021-04-28 04:55] LABS: Hematocrit 23 % (35-47); Hemoglobin 8.1 g/dL (12.0-16.0); Mean Corpuscular HGB Conc 34 g/dL (31-36); Mean Corpuscular Hemoglobin 33 pg (27-31); Mean Corpuscular Volume 95 fL (80-97); Mean Platelet Volume 8.2 fL (7.4-10.4); Platelet Count 97 10^3/uL (150-450); Red Blood Count 2.46 10^6 /uL (3.70-4.87); Red Cell Distribution Width 19 % (10-15); White Blood Count 3.7 10^3/uL (3.5-10.8)
[2021-04-28 05:00] LABS: Calcium 8.6 mg/dL (8.6-10.3); Magnesium 1.4 mg/dL (1.9-2.7); Phosphorus 1.8 mg/dL (2.5-5.0); Potassium 4.2 mmol/L (3.5-5.0)
[2021-04-28] MEDS ORDERED: Magnesium Sulfate IV 3 GM in NS 0.9% 100 ml BAG 100 ML IVPB ONE (08:30)
[2021-04-28] MEDS ORDERED: Potassium Phosphate IV 15 MMOLE in NS 0.9% 250 ml 250 ML IVPB ONE (09:00)
[2021-04-28] MEDS: Potassium Chlor 10 meq TAB PO SCH (14:04)
[2021-04-28] MEDS: Multivitamins/Minerals TAB PO SCH (14:04)
[2021-04-29] MEDS: Potassium Chlor 10 meq TAB PO SCH (08:03)
[2021-04-29 08:45] LABS: Hematocrit 24 % (35-47); Mean Corpuscular HGB Conc 34 g/dL (31-36); Mean Corpuscular Hemoglobin 32 pg (27-31); Mean Corpuscular Volume 96 fL (80-97); Mean Platelet Volume 8.2 fL (7.4-10.4); Platelet Count 93 10^3/uL (150-450); Red Blood Count 2.47 10^6 /uL (3.70-4.87); Red Cell Distribution Width 18 % (10-15)
[2021-04-29 09:00] LABS: Calcium 9.3 mg/dL (8.6-10.3); Magnesium 1.4 mg/dL (1.9-2.7); Potassium 4.5 mmol/L (3.5-5.0)
[2021-04-29] MEDS ORDERED: Magnesium Sulfate IV 3 GM in NS 0.9% 100 ml BAG 100 ML IVPB ONE (09:06)
[2021-04-29] MEDS ORDERED: NS 0.9% 100 ml BAG 100 ML ONE (09:47)
[2021-04-29] MEDS: Multivitamins/Minerals TAB PO SCH (09:49)
[2021-04-30 06:42] LABS: Hematocrit 24 % (35-47); Hemoglobin 7.8 g/dL (12.0-16.0); Mean Corpuscular HGB Conc 33 g/dL (31-36); Mean Corpuscular Hemoglobin 33 pg (27-31); Mean Corpuscular Volume 99 fL (80-97); Mean Platelet Volume 8.2 fL (7.4-10.4); Platelet Count 102 10^3/uL (150-450); Red Blood Count 2.42 10^6 /uL (3.70-4.87); Red Cell Distribution Width 18 % (10-15); White Blood Count 5.7 10^3/uL (3.5-10.8)
[2021-04-30 06:50] LABS: Calcium 8.9 mg/dL (8.6-10.3); Magnesium 1.5 mg/dL (1.9-2.7); Potassium 4.4 mmol/L (3.5-5.0)
[2021-04-30 06:56] LABS: Phosphorus 3.6 mg/dL (2.5-5.0); eGFR CKD-EPI 99.2 (>60)
[2021-04-30] MEDS ORDERED: Magnesium Sulfate 2 gm BAG 2 GM/50 ML BAG IVPB ONE (08:14)
[2021-04-30] MEDS: Multivitamins/Minerals TAB PO SCH (10:12)
[2021-04-30] MEDS: Potassium Chlor 10 meq TAB PO SCH (10:14)
[2021-05-01] MEDS: Lactated Ringers 1000 ml BAG 1,000 ML IV SCH ×2 (05:13→16:49)
[2021-05-01] MEDS ORDERED: Buffered Lidocaine 1% SYRIN 1 ml INTRADERM ONE (06:00)
[2021-05-01 06:37] LABS: ABS Basophils 0.1 10^3/ul (0-0.2); ABS Eosinophils 0.2 10^3/ul (0-0.6); ABS Lymphocytes 0.9 10^3/ul (1.0-4.8); ABS Monocytes 0.8 10^3/ul (0-0.8); ABS Neutrophils 3.3 10^3/ul (1.5-7.7); Eosinophil % 3.3 %; Hematocrit 23 % (35-47); Hemoglobin 7.7 g/dL (12.0-16.0); Lymphocyte % 16.8 %; Mean Corpuscular HGB Conc 33 g/dL (31-36); Mean Corpuscular Hemoglobin 32 pg (27-31); Mean Corpuscular Volume 98 fL (80-97); Mean Platelet Volume 7.7 fL (7.4-10.4); Platelet Count 214 10^3/uL (150-450); Red Blood Count 2.39 10^6 /uL (3.70-4.87); Red Cell Distribution Width 18 % (10-15); White Blood Count 5.2 10^3/uL (3.5-10.8)
[2021-05-01 06:47] LABS: Calcium 9.2 mg/dL (8.6-10.3); Magnesium 1.6 mg/dL (1.9-2.7); Potassium 4.5 mmol/L (3.5-5.0)
[2021-05-01] MEDS ORDERED: Magnesium Sulfate 2 gm BAG 2 GM/50 ML BAG IVPB ONE (07:19)
[2021-05-01 08:47] LABS: Calcium 9.4 mg/dL (8.6-10.3); Potassium 4.4 mmol/L (3.5-5.0); eGFR CKD-EPI 102.5 (>60)
[2021-05-01] MEDS ORDERED: Ondansetron 4 mg VIAL 2 MG/ML 2 ml VIAL ONE ×2 (09:08→14:59)
[2021-05-01] MEDS ORDERED: Rocuronium 50 mg VIAL 10 mg/ml 5 ml VIAL (50 mg) ONE ×2 (09:08→14:06)
[2021-05-01] MEDS ORDERED: Lidocaine 2% PF 5 ML VIAL ONE (09:08)
[2021-05-01] MEDS ORDERED: Propofol 10 MG/ML 20 ML BTL ONE (09:08)
[2021-05-01] MEDS ORDERED: Dexamethasone IV 4 MG/ML VIAL 1 ml VIAL ONE ×2 (09:08→14:59)
[2021-05-01] MEDS ORDERED: fentaNYL 100 mcg/2 ml 50 MCG/ML VIAL ONE (09:09)
[2021-05-01] MEDS ORDERED: ROPIVACAINE 5 MG/ML 30 ML BTL (0.5%) ONE ×2 (09:11→11:22)
[2021-05-01] MEDS: Multivitamins/Minerals TAB PO SCH (09:23)
[2021-05-01] MEDS: Potassium Chlor 10 meq TAB PO SCH (09:39)
[2021-05-01] MEDS ORDERED: Lidocaine 1% VIAL 10 MG/ML VIAL ONE (10:33)
[2021-05-01] MEDS ORDERED: Bupivacaine 0.5% SDV PF 30ML VIAL ONE (10:33)
[2021-05-01] MEDS ORDERED: ceFAZolin 2 GM in NS PREMIX 2 GM/100 ML BAG IVPB ONE (11:51)
[2021-05-01] MEDS ORDERED: Phenylephrine 40 mcg/mL 10mL (400mcg) SYRINGE ONE ×2 (12:34→13:19)
[2021-05-01] MEDS ORDERED: HYDROmorphone 0.5 MG/0.5 ML SYRINGE ONE (13:15)
[2021-05-01] MEDS ORDERED: Phenylephrine IV 10 MG/ML 1 ml VIAL ONE (13:19)
[2021-05-01] MEDS ORDERED: Acetaminophen IV 1 GM/100ML 100 ML IV ONE ×2 (15:01→15:39)
[2021-05-01] MEDS ORDERED: HYDROmorphone 1 MG/1 ML SYRINGE IV PRN (15:39)
[2021-05-01] MEDS ORDERED: Ondansetron 4 mg VIAL 2 MG/ML 2 ml VIAL IV PRN (15:39)
[2021-05-01] MEDS ORDERED: DiMENhydriNATE IV 50 mg/ml 1 ml VIAL IV PUSH PRN (15:39)
[2021-05-01] MEDS ORDERED: Naloxone 0.4 mg VIAL 0.4 mg/ml 1 ml VIAL IV PRN (15:39)
[2021-05-01] MEDS ORDERED: fentaNYL 100 mcg/2 ml 50 MCG/ML VIAL IV PRN (15:39)
[2021-05-01 16:13] LABS: Hematocrit 23 % (35-47); Hemoglobin 7.7 g/dL (12.0-16.0)
[2021-05-01 19:40] LABS: Urine Osmo 405 mOsm/kg (150-1150)
[2021-05-01 19:46] LABS: Osmolality Serum 272 mOsm/kg (275-295)
[2021-05-01] MEDS: ceFAZolin 1 GM X 3 DOSES POST-OP Q8H (AddVan) IVPB SCH (22:03)
[2021-05-02] MEDS: ceFAZolin 1 GM X 3 DOSES POST-OP Q8H (AddVan) IVPB SCH ×2 (05:27→12:56)
[2021-05-02 05:39] LABS: ABS Lymphocytes 0.7 10^3/ul (1.0-4.8); ABS Monocytes 1.1 10^3/ul (0-0.8); ABS Neutrophils 3.8 10^3/ul (1.5-7.7); Eosinophil % 0.1 %; Hematocrit 21 % (35-47); Hemoglobin 6.8 g/dL (12.0-16.0); Lymphocyte % 12.7 %; Mean Corpuscular HGB Conc 33 g/dL (31-36); Mean Corpuscular Hemoglobin 32 pg (27-31); Mean Corpuscular Volume 98 fL (80-97); Mean Platelet Volume 7.5 fL (7.4-10.4); Platelet Count 320 10^3/uL (150-450); Red Blood Count 2.12 10^6 /uL (3.70-4.87); Red Cell Distribution Width 19 % (10-15); White Blood Count 5.7 10^3/uL (3.5-10.8)
[2021-05-02 08:11] LABS: CO2 Carbon Dioxide 23 mmol/L (22-32); Calcium 8.5 mg/dL (8.6-10.3); Chloride 104 mmol/L (101-111); Sodium 132 mmol/L (135-145)
[2021-05-02 08:15] LABS: Anion Gap 5 mmol/L (2-11); Potassium 5.1 mmol/L (3.5-5.0)
[2021-05-02 08:17] LABS: Blood Urea Nitrogen 15 mg/dL (6-24); Glucose 90 mg/dL (70-100); eGFR CKD-EPI 96.7 (>60)
[2021-05-02] MEDS: Potassium Chlor 10 meq TAB PO SCH (10:01)
[2021-05-02] MEDS: Multivitamins/Minerals TAB PO SCH (10:02)
[2021-05-02 10:29] LABS: Magnesium 1.8 mg/dL (1.9-2.7)
[2021-05-02 11:31] LABS: Hematocrit 23 % (35-47); Hemoglobin 7.8 g/dL (12.0-16.0); Mean Corpuscular HGB Conc 34 g/dL (31-36); Mean Corpuscular Hemoglobin 33 pg (27-31); Mean Corpuscular Volume 98 fL (80-97); Mean Platelet Volume 7.4 fL (7.4-10.4); Platelet Count 393 10^3/uL (150-450); Red Blood Count 2.33 10^6 /uL (3.70-4.87); Red Cell Distribution Width 18 % (10-15); White Blood Count 6.1 10^3/uL (3.5-10.8)
[2021-05-02 11:31] LABS: Vitamin D Total 25(OH) < 7.0 ng/mL (20-50)
[2021-05-02] MEDS ORDERED: Cholecalciferol (VIT D3) 1,000 unit TAB PO ONE (19:01)
[2021-05-03 06:33] LABS: ABS Basophils 0.1 10^3/ul (0-0.2); ABS Eosinophils 0.1 10^3/ul (0-0.6); ABS Lymphocytes 1.2 10^3/ul (1.0-4.8); ABS Monocytes 1.5 10^3/ul (0-0.8); ABS Neutrophils 3.2 10^3/ul (1.5-7.7); ABS Nucleated RBC 0.1 10^3/ul; Hematocrit 19 % (35-47); Hemoglobin 6.6 g/dL (12.0-16.0); Lymphocyte % 19.3 %; Mean Corpuscular HGB Conc 35 g/dL (31-36); Mean Corpuscular Hemoglobin 33 pg (27-31); Mean Corpuscular Volume 96 fL (80-97); Nucleated Red Blood Cells % 1.5; Platelet Count 434 10^3/uL (150-450); Red Blood Count 1.97 10^6 /uL (3.70-4.87); Red Cell Distribution Width 19 % (10-15); White Blood Count 6.1 10^3/uL (3.5-10.8)
[2021-05-03 06:50] LABS: Calcium 8.9 mg/dL (8.6-10.3); Potassium 4.2 mmol/L (3.5-5.0); eGFR CKD-EPI 102.5 (>60)
[2021-05-03] MEDS ORDERED: Magnesium Hydroxide LIQ 30 ML UDC PO PRN (07:28)
[2021-05-03] MEDS ORDERED: Senna TAB 8.6 mg TAB PO PRN (07:29)
[2021-05-03] MEDS: Multivitamins/Minerals TAB PO SCH (09:03)
[2021-05-03] MEDS: Potassium Chlor 10 meq TAB PO SCH (09:04)
[2021-05-03] MEDS: Cholecalciferol (VIT D3) 1,000 unit TAB PO SCH (13:58)
[2021-05-03 14:00] LABS: Hematocrit 27 % (35-47); Hemoglobin 9.5 g/dL (12.0-16.0)
[2021-05-03] MEDS: Cosyntropin 0.25 MG VIAL IV ONE ×2 (16:03→16:07)
[2021-05-03] MEDS: Morphine 2 MG/ML SYRINGE IV PRN (18:29)
[2021-05-04] MEDS: Morphine 2 MG/ML SYRINGE IV PRN (01:29)
[2021-05-04 06:37] LABS: Calcium 8.9 mg/dL (8.6-10.3); Potassium 3.9 mmol/L (3.5-5.0)
[2021-05-04 09:29] LABS: Hematocrit 26 % (35-47); Hemoglobin 8.7 g/dL (12.0-16.0)
[2021-05-04] MEDS: Cholecalciferol (VIT D3) 1,000 unit TAB PO SCH (09:47)
[2021-05-04] MEDS: Multivitamins/Minerals TAB PO SCH (09:47)
[2021-05-04] MEDS: Potassium Chlor 10 meq TAB PO SCH (09:49)
[2021-05-04 12:14] VITALS: BP 168/90
== END 2021-05-04 15:10 | disposition home or self-care (01) | DRG 493 ==
LOC: ED 19:27 → EDHOLD 19:27 → SUATTDRO 04-26 05:46 → SSU 04-26 13:23 → SUATTDRO 04-27 10:00 → SSU 04-27 16:32
PROVIDERS: ADMIT Hospitalist; ATTEND Internal Medicine

== ENCOUNTER 2021-06-09 16:23 | Inpatient (IN) ==
[2021-06-09] MEDS ORDERED: NS 0.9% 1000 ml BAG 1,000 ML IV ONE (18:15)
[2021-06-09 18:53] LABS: ABS Basophils 0.1 10^3/ul (0-0.2); ABS Eosinophils 0.1 10^3/ul (0-0.6); ABS Monocytes 0.4 10^3/ul (0-0.8); ABS Neutrophils 1.8 10^3/ul (1.5-7.7); Eosinophil % 1.6 %; Hematocrit 30 % (35-47); Hemoglobin 10.3 g/dL (12.0-16.0); Lymphocyte % 29.1 %; Mean Corpuscular HGB Conc 34 g/dL (31-36); Mean Corpuscular Hemoglobin 32 pg (27-31); Mean Corpuscular Volume 95 fL (80-97); Mean Platelet Volume 7.5 fL (7.4-10.4); Nucleated Red Blood Cells % 0.1; Platelet Count 104 10^3/uL (150-450); Red Blood Count 3.18 10^6 /uL (3.70-4.87); Red Cell Distribution Width 16 % (10-15); White Blood Count 3.3 10^3/uL (3.5-10.8)
[2021-06-09 19:07] LABS: Rapid COVID-19 Molecular Undetected (Undetected)
[2021-06-09 19:19] LABS: Albumin 3.8 g/dL (3.2-5.2); Albumin/Globulin Ratio 1.1 (1-3); Globulin 3.6 g/dL (2-4); Total Bilirubin 0.7 mg/dL (0.2-1.0); Total Protein 7.4 g/dL (6.4-8.9)
[2021-06-09 19:24] LABS: Potassium 2.7 mmol/L (3.5-5.0)
[2021-06-09] MEDS ORDERED: Magnesium Sulfate 2 gm BAG 2 GM/50 ML BAG IVPB ONE (20:21)
[2021-06-09] MEDS: Potassium EFFERVES 25 meq TAB PO ONE ×2 (20:53→21:57)
[2021-06-09] MEDS ORDERED: Magnesium Hydroxide LIQ 30 ML UDC PO PRN (21:29)
[2021-06-09] MEDS ORDERED: Potassium Chloride LIQUID 20 MEQ/15 ML LIQUID PO ONE ×2 (21:29→23:30)
[2021-06-09] MEDS ORDERED: Thiamine 100 MG/ML 2 ml VIAL (200 mg) IM ONE (21:35)
[2021-06-09] MEDS ORDERED: KCL 20 MEQ/100 ML IVPREMIX 20 MEQ/100 ML BAG IV SCH (22:00)
[2021-06-09] MEDS ORDERED: Albuterol HFA INHALER 8 gm MDI INH PRN (22:17)
[2021-06-09 22:31] LABS: Urine Appearance Clear; Urine Bilirubin Negative (Negative); Urine Blood Negative (Negative); Urine Color Yellow; Urine Glucose Negative (Negative); Urine Ketones Trace (Negative); Urine Nitrite Negative (Negative); Urine Protein Negative (Negative); Urine Specific Gravity 1.005 (1.002-1.030); Urine Urobilinogen Negative (Negative)
[2021-06-09] MEDS: Enoxaparin 40 MG/0.4 ML SYR SUBCUT SCH (22:55)
[2021-06-10 05:07] LABS: Hematocrit 27 % (35-47); Hemoglobin 9.3 g/dL (12.0-16.0); Mean Corpuscular HGB Conc 34 g/dL (31-36); Mean Corpuscular Hemoglobin 33 pg (27-31); Mean Corpuscular Volume 97 fL (80-97); Red Blood Count 2.79 10^6 /uL (3.70-4.87); Red Cell Distribution Width 16 % (10-15); White Blood Count 4.4 10^3/uL (3.5-10.8)
[2021-06-10 05:14] LABS: Albumin 3.4 g/dL (3.2-5.2); Albumin/Globulin Ratio 1.1 (1-3); Calcium 8.5 mg/dL (8.6-10.3); Globulin 3.2 g/dL (2-4); Magnesium 1.6 mg/dL (1.9-2.7); Potassium 3.4 mmol/L (3.5-5.0); Total Bilirubin 0.6 mg/dL (0.2-1.0); Total Protein 6.6 g/dL (6.4-8.9); eGFR CKD-EPI 93.9 (>60)
[2021-06-10 05:22] LABS: ABS Basophils 0.1 10^3/ul (0-0.2); ABS Eosinophils 0.1 10^3/ul (0-0.6); ABS Lymphocytes 0.5 10^3/ul (1.0-4.8); ABS Monocytes 0.5 10^3/ul (0-0.8); ABS Neutrophils 3.3 10^3/ul (1.5-7.7); Eosinophil % 1.3 %; Lymphocyte % 11.1 %; Mean Platelet Volume 7.6 fL (7.4-10.4); Platelet Count 95 10^3/uL (150-450)
[2021-06-10] MEDS: Multivitamins/Minerals TAB PO SCH (08:12)
[2021-06-10] MEDS ORDERED: Magnesium Sulfate 2 gm BAG 2 GM/50 ML BAG IVPB ONE (08:19)
[2021-06-10] MEDS ORDERED: hydrALAZINE 20 mg/ml 1 ML Vial IV IV SLOW PU PRN (08:20)
[2021-06-10] MEDS ORDERED: Potassium Chlor 20 meq TAB.ER PO ONE (08:20)
[2021-06-10] MEDS ORDERED: Ondansetron 4 mg VIAL 2 MG/ML 2 ml VIAL IV PRN (09:26)
[2021-06-10] MEDS: Enoxaparin 40 MG/0.4 ML SYR SUBCUT SCH (21:07)
[2021-06-11 04:55] LABS: Hematocrit 29 % (35-47); Hemoglobin 9.8 g/dL (12.0-16.0); Mean Corpuscular HGB Conc 34 g/dL (31-36); Mean Corpuscular Hemoglobin 32 pg (27-31); Mean Corpuscular Volume 96 fL (80-97); Mean Platelet Volume 8.2 fL (7.4-10.4); Platelet Count 97 10^3/uL (150-450); Red Blood Count 3.02 10^6 /uL (3.70-4.87); Red Cell Distribution Width 16 % (10-15); White Blood Count 2.8 10^3/uL (3.5-10.8)
[2021-06-11 05:33] LABS: Calcium 9.2 mg/dL (8.6-10.3); Magnesium 1.5 mg/dL (1.9-2.7); eGFR CKD-EPI 96.7 (>60)
[2021-06-11 08:41] LABS: Calcium 9.3 mg/dL (8.6-10.3); Magnesium 1.3 mg/dL (1.9-2.7); Potassium 3.7 mmol/L (3.5-5.0); eGFR CKD-EPI 97.9 (>60)
[2021-06-11] MEDS: Multivitamins/Minerals TAB PO SCH (09:44)
[2021-06-11] MEDS ORDERED: Ondansetron ODT 4 mg TAB 4 MG TAB SL PRN (11:53)
[2021-06-11] MEDS: Enoxaparin 40 MG/0.4 ML SYR SUBCUT SCH (22:56)
[2021-06-12 05:56] LABS: Calcium 9.5 mg/dL (8.6-10.3); Magnesium 1.2 mg/dL (1.9-2.7); Potassium 3.8 mmol/L (3.5-5.0); eGFR CKD-EPI 99.6 (>60)
[2021-06-12] MEDS ORDERED: Magnesium Sulfate IV 3 GM in NS 0.9% 100 ml BAG 100 ML IVPB ONE (08:21)
[2021-06-12] MEDS ORDERED: Magnesium Sulfate 2 GM IV (Premix) IVPB ONE (10:00)
[2021-06-12] MEDS ORDERED: Magnesium Sulfate 1 GM IV 1 GM/100 ML BAG IV ONE (10:00)
[2021-06-12] MEDS: Multivitamins/Minerals TAB PO SCH (10:45)
[2021-06-12 13:04] LABS: ABS Eosinophils 0.1 10^3/ul (0-0.6); ABS Lymphocytes 0.7 10^3/ul (1.0-4.8); ABS Monocytes 0.4 10^3/ul (0-0.8); ABS Neutrophils 2.4 10^3/ul (1.5-7.7); Eosinophil % 2.7 %; Hematocrit 28 % (35-47); Hemoglobin 9.4 g/dL (12.0-16.0); Lymphocyte % 18.6 %; Mean Corpuscular HGB Conc 33 g/dL (31-36); Mean Corpuscular Hemoglobin 32 pg (27-31); Mean Corpuscular Volume 96 fL (80-97); Mean Platelet Volume 8.6 fL (7.4-10.4); Nucleated Red Blood Cells % 0.1; Platelet Count 134 10^3/uL (150-450); Red Blood Count 2.92 10^6 /uL (3.70-4.87); Red Cell Distribution Width 16 % (10-15); White Blood Count 3.6 10^3/uL (3.5-10.8)
[2021-06-12 13:38] LABS: Calcium 9.9 mg/dL (8.6-10.3); eGFR CKD-EPI 98.7 (>60)
[2021-06-12 15:05] LABS: Magnesium 1.1 mg/dL (1.9-2.7); Phosphorus 2.8 mg/dL (2.5-5.0)
[2021-06-12] MEDS: Enoxaparin 40 MG/0.4 ML SYR SUBCUT SCH (23:08)
[2021-06-13 06:19] LABS: ABS Basophils 0.1 10^3/ul (0-0.2); ABS Eosinophils 0.1 10^3/ul (0-0.6); ABS Lymphocytes 0.8 10^3/ul (1.0-4.8); ABS Monocytes 0.5 10^3/ul (0-0.8); ABS Neutrophils 1.7 10^3/ul (1.5-7.7); Eosinophil % 4.1 %; Hematocrit 28 % (35-47); Hemoglobin 9.3 g/dL (12.0-16.0); Lymphocyte % 25.1 %; Mean Corpuscular HGB Conc 33 g/dL (31-36); Mean Corpuscular Hemoglobin 33 pg (27-31); Mean Corpuscular Volume 97 fL (80-97); Mean Platelet Volume 8.8 fL (7.4-10.4); Nucleated Red Blood Cells % 0.1; Platelet Count 162 10^3/uL (150-450); Red Blood Count 2.85 10^6 /uL (3.70-4.87); Red Cell Distribution Width 16 % (10-15); White Blood Count 3.2 10^3/uL (3.5-10.8)
[2021-06-13 06:40] LABS: Calcium 9.9 mg/dL (8.6-10.3); Magnesium 1.7 mg/dL (1.9-2.7); Potassium 4.2 mmol/L (3.5-5.0); eGFR CKD-EPI 98.3 (>60)
[2021-06-13] MEDS ORDERED: diPHENhydraMINE IV 50 MG/ML 1 ml VIAL (BENADRYL) IV ONE (08:00)
[2021-06-13] MEDS: Multivitamins/Minerals TAB PO SCH (10:06)
[2021-06-13 16:11] LABS: Phosphorus 3.3 mg/dL (2.5-5.0)
[2021-06-13 19:21] LABS: Urine Osmo 549 mOsm/kg (150-1150)
[2021-06-13] MEDS: Enoxaparin 40 MG/0.4 ML SYR SUBCUT SCH (20:31)
[2021-06-14 03:31] VITALS: BP 127/70
[2021-06-14 07:00] LABS: Calcium 9.8 mg/dL (8.6-10.3); Magnesium 1.6 mg/dL (1.9-2.7); Potassium 4.2 mmol/L (3.5-5.0)
[2021-06-14] MEDS: Multivitamins/Minerals TAB PO SCH (09:15)
== END 2021-06-14 14:20 | DRG 897 ==
LOC: ED 16:23 → SSU 21:29 → SUATTDRO 21:29 → SSU 23:03
PROVIDERS: ADMIT Internal Medicine; ATTEND Internal Medicine

== ENCOUNTER 2021-12-05 07:38 | Inpatient (IN) ==
[2021-12-05 09:06] LABS: ABS Eosinophils 0.1 10^3/ul (0-0.6); ABS Lymphocytes 0.8 10^3/ul (1.0-4.8); ABS Monocytes 0.2 10^3/ul (0-0.8); ABS Neutrophils 1.7 10^3/ul (1.5-7.7); Hematocrit 34 % (35-47); Hemoglobin 11.4 g/dL (12.0-16.0); Lymphocyte % 27.5 %; Mean Corpuscular HGB Conc 34 g/dL (31-36); Mean Corpuscular Hemoglobin 34 pg (27-31); Mean Corpuscular Volume 100 fL (80-97); Mean Platelet Volume 7.3 fL (7.4-10.4); Nucleated Red Blood Cells % 0.1; Platelet Count 108 10^3/uL (150-450); Red Blood Count 3.38 10^6 /uL (3.70-4.87); Red Cell Distribution Width 15 % (10-15); White Blood Count 2.8 10^3/uL (3.5-10.8)
[2021-12-05 09:55] LABS: Albumin 4.1 g/dL (3.2-5.2); Albumin/Globulin Ratio 1.4 (1-3); Calcium 8.6 mg/dL (8.6-10.3); Magnesium 1.1 mg/dL (1.9-2.7); Potassium 3.2 mmol/L (3.5-5.0); Total Bilirubin 0.6 mg/dL (0.2-1.0); Total Protein 7.1 g/dL (6.4-8.9)
[2021-12-05] MEDS ORDERED: Potassium EFFERVES 25 meq TAB PO ONE (10:20)
[2021-12-05 10:42] LABS: High Sensitivity Troponin 1 Hr 7 pg/mL (<15)
[2021-12-05 12:40] LABS: Urine Appearance Clear; Urine Bilirubin Negative (Negative); Urine Blood Negative (Negative); Urine Color Yellow; Urine Glucose Negative (Negative); Urine Ketones Trace (Negative); Urine Nitrite Negative (Negative); Urine Protein Negative (Negative); Urine Urobilinogen 1.0 (Negative) (Negative); Urine pH 6.5 (5.0-9.0)
[2021-12-05] MEDS ORDERED: Ondansetron ODT 4 mg TAB 4 MG TAB SL ONE (17:15)
[2021-12-05] MEDS ORDERED: Ondansetron ODT 4 mg TAB 4 MG TAB ONE (17:15)
[2021-12-05] MEDS ORDERED: NS 0.9% 1000 ml BAG 1,000 ML IV ONE (18:02)
[2021-12-05] MEDS ORDERED: LORazepam 2 mg VIAL 1 ml IV PUSH ONE (18:02)
[2021-12-05] MEDS ORDERED: Lorazepam PYXIS KEY PRN (18:02)
[2021-12-05] MEDS ORDERED: Ondansetron 4 mg VIAL 2 MG/ML 2 ml VIAL IV ONE (18:08)
[2021-12-05] MEDS: Enoxaparin 40 MG/0.4 ML SYR SUBCUT SCH (21:43)
[2021-12-06] MEDS ORDERED: Ondansetron ODT 4 mg TAB 4 MG TAB PO PRN (00:38)
[2021-12-06 02:47] LABS: Corrected Retic Count 0.5 % (0.5-1.5); Hematocrit for Retic CNT 34 % (35-47); Immature Retic Fraction 0.23; RBC Retic Count 3.33 10^6/uL (3.70-4.87)
[2021-12-06 03:16] LABS: Ferritin 534.6 ng/mL (11-307)
[2021-12-06 07:58] LABS: ABS Lymphocytes 0.8 10^3/ul (1.0-4.8); ABS Monocytes 0.4 10^3/ul (0-0.8); ABS Neutrophils 1.6 10^3/ul (1.5-7.7); Eosinophil % 0.8 %; Hematocrit 33 % (35-47); Hemoglobin 11.7 g/dL (12.0-16.0); Lymphocyte % 29.5 %; Mean Corpuscular HGB Conc 35 g/dL (31-36); Mean Corpuscular Hemoglobin 35 pg (27-31); Mean Corpuscular Volume 100 fL (80-97); Mean Platelet Volume 8.8 fL (7.4-10.4); Platelet Count 111 10^3/uL (150-450); Red Blood Count 3.29 10^6 /uL (3.70-4.87); Red Cell Distribution Width 15 % (10-15); White Blood Count 2.9 10^3/uL (3.5-10.8)
[2021-12-06 08:15] LABS: Blood Urea Nitrogen 7 mg/dL (6-24); CO2 Carbon Dioxide 28 mmol/L (22-32); Calcium 8.4 mg/dL (8.6-10.3); Chloride 96 mmol/L (101-111); Glucose 76 mg/dL (70-100); Sodium 134 mmol/L (135-145)
[2021-12-06 08:18] LABS: Anion Gap 10 mmol/L (2-11)
[2021-12-06 10:22] LABS: Magnesium 1.4 mg/dL (1.9-2.7); Potassium Redraw 3.4 mmol/L (3.5-5.0)
[2021-12-06] MEDS ORDERED: Magnesium Sulf 4 GM/100 ML IV 4,000 MG/100 ML BAG IVPB ONE (10:54)
[2021-12-06] MEDS: KCL 20 MEQ/100 ML IVPREMIX 20 MEQ/100 ML BAG IV SCH ×3 (13:40→22:21)
[2021-12-06] MEDS: Enoxaparin 40 MG/0.4 ML SYR SUBCUT SCH (22:25)
[2021-12-07 08:34] LABS: ABS Eosinophils 0.1 10^3/ul (0-0.6); ABS Lymphocytes 0.6 10^3/ul (1.0-4.8); ABS Monocytes 0.4 10^3/ul (0-0.8); ABS Neutrophils 1.9 10^3/ul (1.5-7.7); Eosinophil % 2.3 %; Hematocrit 31 % (35-47); Hemoglobin 10.8 g/dL (12.0-16.0); Lymphocyte % 21.7 %; Mean Corpuscular HGB Conc 35 g/dL (31-36); Mean Corpuscular Hemoglobin 35 pg (27-31); Mean Corpuscular Volume 101 fL (80-97); Mean Platelet Volume 8.5 fL (7.4-10.4); Nucleated Red Blood Cells % 0.1; Platelet Count 98 10^3/uL (150-450); Red Blood Count 3.07 10^6 /uL (3.70-4.87); Red Cell Distribution Width 15 % (10-15)
[2021-12-07] MEDS: Multivitamins/Minerals TAB PO SCH (08:46)
[2021-12-07 08:51] LABS: Albumin 3.7 g/dL (3.2-5.2); Albumin/Globulin Ratio 1.2 (1-3); Calcium 9.2 mg/dL (8.6-10.3); Potassium 4.3 mmol/L (3.5-5.0); Total Bilirubin 0.4 mg/dL (0.2-1.0); Total Protein 6.7 g/dL (6.4-8.9); eGFR CKD-EPI 83.5 (>60)
[2021-12-07] MEDS: Potassium Chlor 20 meq TAB.ER PO SCH ×3 (09:18→21:33)
[2021-12-07 14:02] LABS: Magnesium 1.7 mg/dL (1.9-2.7)
[2021-12-07] MEDS ORDERED: Magnesium Sulfate 2 gm BAG 2 GM/50 ML BAG IVPB ONE (14:43)
[2021-12-07] MEDS: Enoxaparin 40 MG/0.4 ML SYR SUBCUT SCH (21:31)
[2021-12-08 06:59] LABS: ABS Eosinophils 0.1 10^3/ul (0-0.6); ABS Lymphocytes 0.8 10^3/ul (1.0-4.8); ABS Monocytes 0.4 10^3/ul (0-0.8); ABS Neutrophils 1.1 10^3/ul (1.5-7.7); Hematocrit 32 % (35-47); Hemoglobin 11.1 g/dL (12.0-16.0); Lymphocyte % 32.2 %; Mean Corpuscular HGB Conc 35 g/dL (31-36); Mean Corpuscular Hemoglobin 36 pg (27-31); Mean Corpuscular Volume 102 fL (80-97); Mean Platelet Volume 9.1 fL (7.4-10.4); Platelet Count 117 10^3/uL (150-450); Red Blood Count 3.11 10^6 /uL (3.70-4.87); Red Cell Distribution Width 15 % (10-15); White Blood Count 2.4 10^3/uL (3.5-10.8)
[2021-12-08 07:09] LABS: ALT 13 U/L (7-52); Albumin 3.5 g/dL (3.2-5.2); Albumin/Globulin Ratio 1.2 (1-3); Alkaline Phosphatase 61 U/L (35-149); Blood Urea Nitrogen 11 mg/dL (6-24); CO2 Carbon Dioxide 23 mmol/L (22-32); Calcium 9.8 mg/dL (8.6-10.3); Chloride 103 mmol/L (101-111); Glucose 87 mg/dL (70-100); Sodium 137 mmol/L (135-145); Total Protein 6.5 g/dL (6.4-8.9)
[2021-12-08 07:12] LABS: Anion Gap 11 mmol/L (2-11)
[2021-12-08] MEDS: Multivitamins/Minerals TAB PO SCH (08:52)
[2021-12-08] MEDS: Potassium Chlor 20 meq TAB.ER PO SCH ×3 (08:53→20:52)
[2021-12-08 09:57] LABS: Folate 7.84 ng/mL (5.90-24.80)
[2021-12-08 10:32] LABS: Magnesium 1.7 mg/dL (1.9-2.7); Potassium Redraw 4.3 mmol/L (3.5-5.0)
[2021-12-08 16:48] LABS: Folate 3.07 ng/mL (5.90-24.80)
[2021-12-08] MEDS: Enoxaparin 40 MG/0.4 ML SYR SUBCUT SCH (20:54)
[2021-12-09 08:16] LABS: ABS Basophils 0.1 10^3/ul (0-0.2); ABS Eosinophils 0.1 10^3/ul (0-0.6); ABS Lymphocytes 0.8 10^3/ul (1.0-4.8); ABS Monocytes 0.6 10^3/ul (0-0.8); ABS Neutrophils 1.6 10^3/ul (1.5-7.7); Eosinophil % 3.4 %; Hematocrit 31 % (35-47); Hemoglobin 10.8 g/dL (12.0-16.0); Lymphocyte % 24.1 %; Mean Corpuscular HGB Conc 35 g/dL (31-36); Mean Corpuscular Hemoglobin 35 pg (27-31); Mean Corpuscular Volume 101 fL (80-97); Mean Platelet Volume 8.1 fL (7.4-10.4); Nucleated Red Blood Cells % 0.1; Platelet Count 162 10^3/uL (150-450); Red Blood Count 3.07 10^6 /uL (3.70-4.87); Red Cell Distribution Width 15 % (10-15); White Blood Count 3.1 10^3/uL (3.5-10.8)
[2021-12-09 09:09] LABS: Calcium 10.1 mg/dL (8.6-10.3); Magnesium 1.3 mg/dL (1.9-2.7); eGFR CKD-EPI 86.1 (>60)
[2021-12-09 09:10] LABS: Potassium 5.3 mmol/L (3.5-5.0)
[2021-12-09] MEDS: Multivitamins/Minerals TAB PO SCH (10:28)
[2021-12-09] MEDS: Potassium Chlor 20 meq TAB.ER PO SCH ×3 (10:28→22:42)
[2021-12-09] MEDS: Enoxaparin 40 MG/0.4 ML SYR SUBCUT SCH (22:46)
[2021-12-10 07:41] VITALS: BP 120/62
[2021-12-10] MEDS: Potassium Chlor 20 meq TAB.ER PO SCH (09:09)
[2021-12-10] MEDS: Multivitamins/Minerals TAB PO SCH (10:01)
== END 2021-12-10 11:00 | disposition home or self-care (01) | DRG 73 ==
LOC: ED 07:38 → EDHOLD 07:38 → SUATTDRO 20:56 → MEDTELE 22:35 → SUATTDRO 12-07 11:00 → MED 12-08 00:20
PROVIDERS: ADMIT Internal Medicine; ATTEND Internal Medicine

== ENCOUNTER 2022-02-05 11:42 | Inpatient (IN) ==
[2022-02-05] MEDS ORDERED: levETIRAcetam 1000MG IVPREMIX 1,000 MG/100 ML BAG IVPB SCH (12:00)
[2022-02-05] MEDS ORDERED: Iodixanol (CONTRAST) 320 MG/ML 100 ML SDV IV ONE (12:02)
[2022-02-05 12:15] LABS: ABS Lymphocytes 0.3 10^3/ul (1.0-4.8); ABS Monocytes 0.5 10^3/ul (0-0.8); ABS Neutrophils 7.1 10^3/ul (1.5-7.7); Hematocrit 34 % (35-47); Hemoglobin 11.3 g/dL (12.0-16.0); Lymphocyte % 4.1 %; Mean Corpuscular HGB Conc 33 g/dL (31-36); Mean Corpuscular Hemoglobin 33 pg (27-31); Mean Corpuscular Volume 99 fL (80-97); Mean Platelet Volume 7.9 fL (7.4-10.4); Platelet Count 241 10^3/uL (150-450); Red Blood Count 3.47 10^6 /uL (3.70-4.87); Red Cell Distribution Width 19 % (10-15)
[2022-02-05 12:26] LABS: Activated Partial Thrombo Time 27.9 seconds (26.0-38.0); INR 1.1 (0.89-1.11)
[2022-02-05 13:11] LABS: ALT 12 U/L (7-52); Albumin 3.8 g/dL (3.2-5.2); Albumin/Globulin Ratio 1.1 (1-3); Alkaline Phosphatase 69 U/L (35-149); Blood Urea Nitrogen 17 mg/dL (6-24); CO2 Carbon Dioxide 23 mmol/L (22-32); Calcium 9.3 mg/dL (8.6-10.3); Chloride 100 mmol/L (101-111); Cholesterol 257 mg/dL; Globulin 3.4 g/dL (2-4); Glucose 118 mg/dL (70-100); HDL Cholesterol 83.7 mg/dL; LDL Cholesterol 142 mg/dL; Sodium 135 mmol/L (135-145); Total Protein 7.2 g/dL (6.4-8.9); Triglycerides 157 mg/dL; eGFR CKD-EPI 97.1 (>60)
[2022-02-05 13:14] LABS: Anion Gap 12 mmol/L (2-11)
[2022-02-05] MEDS ORDERED: Albuterol HFA INHALER 8 gm MDI INH PRN (14:35)
[2022-02-05] MEDS ORDERED: Lorazepam PYXIS KEY PRN (15:00)
[2022-02-05 15:50] LABS: Potassium Redraw 3.7 mmol/L (3.5-5.0)
[2022-02-05] MEDS ORDERED: Thiamine 100 MG/ML 2 ml VIAL (200 mg) IV SCH (16:00)
[2022-02-05] MEDS: Enoxaparin 40 MG/0.4 ML SYR SUBCUT SCH (17:46)
[2022-02-05] MEDS: Thiamine IV 500 MG in NS 0.9% 250 ML (Wernicke-Korsakoff) IV SCH (23:25)
[2022-02-06] MEDS: levETIRAcetam 500 MG/100 ML IV SCH ×2 (00:57→13:46)
[2022-02-06] MEDS ORDERED: hydrALAZINE 20 mg/ml 1 ML Vial IV IV SLOW PU ONE (01:05)
[2022-02-06] MEDS: LORazepam 2 mg VIAL 1 ml IV PUSH SCH ×3 (02:09→06:15)
[2022-02-06 05:46] LABS: ABS Monocytes 1.1 10^3/ul (0-0.8); ABS Neutrophils 5.7 10^3/ul (1.5-7.7); Eosinophil % 0.1 %; Hematocrit 36 % (35-47); Hemoglobin 11.9 g/dL (12.0-16.0); Lymphocyte % 12.8 %; Mean Corpuscular HGB Conc 34 g/dL (31-36); Mean Corpuscular Hemoglobin 34 pg (27-31); Mean Corpuscular Volume 100 fL (80-97); Mean Platelet Volume 7.7 fL (7.4-10.4); Platelet Count 194 10^3/uL (150-450); Red Blood Count 3.57 10^6 /uL (3.70-4.87); Red Cell Distribution Width 19 % (10-15); White Blood Count 7.9 10^3/uL (3.5-10.8)
[2022-02-06 06:03] LABS: Albumin 4.1 g/dL (3.2-5.2); Albumin/Globulin Ratio 1.1 (1-3); Calcium 9.8 mg/dL (8.6-10.3); Globulin 3.7 g/dL (2-4); Magnesium 1.3 mg/dL (1.9-2.7); Potassium 2.9 mmol/L (3.5-5.0); Total Bilirubin 1.2 mg/dL (0.2-1.0); Total Protein 7.8 g/dL (6.4-8.9)
[2022-02-06] MEDS ORDERED: Magnesium Sulf 4 GM/100 ML IV 4,000 MG/100 ML BAG IVPB ONE (06:51)
[2022-02-06] MEDS ORDERED: KCL 20 MEQ/100 ML IVPREMIX 20 MEQ/100 ML BAG IV SCH (07:00)
[2022-02-06] MEDS ORDERED: Potassium Phosphate IV 5 MMOLE in NS 0.9% 250 ml 250 ML IVPB ONE (08:00)
[2022-02-06] MEDS ORDERED: Potassium Phosphate IV 15 MMOLE in NS 0.9% 250 ml 250 ML IVPB ONE (09:00)
[2022-02-06] MEDS: KCL 10 MEQ/50 ML IVPREMIX 10 MEQ/50 ML BAG IV SCH ×3 (09:38→12:37)
[2022-02-06] MEDS: Enoxaparin 40 MG/0.4 ML SYR SUBCUT SCH (15:42)
[2022-02-06 18:05] LABS: Calcium 9.1 mg/dL (8.6-10.3); Magnesium 2.4 mg/dL (1.9-2.7)
[2022-02-06 18:08] LABS: Potassium 4.2 mmol/L (3.5-5.0)
[2022-02-06 18:11] LABS: Phosphorus 3.7 mg/dL (2.5-5.0)
[2022-02-06] MEDS: Thiamine IV 500 MG in NS 0.9% 250 ML (Wernicke-Korsakoff) IV SCH (22:52)
[2022-02-07] MEDS: levETIRAcetam 500 MG/100 ML IV SCH (00:03)
[2022-02-07 12:20] LABS: ABS Eosinophils 0.1 10^3/ul (0-0.6); ABS Lymphocytes 1.1 10^3/ul (1.0-4.8); ABS Monocytes 0.7 10^3/ul (0-0.8); ABS Neutrophils 3.1 10^3/ul (1.5-7.7); Eosinophil % 1.9 %; Hematocrit 35 % (35-47); Hemoglobin 11.6 g/dL (12.0-16.0); Lymphocyte % 22.2 %; Mean Corpuscular HGB Conc 33 g/dL (31-36); Mean Corpuscular Hemoglobin 33 pg (27-31); Mean Corpuscular Volume 100 fL (80-97); Mean Platelet Volume 7.7 fL (7.4-10.4); Nucleated Red Blood Cells % 0.1; Platelet Count 183 10^3/uL (150-450); Red Blood Count 3.48 10^6 /uL (3.70-4.87); Red Cell Distribution Width 19 % (10-15); White Blood Count 5.1 10^3/uL (3.5-10.8)
[2022-02-07 13:06] LABS: Calcium 9.8 mg/dL (8.6-10.3); Magnesium 1.6 mg/dL (1.9-2.7); Phosphorus 3.2 mg/dL (2.5-5.0); Potassium 3.2 mmol/L (3.5-5.0)
[2022-02-07] MEDS: Enoxaparin 40 MG/0.4 ML SYR SUBCUT SCH (15:33)
[2022-02-07] MEDS ORDERED: Magnesium Sulf 4 GM/100 ML IV 4,000 MG/100 ML BAG IVPB ONE (17:37)
[2022-02-07] MEDS: KCL 10 MEQ/50 ML IVPREMIX 10 MEQ/50 ML BAG IV SCH ×3 (18:06→20:24)
[2022-02-07] MEDS: Thiamine 100 MG/ML 2 ml VIAL 500 MG in NS 0.9% 250 ml 250 ML IV SCH (22:09)
[2022-02-08] MEDS: KCL 10 MEQ/50 ML IVPREMIX 10 MEQ/50 ML BAG IV SCH ×6 (00:46→13:35)
[2022-02-08] MEDS: Thiamine 100 MG/ML 2 ml VIAL 500 MG in NS 0.9% 250 ml 250 ML IV SCH ×3 (06:16→23:12)
[2022-02-08 06:38] LABS: Calcium 9.2 mg/dL (8.6-10.3); Magnesium 1.9 mg/dL (1.9-2.7); Phosphorus 3.4 mg/dL (2.5-5.0); Potassium 3.6 mmol/L (3.5-5.0); eGFR CKD-EPI 98.3 (>60)
[2022-02-08] MEDS ORDERED: Magnesium Sulfate 2 gm BAG 2 GM/50 ML BAG IVPB ONE (08:15)
[2022-02-08] MEDS: Enoxaparin 40 MG/0.4 ML SYR SUBCUT SCH (14:29)
[2022-02-09] MEDS: Thiamine 100 MG/ML 2 ml VIAL 500 MG in NS 0.9% 250 ml 250 ML IV SCH ×3 (05:27→23:30)
[2022-02-09 06:04] LABS: ABS Eosinophils 0.1 10^3/ul (0-0.6); ABS Monocytes 0.8 10^3/ul (0-0.8); ABS Neutrophils 2.8 10^3/ul (1.5-7.7); Eosinophil % 2.8 %; Hematocrit 33 % (35-47); Hemoglobin 10.9 g/dL (12.0-16.0); Lymphocyte % 21.8 %; Mean Corpuscular HGB Conc 33 g/dL (31-36); Mean Corpuscular Hemoglobin 33 pg (27-31); Mean Corpuscular Volume 100 fL (80-97); Mean Platelet Volume 7.9 fL (7.4-10.4); Platelet Count 182 10^3/uL (150-450); Red Blood Count 3.32 10^6 /uL (3.70-4.87); Red Cell Distribution Width 18 % (10-15); White Blood Count 4.7 10^3/uL (3.5-10.8)
[2022-02-09 06:35] LABS: Potassium 3.7 mmol/L (3.5-5.0); eGFR CKD-EPI 98.7 (>60)
[2022-02-09 09:37] LABS: Osmolality Serum 273 mOsm/kg (275-295)
[2022-02-09] MEDS ORDERED: NS 0.9% 500 ml BAG 500 ML IV ONE (10:40)
[2022-02-09] MEDS: Enoxaparin 40 MG/0.4 ML SYR SUBCUT SCH (14:52)
[2022-02-09 15:43] LABS: Calcium 8.7 mg/dL (8.6-10.3); Magnesium 1.1 mg/dL (1.9-2.7); Phosphorus 4.1 mg/dL (2.5-5.0); Potassium 3.8 mmol/L (3.5-5.0)
[2022-02-09] MEDS ORDERED: Magnesium Sulfate IV 3 GM in NS 0.9% 100 ml BAG 100 ML IVPB ONE (16:36)
[2022-02-09] MEDS ORDERED: Lorazepam PYXIS KEY ONE ×3 (16:39→16:52)
[2022-02-09] MEDS ORDERED: LORazepam 2 mg VIAL 1 ml ONE ×2 (16:39→16:52)
[2022-02-09] MEDS ORDERED: LORazepam 2 mg VIAL 1 ml IV PUSH ONE ×3 (16:41→21:00)
[2022-02-09] MEDS ORDERED: Lorazepam PYXIS KEY PRN (16:41)
[2022-02-09] MEDS ORDERED: MAGNESIUM SULFATE IVPB ONE (16:45)
[2022-02-09] MEDS ORDERED: NS 0.9% IVPB ONE (16:45)
[2022-02-09] MEDS ORDERED: Dextrose 50% Syringe 50 ml 25 GM/50 ML SYRINGE ONE (16:46)
[2022-02-09] MEDS ORDERED: Magnesium Sulfate 4 GM IV IVPB ONE (17:00)
[2022-02-09] MEDS ORDERED: Fosphenytoin 1,000 MG in NS 0.9% 50 ML 50 ML IVPB ONE (17:00)
[2022-02-09] MEDS ORDERED: D10W IV ONE (21:00)
[2022-02-10] MEDS: Thiamine 100 MG/ML 2 ml VIAL 500 MG in NS 0.9% 250 ml 250 ML IV SCH ×3 (06:33→21:10)
[2022-02-10 07:24] LABS: Blood Urea Nitrogen 5 mg/dL (6-24); CO2 Carbon Dioxide 22 mmol/L (22-32); Calcium 9.6 mg/dL (8.6-10.3); Chloride 99 mmol/L (101-111); Glucose 79 mg/dL (70-100); Phenytoin 21.6 mcg/mL (10-20); Sodium 133 mmol/L (135-145)
[2022-02-10 07:28] LABS: Anion Gap 12 mmol/L (2-11)
[2022-02-10] MEDS ORDERED: Phenytoin SUSP 100 MG/4 ML UDC (100 MG) NG TUBE ONE (09:00)
[2022-02-10 09:39] LABS: Phosphorus 3.7 mg/dL (2.5-5.0); Potassium Redraw 3.5 mmol/L (3.5-5.0)
[2022-02-10] MEDS: KCL 20 MEQ/100 ML IVPREMIX 20 MEQ/100 ML BAG IV SCH ×2 (14:23→17:05)
[2022-02-10] MEDS: Enoxaparin 40 MG/0.4 ML SYR SUBCUT SCH (14:25)
[2022-02-10] MEDS ORDERED: Potassium Chloride LIQUID 20 MEQ/15 ML LIQUID PO ONE ×2 (15:36→18:00)
[2022-02-10] MEDS ORDERED: Haloperidol 5 mg/ml SDV IV/IM 5 MG/ML AMP IV SLOW PU ONE (21:50)
[2022-02-11 04:33] LABS: Hematocrit 38 % (35-47); Hemoglobin 12.4 g/dL (12.0-16.0); Mean Corpuscular HGB Conc 32 g/dL (31-36); Mean Corpuscular Hemoglobin 33 pg (27-31); Mean Corpuscular Volume 102 fL (80-97); Mean Platelet Volume 7.8 fL (7.4-10.4); Platelet Count 237 10^3/uL (150-450); Red Blood Count 3.75 10^6 /uL (3.70-4.87); Red Cell Distribution Width 18 % (10-15); White Blood Count 7.1 10^3/uL (3.5-10.8)
[2022-02-11] MEDS: Thiamine 100 MG/ML 2 ml VIAL 500 MG in NS 0.9% 250 ml 250 ML IV SCH ×3 (05:12→22:23)
[2022-02-11 05:17] LABS: CO2 Carbon Dioxide 17 mmol/L (22-32); Calcium 9.7 mg/dL (8.6-10.3); Chloride 106 mmol/L (101-111); Magnesium 1.7 mg/dL (1.9-2.7); Sodium 136 mmol/L (135-145)
[2022-02-11 05:23] LABS: Blood Urea Nitrogen 4 mg/dL (6-24); Glucose 74 mg/dL (70-100); eGFR CKD-EPI 95.2 (>60)
[2022-02-11 05:26] LABS: Anion Gap 13 mmol/L (2-11)
[2022-02-11] MEDS ORDERED: Magnesium Sulfate IV 3 GM in NS 0.9% 100 ml BAG 100 ML IVPB ONE (05:35)
[2022-02-11 05:39] LABS: Urine Osmo 286 mOsm/kg (150-1150)
[2022-02-11 06:13] LABS: Phosphorus 4.3 mg/dL (2.5-5.0)
[2022-02-11] MEDS ORDERED: Gadoteridol (CONTRAST) 279.3 MG/ML 10 ML IV ONE (15:15)
[2022-02-11] MEDS: Enoxaparin 40 MG/0.4 ML SYR SUBCUT SCH (15:32)
[2022-02-11 16:52] LABS: Phenytoin 20.3 mcg/mL (10-20)
[2022-02-11] MEDS ORDERED: Phenytoin SUSP 100 MG/4 ML UDC (100 MG) PO SCH (17:00)
[2022-02-12 05:40] LABS: ABS Basophils 0.1 10^3/ul (0-0.2); ABS Eosinophils 0.1 10^3/ul (0-0.6); ABS Lymphocytes 1.6 10^3/ul (1.0-4.8); ABS Monocytes 1.4 10^3/ul (0-0.8); ABS Neutrophils 5.2 10^3/ul (1.5-7.7); Eosinophil % 1.6 %; Hematocrit 34 % (35-47); Hemoglobin 11.1 g/dL (12.0-16.0); Lymphocyte % 18.6 %; Mean Corpuscular HGB Conc 33 g/dL (31-36); Mean Corpuscular Hemoglobin 33 pg (27-31); Mean Corpuscular Volume 101 fL (80-97); Mean Platelet Volume 8.8 fL (7.4-10.4); Platelet Count 205 10^3/uL (150-450); Red Blood Count 3.33 10^6 /uL (3.70-4.87); Red Cell Distribution Width 18 % (10-15); White Blood Count 8.4 10^3/uL (3.5-10.8)
[2022-02-12] MEDS: Thiamine 100 MG/ML 2 ml VIAL 500 MG in NS 0.9% 250 ml 250 ML IV SCH (05:52)
[2022-02-12 05:53] LABS: Calcium 9.4 mg/dL (8.6-10.3); Magnesium 1.4 mg/dL (1.9-2.7); Potassium 4.1 mmol/L (3.5-5.0)
[2022-02-12 05:59] LABS: Phenytoin 21.8 mcg/mL (10-20); eGFR CKD-EPI 94.2 (>60)
[2022-02-12] MEDS ORDERED: Magnesium Sulf 4 GM/100 ML IV 4,000 MG/100 ML BAG IVPB ONE (06:13)
[2022-02-12] MEDS ORDERED: Magnesium Sulfate IV 3 GM in NS 0.9% 100 ml BAG 100 ML IVPB ONE (07:58)
[2022-02-12] MEDS ORDERED: Phenytoin 100 mg ER CAP PO SCH (10:00)
[2022-02-12] MEDS: Enoxaparin 40 MG/0.4 ML SYR SUBCUT SCH (15:08)
[2022-02-12] MEDS: Nicotine PATCH 7 MG/24 HR PATCH TRANSDERM SCH (21:00)
[2022-02-12] MEDS ORDERED: Haloperidol 5 mg/ml SDV IV/IM 5 MG/ML AMP IV SLOW PU ONE (21:44)
[2022-02-12] MEDS: Phenytoin SUSP 100 MG/4 ML UDC (100 MG) PO SCH (21:52)
[2022-02-13] MEDS ORDERED: Phenytoin IV 50 MG/ML 2 ML VIAL (100 MG) IVPB ONE (01:16)
[2022-02-13] MEDS ORDERED: PHENYTOIN IV ONE (02:00)
[2022-02-13] MEDS ORDERED: NS 0.9% IV ONE (02:00)
[2022-02-13 05:43] LABS: ABS Eosinophils 0.1 10^3/ul (0-0.6); ABS Lymphocytes 1.1 10^3/ul (1.0-4.8); ABS Monocytes 1.1 10^3/ul (0-0.8); ABS Neutrophils 2.8 10^3/ul (1.5-7.7); Eosinophil % 2.5 %; Hematocrit 33 % (35-47); Hemoglobin 10.8 g/dL (12.0-16.0); Lymphocyte % 21.6 %; Mean Corpuscular HGB Conc 33 g/dL (31-36); Mean Corpuscular Hemoglobin 33 pg (27-31); Mean Corpuscular Volume 101 fL (80-97); Mean Platelet Volume 7.3 fL (7.4-10.4); Nucleated Red Blood Cells % 0.1; Platelet Count 364 10^3/uL (150-450); Red Blood Count 3.28 10^6 /uL (3.70-4.87); Red Cell Distribution Width 18 % (10-15); White Blood Count 5.2 10^3/uL (3.5-10.8)
[2022-02-13 06:28] LABS: Calcium 9.5 mg/dL (8.6-10.3); Magnesium 1.7 mg/dL (1.9-2.7); Potassium 4.1 mmol/L (3.5-5.0)
[2022-02-13 06:33] LABS: eGFR CKD-EPI 96.7 (>60)
[2022-02-13] MEDS ORDERED: Magnesium Sulfate 2 gm BAG 2 GM/50 ML BAG IVPB ONE (08:40)
[2022-02-13] MEDS: Nicotine PATCH 7 MG/24 HR PATCH TRANSDERM SCH (08:50)
[2022-02-13] MEDS ORDERED: Phenytoin SUSP 100 MG/4 ML UDC (100 MG) PO ONE (09:00)
[2022-02-13] MEDS ORDERED: Phenytoin 100 mg ER CAP PO SCH (09:00)
[2022-02-13] MEDS: Enoxaparin 40 MG/0.4 ML SYR SUBCUT SCH (14:49)
[2022-02-13 19:54] LABS: Phenytoin 25.1 mcg/mL (10-20)
[2022-02-14] MEDS: Phenytoin SUSP 100 MG/4 ML UDC (100 MG) PO SCH (01:15)
[2022-02-14 07:01] LABS: Hematocrit 33 % (35-47); Hemoglobin 10.9 g/dL (12.0-16.0); Mean Corpuscular HGB Conc 33 g/dL (31-36); Mean Corpuscular Hemoglobin 33 pg (27-31); Mean Corpuscular Volume 100 fL (80-97); Mean Platelet Volume 7.6 fL (7.4-10.4); Platelet Count 426 10^3/uL (150-450); Red Blood Count 3.28 10^6 /uL (3.70-4.87); Red Cell Distribution Width 18 % (10-15)
[2022-02-14 07:19] LABS: Calcium 9.6 mg/dL (8.6-10.3); Magnesium 1.7 mg/dL (1.9-2.7); Potassium 4.2 mmol/L (3.5-5.0); eGFR CKD-EPI 97.9 (>60)
[2022-02-14] MEDS: Nicotine PATCH 7 MG/24 HR PATCH TRANSDERM SCH (10:18)
[2022-02-14] MEDS: Enoxaparin 40 MG/0.4 ML SYR SUBCUT SCH (15:35)
[2022-02-14 17:55] VITALS: BP 108/62
== END 2022-02-14 17:45 | disposition home or self-care (01) | DRG 101 ==
LOC: ED 11:42 → SUATTDRO 14:28 → EDHOLD 14:28 → MEDTELE 18:18 → ICU 02-09 18:32 → MEDTELE 02-13 22:18
PROVIDERS: ADMIT Internal Medicine; ATTEND Internal Medicine Critical Care Medicine

== ENCOUNTER 2022-12-25 04:30 | Inpatient (IN) ==
[2022-12-25] MEDS ORDERED: NS 0.9% 1000 ml BAG 1,000 ML IV SCH ×2 (11:30→23:59)
[2022-12-25] MEDS ORDERED: Morphine 4 MG/ML VIAL (1 ml) IV ONE (12:28)
[2022-12-25 17:46] LABS: Urine Appearance Cloudy; Urine Bilirubin Negative (Negative); Urine Blood Negative (Negative); Urine Color Yellow; Urine Glucose Negative (Negative); Urine Ketones Negative (Negative); Urine Nitrite Negative (Negative); Urine Protein Negative (Negative); Urine Specific Gravity 1.014 (1.002-1.030); Urine Urobilinogen Negative (Negative)
[2022-12-25 19:23] LABS: ABS Basophils 0.2 10^3/uL (0.0-0.1); ABS Eosinophils 0.1 10^3/uL (0.0-0.5); ABS Lymphocytes 0.9 10^3/uL (1.0-4.8); ABS Monocytes 0.7 10^3/uL (0.0-0.9); ABS Neutrophils 3.8 10^3/uL (1.5-7.6); Eosinophil % 2.2 %; Hematocrit 33.8 % (35-45); Hemoglobin 11.4 g/dL (11.5-14.3); Lymphocyte % 15.7 %; Mean Corpuscular Hemoglobin 34.6 pg (27-33); Mean Corpuscular Hgb Conc 33.7 g/dL (31-36); Mean Corpuscular Volume 102.7 fL (80-97); Mean Platelet Volume 6.8 fL (7.5-11.2); Nucleated Red Blood Cells % 0.1 /100 WBC (0.0-0.4); Platelet Count 327 10^3/uL (150-450); Red Blood Count 3.29 10^6/uL (3.63-4.92); Red Cell Distribution Width 17.2 % (12-17); White Blood Count 5.6 10^3/uL (3.8-11.8)
[2022-12-25 19:32] LABS: Activated Partial Thrombo Time 34.7 seconds (26.0-38.0); INR 1.03 (0.83-1.13)
[2022-12-25 19:50] LABS: Albumin 3.6 g/dL (3.2-5.2); Calcium 8.7 mg/dL (8.6-10.3); Creatinine, Serum 0.43 mg/dL (0.51-0.95); Globulin 3.5 g/dL (2-4); Potassium 3.7 mmol/L (3.5-5.0); Total Bilirubin 0.6 mg/dL (0.2-1.0); Total Protein 7.1 g/dL (6.4-8.9); eGFR CKD-EPI 104.6 (>60)
[2022-12-25] MEDS ORDERED: Polyethylene Glycol 3350 17 GM PACKET PO PRN (20:57)
[2022-12-25] MEDS ORDERED: Senna TAB 8.6 mg TAB PO PRN (20:57)
[2022-12-25] MEDS ORDERED: Magnesium Hydroxide LIQ 30 ML UDC PO PRN (20:57)
[2022-12-25] MEDS ORDERED: Albuterol HFA INHALER 8 gm MDI INH PRN (21:52)
[2022-12-25] MEDS: Acetaminophen IV 1 GM/100ML 1,000 MG/100 ML BAG IV SCH (21:56)
[2022-12-25] MEDS ORDERED: Heparin 5000 UNITS/ML 1 mL VIAL SUBCUT SCH (22:00)
[2022-12-26] MEDS: Ondansetron ODT 4 mg TAB 4 MG TAB PO PRN ×2 (00:17→10:34)
[2022-12-26] MEDS: Acetaminophen IV 1 GM/100ML 1,000 MG/100 ML BAG IV SCH ×4 (03:29→22:57)
[2022-12-26] MEDS ORDERED: NS 0.9% 1000 ml BAG 1,000 ML IV SCH (04:00)
[2022-12-26] MEDS ORDERED: Nicotine GUM 4MG FRUIT FLAVOR PO PRN (07:42)
[2022-12-26] MEDS: Nicotine PATCH 14 MG/24 HR PATCH TRANSDERM SCH (10:24)
[2022-12-26] MEDS: Triamcinolone 0.5% OINT 1 TUBE TOPICAL SCH ×2 (10:34→20:46)
[2022-12-26] MEDS ORDERED: ceFAZolin 2 GM in NS PREMIX 2 GM/100 ML BAG IVPB ONE (12:30)
[2022-12-26] MEDS ORDERED: Bupivacaine 0.25% SDV 30 ML ONE (13:03)
[2022-12-26] MEDS ORDERED: Midazolam 2 mg/2 ml VIAL 1 mg/ml 2 ml VIAL (2 mg) ONE (13:12)
[2022-12-26] MEDS ORDERED: Lidocaine 2% PF 5 ML VIAL ONE (13:12)
[2022-12-26] MEDS ORDERED: fentaNYL 100 mcg/2 ml 50 MCG/ML VIAL ONE ×3 (13:12→18:08)
[2022-12-26 13:58] LABS: Magnesium 1.3 mg/dL (1.9-2.7)
[2022-12-26] MEDS ORDERED: Rocuronium 50 mg VIAL 10 mg/ml 5 ml VIAL (50 mg) ONE (14:00)
[2022-12-26] MEDS ORDERED: Ondansetron 4 mg VIAL 2 MG/ML 2 ml VIAL ONE (14:01)
[2022-12-26] MEDS ORDERED: Dexamethasone IV 4 MG/ML VIAL 1 ml VIAL ONE (14:01)
[2022-12-26] MEDS ORDERED: Propofol 10 MG/ML 20 ML BTL ONE (14:01)
[2022-12-26] MEDS ORDERED: Magnesium Sulfate IV 3 GM in NS 0.9% 100 ml BAG 100 ML IVPB ONE (14:26)
[2022-12-26] MEDS ORDERED: Esmolol 10 MG/ML 10 ML (100 mg) IV ONE (14:54)
[2022-12-26] MEDS ORDERED: Acetaminophen IV 1 GM/100ML 1,000 MG/100 ML BAG IV ONE ×2 (16:17→16:27)
[2022-12-26] MEDS ORDERED: Ondansetron 4 mg VIAL 2 MG/ML 2 ml VIAL IV PRN (16:27)
[2022-12-26] MEDS ORDERED: Naloxone 0.4 mg VIAL 0.4 mg/ml 1 ml VIAL IV PRN (16:27)
[2022-12-26] MEDS: fentaNYL 100 mcg/2 ml 50 MCG/ML VIAL IV PRN ×5 (16:34→18:09)
[2022-12-26 16:44] LABS: Hematocrit 39.2 % (35-45); Hemoglobin 12.8 g/dL (11.5-14.3)
[2022-12-26] MEDS ORDERED: Labetalol IV 5 MG/ML 20 ml VIAL ONE (16:58)
[2022-12-26] MEDS: Labetalol IV 5 MG/ML 20 ml VIAL IV PUSH SCH ×3 (17:05→17:43)
[2022-12-26] MEDS ORDERED: Morphine 2 MG/ML SYRINGE IV PRN (18:45)
[2022-12-26] MEDS: ceFAZolin 1 GM X 3 DOSES POST-OP Q8H (AddVan) IVPB SCH (23:20)
[2022-12-27] MEDS: Acetaminophen IV 1 GM/100ML 1,000 MG/100 ML BAG IV SCH ×2 (03:46→14:44)
[2022-12-27] MEDS: ceFAZolin 1 GM X 3 DOSES POST-OP Q8H (AddVan) IVPB SCH ×2 (05:34→15:03)
[2022-12-27] MEDS: Labetalol IV 5 MG/ML 20 ml VIAL IV PUSH SCH ×2 (07:19→07:20)
[2022-12-27 08:24] LABS: ABS Basophils 0.1 10^3/uL (0.0-0.1); ABS Monocytes 0.8 10^3/uL (0.0-0.9); ABS Neutrophils 5.8 10^3/uL (1.5-7.6); ABS Nucleated RBC 0.01 10^3/ul; Eosinophil % 0.2 %; Mean Corpuscular Hemoglobin 35.7 pg (27-33); Mean Corpuscular Hgb Conc 34.4 g/dL (31-36); Mean Platelet Volume 7.2 fL (7.5-11.2); Nucleated Red Blood Cells % 0.1 /100 WBC (0.0-0.4); Platelet Count 306 10^3/uL (150-450); Red Blood Count 2.79 10^6/uL (3.63-4.92); Red Cell Distribution Width 16.9 % (12-17); White Blood Count 7.7 10^3/uL (3.8-11.8)
[2022-12-27 08:45] LABS: Calcium 8.6 mg/dL (8.6-10.3); Creatinine, Serum 0.5 mg/dL (0.51-0.95); Magnesium 1.8 mg/dL (1.9-2.7); Phosphorus 3.5 mg/dL (2.5-5.0); eGFR CKD-EPI 100.8 (>60)
[2022-12-27] MEDS: Nicotine PATCH 14 MG/24 HR PATCH TRANSDERM SCH (09:00)
[2022-12-27] MEDS: Triamcinolone 0.5% OINT 1 TUBE TOPICAL SCH ×2 (09:10→21:25)
[2022-12-27 09:16] LABS: Folate 8.34 ng/mL (5.90-24.80)
[2022-12-27] MEDS: Enoxaparin 40 MG/0.4 ML SYR SUBCUT SCH (12:53)
[2022-12-28] MEDS ORDERED: Thiamine 100 MG/ML 2 ml VIAL (200 mg) IM ONE (04:32)
[2022-12-28 07:46] LABS: Hematocrit 22.5 % (35-45); Hemoglobin 7.9 g/dL (11.5-14.3); Mean Corpuscular Volume 102.9 fL (80-97); Mean Platelet Volume 7.3 fL (7.5-11.2); Platelet Count 246 10^3/uL (150-450); Red Blood Count 2.18 10^6/uL (3.63-4.92); Red Cell Distribution Width 15.7 % (12-17); White Blood Count 7.4 10^3/uL (3.8-11.8)
[2022-12-28] MEDS ORDERED: Ferric Gluconate IV 250 MG in NS 0.9% 250 ml 200 ML IVPB ONE (08:07)
[2022-12-28] MEDS: Nicotine PATCH 14 MG/24 HR PATCH TRANSDERM SCH (08:25)
[2022-12-28] MEDS: Triamcinolone 0.5% OINT 1 TUBE TOPICAL SCH ×2 (08:26→21:03)
[2022-12-28] MEDS: Multivitamins/Minerals TAB PO SCH (08:47)
[2022-12-28] MEDS: Enoxaparin 40 MG/0.4 ML SYR SUBCUT SCH (12:39)
[2022-12-28 13:26] LABS: Calcium 8.9 mg/dL (8.6-10.3); Potassium 3.8 mmol/L (3.5-5.0)
[2022-12-28 13:32] LABS: Creatinine, Serum 0.39 mg/dL (0.51-0.95); eGFR CKD-EPI 107.1 (>60)
[2022-12-28] MEDS: Ammonium Lactate 12% 1 APPLIC TUBE TOPICAL SCH (21:03)
[2022-12-29] MEDS: Nicotine PATCH 14 MG/24 HR PATCH TRANSDERM SCH (08:09)
[2022-12-29] MEDS: Triamcinolone 0.5% OINT 1 TUBE TOPICAL SCH ×2 (08:11→20:56)
[2022-12-29 08:12] LABS: Hemoglobin 8.3 g/dL (11.5-14.3); Mean Corpuscular Hemoglobin 35.8 pg (27-33); Mean Corpuscular Hgb Conc 34.5 g/dL (31-36); Mean Corpuscular Volume 103.6 fL (80-97); Mean Platelet Volume 7.4 fL (7.5-11.2); Platelet Count 258 10^3/uL (150-450); Red Blood Count 2.32 10^6/uL (3.63-4.92); Red Cell Distribution Width 16.1 % (12-17); White Blood Count 5.6 10^3/uL (3.8-11.8)
[2022-12-29] MEDS: Ammonium Lactate 12% 1 APPLIC TUBE TOPICAL SCH ×2 (08:12→20:56)
[2022-12-29] MEDS: Multivitamins/Minerals TAB PO SCH (08:13)
[2022-12-29] MEDS ORDERED: Magnesium Sulf 4 GM/100 ML IV 4,000 MG/100 ML BAG IVPB ONE (11:31)
[2022-12-29] MEDS: Enoxaparin 40 MG/0.4 ML SYR SUBCUT SCH (11:38)
[2022-12-30] MEDS: Multivitamins/Minerals TAB PO SCH (09:05)
[2022-12-30 09:10] LABS: Hematocrit 26.4 % (35-45); Hemoglobin 9.2 g/dL (11.5-14.3); Mean Corpuscular Hemoglobin 36.2 pg (27-33); Mean Corpuscular Volume 103.3 fL (80-97); Platelet Count 369 10^3/uL (150-450); Red Blood Count 2.55 10^6/uL (3.63-4.92); Red Cell Distribution Width 16.8 % (12-17); White Blood Count 5.8 10^3/uL (3.8-11.8)
[2022-12-30 09:11] LABS: ABS Eosinophils 0.2 10^3/uL (0.0-0.5); ABS Lymphocytes 1.1 10^3/uL (1.0-4.8); ABS Monocytes 0.7 10^3/uL (0.0-0.9); ABS Neutrophils 3.8 10^3/uL (1.5-7.6); ABS Nucleated RBC 0.01 10^3/ul; Eosinophil % 3.6 %; Lymphocyte % 18.7 %; Mean Platelet Volume 7.4 fL (7.5-11.2); Nucleated Red Blood Cells % 0.2 /100 WBC (0.0-0.4)
[2022-12-30] MEDS: Nicotine PATCH 14 MG/24 HR PATCH TRANSDERM SCH (09:14)
[2022-12-30] MEDS: Triamcinolone 0.5% OINT 1 TUBE TOPICAL SCH ×2 (09:15→21:47)
[2022-12-30] MEDS: Ammonium Lactate 12% 1 APPLIC TUBE TOPICAL SCH ×2 (09:15→21:45)
[2022-12-30 09:29] LABS: Calcium 9.1 mg/dL (8.6-10.3); Creatinine, Serum 0.47 mg/dL (0.51-0.95); Magnesium 1.9 mg/dL (1.9-2.7); Potassium 3.8 mmol/L (3.5-5.0); eGFR CKD-EPI 102.4 (>60)
[2022-12-30] MEDS: Enoxaparin 40 MG/0.4 ML SYR SUBCUT SCH (11:49)
[2022-12-31] MEDS: Nicotine PATCH 14 MG/24 HR PATCH TRANSDERM SCH (09:22)
[2022-12-31] MEDS: Multivitamins/Minerals TAB PO SCH (09:24)
[2022-12-31] MEDS: Ammonium Lactate 12% 1 APPLIC TUBE TOPICAL SCH ×2 (09:28→20:52)
[2022-12-31] MEDS: Triamcinolone 0.5% OINT 1 TUBE TOPICAL SCH ×2 (10:49→20:52)
[2022-12-31] MEDS: Enoxaparin 40 MG/0.4 ML SYR SUBCUT SCH (12:13)
[2023-01-01 05:47] VITALS: BP 110/71
[2023-01-01] MEDS: Nicotine PATCH 14 MG/24 HR PATCH TRANSDERM SCH (08:14)
[2023-01-01] MEDS: Multivitamins/Minerals TAB PO SCH (08:17)
[2023-01-01] MEDS: Ammonium Lactate 12% 1 APPLIC TUBE TOPICAL SCH (09:02)
[2023-01-01] MEDS: Triamcinolone 0.5% OINT 1 TUBE TOPICAL SCH (09:02)
== END 2023-01-01 10:55 | DRG 956 ==
LOC: ED 04:30 → EDHOLD 20:57 → SUATTDRO 20:57 → SSU 22:36
PROVIDERS: ADMIT Hospitalist; ATTEND Hospitalist